=== PATIENT | female | born 1955 | race Asian ===

== ENCOUNTER 2018-02-09 07:22 | Day surgery (SDC) | payer OTHER ==
[~2018-02-09 07:22] MED LIST: LIDOCAINE 2% INJ 100 MG/5 ML SDV (FOR ANES.) As Ordered; PROPOFOL 200 MG/20 ML VIAL As Ordered
[2018-02-09] MEDS: NS 1,000 ML IV (07:30)
[2018-02-09] MEDS ORDERED: PROPOFOL 200 MG/20 ML VIAL As Ordered (08:58)
== END 2018-02-09 09:48 | disposition home or self-care (01) ==
LOC: M OPP 07:22
DX: K64.0 First degree hemorrhoids (principal); K64.4 Residual hemorrhoidal skin tags; D12.5 Benign neoplasm of sigmoid colon; D12.3 Benign neoplasm of transverse colon; K57.30 Diverticulosis of large intestine without perforation or abscess without bleeding; K92.1 Melena; E11.9 Type 2 diabetes mellitus without complications; I10 Essential (primary) hypertension; E78.00 Pure hypercholesterolemia, unspecified; E03.9 Hypothyroidism, unspecified; K21.9 Gastro-esophageal reflux disease without esophagitis; R06.83 Snoring; Z79.4 Long term (current) use of insulin; Z79.899 Other long term (current) drug therapy; Z91.040 Latex allergy status; Z78.0 Asymptomatic menopausal state; Z90.49 Acquired absence of other specified parts of digestive tract
CPT/HCPCS: 45380

== ENCOUNTER 2018-09-06 13:52 | Inpatient (IN) | payer OTHER ==
[2018-09-06] VITALS (19 sets, daily range): BP systolic 72–98; BP diastolic 41–54
[~2018-09-06] VITALS: Ht 152.4 cm; Wt 60.2 kg
[2018-09-06] MEDS: NOREPINEPHRINE BITARTRATE 8 MG in D5W 492 ML IV SCH (00:26)
[~2018-09-06 13:52] MED LIST changes: +ATOR40TA75 PO; +INSULANT SC; +JANU50TA22 PO; +LANTINJ4 SC; -LIDOCAINE 2% INJ 100 MG/5 ML SDV (FOR ANES.) As Ordered; +LOSA100T5 PO; +OMEP20CA3 PO; -PROPOFOL 200 MG/20 ML VIAL As Ordered; +SYNT75TA PO; +[UNRECOGNIZED DRUG - CODE] PO
[2018-09-06] MEDS ORDERED: PROMETHAZINE INJ 25 MG/ML VIAL (J2550) IV ONE (14:00)
[2018-09-06] MEDS ORDERED: NS 1,000 ML IV ONE ×5 (14:00→23:15)
[2018-09-06 15:53] LABS: HEMATOCRIT 45.3 % (36.0-47.0); HEMOGLOBIN 14.4 g/dl (12.0-15.5); MEAN CORPUSCULAR HEMOGLOBIN 30.4 pg (27.0-33.0); MEAN CORPUSCULAR HGB CONC 31.8 g/dl (32.0-36.5); MEAN CORPUSCULAR VOLUME 95.8 fl (80.0-96.0); PLATELET COUNT, AUTOMATED 242 10^3/uL (150-450); RED BLOOD COUNT 4.73 10^6/uL (4.00-5.40); WHITE BLOOD COUNT 4.5 10^3/uL (4.0-10.0)
[2018-09-06] MEDS ORDERED: GABA-1171 PO (16:02)
[2018-09-06] MEDS ORDERED: GLYB3TA PO (16:02)
[2018-09-06] MEDS ORDERED: VITA50005 PO (16:02)
[2018-09-06 16:18] LABS: ALBUMIN 3.7 GM/DL (3.2-5.2); BILIRUBIN,DIRECT 0.2 MG/DL (0.0-0.2); BILIRUBIN,TOTAL 0.5 MG/DL (0.2-1.0); CALCIUM LEVEL 8.4 MG/DL (8.8-10.2); CREATININE FOR GFR 1.17 MG/DL (0.55-1.30); GLOMERULAR FILTRATION RATE 49.9 (>45); MB/CK RELATIVE INDEX 1.15 (< OR =4); TOTAL PROTEIN 7.3 GM/DL (6.4-8.2); TROPONIN I 0.08 NG/ML (< 0.10)
[2018-09-06 16:25] LABS: LYMPHOCYTES 17 % (16-52); METAMYELOCYTES 3 % (0-0); MONOCYTES 6 % (0-8); NEUTROPHILS 64 % (35-75)
[2018-09-06 16:26] LABS: PLATELET ESTIMATE NORMAL (NORMAL)
[2018-09-06] MEDS ORDERED: POTASSIUM CHLORIDE 10% LIQ 20 MEQ/15 ML UDC PO ONE (16:30)
[2018-09-06 17:04] LABS: VENOUS BASE EXCESS -5.1 (-2.0-2.0); VENOUS O2 SATURATION 50.2 % (60.0-80.0); VENOUS PARTIAL PRESSURE CO2 55.6 mmHg (38.0-50.0); VENOUS PARTIAL PRESSURE O2 31.3 mmHg (30.0-50.0); VENOUS PH 7.235 UNITS (7.330-7.430); VENOUS STANDARD HCO3 19.3 MEQ/L; VENOUS TOTAL CO2 24.7 MEQ/L (24.0-28.0)
[2018-09-06] MEDS: NS 1,000 ML IV SCH (17:23)
[2018-09-06] MEDS ORDERED: DEXTROSE 50% 50 ML SYRINGE IV PRN (17:45)
[2018-09-06] MEDS ORDERED: GLUCAGON FOR INJ 1 MG VIAL (J1610) SC PRN (17:45)
[2018-09-06] MEDS ORDERED: GLUCOSE 4 GM CHEW TABLET PO PRN (17:45)
[2018-09-06] MEDS ORDERED: NS 1,000 ML IV STA (17:51)
[2018-09-06] MEDS ORDERED: HumaLOG INSULIN (NovoLOG) PER UNIT SC SCH (21:00)
[2018-09-06] MEDS: CIPROFLOXACIN 400 MG in APPROPRIATE DILUENT 1 EA IV SCH (21:46)
[2018-09-06] MEDS: IBUPROFEN 400 MG TAB PO PRN (21:47)
[2018-09-06] MEDS ORDERED: NOREPINEPHRINE 4 MG/4 ML AMP As Ordered ONE (23:09)
[2018-09-07] VITALS (136 sets, daily range): BP systolic 65–207; BP diastolic 40–98; O2SAT 95–99
[2018-09-07] MEDS ORDERED: SODIUM BICARBONATE 8.4% INJ 50 ML SYRINGE As Ordered ONE ×2 (00:13→00:16)
[2018-09-07] MEDS ORDERED: ETOMIDATE INJ 20MG/10ML VIAL As Ordered ONE (00:13)
[2018-09-07] MEDS ORDERED: SUCCINYLCHOLINE INJ 200 MG/10 ML VIAL (J0330) As Ordered ONE (00:14)
[2018-09-07] MEDS ORDERED: ETOMIDATE INJ 20MG/10ML VIAL IV ONE (00:15)
[2018-09-07] MEDS ORDERED: SUCCINYLCHOLINE INJ 200 MG/10 ML VIAL (J0330) IV ONE (00:15)
[2018-09-07 00:18] LABS: CENTRAL VEN BASE EXCESS -11.1
[2018-09-07 00:27] LABS: INR 1.22; PROTHROMBIN TIME 15.6 SECONDS (12.1-14.4)
[2018-09-07] MEDS ORDERED: fentaNYL 100 MCG/2 ML INJECTION (J3010) IV ONE (00:31)
[2018-09-07] MEDS ORDERED: SODIUM BICARBONATE 8.4% INJ 50 ML SYRINGE IV STA ×2 (00:31→00:33)
[2018-09-07] MEDS: NS 1,000 ML IV SCH ×2 (00:32→05:58)
[2018-09-07 00:36] LABS: HEMATOCRIT 32.7 % (36.0-47.0); MEAN CORPUSCULAR HEMOGLOBIN 30.6 pg (27.0-33.0); MEAN CORPUSCULAR HGB CONC 32.4 g/dl (32.0-36.5); MEAN CORPUSCULAR VOLUME 94.5 fl (80.0-96.0); PLATELET COUNT, AUTOMATED 234 10^3/uL (150-450); RED BLOOD COUNT 3.46 10^6/uL (4.00-5.40)
[2018-09-07] MEDS ORDERED: MIDAZOLAM INJ 2 MG/2 ML VIAL (J2250) IV STA ×2 (00:36→01:16)
[2018-09-07] MEDS ORDERED: LORazepam 2 MG/ML VIAL (J2060) As Ordered ONE (00:37)
[2018-09-07] MEDS ORDERED: MIDAZOLAM INJ 2 MG/2 ML VIAL (J2250) As Ordered ONE (00:38)
[2018-09-07] MEDS ORDERED: PROPOFOL 1,000 MG/100 ML VIAL As Ordered ONE (00:38)
[2018-09-07 00:42] LABS: ALBUMIN 2.2 GM/DL (3.2-5.2); BILIRUBIN,TOTAL 0.4 MG/DL (0.2-1.0); CALCIUM LEVEL 6.4 MG/DL (8.8-10.2); CREATININE FOR GFR 1.18 MG/DL (0.55-1.30); GLOMERULAR FILTRATION RATE 49.4 (>45); HEMOGLOBIN 10.6 g/dl (12.0-15.5); POTASSIUM SERUM 3.1 MEQ/L (3.5-5.1); TOTAL PROTEIN 4.5 GM/DL (6.4-8.2)
[2018-09-07] MEDS ORDERED: fentaNYL 100 MCG/2 ML INJECTION (J3010) As Ordered ONE (00:51)
[2018-09-07 01:11] LABS: LYMPHOCYTES 2 % (16-52); METAMYELOCYTES 8 % (0-0); MONOCYTES 2 % (0-8); NEUTROPHILS 75 % (35-75); PLATELET ESTIMATE NORMAL (NORMAL)
[2018-09-07] MEDS ORDERED: fentaNYL 100 MCG/2 ML INJECTION (J3010) IV PRN (01:15)
[2018-09-07] MEDS ORDERED: ALBUTEROL SULFATE 2.5 MG/0.5 ML INH NEB SOLN NEB PRN (01:15)
[2018-09-07] MEDS ORDERED: REFRIGERATOR IV KEYS XX PRN (01:45)
[2018-09-07 01:53] LABS: ABG HCO3 14.2 MEQ/L (22.0-26.0); ABG O2 SATURATION 97.9 % (95.0-99.0); ABG PARTIAL PRESSURE CO2 29.7 mmHg (35.0-45.0); ABG STANDARD HCO3 15.8 MEQ/L (22.0-26.0); ABG TOTAL CO2 15.1 MEQ/L (23.0-31.0); ABG pH (ARTERIAL) 7.296 UNITS (7.350-7.450)
[2018-09-07] MEDS: cefTRIAXone SOD 1 GM in D5W MINI-BAG PLUS 50 ML IV SCH (02:04)
[2018-09-07] MEDS: VASOPRESSIN INJ 20 UNITS in NS 500 ML IV SCH ×3 (02:23→18:38)
[2018-09-07] MEDS: MIDAZOLAM HCL 100 MG in D5W 80 ML IV SCH (02:25)
[2018-09-07 02:56] LABS: MAGNESIUM LEVEL 0.9 MG/DL (1.8-2.4); PHOSPHORUS LEVEL 2.1 MG/DL (2.5-4.9)
[2018-09-07] MEDS: MAG SULF 1GM/100ML (MAG RUN) 1 GM in APPROPRIATE DILUENT 1 EA IV SCH ×3 (03:00→05:57)
[2018-09-07] MEDS: PROPOFOL 1,000 MG in APPROPRIATE DILUENT 1 EA IV SCH ×5 (04:39→22:20)
[2018-09-07] MEDS: NOREPINEPHRINE BITARTRATE 8 MG in D5W 492 ML IV SCH ×5 (04:57→14:17)
[2018-09-07] MEDS: HEPARIN SOD (PORCINE) 5000 UNITS/ML VIAL SC SCH ×3 (05:57→22:12)
--- NOTE | 2018-09-07 06:55 | REP ---
Nickel: Central line placement. Comparison: None. Findings: Right IJ line with tip in the SVC. Mediastinum and cardiac silhouette are grossly normal for portable technique. Lung francis are relatively clear without focal consolidation, effusion, or pneumothorax. Skeletal structures intact. Impression: Right IJ line with tip in the SVC. Electronically Signed by Jt Wells MD 09/07/2018 06:46 A
[2018-09-07 07:38] LABS: HEMOGLOBIN 11.6 g/dl (12.0-15.5); MEAN CORPUSCULAR HEMOGLOBIN 31.1 pg (27.0-33.0); MEAN CORPUSCULAR HGB CONC 32.2 g/dl (32.0-36.5); MEAN CORPUSCULAR VOLUME 96.5 fl (80.0-96.0); PLATELET COUNT, AUTOMATED 264 10^3/uL (150-450); RED BLOOD COUNT 3.73 10^6/uL (4.00-5.40); WHITE BLOOD COUNT 21.1 10^3/uL (4.0-10.0)
--- NOTE | 2018-09-07 07:41 | REP ---
Status post intubation. Comparison: 09/06/2018. Findings: Endotracheal tube approximately 2.5 cm above the frederick. Nasogastric tube courses below left hemidiaphragm. Right IJ line with tip in the SVC. Mediastinum and cardiac silhouette are stable. Perihilar and bibasilar atelectasis (left greater than right) suggested. No effusion. No pneumothorax. Skeletal structures intact. Impression: Lines and tubes in satisfactory position. Cannot exclude perihilar and left basilar atelectasis Electronically Signed by Jt Wells MD 09/07/2018 07:33 A
[2018-09-07 07:51] LABS: CALCIUM LEVEL 5.8 MG/DL (8.8-10.2); CREATININE FOR GFR 1.08 MG/DL (0.55-1.30); GLOMERULAR FILTRATION RATE 54.7 (>45); POTASSIUM SERUM 3.3 MEQ/L (3.5-5.1)
[2018-09-07] MEDS: KCL 10MEQ/100ML SWI (KRUN) 10 MEQ in APPROPRIATE DILUENT 1 EA IV SCH ×3 (08:24→11:12)
[2018-09-07] MEDS: CHLORHEXIDINE GLUCONATE 0.12 % 15ML UDC (PERIDEX ORAL RINSE) MT SCH ×2 (08:24→20:22)
[2018-09-07 08:34] LABS: LYMPHOCYTES 3 % (16-52); MONOCYTES 5 % (0-8); MYELOCYTES 1 % (0-0); NEUTROPHILS 67 % (35-75)
[2018-09-07] MEDS: CIPROFLOXACIN 400 MG in APPROPRIATE DILUENT 1 EA IV SCH ×2 (08:35→20:21)
[2018-09-07 08:36] LABS: PLATELET ESTIMATE NORMAL (NORMAL)
[2018-09-07 08:38] LABS: ANISOCYTOSIS 1+
[2018-09-07] MEDS: IBUPROFEN 400 MG TAB PO PRN (08:40)
[2018-09-07 09:04] LABS: MAGNESIUM LEVEL 1.7 MG/DL (1.8-2.4)
[2018-09-07] MEDS ORDERED: NOREPINEPHRINE 4 MG/4 ML AMP As Ordered ONE (09:40)
[2018-09-07] MEDS: PANTOPRAZOLE 40MG INJ (PROTONIX) (C9113) IV SCH (10:01)
[2018-09-07] MEDS: LEVOTHYROXINE 100 MCG (0.1MG) VIAL IV SCH (11:12)
[2018-09-07] MEDS ORDERED: CALCIUM GLUCONATE 1,000 MG in D5W MINI-BAG PLUS 100 ML IV ONE (12:00)
[2018-09-07 12:08] LABS: ABG BASE EXCESS -9.7 (-2.0-2.0); ABG HCO3 14.3 MEQ/L (22.0-26.0); ABG PARTIAL PRESSURE CO2 26.2 mmHg (35.0-45.0); ABG PARTIAL PRESSURE O2 112.7 mmHg (75.0-100.0); ABG STANDARD HCO3 16.8 MEQ/L (22.0-26.0); ABG TOTAL CO2 15.1 MEQ/L (23.0-31.0); ABG pH (ARTERIAL) 7.355 UNITS (7.350-7.450)
--- NOTE | 2018-09-07 13:11 | RO ---
DATE OF PROCEDURE: 09/06/2018 INDICATION: Septic shock. PREPROCEDURE DIAGNOSIS: Septic shock. POSTPROCEDURE DIAGNOSIS: Septic shock. ATTENDING PHYSICIAN: Dr. Montoya. Consent was obtained from the patient prior to the procedure. Indication, risk and benefits were explained at length. The central line insertion form was completed by an independent observer. A time out was performed. Full sterile technique was maintained throughout the procedure including surgical cap, mask, and protective eyewear, full gown and sterile gloves. The patient was placed in Trendelenburg position. The right chest and neck region was prepped using Chlorhexidine scrub and draped in a sterile fashion. The right internal jugular vein was identified using ultrasound. Anesthesia was achieved using 1% Lidocaine. Using real-time add plane guidance an introducer needle was inserted into the right IJ under direct ultrasound visualization. Venous blood was withdrawn. The syringe was removed and a guidewire was advanced into the introducer needle. The guidewire was visualized in the right IJ by ultrasound. The introducer needle was then removed from the guidewire. A small incision was made at the skin surface with a scalpel. The dilator was then exchanged over the guidewire. Appropriate dilation was obtained the dilator was removed and exchanged over the wire for a triple lumen central venous catheter. The wire was removed and the catheter was sutured in placed at 18 cm. A sterile dressing was placed over the catheter at the insertion site. The patient tolerated the procedure without any hemodynamic compromise. At time of procedure completion all ports aspirated and flushed properly. Postprocedure chest x-ray showed right IJ in good position with no pneumothorax.
[2018-09-07 13:15] LABS: ALBUMIN 2.2 GM/DL (3.2-5.2); BILIRUBIN,TOTAL 0.6 MG/DL (0.2-1.0); CALCIUM LEVEL 6.8 MG/DL (8.8-10.2); CREATININE FOR GFR 1.06 MG/DL (0.55-1.30); GLOMERULAR FILTRATION RATE 55.9 (>45); POTASSIUM SERUM 3.9 MEQ/L (3.5-5.1); TOTAL PROTEIN 4.4 GM/DL (6.4-8.2)
--- NOTE | 2018-09-07 13:18 | RO ---
DATE OF PROCEDURE: 09/07/2018 INDICATION: Metabolic acidosis. PREPROCEDURE DIAGNOSIS: Septic shock. POSTPROCEDURE DIAGNOSIS: Septic shock. PROCEDURE: Endotracheal intubation. PROCEDURALIST: Aliza Montoya MD CONSENT: The procedure was performed emergently and the permission was implied because of the emergent nature. The patient's was notified that the procedure was going to proceed and he was in agreement. PROCEDURE SUMMARY: A time out was performed. The patient was on a monitoring tech including continuous pulse oximetry. Rapid sequence intubation was conducted. The patient received 20 mg of etomidate for induction and 15 mg of succinylcholine. Cricoid pressure was used. Using a MAC 4 laryngoscope and a size 7.5 endotracheal tube with stylet. The patient was intubated on the first pass attempt. The stylet was removed and the balloon cuff was inflated. Appropriate endotracheal tube position was confirmed by direct visualization of vocal cord passage, fogging of the tube, CO2 colorimetric indicator and symmetric breath sounds. The tube was secured at 22 cm at the lips. Post intubation chest x-ray is pending. [facility]ITALCookie
[2018-09-07] MEDS: NEUTRA-PHOS 1.25 GM PACKET PO SCH ×2 (13:19→20:21)
--- NOTE | 2018-09-07 14:09 | CR ---
DATE OF CONSULTATION: 09/06/2018 HISTORY OF PRESENT ILLNESS: Ms. Emerson is a 63-year-old female with a past medical history of diabetes, hypertension, hypothyroidism, hyperlipidemia, gastroesophageal reflux disease (GERD), who presented with vomiting and diarrhea. The patient had reportedly eaten some raw crab and then afterwards had copious amounts of vomiting, as well as diarrhea. In the emergency department (ED), the patient was hypotensive. She was tachycardic. The patient was given multiple intravenous (IV) fluid boluses and initially had responded to IV fluids. The patient was also started maintenance fluid at 150 mL/h. Overnight, the patient was noted to become hypotensive again. Was given another liter of normal saline bolus with minimal response in blood pressure. She had so far since admission a few hours ago received 6-7 liters normal saline boluses. The patient was given ciprofloxacin for antibiotic. The patient was also noted to be febrile with a temperature of 102. On exam she is awake and alert and responsive but drowsy. She denies any complaints currently. Has no abdominal pain, no further nausea or vomiting. She does continue to have foul smelling diarrhea. Patient was also noted to desaturate when sleeping and lying down and so was started on NC oxygen. She was also becoming more tachypneic but denies any CP or SOB, no cough. PAST MEDICAL HISTORY: As above. PAST SURGICAL HISTORY: A (C) section and tubal ligation. FAMILY HISTORY: Noncontributory. SOCIAL HISTORY: Nonsmoker. No illicit drug use. HOME MEDICATIONS: - atorvastatin - vitamin D - gabapentin - Lantus - Synthroid - omeprazole - losartan - Janumet - glyburide ALLERGIES: To LATEX. PHYSICAL EXAMINATION: Maximum temperature (Tmax) 102, pulse 113, blood pressure systolic was in the 70s, diastolic in the 40s-50s, saturating 95% to 96% on 2 liters nasal cannula, with a respiratory rate of 27. GENERAL: The patient is drowsy but arousable and conversant. HEENT: Normocephalic, atraumatic. Pupils are reactive and equal. Dry mucous membranes noted. Neck is supple. Trachea is midline. CARDIAC: Tachycardic. Regular S1, S2. No murmurs appreciated. LUNGS: Coarse breath sounds bilaterally. No wheezes, rales, or rhonchi. ABDOMEN: Is soft, mildly distended but nontender. Ext: There is no lower extremity edema noted bilaterally. LABORATORIES: WBC 4.5, hemoglobin 14.4, platelets 242. Chemistry: Sodium 144, potassium 3.0, chloride 107, bicarbonate 24, BUN 13, creatinine 1.17, glucose 117, anion gap of 13, lactic acid initially was 7.0 and repeat was 6.7, AST 50, ALT 81, troponin initial were negative, lipase was 173. A VBG had a pH of 7.235, PCO2 55.6. INR was 1.22. MICROBIOLOGY: Gastrointestinal (GI) panel was positive for Vibrio species, not Vibrio cholerae. ASSESSMENT AND PLAN: The patient is a 63-year-old female with a history of hypertension, diabetes, hypothyroidism, hyperlipidemia, who presented with complaints of vomiting and diarrhea after ingesting some raw an uncooked crab. The patient was hypotensive and febrile. Was given IV fluid boluses initially with improvement in her blood pressure and then later became hypotensive, unresponsive to fluids. The patient with septic shock in the setting of Vibrio, possibly Vibrio vulnificus, given her history and the septic shock. The patient was started on Levophed for blood pressure support and had a right internal jugular (IJ) line placed. The patient was requiring increasing dosages of Levophed up to 22 mcg/min. Given her hemodynamic instability and acidosis the decision was made for intubation. Discussed with patient and also her . The patient was intubated with etomidate and succinylcholine as well as receiving amp bicarb prior to intubation. Neurological: Patient is intubated, will continue sedation with propofol drip, as well as with Versed as needed and fentanyl as needed. The patient may require Versed drip for further sedation. Titrate sedation for a goal RASS of - 1 to -2 Cardiovascular: history of hypertension. The patient now in septic shock, likely secondary to Vibrio infection, possibly Vibrio vulnificus septicemia. The patient is on Levophed for blood pressure support. Will titrate to maintain a mean arterial pressure (MAP) above 65. If the patient is continuing to require high doses of Levophed, will start vasopressin for an additional pressor. The patient's lactic acid had trended down. Will repeat lactic acid to continue to trend. Pulmonary. The patient was intubated given her acidosis and septic shock. She is currently on pressure-regulated volume control (PRVC) at 360, 20, 50, and 5. Will continue to wean down FIO2 as tolerated. Will get daily chest x-rays. Will get an arterial blood gas (ABG) now that she has been intubated. Continue head-of-bed elevation and vent bundle care. Infectious disease (ID)/gastrointestinal (GI). The patient with septic shock, likely secondary to Vibrio, possible Vibrio vulnificus, given her presentation and severe sepsis. Will get blood cultures. The patient was given ciprofloxacin. Will add ceftriaxone to the ciprofloxacin. Continue the patient as nothing by mouth for now. Orogastric (OG) tube is placed to low wall intermittent suction. The patient was also given 2 amps of bicarbonate prior to intubation. Follow-up liver function tests. Renal. The patient with acute kidney injury likely in the setting of septic shock. Will continue to monitor renal function and renally dose medications. She was also hypokalemic. Was given potassium repletion. Will followup repeat potassium and a magnesium level and will replete electrolytes as needed. Will place a Murphy for accurate monitoring of intake and output. The patient also with a history of hypothyroidism. Will start IV Synthroid. Deep venous thrombosis (DVT) prophylaxis with heparin. FULL CODE. TOTAL CRITICAL CARE TIME SPENT: Not including any procedures: 1 hour and 50 minutes. MTDD
[2018-09-07] MEDS: HumaLOG INSULIN (NovoLOG) PER UNIT SC SCH ×5 (14:16→22:13)
--- NOTE | 2018-09-07 14:52 | ECGEPIP ---
Stationary ECG Study [facility] - ED Test Date: 2018-09-06 Pat Name: RAHUL MULTANI Department: Room: [place] [address] Gender: F Supervisor [employer]: JONATHAN : 1955 Requested By: VANESSA CARNEY Order Number: [id number] Reading MD: Mile Noguera Measurements Intervals Plaza Rate: 118 P: 48 NC: 170 QRS: 41 QRSD: 94 T: 12 QT: 362 QTc: 508 Interpretive Statements SINUS TACHYCARDIA ABNORMAL RHYTHM ECG NSTTW ABNORMALITY NO PRIOR FOR COMPARISON Electronically Signed On 09-07-2018 14:52:12 EST by Mile Noguera
--- NOTE | 2018-09-07 15:26 | CCN ---
DATE: 09/07/2018 The patient was seen and examined this morning. Patient is intubated and sedated. Is very minimally responsive to any painful stimuli at this time. She is on pressor support with Levophed at 26 mcg per minute as well as vasopressin. Patient continued to be febrile overnight and was started on a cooling blanket and given Ibuprofen for fever. Patient was sedated with propofol after intubation however she continued to be agitated when started on a Versed drip. Patient was given Fentanyl as well however her blood pressures decreased with the Fentanyl. With the Versed and Propofol the patient is sedated and her blood pressure have been maintaining with the vasopressor support. Overnight patient was repleated with magnesium and potassium. PHYSICAL EXAMINATION: Maximum temperature overnight was 100.2, pulse 85, respirations 20, blood pressure 91/58, Oxygen 97% on 40% FiO2. In 2.9 liters out, 1.5 liters net positive 2.8 liters. GENERAL: Patient is intubated and sedated. Very minimally responsive to any painful stimuli. HEENT: Normocephalic atraumatic. Pupils are small but reactive. The trachea is midline. Neck supple. No palpable adenopathy. CARDIOVASCULAR: Regular rate and rhythm. S1 and S2 normal. LUNGS: Course ventilator breath sounds bilaterally but no wheezes, rales, or rhonchi. ABDOMEN: Obese, soft and nontender. No hepatosplenomegaly. EXTREMITIES: There is no lower extremity edema noted bilaterally. LABS: WBC 21.1, hemoglobin 11.5, platelets 264, sodium 144, potassium 3.3, chloride 114, bicarbonate 17, BUN 20, creatinine 1.08, glucose 309, calcium 5.1, phosphorus 2.1 magnesium 0.9, INR 1.22, ABG pH 7.296, PcO2 29.7, Po2 123. Chest x-rays shows EG tube in good position. Right IJ in position. Right IJ with tip in the SUV. OG tube courses below the diaphragm. Low lung volumes, possible bibasilar atelectasis. No pleural effusions. ASSESSMENT AND PLAN: Mrs. Emerson is a 63-year-old female with a past medical history of hypothyroidism, diabetes, hyperlipidemia, hypertension who presented with vomiting an diarrhea after ingesting raw crab. Patient was febrile and initially did not have a leukocytosis but later developed leukocytosis. She was initially hypotensive but responding to fluids and then overnight patient became unresponsive to IV fluid boluses and required vasopressor support. Patient with septic shock likely secondary to Vibrio vulnificus given her GI panel results and her presentation which would be more consistent with septicemia secondary to Vibrio vulnificus. Patient was requiring increasing amounts of vasopressors and was noted to tachypneic in the setting of a metabolic acidosis. She was intubated given her hemodynamic instability overnight. Neurologic: Patient is a currently sedated while intubated. Patient was on Propofol however continued to be agitated requiring a versed drip. Will continue with Propofol and decrease Versed from 2 mg an hour to 1 mg an hour as this morning she is very deeply sedated. Continue with Fentanyl as needed 12.5 mcg as needed for any pain. Will continue to titrate sedation for a RASS of -2 Cardiovascular, history of hypertension. Patient now in septic shock secondary to Vibrio requiring vasopressor support. Patient is requiring high doses of Levophed. Was started on vasopressin drip overnight. This morning her blood pressure have been stable with the two pressors however have been unable to wean down the Levophed yet. Continue to titrate for a map above 65. Lactic acidosis was trending down. Pulmonary, patient was intubated secondary to septic shock with a metabolic acidosis. She is on PRVC currently and has been weaned down to 40% FiO2. Her ABG today continues to show some metabolic acidosis. Will increase her respiratory rate to compensate for the acidosis and followup a repeat ABG in 1 hour. Her settings will be 360/23/40/5. Chest x-ray today shows some bibasilar atelectasis but no pleural effusions or large focal opacities. Will continue daily chest x-rays and ABG's while intubated. GI, patient presented with vomiting and diarrhea. GI panel was positive for Vibrio likely vulnificus secondary to raw crab ingestion. Patient was started on Ciprofloxacin for antibiotics. Ceftriaxone was added overnight to the antibiotic regimen. Patient also has an OG tube placed to low intermittent suction. Will keep her nothing by mouth for now. Continue GI prophylaxis with Protonix. Renal, patient with acute kidney injury in the setting of hypotension and dehydration. Her creatinine is improving today. She is also noted to have significant metabolic derangements likely secondary to her diarrhea and vomiting. She was repleated overnight with magnesium and potassium. We will repleate phosphorus today and calcium and continue to monitor electrolytes and continue to repleate as needed. Patient continue to have a metabolic acidosis. Has an anion gap of 13, however likely component of non-anion gap metabolic acidosis secondary to hyperchloremia given the multiple normal saline boluses and normal saline infusion. Will discontinue her normal saline IV fluid and continue to monitor her fluid status. She is net positive currently. Continue to monitor renal function and renally dose the medications. Deep venous thrombosis prophylaxis with heparin. Patient is a FULL CODE. Total critical care time spent not including any procedures approximately 50 minutes. MTDD
[2018-09-07 15:52] LABS: MAGNESIUM LEVEL 1.7 MG/DL (1.8-2.4)
--- NOTE | 2018-09-07 17:03 | HPE ---
DATE OF ADMISSION: 09/06/2018 63-year-old female with past medical history of diabetes, hypertension, hyperlipidemia, hypothyroidism, presents to the emergency room with multiple massive episodes of projectile vomiting and diarrhea which occurred at approximately 12 o'clock this afternoon. According to her , she had some raw clams around 10 o'clock this morning and nobody else in the family had it. She has been fine before this. She has never had similar episodes and has not been around any sick contacts. In the emergency room (ER), she was given approximately 4 liters, she was hypotensive, as low as systolic 75, and tachycardic, but she has improved after 4 liters of IV fluids, she is now systolic 90s. She is lethargic, but is awake, alert, oriented times three and will be admitted for further management. PAST MEDICAL HISTORY: Hypertension, diabetes, hyperlipidemia, hypothyroidism, gastroesophageal reflux disease (GERD). ALLERGIES: No known drug allergies. FAMILY HISTORY: Noncontributory. SOCIAL HISTORY: Patient denies tobacco, alcohol, or illicit drugs. MEDICATIONS: She takes at home are as follows: - atorvastatin 40 mg by mouth daily - ergocalciferol 50,000 units by mouth weekly - gabapentin 100 mg by mouth twice a day - glyburide 3 mg by mouth twice a day - Lantus unknown dose subcutaneous daily, needs to be reconciled - Synthroid 75 mcg by mouth daily - losartan/hydrochlorothiazide 100/25 one tablet by mouth daily - omeprazole 20 mg daily - sitagliptin/metformin 50/500 mg one tablet by mouth twice a day REVIEW OF SYSTEMS: Negative for all ten major systems except what has been mentioned in the history of present illness (HPI). Vital signs: Blood pressure is 92/56, heart rate is 113 and regular, respiratory rate is 20, temperature is 97.8 rectally, oxygen saturation is 93% on room air. Head is atraumatic, normocephalic. Neck is supple, no jugular venous distention (JVD). Lungs are clear to auscultation. S1, S2 audible, no murmurs appreciated. Abdomen is soft, positive bowel sounds. No pedal edema. Skin intact. Neurologic examination: Patient is lethargic, but awake, alert, oriented times three. LABORATORY DATA: WBC 4.5, hemoglobin 14.4, hematocrit 45.3, platelets 242,000, sodium 144, potassium 2.0, chloride 107, CO2 24, anion gap 13, BUN 13, creatinine 1.17, lactic acid 7, fasting glucose 117, AST 50, ALT 81, total bilirubin 0.5, troponin 0.08, lipase 173. Venous blood gas (VBG): pH was 7.235. IMPRESSION: 1. Acute gastroenteritis. 2. Hypotension. 3. Hypokalemia. PLAN: Patient is being admitted to the intensive care unit (ICU). Will continue IV fluids and normal saline at 125 mL/hour. She is improving. I have put her in the intensive care unit (ICU) just in case the patient does not improve or cannot catch up with her volume loss and may require pressors, but at this point I highly doubt it. I will give her IV ciprofloxacin at 400 every 12 hours. We will get a gastrointestinal (GI) panel once she is able to give us a stool specimen. Though I feel this is likely a viral gastroenteritis, I do not feel that she has suffered from food poisoning because of the short latency between when she inoculated herself and presented with her symptoms. Will put a hold on all of her medications for now and will put her on insulin sliding scale with fingersticks done before food and nightly and continue her care in the intensive care unit (ICU).
[2018-09-07] MEDS ORDERED: MAG SULF 1GM/100ML (MAG RUN) 1 GM in APPROPRIATE DILUENT 1 EA IV ONE (18:00)
[2018-09-07] MEDS: NOREPINEPHRINE BITARTRATE 16 MG in D5W 484 ML IV SCH (19:07)
[2018-09-08] VITALS (118 sets, daily range): BP systolic 94–154; BP diastolic 49–89; O2SAT 97
[2018-09-08] MEDS: cefTRIAXone SOD 1 GM in D5W MINI-BAG PLUS 50 ML IV SCH (00:46)
[2018-09-08] MEDS: HumaLOG INSULIN (NovoLOG) PER UNIT SC SCH ×8 (00:47→20:52)
[2018-09-08] MEDS: MIDAZOLAM HCL 100 MG in D5W 80 ML IV SCH (02:09)
[2018-09-08] MEDS: VASOPRESSIN INJ 20 UNITS in NS 500 ML IV SCH ×3 (02:18→18:23)
[2018-09-08] MEDS: PROPOFOL 1,000 MG in APPROPRIATE DILUENT 1 EA IV SCH ×5 (03:34→22:50)
[2018-09-08] MEDS: NOREPINEPHRINE BITARTRATE 16 MG in D5W 484 ML IV SCH (04:50)
[2018-09-08] MEDS: HEPARIN SOD (PORCINE) 5000 UNITS/ML VIAL SC SCH ×3 (06:04→20:54)
[2018-09-08 06:18] LABS: HEMATOCRIT 32.9 % (36.0-47.0); HEMOGLOBIN 10.9 g/dl (12.0-15.5); MEAN CORPUSCULAR HEMOGLOBIN 30.5 pg (27.0-33.0); MEAN CORPUSCULAR HGB CONC 33.1 g/dl (32.0-36.5); MEAN CORPUSCULAR VOLUME 92.2 fl (80.0-96.0); PLATELET COUNT, AUTOMATED 189 10^3/uL (150-450); RED BLOOD COUNT 3.57 10^6/uL (4.00-5.40); WHITE BLOOD COUNT 15.2 10^3/uL (4.0-10.0)
[2018-09-08 06:45] LABS: BASOPHILS 1 % (0-4); LYMPHOCYTES 6 % (16-52); MONOCYTES 1 % (0-8); NEUTROPHILS 85 % (35-75)
[2018-09-08 06:46] LABS: DOHLE BODIES 1+; PLATELET ESTIMATE NORMAL (NORMAL)
[2018-09-08 06:48] LABS: ALBUMIN 2.2 GM/DL (3.2-5.2); ALT/SGPT 56 U/L (12-78); BILIRUBIN,TOTAL 0.6 MG/DL (0.2-1.0); BLOOD UREA NITROGEN 9 MG/DL (7-18); CALCIUM LEVEL 6.6 MG/DL (8.8-10.2); CARBON DIOXIDE LEVEL 19 MEQ/L (21-32); CHLORIDE LEVEL 103 MEQ/L (98-107); CREATININE FOR GFR 0.77 MG/DL (0.55-1.30); GLOMERULAR FILTRATION RATE > 60.0 (>45); GLUCOSE, FASTING 189 MG/DL (70-100); MAGNESIUM LEVEL 1.8 MG/DL (1.8-2.4); PHOSPHORUS LEVEL 1.3 MG/DL (2.5-4.9); POTASSIUM SERUM 3.1 MEQ/L (3.5-5.1); SODIUM LEVEL 133 MEQ/L (136-145); TOTAL PROTEIN 5.3 GM/DL (6.4-8.2)
--- NOTE | 2018-09-08 08:03 | REP ---
Clinical: Intubation . Comparison: 09/07/2018 . Findings: Endotracheal tube 3 cm above the frederick. Right IJ line with tip in the SVC. Nasogastric tube courses below left hemidiaphragm. The mediastinum and cardiac silhouette are stable and within normal limits for portable technique. The lung francis are stable. No effusion. No pneumothorax. Impression: No acute cardiopulmonary process appreciated. Electronically Signed by Jt Wells MD 09/08/2018 07:54 A
[2018-09-08] MEDS: LEVOTHYROXINE 100 MCG (0.1MG) VIAL IV SCH (08:39)
[2018-09-08] MEDS: NEUTRA-PHOS 1.25 GM PACKET PO SCH ×2 (08:39→20:53)
[2018-09-08] MEDS: PANTOPRAZOLE 40MG INJ (PROTONIX) (C9113) IV SCH (08:39)
[2018-09-08] MEDS: CHLORHEXIDINE GLUCONATE 0.12 % 15ML UDC (PERIDEX ORAL RINSE) MT SCH ×2 (08:40→20:54)
[2018-09-08] MEDS: CIPROFLOXACIN 400 MG in APPROPRIATE DILUENT 1 EA IV SCH (08:41)
[2018-09-08] MEDS: KCL 20MEQ IN 100ML SWI (KRUN) 20 MEQ in APPROPRIATE DILUENT 1 EA IV SCH ×6 (09:55→22:52)
[2018-09-08] MEDS ORDERED: POTASSIUM PHOSPHATE INJ 20 MMOL in D5W 250 ML IV ONE ×2 (10:00→20:00)
[2018-09-08] MEDS: MAG SULF 1GM/100ML (MAG RUN) 1 GM in APPROPRIATE DILUENT 1 EA IV SCH ×2 (11:10→12:42)
[2018-09-08 11:30] LABS: ABG BASE EXCESS -3.4 (-2.0-2.0); ABG HCO3 19.5 MEQ/L (22.0-26.0); ABG PARTIAL PRESSURE CO2 28.2 mmHg (35.0-45.0); ABG PARTIAL PRESSURE O2 105.6 mmHg (75.0-100.0); ABG PATIENT RESP RATE 23 /MIN; ABG STANDARD HCO3 21.7 MEQ/L (22.0-26.0); ABG TOTAL CO2 20.3 MEQ/L (23.0-31.0); ABG pH (ARTERIAL) 7.457 UNITS (7.350-7.450)
[2018-09-08] MEDS: DOXYCYCLINE HYCLATE 100 MG in D5W MINI-BAG PLUS 100 ML IV SCH (11:33)
--- NOTE | 2018-09-08 11:45 | CCN ---
DATE: 09/08/2018 Patient was seen and examined this morning. She remains intubated and sedated. Is responsive to painful stimuli. She has been weaned down on her Levophed to 14 mcg per minute and is continued on vasopressin. Patient continues to have fevers overnight with a T-max of 101.1. The patient was weaned down on her Versed to 1 mg an hour and has been continued on propofol which has also been weaned down. PHYSICAL EXAMINATION: T-max 101.1, pulse 74, respirations 23, blood pressure 126/70, oxygen 98% on 35% FiO2. INTAKE AND OUTPUT: In 6.5 liters, out 2.6 liters, net positive 3.9 liters. GENERAL: Patient is intubated and sedated, is responsive to painful stimuli. HEENT: Normocephalic, atraumatic. Pupils are reactive bilaterally. The trachea is midline. Neck supple. No palpable cervical adenopathy. CARDIOVASCULAR: Regular rate and rhythm. S1 and S2 normal. No murmurs appreciated. LUNGS: Some course ventilator breath sounds bilaterally, but no wheezes, rales, or rhonchi. ABDOMEN: Obese, soft and nontender. No hepatosplenomegaly palpated. EXTREMITIES: There is no lower extremity edema noted bilaterally. LABS: WBC 15.2, hemoglobin 10.9, platelets 189. Sodium 133, potassium 3.1, chloride 103, bicarbonate 19, BUN 9, creatinine 0.77, glucose 189, calcium 6.6, corrected is 8.0, phosphorus is 1.3, magnesium 1.8. ABG is still pending. Chest x-rays shows the ET tube in good position. Right IJ line is in good position. Her OG tube is coursing below the diaphragm. There is no focal opacities or pleural effusions. ASSESSMENT AND PLAN: Mrs. Emerson is a 63-year-old female with a history of hypothyroidism, diabetes, hyperlipidemia, hypertension who presented with vomiting and diarrhea after ingesting raw crab. Patient was febrile with a leukocytosis and later became hypotensive, not responding to fluids. The patient with septic shock likely secondary to Vibrio species, possibly vulnificus given her presentation of severe sepsis with shock requiring vasopressors. The patient was intubated given her hemodynamic instability and acidosis. She was initially on max Levophed and vasopressin, however, overnight have been able to titrate down her Levophed. Neuro. Patient is currently sedated while she is intubated. She is on propofol and a Versed drip which was weaned down to 1 mg/hour. Will discontinue Versed drip and continue with propofol and wean down as tolerated. Continue with fentanyl as needed for pain. Will titrate sedation for a Ghislaine of 2-3. Will add daily sedation vacations. Cardiovascular. History of hypertension. Patient with septic shock secondary to Vibrio requiring vasopressor support. Patient has been weaned down on the Levophed to 14 mcg per minute and is continued on vasopressin. Continue to wean down pressors as tolerated for a goal MAP above 65. Lactic acidosis is trending down. Pulmonary. Patient is intubated secondary to septic shock with a metabolic acidosis. Patient is continued on PRVC, FiO2 has been weaned down to 35%. ABG is still pending for today. Chest x-ray does not show any focal opacities or effusions. Will continue with daily ABG and chest x-rays while intubated. Cont with [facility] care Gastrointestinal (GI). She presented with vomiting and diarrhea after raw crab ingestion. GI panel was positive for Vibrio, not a cholera species, likely vulnificus given her severe sepsis. Patient was initially given ciprofloxacin, ceftriaxone was added. Will discontinue the Cipro and change to doxycycline. Will likely need to continue for a 10 day course of antibiotics. OG tube is in place. Will start tube feeds at a trophic rate. She continues to have occasional episodes of diarrhea, although it has been lessening. Continue GI prophylaxis with Protonix. Renal. Patient with acute kidney injury in the setting of hypotension and dehydration. Her creatinine has improved. She does continue to have electrolytes derangements, and is continuing to be repleted with her electrolytes. Patient was also noted to have elevated fingerstick glucose. She was started on sliding scale coverage with improvement in her fingersticks. Will change from every 2 hours to every 4 hours and continue with sliding scale coverage as needed. The patient's IV fluids were discontinued. Continue to monitor intake and output. Is still net positive currently. Deep venous thrombosis prophylaxis with heparin. Patient is a FULL CODE. Total critical care time spent, not including any procedures, approximately 45 minutes. [facility]
[2018-09-08 17:08] LABS: ALBUMIN 2.2 GM/DL (3.2-5.2); ALT/SGPT 50 U/L (12-78); BILIRUBIN,TOTAL 0.7 MG/DL (0.2-1.0); BLOOD UREA NITROGEN 8 MG/DL (7-18); CALCIUM LEVEL 6.5 MG/DL (8.8-10.2); CARBON DIOXIDE LEVEL 19 MEQ/L (21-32); CHLORIDE LEVEL 98 MEQ/L (98-107); CHOLESTEROL LEVEL 141 MG/DL (< 200); CPK CREATINE PHOSPHOKINASE 292 U/L (26-192); GLOMERULAR FILTRATION RATE > 60.0 (>45); GLUCOSE, FASTING 210 MG/DL (70-100); LDH LACTATE DEHYDROGENASE 302 U/L (84-246); MAGNESIUM LEVEL 1.9 MG/DL (1.8-2.4); PHOSPHORUS LEVEL 1.6 MG/DL (2.5-4.9); POTASSIUM SERUM 3.3 MEQ/L (3.5-5.1); SODIUM LEVEL 129 MEQ/L (136-145); TOTAL PROTEIN 5.2 GM/DL (6.4-8.2); TRIGLYCERIDES LEVEL 745 MG/DL (<150)
[2018-09-08] MEDS: fentaNYL 100 MCG/2 ML INJECTION (J3010) IV PRN (20:30)
[2018-09-08] MEDS ORDERED: MIDAZOLAM INJ 2 MG/2 ML VIAL (J2250) As Ordered ONE (20:37)
[2018-09-08] MEDS ORDERED: MIDAZOLAM INJ 2 MG/2 ML VIAL (J2250) IV PRN (20:45)
[2018-09-08] MEDS: MIDAZOLAM INJ 2 MG/2 ML VIAL (J2250) IV PRN ×2 (20:56→22:49)
[2018-09-09] VITALS (43 sets, daily range): BP systolic 87–167; BP diastolic 51–88; O2SAT 99
[2018-09-09] MEDS: MIDAZOLAM INJ 2 MG/2 ML VIAL (J2250) IV PRN ×8 (00:01→20:11)
[2018-09-09] MEDS: NOREPINEPHRINE BITARTRATE 16 MG in D5W 484 ML IV SCH ×3 (00:31→23:56)
[2018-09-09] MEDS: DOXYCYCLINE HYCLATE 100 MG in D5W MINI-BAG PLUS 100 ML IV SCH ×3 (00:32→23:55)
[2018-09-09] MEDS: HumaLOG INSULIN (NovoLOG) PER UNIT SC SCH ×6 (00:32→23:56)
[2018-09-09] MEDS: cefTRIAXone SOD 1 GM in D5W MINI-BAG PLUS 50 ML IV SCH (00:32)
[2018-09-09] MEDS: KCL 20MEQ IN 100ML SWI (KRUN) 20 MEQ in APPROPRIATE DILUENT 1 EA IV SCH ×10 (00:33→17:21)
[2018-09-09] MEDS: VASOPRESSIN INJ 20 UNITS in NS 500 ML IV SCH ×3 (03:02→17:26)
[2018-09-09] MEDS: PROPOFOL 1,000 MG in APPROPRIATE DILUENT 1 EA IV SCH ×3 (03:46→21:35)
[2018-09-09] MEDS: PROMETHAZINE INJ 25 MG/ML VIAL (J2550) IV SCH (05:29)
[2018-09-09] MEDS: HEPARIN SOD (PORCINE) 5000 UNITS/ML VIAL SC SCH ×3 (05:29→21:35)
[2018-09-09] MEDS: LEVOTHYROXINE 75MCG TABLET (0.075MG) PO SCH (05:29)
[2018-09-09 05:45] LABS: ABG BASE EXCESS -1.2 (-2.0-2.0); ABG HCO3 20.9 MEQ/L (22.0-26.0); ABG O2 SATURATION 98.1 % (95.0-99.0); ABG PARTIAL PRESSURE CO2 26.5 mmHg (35.0-45.0); ABG PARTIAL PRESSURE O2 108.9 mmHg (75.0-100.0); ABG STANDARD HCO3 23.5 MEQ/L (22.0-26.0); ABG TOTAL CO2 21.7 MEQ/L (23.0-31.0); ABG pH (ARTERIAL) 7.515 UNITS (7.350-7.450)
[2018-09-09 05:50] LABS: HEMATOCRIT 27.3 % (36.0-47.0); HEMOGLOBIN 9.4 g/dl (12.0-15.5); MEAN CORPUSCULAR HEMOGLOBIN 30.8 pg (27.0-33.0); MEAN CORPUSCULAR HGB CONC 34.4 g/dl (32.0-36.5); MEAN CORPUSCULAR VOLUME 89.5 fl (80.0-96.0); PLATELET COUNT, AUTOMATED 133 10^3/uL (150-450); RED BLOOD COUNT 3.05 10^6/uL (4.00-5.40); WHITE BLOOD COUNT 8.3 10^3/uL (4.0-10.0)
[2018-09-09 06:20] LABS: ALT/SGPT 46 U/L (12-78); BILIRUBIN,TOTAL 0.6 MG/DL (0.2-1.0); BLOOD UREA NITROGEN 7 MG/DL (7-18); CALCIUM LEVEL 6.5 MG/DL (8.8-10.2); CARBON DIOXIDE LEVEL 20 MEQ/L (21-32); CHLORIDE LEVEL 98 MEQ/L (98-107); CREATININE FOR GFR 0.59 MG/DL (0.55-1.30); GLOMERULAR FILTRATION RATE > 60.0 (>45); GLUCOSE, FASTING 168 MG/DL (70-100); MAGNESIUM LEVEL 1.7 MG/DL (1.8-2.4); PHOSPHORUS LEVEL 1.3 MG/DL (2.5-4.9); POTASSIUM SERUM 3.1 MEQ/L (3.5-5.1); SODIUM LEVEL 129 MEQ/L (136-145); TOTAL PROTEIN 4.9 GM/DL (6.4-8.2)
[2018-09-09 06:40] LABS: LYMPHOCYTES 5 % (16-52); MONOCYTES 2 % (0-8); NEUTROPHILS 91 % (35-75)
[2018-09-09 06:41] LABS: DOHLE BODIES 1+; PLATELET ESTIMATE DECREASED (NORMAL); SMUDGE CELLS 1+
[2018-09-09] MEDS: NEUTRA-PHOS 1.25 GM PACKET PO SCH ×3 (07:51→20:22)
[2018-09-09] MEDS: CHLORHEXIDINE GLUCONATE 0.12 % 15ML UDC (PERIDEX ORAL RINSE) MT SCH ×2 (07:52→20:22)
[2018-09-09] MEDS: PANTOPRAZOLE 40MG INJ (PROTONIX) (C9113) IV SCH (07:52)
--- NOTE | 2018-09-09 08:23 | REP ---
Clinical: Intubation. Comparison: 09/08/2018. Findings: Endotracheal tube 2 cm above the frederick. Nasogastric tube courses below left hemidiaphragm. Right IJ line with tip in the SVC. Cardiac silhouette is within normal limits and stable for portable technique. Perihilar opacities with indistinct pulmonary vasculature and suspected left lower lobe atelectasis. No definite effusion. No pneumothorax. Skeletal structures intact. Impression: 1. Lines and tubes in satisfactory position. 2. Cannot exclude pulmonary vascular congestion along with trace left basilar atelectasis. Electronically Signed by Jt Wells MD 09/09/2018 08:15 A
[2018-09-09 08:54] LABS: ABG BASE EXCESS -3.4 (-2.0-2.0); ABG FIO2 30; ABG HCO3 18.6 MEQ/L (22.0-26.0); ABG MODE OF VENT PRVC; ABG O2 SATURATION 98.5 % (95.0-99.0); ABG PARTIAL PRESSURE CO2 24.5 mmHg (35.0-45.0); ABG PARTIAL PRESSURE O2 135.5 mmHg (75.0-100.0); ABG PEEP 5; ABG STANDARD HCO3 21.6 MEQ/L (22.0-26.0); ABG TIDAL VOLUME 350 cc; ABG TOTAL CO2 19.3 MEQ/L (23.0-31.0); ABG pH (ARTERIAL) 7.498 UNITS (7.350-7.450)
--- NOTE | 2018-09-09 09:55 | CCN ---
DATE: 09/09/2018 START TIME: 829 STOP TIME: 909 I attended Adiel Emreson here in the intensive care unit. She remains intubated, sedated and mechanically ventilated. Over the last hour, we have been able to wean her Levophed. She remains on vasopressin. She still requires very significant levels of sedative with propofol and intermittent Versed. Agitated and does not follow commands when sedation lightened. T-max overnight 99.7. Blood pressure 80s to 140s on the pressors as outlined above. Heart rate generally in the 60s to 80s with a sinus mechanism. Respiratory rate 23. Ins and outs midnight to midnight 4023 mL in with 1870 mL out. Most recent laboratories show a white blood cell count of 8.3, hemoglobin 9.4, platelet count 133,000, 91% segs, 2% bands. Sodium 129, potassium 3.1, chloride 98, CO2 20, BUN 7, creatinine 0.59, glucose 168, calcium 6.5. Phosphorus low at 1.3. Magnesium low mildly at 1.7. Blood gas one on a PRVC rate of 23, tidal volume 360, PEEP 5, FiO2 of 30% has a pH of 7.515, pCO2 6.5 and pO2 of 108.9. On a rate of 15, same tidal volume and PEEP, pH 7.498, pCO2 of 24.5 and po2 of 135.5. She does over breathe on that setting. Chest x-ray shows a suboptimal inspiratory effort with most likely vascular crowding, cannot rule out vascular congestion. On exam, she is ill appearing. Vital signs as outlined above. Lines and tubes are noted. HEENT: Otherwise generally normocephalic. Oral endotracheal and gastric tube in place. Pupils do react, sclerae are clear. No obvious jugular venous distention (JVD). Trachea is in the midline. Chest shows symmetric expansion with scattered rhonchi. No wheezes or rubs are noted. Cardiac exam is distant, but regular. Peripheral pulses palpable. There is diffuse edema noted. Abdomen is minimally distended. There are active bowel sounds, somewhat hyperactive. Appears nontender. No obvious organomegaly or masses. Neurologically, she is sedate, but somewhat agitated when sedation is lightened. Does not follow commands. No other new culture data available. Stool screen positive for Vibrio. Ulcer and deep vein thrombosis (DVT) prophylaxis in place. She remains on Rocephin and doxycycline per Dr. Montoya's discussion with infection diseases. Most pressing problems requiring my presence at the bedside: 1. Respiratory alkalosis. 2. Respiratory failure requiring mechanical ventilatory support. 3. Vibrio sepsis. 4. Hypokalemia. 5. Hyponatremia. At this point, we will continue her electrolyte replacement. She has not been able to tolerate much in the way of tube feeds due to high residuals. I am reluctant to add any motility agents as she already has profound diarrhea and since we need her to clear the Vibrio toxin we cannot really slow her gut motility down. We will add a maintenance IV fluid. We will continue to replete her potassium, phosphorus and magnesium. When we are able to wean all of her vasopressor agents, then my hopes is that we can push towards at least a trial of extubation. Will check her sputum as she has had some intermittent secretions from endotracheal tube somewhat discolored, but she is already on Rocephin and doxycycline. At this point overall she does remain critically ill. It is encouraging that we have been able to wean her Levophed. Will proceed as outlined above. Prognosis remains guarded in view of the degree of diarrhea that she is still having and her persistent electrolyte abnormalities. I left the bedside at 0910 hours. 40 minutes of critical care delivered at the bedside, not including procedures.
[2018-09-09] MEDS: KCL 40MEQ IN D5/0.45NS 1000ML 1,000 ML IV SCH ×3 (10:13→23:56)
[2018-09-09 10:40] LABS: ABG BASE EXCESS -4.1 (-2.0-2.0); ABG O2 SATURATION 98.3 % (95.0-99.0); ABG PARTIAL PRESSURE CO2 24.3 mmHg (35.0-45.0); ABG PARTIAL PRESSURE O2 137.1 mmHg (75.0-100.0); ABG TOTAL CO2 18.8 MEQ/L (23.0-31.0); ABG pH (ARTERIAL) 7.488 UNITS (7.350-7.450)
[2018-09-09 15:52] LABS: BLOOD UREA NITROGEN 6 MG/DL (7-18); CALCIUM LEVEL 6.7 MG/DL (8.8-10.2); CARBON DIOXIDE LEVEL 23 MEQ/L (21-32); CHLORIDE LEVEL 100 MEQ/L (98-107); GLOMERULAR FILTRATION RATE > 60.0 (>45); GLUCOSE, FASTING 217 MG/DL (70-100); POTASSIUM SERUM 3.3 MEQ/L (3.5-5.1); SODIUM LEVEL 130 MEQ/L (136-145)
[2018-09-09 22:36] LABS: ALBUMIN 2.2 GM/DL (3.2-5.2); ALT/SGPT 40 U/L (12-78); BILIRUBIN,TOTAL 0.5 MG/DL (0.2-1.0); BLOOD UREA NITROGEN 5 MG/DL (7-18); CALCIUM LEVEL 7.8 MG/DL (8.8-10.2); CARBON DIOXIDE LEVEL 22 MEQ/L (21-32); CHLORIDE LEVEL 118 MEQ/L (98-107); CREATININE FOR GFR 0.73 MG/DL (0.55-1.30); GLOMERULAR FILTRATION RATE > 60.0 (>45); GLUCOSE, FASTING 252 MG/DL (70-100); POTASSIUM SERUM 4.5 MEQ/L (3.5-5.1); SODIUM LEVEL 147 MEQ/L (136-145); TOTAL PROTEIN 5.3 GM/DL (6.4-8.2)
[2018-09-10] VITALS (44 sets, daily range): BP systolic 83–207; BP diastolic 51–107; O2SAT 98
[2018-09-10] MEDS: cefTRIAXone SOD 1 GM in D5W MINI-BAG PLUS 50 ML IV SCH (01:11)
[2018-09-10] MEDS: PROPOFOL 1,000 MG in APPROPRIATE DILUENT 1 EA IV SCH ×3 (01:11→16:30)
[2018-09-10] MEDS: VASOPRESSIN INJ 20 UNITS in NS 500 ML IV SCH (02:12)
[2018-09-10] MEDS: MIDAZOLAM INJ 2 MG/2 ML VIAL (J2250) IV PRN ×5 (04:21→23:38)
[2018-09-10] MEDS: LEVOTHYROXINE 75MCG TABLET (0.075MG) PO SCH (05:26)
[2018-09-10] MEDS: HEPARIN SOD (PORCINE) 5000 UNITS/ML VIAL SC SCH ×3 (05:26→21:04)
[2018-09-10] MEDS: HumaLOG INSULIN (NovoLOG) PER UNIT SC SCH ×3 (05:39→18:33)
[2018-09-10 05:47] LABS: BASO % 0.3 % (0.0-1.0); EOS # 0.1 10^3/uL (0.0-0.50); EOS % 0.8 % (0.0-3.0); HEMATOCRIT 28.6 % (36.0-47.0); HEMOGLOBIN 9.7 g/dl (12.0-15.5); LYMPH # 0.9 10^3/uL (1.5-4.5); LYMPH % 13.6 % (24.0-44.0); MEAN CORPUSCULAR HEMOGLOBIN 30.6 pg (27.0-33.0); MEAN CORPUSCULAR HGB CONC 33.9 g/dl (32.0-36.5); MEAN CORPUSCULAR VOLUME 90.2 fl (80.0-96.0); MONO # 0.5 10^3/uL (0.0-0.8); MONO % 7.3 % (0.0-5.0); NEUTROPHILS % 77.5 % (36.0-66.0); PLATELET COUNT, AUTOMATED 170 10^3/uL (150-450); RED BLOOD COUNT 3.17 10^6/uL (4.00-5.40); WHITE BLOOD COUNT 6.4 10^3/uL (4.0-10.0)
[2018-09-10 06:25] LABS: ALBUMIN 2.2 GM/DL (3.2-5.2); ALT/SGPT 38 U/L (12-78); BILIRUBIN,TOTAL 0.4 MG/DL (0.2-1.0); BLOOD UREA NITROGEN 3 MG/DL (7-18); CALCIUM LEVEL 7.7 MG/DL (8.8-10.2); CARBON DIOXIDE LEVEL 23 MEQ/L (21-32); CHLORIDE LEVEL 119 MEQ/L (98-107); CREATININE FOR GFR 0.76 MG/DL (0.55-1.30); GLOMERULAR FILTRATION RATE > 60.0 (>45); GLUCOSE, FASTING 258 MG/DL (70-100); MAGNESIUM LEVEL 1.8 MG/DL (1.8-2.4); PHOSPHORUS LEVEL 0.5 MG/DL (2.5-4.9); POTASSIUM SERUM 3.9 MEQ/L (3.5-5.1); SODIUM LEVEL 150 MEQ/L (136-145); TOTAL PROTEIN 5.4 GM/DL (6.4-8.2)
[2018-09-10 06:34] LABS: ABG BASE EXCESS -2.2 (-2.0-2.0); ABG HCO3 20.9 MEQ/L (22.0-26.0); ABG O2 SATURATION 97.4 % (95.0-99.0); ABG PARTIAL PRESSURE CO2 29.6 mmHg (35.0-45.0); ABG PARTIAL PRESSURE O2 99.2 mmHg (75.0-100.0); ABG STANDARD HCO3 22.7 MEQ/L (22.0-26.0); ABG TOTAL CO2 21.8 MEQ/L (23.0-31.0); ABG pH (ARTERIAL) 7.466 UNITS (7.350-7.450)
[2018-09-10] MEDS: KCL 40MEQ IN D5/0.45NS 1000ML 1,000 ML IV SCH ×2 (06:54→08:44)
--- NOTE | 2018-09-10 07:52 | REP ---
Clinical: Intubation. Comparison: 09/09/2018. Findings: Endotracheal tube approximately 3 cm above the frederick. Nasogastric tube courses below left hemidiaphragm. Right IJ line with tip in the SVC. Mediastinum and cardiac silhouette stable. Lung francis demonstrate improved aeration with decreased suspected left lower lobe/retrocardiac opacity. No obvious effusion. No pneumothorax. Skeletal structures stable. Impression: 1. Lines and tubes in satisfactory position. 2. Minimally improved aeration, but continued left lower lobe/retrocardiac opacity suggested. Electronically Signed by Jt Wells MD 09/10/2018 07:44 A
[2018-09-10] MEDS ORDERED: D5W 1,000 ML IV SCH (08:30)
[2018-09-10] MEDS: PANTOPRAZOLE 40MG INJ (PROTONIX) (C9113) IV SCH (08:35)
[2018-09-10] MEDS: CHLORHEXIDINE GLUCONATE 0.12 % 15ML UDC (PERIDEX ORAL RINSE) MT SCH (08:35)
[2018-09-10] MEDS: NEUTRA-PHOS 1.25 GM PACKET PO SCH ×3 (08:35→21:04)
--- NOTE | 2018-09-10 10:41 | CCN ---
CRITICAL CARE NOTE DATE OF VISIT: 09/10/2018 START TIME: 809 STOP TIME: 842 I attended Adiel Emerson here in the intensive care unit. She is sedated, intubated, and mechanically ventilated. She is much less agitated with sedation lightened this morning and we will continue to push that. Maximum temperature (t-max) overnight 100.2, blood pressure 80 to 113 systolic and we have been able to maintain her off of her vasopressors. Heart rate 70 to 90s with a sinus mechanism. Respiratory rate anywhere from 18 to the mid 20s. Intake and output midnight to midnight 5240 mL in with 8620 mL out. Her diarrhea has significantly slowed. Her urine output has significantly increased. Most recent blood gas done in an SIMV of 10, total volume of 360, positive end-expiratory pressure (PEEP) of 12 and FiO2 of 21% shows a pH 7.466, pCO2 24.6, and a pO2 of 99.2. Sodium 150, potassium 3.9, chloride 119, CO2 of 23, BUN 3, creatinine 0.76, glucose 258. Phosphorus 0.5 this morning and is being repleted. White blood cell count is 6.4, hemoglobin 9.7, platelet count 170,000, 77% segmented neutrophils, no bands. Chest x-ray shows better inspiration. No significant changes in her left basilar opacity. She remains on deep venous thrombosis (DVT) prophylaxis as well as doxicycline and Rocephin. Further culture data and her sputum is pending. PHYSICAL EXAMINATION: She is sedate, but arousal. She opens her eyes to voice. Pupils to reactive. Sclera clear. Trachea is in the midline. CHEST: Shows symmetric expansion, only the rarest of rhonchi today, it cleared with suctioning. Maybe some fine dependent basilar crackles, but no other focal adventitious breath sounds are identified. CARDIAC EXAM: Regular with no gallop. Peripheral pulses. Minimal edema. ABDOMEN: Soft with active bowel sounds. No obvious organomegaly or masses. EXTREMITIES: No cyanosis or clubbing. NEUROLOGIC: As outlined above. Most pressing problems requiring my presence at bedside: Respiratory failure, respiratory alkalosis, hypernatremia, vibrio sepsis. At this point we have been able to wean her vasopressors. This morning that coupled with her increased urine output she has an increase her sodium. This will be addressed via change in her IV fluids with repleting of her electrolytes as well as free water down her NG tube. We will replete her phosphorus. We will lighten her sedation and my hopes with the changes as noted above we will be able to proceed with at least a trial of extubation today. We will continue with her antimicrobials for now. I think the improvement in her diarrhea is encouraging. I will proceed as outlined above. Overall she does remain critically ill. I left the bedside at 0843 hours. 33 minutes of critical care time at the bedside not including procedures.
[2018-09-10] MEDS ORDERED: POTASSIUM PHOSPHATE INJ 30 MMOL in D5W 500 ML IV ONE ×2 (11:00→17:00)
[2018-09-10 11:17] LABS: ABG BASE EXCESS -1.1 (-2.0-2.0); ABG HCO3 22.6 MEQ/L (22.0-26.0); ABG O2 SATURATION 97.4 % (95.0-99.0); ABG PARTIAL PRESSURE CO2 34.3 mmHg (35.0-45.0); ABG PARTIAL PRESSURE O2 101.5 mmHg (75.0-100.0); ABG STANDARD HCO3 23.5 MEQ/L (22.0-26.0); ABG TOTAL CO2 23.7 MEQ/L (23.0-31.0); ABG pH (ARTERIAL) 7.437 UNITS (7.350-7.450)
[2018-09-10] MEDS: DOXYCYCLINE HYCLATE 100 MG in D5W MINI-BAG PLUS 100 ML IV SCH (12:11)
[2018-09-10] MEDS: POTASSIUM CHLORIDE INJ 40 MEQ in D5W 1,000 ML IV SCH ×2 (13:00→18:34)
[2018-09-10 15:03] LABS: BLOOD UREA NITROGEN 3 MG/DL (7-18); CALCIUM LEVEL 7.9 MG/DL (8.8-10.2); CARBON DIOXIDE LEVEL 25 MEQ/L (21-32); CHLORIDE LEVEL 122 MEQ/L (98-107); CREATININE FOR GFR 0.67 MG/DL (0.55-1.30); GLOMERULAR FILTRATION RATE > 60.0 (>45); GLUCOSE, FASTING 222 MG/DL (70-100); POTASSIUM SERUM 3.7 MEQ/L (3.5-5.1); SODIUM LEVEL 154 MEQ/L (136-145)
[2018-09-10] MEDS: D5W 1,000 ML IV SCH (15:59)
[2018-09-10] MEDS ORDERED: MIDAZOLAM INJ 2 MG/2 ML VIAL (J2250) As Ordered ONE ×2 (16:11→16:29)
[2018-09-10] MEDS ORDERED: PROPOFOL 1,000 MG/100 ML VIAL As Ordered ONE (16:11)
[2018-09-10] MEDS ORDERED: VECURONIUM BROMIDE 10 MG VIAL As Ordered ONE (16:17)
--- NOTE | 2018-09-10 16:57 | REP ---
Clinical: Intubation. Comparison: 09/10/2018. Findings: Endotracheal tube is at the level of the frederick and warrants reevaluation/repositioning. Nasogastric tube courses below left hemidiaphragm. Right IJ line with tip in the SVC. Bilateral perihilar and bibasilar opacities appear increased from prior examination and compatible with pulmonary edema including areas of atelectasis and suspected layering pleural effusions. Impression: 1. Findings suggest pulmonary edema with bibasilar opacities/atelectasis and possible small layering effusions. Differential diagnosis includes diffuse atelectasis. 2. Endotracheal tube identified at the level of the frederick warrants repositioning. Electronically Signed by Jt Wells MD 09/10/2018 04:49 P
[2018-09-10 17:21] LABS: ABG BASE EXCESS -4.4 (-2.0-2.0); ABG HCO3 22.7 MEQ/L (22.0-26.0); ABG O2 SATURATION 96.3 % (95.0-99.0); ABG STANDARD HCO3 20.8 MEQ/L (22.0-26.0); ABG TOTAL CO2 24.3 MEQ/L (23.0-31.0)
[2018-09-10 17:24] LABS: ABG PARTIAL PRESSURE CO2 50.5 mmHg (35.0-45.0); ABG pH (ARTERIAL) 7.271 UNITS (7.350-7.450)
--- NOTE | 2018-09-10 17:44 | REP ---
Clinical: Altered mental status . Comparison: None . Findings: The ventricles, sulci, and cisterns are normal in position and appearance. Rust-white differentiation is maintained. No acute intracranial hemorrhage, mass/mass effect, pathology or trauma/injury. No evidence for acute infarction. No extra-axial fluid collection. Calvarium is intact. Paranasal sinuses and mastoid air cells are clear. Impression: Normal noncontrast head CT. No evidence for acute intracranial pathology or trauma/injury. Electronically Signed by Jt Wells MD 09/10/2018 05:36 P
[2018-09-10] MEDS ORDERED: VECURONIUM BROMIDE 10 MG VIAL IV STA (18:03)
[2018-09-10] MEDS ORDERED: MIDAZOLAM INJ 2 MG/2 ML VIAL (J2250) IV STA (18:03)
--- NOTE | 2018-09-10 18:23 | CCN ---
DATE: 09/10/2018 START TIME: 1615 hours STOP TIME: 1654 hours I was called urgently to attend Adiel Emerson. Throughout the day, despite having a normal arterial blood gas and reasonable oxygenation, her respirations have been a little more sonorous. An nasogastric tube was attempted to be placed and she had precipitous drop in her oxygen saturation. Max cart was called, but no specific intervention other than increased FiO2 was required. On my arrival, she remained with sonorous respirations and had significant increased work of breathing. Oxygen saturation remained 88% on an aerosol face mask, but given the difficulties with her mental status and her respiratory status as is, it was felt that she was not able to protect her airway and was intubated. There were significant amounts of arachnoid and false vocal cord edema were noted. Assistance with anesthesia and a glide scope was required. A #8.0 ET tube would not pass, though a 7.5 was able to be passed. Did require both Versed and vecuronium. OG tube was placed as well. Chest x-ray done postprocedure showed lines and tubes in good position. ET tube was right at the frederick and was pulled back 2 cm. I had a long discussion at the bedside with her son and updated him. At this point, in view of the above, we will be able to more adequately address her electrolyte abnormalities with use of her GI tract. Repeat laboratories, as well as blood gas, and I will pursue a CT scan of the head to assure no other pathology exists. My suspicion is that her mental status is on the basis of toxic metabolic encephalopathy. We will proceed as outlined above. I left the bedside at 1645 hours. An additional 39 minutes of critical care time was delivered at the bedside, not including procedures. TALISHA
[2018-09-10 20:05] LABS: BLOOD UREA NITROGEN 3 MG/DL (7-18); CALCIUM LEVEL 7.6 MG/DL (8.8-10.2); CARBON DIOXIDE LEVEL 20 MEQ/L (21-32); CHLORIDE LEVEL 114 MEQ/L (98-107); CREATININE FOR GFR 0.72 MG/DL (0.55-1.30); GLOMERULAR FILTRATION RATE > 60.0 (>45); GLUCOSE, FASTING 321 MG/DL (70-100); POTASSIUM SERUM 4.9 MEQ/L (3.5-5.1); SODIUM LEVEL 144 MEQ/L (136-145)
[2018-09-10 20:36] LABS: ABG BASE EXCESS -3.7 (-2.0-2.0); ABG O2 SATURATION 96.4 % (95.0-99.0); ABG PARTIAL PRESSURE CO2 27.1 mmHg (35.0-45.0); ABG PARTIAL PRESSURE O2 82.1 mmHg (75.0-100.0); ABG STANDARD HCO3 21.4 MEQ/L (22.0-26.0); ABG TOTAL CO2 19.8 MEQ/L (23.0-31.0); ABG pH (ARTERIAL) 7.464 UNITS (7.350-7.450)
[2018-09-10] MEDS: ACETAMINOPHEN 325 MG/10.15 ML UDC GT PRN (21:05)
[2018-09-11] VITALS (35 sets, daily range): BP systolic 83–157; BP diastolic 50–87
[2018-09-11] MEDS: DOXYCYCLINE HYCLATE 100 MG in D5W MINI-BAG PLUS 100 ML IV SCH ×3 (00:35→23:53)
[2018-09-11] MEDS: HumaLOG INSULIN (NovoLOG) PER UNIT SC SCH ×5 (00:35→23:53)
[2018-09-11] MEDS: MIDAZOLAM INJ 2 MG/2 ML VIAL (J2250) IV PRN ×15 (01:06→23:53)
[2018-09-11] MEDS: D5W 1,000 ML IV SCH ×3 (02:05→20:36)
[2018-09-11] MEDS: PROPOFOL 1,000 MG in APPROPRIATE DILUENT 1 EA IV SCH ×6 (03:23→23:06)
[2018-09-11] MEDS: cefTRIAXone SOD 1 GM in D5W MINI-BAG PLUS 50 ML IV SCH (03:24)
[2018-09-11] MEDS: POTASSIUM CHLORIDE INJ 40 MEQ in D5W 1,000 ML IV SCH ×2 (03:24→11:58)
[2018-09-11 06:07] LABS: ABG BASE EXCESS -1.4 (-2.0-2.0); ABG HCO3 21.5 MEQ/L (22.0-26.0); ABG O2 SATURATION 97.9 % (95.0-99.0); ABG PARTIAL PRESSURE CO2 30.3 mmHg (35.0-45.0); ABG PARTIAL PRESSURE O2 117.9 mmHg (75.0-100.0); ABG STANDARD HCO3 23.3 MEQ/L (22.0-26.0); ABG TOTAL CO2 22.4 MEQ/L (23.0-31.0); ABG pH (ARTERIAL) 7.469 UNITS (7.350-7.450)
[2018-09-11] MEDS: PROMETHAZINE INJ 25 MG/ML VIAL (J2550) IV SCH (06:42)
[2018-09-11] MEDS: HEPARIN SOD (PORCINE) 5000 UNITS/ML VIAL SC SCH ×3 (06:42→21:15)
[2018-09-11] MEDS: LEVOTHYROXINE 75MCG TABLET (0.075MG) PO SCH (06:43)
[2018-09-11 06:45] LABS: BASO % 0.4 % (0.0-1.0); EOS # 0.1 10^3/uL (0.0-0.50); EOS % 0.8 % (0.0-3.0); HEMATOCRIT 30.4 % (36.0-47.0); HEMOGLOBIN 10.2 g/dl (12.0-15.5); LYMPH # 2.9 10^3/uL (1.5-4.5); LYMPH % 27.6 % (24.0-44.0); MEAN CORPUSCULAR HEMOGLOBIN 30.4 pg (27.0-33.0); MEAN CORPUSCULAR HGB CONC 33.6 g/dl (32.0-36.5); MEAN CORPUSCULAR VOLUME 90.5 fl (80.0-96.0); MONO # 0.9 10^3/uL (0.0-0.8); MONO % 8.2 % (0.0-5.0); NEUTROPHILS # 6.4 10^3/uL (1.8-7.7); NEUTROPHILS % 60.7 % (36.0-66.0); PLATELET COUNT, AUTOMATED 172 10^3/uL (150-450); RED BLOOD COUNT 3.36 10^6/uL (4.00-5.40); WHITE BLOOD COUNT 10.6 10^3/uL (4.0-10.0)
[2018-09-11 07:10] LABS: ALBUMIN 2.4 GM/DL (3.2-5.2); ALT/SGPT 45 U/L (12-78); BILIRUBIN,TOTAL 0.4 MG/DL (0.2-1.0); BLOOD UREA NITROGEN 3 MG/DL (7-18); CALCIUM LEVEL 7.4 MG/DL (8.8-10.2); CARBON DIOXIDE LEVEL 23 MEQ/L (21-32); CHLORIDE LEVEL 112 MEQ/L (98-107); CREATININE FOR GFR 0.62 MG/DL (0.55-1.30); GLOMERULAR FILTRATION RATE > 60.0 (>45); GLUCOSE, FASTING 277 MG/DL (70-100); MAGNESIUM LEVEL 1.4 MG/DL (1.8-2.4); PHOSPHORUS LEVEL 2.9 MG/DL (2.5-4.9); POTASSIUM SERUM 4.2 MEQ/L (3.5-5.1); SODIUM LEVEL 143 MEQ/L (136-145); TOTAL PROTEIN 5.3 GM/DL (6.4-8.2)
[2018-09-11] MEDS: NEUTRA-PHOS 1.25 GM PACKET PO SCH ×3 (08:29→20:35)
[2018-09-11] MEDS: PANTOPRAZOLE 40MG INJ (PROTONIX) (C9113) IV SCH (08:29)
--- NOTE | 2018-09-11 08:56 | REP ---
Clinical: Intubation. Comparison: 09/10/2018. Findings: Endotracheal tube is approximately 1 cm above the frederick. Nasogastric tube courses below left hemidiaphragm. Right IJ line with tip in the SVC. Cardiomegaly is stable. Perihilar and primarily left lower lobe opacities suggest pulmonary vascular congestion without significant change from prior examination when allowing for variance in technique. No pneumothorax. Skeletal structures intact. Impression: Endotracheal tube approximately 1 cm above the frederick. No significant change to the pleuroparenchymal findings. Electronically Signed by Jt Wells MD 09/11/2018 08:47 A
[2018-09-11] MEDS: ALBUTEROL SULFATE 2.5 MG/0.5 ML INH NEB SOLN NEB SCH ×4 (10:50→23:31)
--- NOTE | 2018-09-11 11:16 | CCN ---
DATE: 09/11/2018 START TIME: 0745 hours STOP TIME: 0819 hours I again attended Adiel Emerson here in the intensive care unit. Patient has been examined, chart is reviewed. Maximum temperature (Tmax) overnight 100.8 with blood pressure 86-130s. Heart rate generally 90s to low 100s with a sinus mechanism. Respiratory rate generally in the low 20s except when she is agitated. Intake and output midnight to midnight: 4732 mL in with 5825 mL out. She still requires very significant amounts of sedation. Agitated and actually bites the endotracheal tube when sedation lightened. Most recent laboratories show a white blood cell count of 10.6, hemoglobin 10.2, platelet count of 172,000, 60.7% segmented neutrophils, no bands. Sodium 143, potassium of 4.2, chloride of 112, CO2 23, BUN 3, creatinine 0.62, glucose 277, and she is on sliding scale coverage. Calcium 7.4, phosphorous 2.9, magnesium 1.4. Liver function studies fairly unremarkable except for an AST minimally elevated at 45. Albumin 2.4. Blood gas done on PRV, rate of 16, tidal volume 360, PEEP of 5, FiO2 of 60% has a pH of 7.469, pCO2 of 30.3, pO2 of 117.9. Chest x-ray shows no real change from yesterday. Some bibasilar atelectasis versus vascular crowding. Lines and tubes in good position. No new culture results available other than the sputum from 48 hours ago which grew normal mady. On exam, she is sedate but agitated when sedation lightened. Pupils do react, sclerae clear, trachea is in the midline. Chest shows symmetric expansion with scattered rhonchi. No focal adventitious breath sounds are identified. Cardiac exam distant but regular. Peripheral pulses palpable. Trace edema. Abdomen mildly distended, soft with active bowel sounds. No convincing organomegaly or masses. Extremities show no cyanosis or clubbing. Neurologically as outlined above. Ulcer and deep venous thrombosis (DVT) prophylaxis remain in place. She remains on Rocephin and doxycycline for Vibrio sepsis. CT of the head done last evening is read as fairly unremarkable. Most pressing problems requiring my presence at the bedside: 1, Respiratory failure, mainly hypoxic. 2. Encephalopathy, suspect toxic metabolic. 3. Vibrio sepsis. 4. Hyperglycemia. 5. Electrolyte abnormalities. At this point, we will continue her current level of care. Her airway was significantly edematous and that coupled with her mental status precludes any thought of extubation for likely 48-72 hours. We will continue sedation as needed. I will increase her pain medications. If she does not show significant improvement in her mental status in the next several days we may need to consider tracheostomy and I will be discussing that with the family. I had a long discussion with her son at the bedside last evening. She is tolerating enteral feeds and we will increase those to goal. We will lighten her sedation when it is clinically appropriate. In view of the above however, prognosis remains guarded, statistically speaking the morbidity and mortality with Vibrio sepsis as she presented is quite high. We will proceed as outlined above. I left the bedside at 0819 hours. 34 minutes of critical care time delivered at the bedside not including procedures. CHICHID
[2018-09-11] MEDS: MORPHINE 4 MG/ML 1ML VIAL/SYRINGE (J2270) IV PRN (11:23)
[2018-09-11] MEDS: ACETAMINOPHEN 325 MG/10.15 ML UDC GT PRN ×2 (12:55→18:46)
[2018-09-11] MEDS ORDERED: NS 500 ML IV ONE ×2 (15:15→19:45)
[2018-09-12] VITALS (51 sets, daily range): BP systolic 81–157; BP diastolic 50–82; O2SAT 99–100
[2018-09-12] MEDS: cefTRIAXone SOD 1 GM in D5W MINI-BAG PLUS 50 ML IV SCH (00:59)
[2018-09-12] MEDS: POTASSIUM CHLORIDE INJ 40 MEQ in D5W 1,000 ML IV SCH ×2 (02:09→15:53)
[2018-09-12] MEDS: MIDAZOLAM INJ 2 MG/2 ML VIAL (J2250) IV PRN ×16 (02:09→23:44)
[2018-09-12] MEDS: PROPOFOL 1,000 MG in APPROPRIATE DILUENT 1 EA IV SCH ×6 (03:45→23:21)
[2018-09-12] MEDS: ALBUTEROL SULFATE 2.5 MG/0.5 ML INH NEB SOLN NEB SCH ×6 (04:00→23:58)
[2018-09-12 05:57] LABS: ABG BASE EXCESS 0.6 (-2.0-2.0); ABG HCO3 24.1 MEQ/L (22.0-26.0); ABG O2 SATURATION 98.8 % (95.0-99.0); ABG PARTIAL PRESSURE CO2 34.4 mmHg (35.0-45.0); ABG PARTIAL PRESSURE O2 166.6 mmHg (75.0-100.0); ABG TOTAL CO2 25.1 MEQ/L (23.0-31.0); ABG pH (ARTERIAL) 7.463 UNITS (7.350-7.450)
[2018-09-12 06:14] LABS: HEMATOCRIT 27.8 % (36.0-47.0); HEMOGLOBIN 9.2 g/dl (12.0-15.5); MEAN CORPUSCULAR HEMOGLOBIN 30.8 pg (27.0-33.0); MEAN CORPUSCULAR HGB CONC 33.1 g/dl (32.0-36.5); PLATELET COUNT, AUTOMATED 177 10^3/uL (150-450); RED BLOOD COUNT 2.99 10^6/uL (4.00-5.40); WHITE BLOOD COUNT 9.7 10^3/uL (4.0-10.0)
[2018-09-12] MEDS: HEPARIN SOD (PORCINE) 5000 UNITS/ML VIAL SC SCH ×3 (06:45→21:05)
[2018-09-12] MEDS: HumaLOG INSULIN (NovoLOG) PER UNIT SC SCH ×4 (06:45→23:35)
[2018-09-12] MEDS: LEVOTHYROXINE 75MCG TABLET (0.075MG) PO SCH (06:46)
[2018-09-12 06:48] LABS: ALBUMIN 2.2 GM/DL (3.2-5.2); ALT/SGPT 35 U/L (12-78); BILIRUBIN,TOTAL 0.5 MG/DL (0.2-1.0); BLOOD UREA NITROGEN 4 MG/DL (7-18); CALCIUM LEVEL 7.2 MG/DL (8.8-10.2); CARBON DIOXIDE LEVEL 24 MEQ/L (21-32); CHLORIDE LEVEL 108 MEQ/L (98-107); CREATININE FOR GFR 0.59 MG/DL (0.55-1.30); GLOMERULAR FILTRATION RATE > 60.0 (>45); GLUCOSE, FASTING 265 MG/DL (70-100); MAGNESIUM LEVEL 1.5 MG/DL (1.8-2.4); PHOSPHORUS LEVEL 3.1 MG/DL (2.5-4.9); POTASSIUM SERUM 4.2 MEQ/L (3.5-5.1); SODIUM LEVEL 142 MEQ/L (136-145)
--- NOTE | 2018-09-12 07:06 | REP ---
Clinical: Intubation. Comparison: 09/11/2018. Findings: Endotracheal tube 2.5 cm above the frederick. Nasogastric tube courses below left hemidiaphragm. Right IJ line with tip in the SVC. Perihilar and lower lobe opacities including left lower lobe/retrocardiac consolidation remain essentially unchanged. Small layering effusion cannot be excluded. No pneumothorax. Skeletal structures intact. Impression: 1. Lines and tubes in satisfactory position. 2. Stable bilateral opacities including left lower lobe consolidation and possible small layering effusions. Differential diagnosis includes pulmonary vascular congestion as well as multifocal pneumonia. Electronically Signed by Jt Wells MD 09/12/2018 06:58 A
[2018-09-12 07:11] LABS: ATYPICAL LYMPH 2 % (0-5); EOSINOPHILS 2 % (0-5); LYMPHOCYTES 27 % (16-52); MONOCYTES 8 % (0-8); NEUTROPHILS 61 % (35-75); PLATELET ESTIMATE NORMAL (NORMAL)
[2018-09-12] MEDS: D5W 1,000 ML IV SCH ×2 (07:12→17:38)
[2018-09-12] MEDS: NEUTRA-PHOS 1.25 GM PACKET PO SCH ×3 (08:08→21:05)
[2018-09-12] MEDS: PANTOPRAZOLE 40MG INJ (PROTONIX) (C9113) IV SCH (08:08)
--- NOTE | 2018-09-12 10:06 | CCN ---
DATE: 09/12/2018 CRITICAL CARE NOTE START TIME: 819 STOP TIME: 858 I again attended Adiel Eemrson. She is sedated, intubated, mechanically ventilated. Intermittently pressure has been soft, but responds nicely to intravenous (IV) fluids. She has not required vasopressors. Maximum temperature (T max) overnight 101.5 yesterday at 1800 hours, 100.8 since midnight. Blood pressure 81 to 130 systolic, heart rate generally 70s with a sinus mechanism. She does over breathe the ventilator. Intake and output from midnight to midnight 5809 mL in with 8625 mL out. No new microbiology data available. The most recent laboratories showed a sodium of 142, potassium of 4.2, bicarbonate 108, CO2 24, BUN 4, creatinine 0.59, glucose 265, calcium 7.2, phosphorus 3.1, magnesium 1.5, albumin 2.2, white blood cell count 9.7, hemoglobin 9.2, platelet count 177,000, 61% segmented neutrophils, no bands. Arterial blood gas done this morning on PRVC rate of 16, tidal volume 360, PEEP of 5, FiO2 of 40%, and has a pH of 7.463, pCO2 of 34.4, and a pO2 of 166.6, saturation 98.8%. Chest x-ray I do believe shows increasing left basilar atelectasis versus infiltrate. On exam, she is sedate. Pupils react. Sclerae are clear. Trachea is in the midline. She does have diffuse mild edema. Chest shows some scattered rhonci. Expansion is symmetric. No other focal adventitious breath sounds are identified. Cardiac exam currently regular. Peripheral pulses palpable. Trace mild edema throughout. Abdomen minimally distended but positive bowel sounds are noted. No obvious organomegaly or masses. Extremities show no cyanosis or clubbing. Neurologically she is sedate but agitated when sedation lightened. The most pressing problems requiring my immediate presence at the bedside: Respiratory alkalosis, mild. Respiratory failure requiring mechanical ventilatory support. Vibrio sepsis. Encephalopathy, suspect toxic metabolic. At this point, will continue her current level of supportive care. In view of her airway edema, there is no plan for a trial of extubation for at least several more days until we can re-inspect her airway, and I am more concerned about her mental status. Certainly she may require tracheostomy, and I did speak somewhat with that initially with her son, but will need to discuss that further with the family over the next several days. She had a low grade fever. Her white count is acceptable. She remains on Rocephin and Doxycycline. Fever persists. We may change her lines over or broaden or antimicrobials or both. She remains on ulcer and deep vein thrombosis (DVT) prophylaxis. She is tolerating enteral feeds. At this point, she remains critically ill. I left the bedside at 0859 hours. 39 minutes of critical care time was at bedside, not including procedures. TALISHA
[2018-09-12] MEDS: DOXYCYCLINE HYCLATE 100 MG in D5W MINI-BAG PLUS 100 ML IV SCH ×2 (12:27→23:20)
[2018-09-12] MEDS: MORPHINE 4 MG/ML 1ML VIAL/SYRINGE (J2270) IV PRN ×3 (18:16→23:39)
[2018-09-13] VITALS (42 sets, daily range): BP systolic 75–136; BP diastolic 41–73
[2018-09-13] MEDS: fentaNYL 100 MCG/2 ML INJECTION (J3010) IV PRN (00:08)
[2018-09-13] MEDS: MIDAZOLAM INJ 2 MG/2 ML VIAL (J2250) IV PRN ×9 (00:08→23:52)
[2018-09-13] MEDS: cefTRIAXone SOD 1 GM in D5W MINI-BAG PLUS 50 ML IV SCH (00:32)
[2018-09-13] MEDS: PROPOFOL 1,000 MG in APPROPRIATE DILUENT 1 EA IV SCH ×8 (02:03→23:52)
[2018-09-13] MEDS: MORPHINE 4 MG/ML 1ML VIAL/SYRINGE (J2270) IV PRN ×7 (02:03→23:52)
[2018-09-13] MEDS: ALBUTEROL SULFATE 2.5 MG/0.5 ML INH NEB SOLN NEB SCH ×5 (04:00→21:11)
[2018-09-13] MEDS: D5W 1,000 ML IV SCH (04:17)
[2018-09-13] MEDS: POTASSIUM CHLORIDE INJ 40 MEQ in D5W 1,000 ML IV SCH ×3 (04:17→17:44)
[2018-09-13 05:31] LABS: HEMATOCRIT 26.3 % (36.0-47.0); HEMOGLOBIN 8.5 g/dl (12.0-15.5); MEAN CORPUSCULAR HEMOGLOBIN 30.7 pg (27.0-33.0); MEAN CORPUSCULAR HGB CONC 32.3 g/dl (32.0-36.5); MEAN CORPUSCULAR VOLUME 94.9 fl (80.0-96.0); PLATELET COUNT, AUTOMATED 208 10^3/uL (150-450); RED BLOOD COUNT 2.77 10^6/uL (4.00-5.40); WHITE BLOOD COUNT 9.8 10^3/uL (4.0-10.0)
[2018-09-13] MEDS: HEPARIN SOD (PORCINE) 5000 UNITS/ML VIAL SC SCH ×3 (05:37→21:02)
[2018-09-13] MEDS: HumaLOG INSULIN (NovoLOG) PER UNIT SC SCH ×4 (05:37→23:53)
[2018-09-13] MEDS: LEVOTHYROXINE 75MCG TABLET (0.075MG) PO SCH (05:37)
[2018-09-13 05:41] LABS: ALBUMIN 2.2 GM/DL (3.2-5.2); ALT/SGPT 36 U/L (12-78); BILIRUBIN,TOTAL 0.3 MG/DL (0.2-1.0); BLOOD UREA NITROGEN 5 MG/DL (7-18); CALCIUM LEVEL 7.2 MG/DL (8.8-10.2); CARBON DIOXIDE LEVEL 26 MEQ/L (21-32); CHLORIDE LEVEL 103 MEQ/L (98-107); CHOLESTEROL LEVEL 165 MG/DL (< 200); CPK CREATINE PHOSPHOKINASE 131 U/L (26-192); CREATININE FOR GFR 0.64 MG/DL (0.55-1.30); GLOMERULAR FILTRATION RATE > 60.0 (>45); GLUCOSE, FASTING 290 MG/DL (70-100); LDH LACTATE DEHYDROGENASE 186 U/L (84-246); PHOSPHORUS LEVEL 2.7 MG/DL (2.5-4.9); POTASSIUM SERUM 4.4 MEQ/L (3.5-5.1); SODIUM LEVEL 138 MEQ/L (136-145); TOTAL PROTEIN 5.1 GM/DL (6.4-8.2); TRIGLYCERIDES LEVEL 496 MG/DL (<150)
[2018-09-13 05:50] LABS: ABG BASE EXCESS 1.5 (-2.0-2.0); ABG HCO3 25.1 MEQ/L (22.0-26.0); ABG PARTIAL PRESSURE CO2 35.3 mmHg (35.0-45.0); ABG PARTIAL PRESSURE O2 188.6 mmHg (75.0-100.0); ABG STANDARD HCO3 25.8 MEQ/L (22.0-26.0); ABG TOTAL CO2 26.1 MEQ/L (23.0-31.0); ABG pH (ARTERIAL) 7.469 UNITS (7.350-7.450)
[2018-09-13 05:59] LABS: BASOPHILS 5 % (0-4); LYMPHOCYTES 30 % (16-52); METAMYELOCYTES 4 % (0-0); MONOCYTES 2 % (0-8); NEUTROPHILS 59 % (35-75)
[2018-09-13 06:00] LABS: PLATELET ESTIMATE NORMAL (NORMAL)
--- NOTE | 2018-09-13 07:33 | REP ---
Clinical: Ventilatory assistance. Comparison: 09/12/2018. Findings: Endotracheal tube approximately 2.5 cm above frederick. Nasogastric tube courses below left hemidiaphragm. Right IJ line with tip in the SVC. Evaluation is limited by portable technique, underpenetration and poor inspiratory effort which accentuate the pulmonary vasculature and interstitium. Perihilar and bibasilar opacities (left greater than right) are again noted and consistent with pulmonary vascular congestion including left lower lobe consolidation and suspected small layering effusion. Impression: 1. Lines and tubes in satisfactory position. 2. Perihilar and bibasilar opacities along with increased vascular markings and interstitial markings. Findings likely represent pulmonary vascular congestion similar to prior examination. Electronically Signed by Jt Wells MD 09/13/2018 07:25 A
[2018-09-13] MEDS: PANTOPRAZOLE 40MG INJ (PROTONIX) (C9113) IV SCH (09:43)
[2018-09-13] MEDS: NEUTRA-PHOS 1.25 GM PACKET PO SCH ×3 (09:43→21:02)
[2018-09-13] MEDS: ACETAMINOPHEN 325 MG/10.15 ML UDC GT PRN ×2 (11:12→17:40)
[2018-09-13] MEDS: DOXYCYCLINE HYCLATE 100 MG in D5W MINI-BAG PLUS 100 ML IV SCH ×2 (12:39→23:53)
[2018-09-13] MEDS: METOCLOPRAMIDE INJ 10MG/2ML VIAL (J2765) IV SCH ×3 (12:40→23:53)
--- NOTE | 2018-09-13 13:24 | CCN ---
DATE: 09/13/2018 START TIME: 0720 hours STOP TIME: 0755 hours I again attended Adiel Emerson here in the intensive care unit (ICU). She has required sedation with Versed and morphine and does reasonably well with it. When sedation is lightened, she is clearly agitated and does not follow commands. Maximum temperature (t-max) overnight 100 degrees. Blood pressure 90 to 130s. Heart rate generally in the 80s to the low 100s with a sinus mechanism. Respiratory rate is generally in the 20s. Input and output midnight to midnight: 5652 mL in with 6125 mL out. No other new culture data. Most recent laboratories show white blood cell count 9.8, hemoglobin 8.5, platelets 280,000, 59% segmented neutrophils, no bands. Sodium 148, potassium 4.4, chloride 103, CO2 of 26, BUN 5, creatinine 0.64, glucose 290, albumin 2.2. Arterial blood gas obtained on a PRVC of 16, tidal volume of 360, PEEP of 5, FiO2 of 40% showed a pH of 7.469, PCO2 of 35.3, and PO2 of 188.6. She does over breathe the ventilator. Chest x-ray shows no new findings. PHYSICAL EXAMINATION She is sedate and moves all extremities but does not follow commands. Pupils do react, sclerae clear, lines and tubes are noted. No obvious jugular venous distention (JVD). Chest does show some scattered rhonchi. No convincing focal adventitious breath sounds. There are some faint dependent crackles. Cardiac examination is distant but generally regular with intermittent tachycardia. Peripheral pulses are palpable with no edema. Abdomen is mildly obese. Soft with active bowel sounds. No convincing organomegaly or masses. Extremities are without cyanosis or clubbing. Neurologically, as outlined above. The most pressing problems requiring my presence at the bedside are: 1. Respiratory failure requiring mechanical ventilatory support. 2. Pharyngeal/laryngeal edema. 3. Vibrio sepsis. 4. Anemia, suspect dilutional. 5. Encephalopathy, suspect toxic metabolic. At this point, we can make adjustments in her overall IV fluids, especially diminish the rate significantly. She is intermittently tolerating tube feeds. No further ventilation manipulations are going to be made today in view of the lack of progress with her mental status. We will continue her current antibiotics. She remains on ulcer and deep vein thrombosis (DVT) prophylaxis. At this point, she does remain critically ill. I spoke at length with the yesterday regarding the potential need for tracheostomy should her edema not improve over the next several days. Certainly, the patient's status is hampered by her mental status as well. We will proceed as outlined above. I left the bedside at 0755 hours. 35 minutes of critical care time was delivered at the bedside, not including procedures.
[2018-09-14] VITALS (22 sets, daily range): BP systolic 89–159; BP diastolic 50–79; O2SAT 97–98
[2018-09-14] MEDS ORDERED: UNRESOLVED CLARIFICATION ENTRY XX SCH (00:01)
[2018-09-14] MEDS: ALBUTEROL SULFATE 2.5 MG/0.5 ML INH NEB SOLN NEB SCH ×6 (00:12→19:59)
[2018-09-14] MEDS: cefTRIAXone SOD 1 GM in D5W MINI-BAG PLUS 50 ML IV SCH (01:32)
[2018-09-14] MEDS: PROPOFOL 1,000 MG in APPROPRIATE DILUENT 1 EA IV SCH ×7 (01:32→21:48)
[2018-09-14] MEDS: MORPHINE 4 MG/ML 1ML VIAL/SYRINGE (J2270) IV PRN (04:50)
[2018-09-14] MEDS: MIDAZOLAM INJ 2 MG/2 ML VIAL (J2250) IV PRN ×4 (04:50→16:30)
[2018-09-14] MEDS: HumaLOG INSULIN (NovoLOG) PER UNIT SC SCH ×4 (05:18→23:55)
[2018-09-14] MEDS: POTASSIUM CHLORIDE INJ 40 MEQ in D5W 1,000 ML IV SCH (05:18)
[2018-09-14 05:19] LABS: ABG BASE EXCESS 2.3 (-2.0-2.0); ABG HCO3 26.3 MEQ/L (22.0-26.0); ABG O2 SATURATION 95.8 % (95.0-99.0); ABG PARTIAL PRESSURE CO2 38.5 mmHg (35.0-45.0); ABG PARTIAL PRESSURE O2 84.4 mmHg (75.0-100.0); ABG STANDARD HCO3 26.5 MEQ/L (22.0-26.0); ABG TOTAL CO2 27.5 MEQ/L (23.0-31.0); ABG pH (ARTERIAL) 7.453 UNITS (7.350-7.450)
[2018-09-14] MEDS: LEVOTHYROXINE 75MCG TABLET (0.075MG) PO SCH (05:19)
[2018-09-14] MEDS: METOCLOPRAMIDE INJ 10MG/2ML VIAL (J2765) IV SCH ×4 (05:19→23:55)
[2018-09-14] MEDS: HEPARIN SOD (PORCINE) 5000 UNITS/ML VIAL SC SCH ×3 (05:19→21:44)
[2018-09-14 05:34] LABS: HEMATOCRIT 26.4 % (36.0-47.0); HEMOGLOBIN 8.5 g/dl (12.0-15.5); MEAN CORPUSCULAR HEMOGLOBIN 30.6 pg (27.0-33.0); MEAN CORPUSCULAR HGB CONC 32.2 g/dl (32.0-36.5); PLATELET COUNT, AUTOMATED 259 10^3/uL (150-450); RED BLOOD COUNT 2.78 10^6/uL (4.00-5.40); WHITE BLOOD COUNT 10.7 10^3/uL (4.0-10.0)
[2018-09-14 05:59] LABS: ALBUMIN 2.3 GM/DL (3.2-5.2); ALT/SGPT 50 U/L (12-78); BILIRUBIN,TOTAL 0.5 MG/DL (0.2-1.0); BLOOD UREA NITROGEN 7 MG/DL (7-18); CALCIUM LEVEL 7.4 MG/DL (8.8-10.2); CARBON DIOXIDE LEVEL 27 MEQ/L (21-32); CHLORIDE LEVEL 102 MEQ/L (98-107); CHOLESTEROL LEVEL 173 MG/DL (< 200); CPK CREATINE PHOSPHOKINASE 123 U/L (26-192); CREATININE FOR GFR 0.67 MG/DL (0.55-1.30); GLOMERULAR FILTRATION RATE > 60.0 (>45); GLUCOSE, FASTING 286 MG/DL (70-100); LDH LACTATE DEHYDROGENASE 201 U/L (84-246); PHOSPHORUS LEVEL 3.1 MG/DL (2.5-4.9); POTASSIUM SERUM 4.6 MEQ/L (3.5-5.1); SODIUM LEVEL 137 MEQ/L (136-145); TOTAL PROTEIN 5.6 GM/DL (6.4-8.2); TRIGLYCERIDES LEVEL 516 MG/DL (<150)
[2018-09-14 06:32] LABS: ATYPICAL LYMPH 1 % (0-5); EOSINOPHILS 4 % (0-5); LYMPHOCYTES 19 % (16-52); METAMYELOCYTES 2 % (0-0); MONOCYTES 1 % (0-8); NEUTROPHILS 70 % (35-75); PLATELET ESTIMATE NORMAL (NORMAL); SMUDGE CELLS 1+
--- NOTE | 2018-09-14 08:04 | REP ---
Portable chest x-ray: Single view. History: Intubation. Comparison chest x-ray September 13, 2018. Findings: Endotracheal tube is seen in good position at the level of proximal clavicles. NG tube enters left upper quadrant. There is a right internal jugular central venous line terminating in the expected location of the superior vena cava. EKG electrodes are seen. There is increased density in the left base with air bronchograms in the left lower lobe consistent with atelectasis and/or infiltrate. Pleural effusion is suspected left base as the left hemidiaphragm and descending aorta are obscured. No infiltrate noted on the right. Vascular and interstitial markings remain prominent. Electronically Signed by Willian Acuna MD 09/14/2018 07:55 A
[2018-09-14] MEDS: PANTOPRAZOLE 40MG INJ (PROTONIX) (C9113) IV SCH (08:51)
[2018-09-14] MEDS: NEUTRA-PHOS 1.25 GM PACKET PO SCH ×3 (08:51→21:49)
[2018-09-14] MEDS: VANCOMYCIN HCL 750 MG, VIAL MATE ADAPTER 1 EACH in D5W 250 ML IV SCH ×2 (09:37→21:45)
--- NOTE | 2018-09-14 09:39 | CCN ---
DATE OF VISIT: 09/14/2018 START TIME: 804 STOP TIME: 08 I again attended Adiel Emerson here in the intensive care unit (ICU). Patient was examined. Chart reviewed. T-max overnight 101 degrees. Heart rate generally in the 80s to 90s with a sinus mechanism. Blood pressure 80s to 90s and has not required vasopressors. Input and output midnight to midnight 5577 mL in with 3800 mL out. Most recent laboratories show a sodium of 137, potassium of 4.6, chloride 102, CO2 of 27, BUN 7, creatinine 0.67, glucose 286. Phosphorus acceptable at 3.1. Albumin 2.3. All of these acceptable except an AST which is only minimally elevated at 55. White blood cell count of 10.7, hemoglobin remains stable at 8.5. Platelet count 259,000. 70% segmented neutrophils, 3% bands this morning. She remains on a PRVC mode. Tidal volume 360, PEEP of 5, FiO2 of 35% with pH 7.453, pCO2 of 38.5 and a pO2 of 84. Saturation 95.8%. She does over breathe the ventilator at a set rate of 16. Breathing generally in the mid 20s. Chest x-ray shows lines and tubes in good position. I do believe there is a little bit more prominence of the left lower lobe infiltrate this morning. Repeat sputum was nondiagnostic but repeat will be sent again today. On exam, she is sedated but with vacation sedation. She does not follow commands and is agitated and bites the endotracheal tube. Pupils do react. Sclera clear. Trachea is in the midline. Chest shows symmetric expansion with coarse scattered rhonchi that generally cleared with suctioning. No significant focal adventitious breath sounds are identified. Cardiac exam is regular. Peripheral pulses palpable, no edema. Abdomen soft with active bowel sounds. No hepatosplenomegaly, no masses. Extremities: No cyanosis or clubbing. Neurologically, as outlined above. She does move all extremities. The most pressing problems requiring my presence at the bedside: 1. Respiratory failure requiring mechanical ventilator support. 2. Laryngeal edema. 3. Vibrio sepsis. 4. Toxic metabolic encephalopathy. In view of her elevated white count and fever, we will add vancomycin. We will finish one more day of doxycycline. We cultured her sputum. We will limit her fluid intake at this point. Today is the first day she has actually been net positive. Adjustments were made in her IV fluids and free water. If she does not have significant improvement in her mental status in the next several days, we may require tracheostomy and I have spoken with her regarding this. We will continue her current level of care at this point. We will continue to wean her as able. I await a repeat sputum as outlined above. She remains in ulcer and deep venous thrombosis (DVT) prophylaxis. I left the bedside at 0841 hours. 36 minutes of critical care time delivered at the bedside not including procedures.
--- NOTE | 2018-09-14 09:46 | PHACANCOPD ---
PHARMACY VANCOMYCIN DOSING Pt Demographics Demographics Patient Age:63 , Weight:73.400 , Gender: female Adjusted Body Weight Date: 09/14/18, Adjusted Body Weight: Kg Events Past 24 Hours Events Past 24 Hours: YES: Fever, Elevation in WBC; NO: Dialysis, Diuretic Therapy, Change in CrCl, Pending Diagnostics, Pending Procedures, Other Vancomycin Vancomycin Target Ranges: 10-20 mcg/ml Vancomycin Load Y/N: Yes Load Dose Date Time Vancomycin Load Dose: 1750MG Date: 09/14/17 Time: 1000 Vancomycin Dose Date: 09/14/18. Current Vancomycin Dose: Intermittent Dosing?: No Labs Labs Item Value Date Time White Blood Count 10.7 10^3/uL H 09/14/18 0507 White Blood Count 9.8 10^3/uL 09/13/18 0507 White Blood Count 9.7 10^3/uL 09/12/18 0600 Creatinine 0.67 MG/DL 09/14/18 0507 Creatinine 0.64 MG/DL 09/13/18 0507 Creatinine 0.59 MG/DL 09/12/18 0601 Vital Signs Label Value Date Time Patient Temperature 101.0 degrees F 09/14/18 0401 Micro Microbiology 09/07/18 Blood Culture - Final, Complete NO GROWTH AFTER 5 DAYS 09/06/18 Gastrointestinal Tract Panel (PCR) - Final, Complete VIBRIO SPECIES-not V.cholerae 09/09/18 Gram Stain - Final, Complete 09/09/18 Sputum Culture - Final, Complete Creatinine Clearance Date:09/14/18. Creatinine Clearance: . Assessment and Plan Maintaining Current Dose?: Yes Reason for dose change: No Dose Change Pharmacist Note Pharmacist Note Date: 09/14/18. Pharmacist note: This is pt's day 9 at [facility] on ventilator. Increased WBC today. Vanco has been added for MRSA coverage empirically. I have loaded the patient with Vanco 1750mg x1 today at 1000 followed by 750mg IV Q12H. Dr. Carpio has ordered for 7 days. I have scheduled a trough for tomorrow at 210 0 before the 4th dose. We will continue to monitor and adjust dose as needed. [facility] Sep 14, 2018 09:46
[2018-09-14] MEDS ORDERED: VANCOMYCIN HCL 1,000 MG, VIAL MATE ADAPTER 1 EACH in D5W 250 ML IV ONE (11:00)
[2018-09-14] MEDS: DOXYCYCLINE HYCLATE 100 MG in D5W MINI-BAG PLUS 100 ML IV SCH ×2 (11:44→23:56)
[2018-09-14] MEDS: ACETAMINOPHEN 325 MG/10.15 ML UDC GT PRN ×2 (12:04→21:45)
[2018-09-14 13:19] LABS: FERRITIN 246 NG/ML (8-252); IRON (FE) 40 UG/DL (50-170); PERCENT SATURATION 19.8 % (13.2-45.0); TOTAL IRON BINDING CAPACITY 202 UG/DL (250-450)
[2018-09-14 13:41] LABS: VITAMIN B12 LEVEL 671 PG/ML (247-911)
[2018-09-14 13:42] LABS: FOLATE 7.8 NG/ML (>5.4)
[2018-09-15] VITALS (27 sets, daily range): BP systolic 87–125; BP diastolic 50–81; O2SAT 97
[2018-09-15] MEDS: cefTRIAXone SOD 1 GM in D5W MINI-BAG PLUS 50 ML IV SCH (01:02)
[2018-09-15] MEDS: PROPOFOL 1,000 MG in APPROPRIATE DILUENT 1 EA IV SCH ×8 (01:03→22:54)
[2018-09-15] MEDS: MIDAZOLAM INJ 2 MG/2 ML VIAL (J2250) IV PRN ×7 (02:34→22:06)
[2018-09-15] MEDS: ALBUTEROL SULFATE 2.5 MG/0.5 ML INH NEB SOLN NEB SCH ×7 (02:39→23:21)
[2018-09-15 05:01] LABS: BASO % 0.2 % (0.0-1.0); EOS # 0.3 10^3/uL (0.0-0.50); EOS % 2.3 % (0.0-3.0); HEMATOCRIT 25.9 % (36.0-47.0); HEMOGLOBIN 8.3 g/dl (12.0-15.5); LYMPH # 1.5 10^3/uL (1.5-4.5); LYMPH % 11.8 % (24.0-44.0); MEAN CORPUSCULAR HEMOGLOBIN 30.3 pg (27.0-33.0); MEAN CORPUSCULAR VOLUME 94.5 fl (80.0-96.0); MONO # 0.7 10^3/uL (0.0-0.8); MONO % 5.7 % (0.0-5.0); NEUTROPHILS # 9.3 10^3/uL (1.8-7.7); NEUTROPHILS % 75.3 % (36.0-66.0); PLATELET COUNT, AUTOMATED 231 10^3/uL (150-450); RED BLOOD COUNT 2.74 10^6/uL (4.00-5.40); WHITE BLOOD COUNT 12.4 10^3/uL (4.0-10.0)
[2018-09-15 05:24] LABS: ALBUMIN 2.3 GM/DL (3.2-5.2); ALT/SGPT 40 U/L (12-78); BILIRUBIN,TOTAL 0.4 MG/DL (0.2-1.0); BLOOD UREA NITROGEN 9 MG/DL (7-18); CALCIUM LEVEL 7.6 MG/DL (8.8-10.2); CARBON DIOXIDE LEVEL 28 MEQ/L (21-32); CHLORIDE LEVEL 102 MEQ/L (98-107); CHOLESTEROL LEVEL 205 MG/DL (< 200); CPK CREATINE PHOSPHOKINASE 120 U/L (26-192); CREATININE FOR GFR 0.58 MG/DL (0.55-1.30); GLOMERULAR FILTRATION RATE > 60.0 (>45); GLUCOSE, FASTING 279 MG/DL (70-100); LDH LACTATE DEHYDROGENASE 291 U/L (84-246); PHOSPHORUS LEVEL 3.1 MG/DL (2.5-4.9); POTASSIUM SERUM 4.3 MEQ/L (3.5-5.1); SODIUM LEVEL 138 MEQ/L (136-145); TOTAL PROTEIN 5.6 GM/DL (6.4-8.2); TRIGLYCERIDES LEVEL 563 MG/DL (<150)
[2018-09-15] MEDS: METOCLOPRAMIDE INJ 10MG/2ML VIAL (J2765) IV SCH ×4 (05:33→23:18)
[2018-09-15] MEDS: HEPARIN SOD (PORCINE) 5000 UNITS/ML VIAL SC SCH ×3 (05:34→22:06)
[2018-09-15] MEDS: LEVOTHYROXINE 75MCG TABLET (0.075MG) PO SCH (05:34)
[2018-09-15] MEDS: HumaLOG INSULIN (NovoLOG) PER UNIT SC SCH ×4 (05:35→23:32)
[2018-09-15 05:37] LABS: ABG BASE EXCESS 3.9 (-2.0-2.0); ABG HCO3 27.4 MEQ/L (22.0-26.0); ABG O2 SATURATION 96.1 % (95.0-99.0); ABG PARTIAL PRESSURE CO2 36.9 mmHg (35.0-45.0); ABG PARTIAL PRESSURE O2 87.5 mmHg (75.0-100.0); ABG STANDARD HCO3 27.9 MEQ/L (22.0-26.0); ABG TOTAL CO2 28.6 MEQ/L (23.0-31.0); ABG pH (ARTERIAL) 7.489 UNITS (7.350-7.450)
--- NOTE | 2018-09-15 08:26 | REP ---
Portable chest x-ray: September 15, 2018 06:42 a.m. film. History: Intubated patient. Comparison study September 14, 2018 at 06:40 a.m. Findings: Endotracheal tube remains in good position at the level of proximal clavicles. NG tube enters left upper quadrant of the abdomen. A right internal jugular central venous line terminates in the expected location of the superior vena cava. Cardiomegaly is again observed. The lungs are exposed at a relatively low level of inspiration unchanged. There are air bronchograms and increased density in the left base which obscures the hemidiaphragm consistent with some degree of left pleural effusion and/or atelectasis in the lower lobe. This is unchanged. No new infiltrate is seen. Electronically Signed by Willian Acuna MD 09/15/2018 08:17 A
[2018-09-15] MEDS: NEUTRA-PHOS 1.25 GM PACKET PO SCH ×3 (09:11→20:06)
[2018-09-15] MEDS: CHLORHEXIDINE GLUCONATE 0.12 % 15ML UDC (PERIDEX ORAL RINSE) MT SCH ×2 (09:11→20:05)
[2018-09-15] MEDS: PANTOPRAZOLE 40MG INJ (PROTONIX) (C9113) IV SCH (09:11)
--- NOTE | 2018-09-15 10:31 | CCN ---
DATE: 09/15/2018 START TIME: 858 STOP TIME: 932 I again attended Adiel Emerson here in the intensive care unit. He is intubated, sedated and mechanically ventilated. He is still agitated and does not follow commands when sedation is lightened. T-max overnight 102 at noon yesterday. T-max since then 100.6. Blood pressure 80s to the low 100s and she has not required vasopressors. Heart rate generally 80 to 100 with a sinus mechanism. Respiratory rate upper teens to low 20s without accessory muscle use. Ins and outs midnight to midnight 4213 mL in with 4025 mL out. The most recent laboratories show a sodium of 138, potassium 4.3, chloride 102, CO2 28, BUN 9, creatinine 0.58, glucose 279. LFTs normal today. LDH minimally elevated at 291. Albumin 2.3. White blood cell count 12.4, mildly up from yesterday. 75% segs, 0 bands. Hemoglobin 8.3, which is unchanged. Platelet count 231,000. Blood gas done on a PRVC, rate of 16, tidal volume 360, PEEP 5, FiO2 40% has a pH of 7.489, pCO2 36.9 and pO2 of 87.5 and a saturation of 96%. Chest x-ray shows lines and tubes in good position. I do believe there is a left basilar infiltrate which persists in the retrocardiac area. On exam, she is sedate. Pupils do react. Sclerae are clear. Trachea is in the midline. Chest shows bilateral rhonchi that generally clear with suctioning. No convincing wheeze or rubs. Cardiac exam generally regular with no gallop. Peripheral pulses palpable. Edema is unchanged. Abdomen obese, soft, with active bowel sounds. No convincing organomegaly or masses. Extremities: No cyanosis or clubbing. Neurologically, as outlined above. The most pressing problems requiring my presence at the bedside are: 1. Respiratory failure, hypoxic. 2. Pharyngeal edema. 3. Sepsis. 4. Encephalopathy, suspect toxic metabolic. 5. Low grade fever with mild elevated white count. Due to the above, will change her antibiotics to Zosyn and vancomycin and discontinue the doxycycline and Rocephin. We will continue to try to decrease sedation and supplement her with intermittent Versed. I spoke again at length yesterday with her regarding the potential need for tracheostomy. I am reluctant to add steroids for her pharyngeal edema in view of her other issues. She is tolerating enteral feeds. Renal function is good at this point. She continues to require intermittent insulin coverage for some mild elevated sugars and I wonder if she does not have unrecognized non insulin dependent diabetes mellitus, but certainly that can be addressed as she improves. Overall, however, she remains critically ill. We will continue as outlined above. Her prognosis still remains guarded, especially in view of her degree of critical illness at the time of her presentation. I left the bedside at 0933 hours. 34 minutes of critical care delivered at the bedside, not including procedures.
[2018-09-15] MEDS: VANCOMYCIN HCL 750 MG, VIAL MATE ADAPTER 1 EACH in D5W 250 ML IV SCH (10:52)
[2018-09-15 10:59] LABS: ABG PARTIAL PRESSURE CO2 35.7 mmHg (35.0-45.0); ABG PARTIAL PRESSURE O2 101.1 mmHg (75.0-100.0); ABG pH (ARTERIAL) 7.494 UNITS (7.350-7.450)
[2018-09-15 11:00] LABS: ABG BASE EXCESS 3.5 (-2.0-2.0); ABG HCO3 26.8 MEQ/L (22.0-26.0); ABG O2 SATURATION 97.4 % (95.0-99.0); ABG STANDARD HCO3 27.6 MEQ/L (22.0-26.0); ABG TOTAL CO2 27.9 MEQ/L (23.0-31.0)
[2018-09-15] MEDS: PIPERACILLIN/TAZOBACTAM SOD 3.375 GM in D5W MINI-BAG PLUS 50 ML IV SCH ×2 (11:56→18:35)
[2018-09-15] MEDS: ACETAMINOPHEN 325 MG/10.15 ML UDC GT PRN ×2 (13:22→22:06)
--- NOTE | 2018-09-15 21:58 | PHACANCOPD ---
PHARMACY VANCOMYCIN DOSING Pt Demographics Demographics Patient Age:63 , Weight:74.300 , Gender: female Adjusted Body Weight Date: 09/14/18, Adjusted Body Weight: [57] Kg Events Past 24 Hours Events Past 24 Hours: NO: Dialysis, Diuretic Therapy, Change in CrCl, Fever, Elevation in WBC, Pending Diagnostics, Pending Procedures, Other Vancomycin Vancomycin indication: VIBRIO SEPSIS Vancomycin Target Ranges: 10-20 mcg/ml Vancomycin Load Y/N: Yes Load Dose Date Time Vancomycin Load Dose: 1750MG Date: 09/14/17 Time: 1000 Vancomycin Dose Date: 09/14/18. Current Vancomycin Dose: [1G IV Q8H] Intermittent Dosing?: No Labs Labs Item Value Date Time White Blood Count 10.7 10^3/uL H 09/14/18 0507 White Blood Count 12.4 10^3/uL H 09/15/18 0427 Creatinine 0.64 MG/DL 09/13/18 0507 Creatinine 0.67 MG/DL 09/14/18 0507 Creatinine 0.58 MG/DL 09/15/18 0427 Vital Signs Label Value Date Time Patient Temperature 101.3 degrees F 09/15/18 1800 Temperature Source Urinary Catheter 09/15/18 1800 Patient Temperature 101.2 degrees F 09/15/18 2000 Temperature Source Urinary Catheter 09/15/18 2000 Micro Microbiology 09/07/18 Blood Culture - Final, Complete NO GROWTH AFTER 5 DAYS 09/06/18 Gastrointestinal Tract Panel (PCR) - Final, Complete VIBRIO SPECIES-not V.cholerae 09/15/18 Gram Stain, Received Pending 09/15/18 Sputum Culture, Received Pending 09/09/18 Gram Stain - Final, Complete 09/09/18 Sputum Culture - Final, Complete Creatinine Clearance Date:09/14/18. Creatinine Clearance: [78.6ML/MIN]. Pending Labs VANCOMYCIN TROUGH 09/16/18 @2100 Assessment and Plan Maintaining Current Dose?: No Reason for dose change: Trough too low Pharmacist Note Pharmacist Note Date: 09/15/18. Pharmacist note: PT trough came back this evening @5.8 mcg/ml. The dose will be adjusted to vancomycin 1g IV every 8 hours starting 09/15/18 @22:00. A trough is scheduled for 09/16/18 @21. We will continue to monitor and adjust the dose as needed. Date: 09/14/18. Pharmacist note: This is pt's day 9 at [facility] on ventilator. Increased WBC today. Vanco has been added for MRSA coverage empirically. I have loaded the patient with Vanco 1750mg x1 today at 1000 followed by 750mg IV Q12H. Dr. Carpio has ordered for 7 days. I have scheduled a trough for tomorrow at 2100 before the 4th dose. We will continue to monitor and adjust dose as needed. RYLEY العلي [facility]ARMACY Sep 15, 2018 21:58
--- NOTE | 2018-09-15 22:04 | CR ---
DATE OF CONSULTATION: 09/15/2018 INFECTIOUS DISEASE CONSULTATION Asked to consult by Dr. Montoya regarding Vibrio septicemia with septic shock. HISTORY OF PRESENT ILLNESS: Mrs. Emerson is a 63-year-old female who was admitted on September 07, 2018 with complaints of severe vomiting, diarrhea that occurred raw crabs from [place] [employer] on the day of admission. The patient came to the emergency room, she was in septic shock, hypotensive, tachycardic, she was started on IV fluids, pressors. She had a stool specimen sent, which was positive for Vibrio by PCR testing. The patient was treated with IV Rocephin and doxycycline for 7 days. The patient remained febrile and intubated. There was a question of a left lower lobe infiltrate with increased secretion and FiO2 requirement increased from 35% to 50% and therefore, antibiotics were switched to vancomycin and Zosyn after 7 days. The patient is agitated whenever sedation is on hold, she bites the tube and does not follow commands. She continues to have fevers of 101. She still has diarrhea, she had no abdominal pain on admission. 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 PAST MEDICAL HISTORY: Significant for diabetes, hypertension, hypothyroidism, hyperlipidemia, gastroesophageal reflux disease. PAST SURGICAL HISTORY: section. tubal ligation. SOCIAL HISTORY: She is with 2 kids. She is a nonsmoker. No illicit drug use. 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 Ceftriaxone and doxycycline were discontinued after 7 days; last dose was 09/15/2018. ALLERGIES: LATEX. LABORATORY DATA: White count on admission was 4.5, on the next day it was up to 21,000, today it is 12.4. Hemoglobin 8.3, hematocrit 25.8, platelets 231, 75% neutrophils, 11% lymphocytes, 5% monocytes. Sodium 138, potassium 4.3, chloride 102, bicarbonate 28, BUN 9, creatinine 0.58, glucose 279, calcium 7.6, phosphorus 3.1, bilirubin 0.4, AST 36, ALT 40, alkaline phosphatase 96, LDH 291, CPK 120, total protein 5.6, albumin 2.3, cholesterol 205, triglycerides 563. Urinalysis on admission had 3 white cells and 1 red cell. PT 15.6, PTT 33. Blood cultures: One set on 09/07/2018 was negative. On 09/06/2018, GI panel had Vibrio species. Sputum Gram stain and culture was done on 09/09/2018, had many white cells, few epithelial cells, few gram-positive cocci in chains. IMAGING STUDIES: Chest x-ray On 09/06/2018 shows a right internal jugular (IJ) line with the tip in the superior vena cava . Lung francis were relatively clear. Head CT done on 09/10/2018 shows no evidence of acute intracranial pathology. This was done without contrast. Chest x-ray done on 09/15/2018 shows no new infiltrates seen. There is questionable air bronchograms at the left base, which obscures the diaphragm consistent with a small left pleural effusion. On physical exam, temperature up to 101.3, pulse 94, respirations 26, blood pressure 98/55, oxygen saturation (O2 sat) 96% on FiO2 of 35%. General appearance: Healthy looking female, sedate. When her sedation is lightened, she gets agitated. Heart: Normal S1, S2. No murmurs appreciated, rubs or gallops. Lungs: Diffuse expiratory rhonchi bilaterally. No wheezes or crackles. Abdomen: Soft, nontender. No hepatosplenomegaly. Extremities: No clubbing, cyanosis. +1 pitting edema bilaterally. No rashes. No calf tenderness. No skin lesions. Neurologic Exam: Pupils equal and reactive, measuring about 3 mm, reactive to light. Oropharynx dry limited neurologic exam that she seemed to be moving all extremities. Due to sedation Neck is supple. No jugular venous distention (JVD). No bruits, not stiff. IMPRESSION: This is a 63-year-old female who was admitted after she had eaten raw crabs and developed septic shock from Vibrio infection. The stool has been sent to the [facility] and has been identified as Vibrio parahaemolyticus. Toxigenic PCR is being done as well. No susceptibilities are available but usually Vibrio is susceptible to Rocephin, doxycycline as well as quinolones, which she has received over the past 9 days and in spite of that, the patient has continued to be febrile. The question whether she has developed a left lower lobe pneumonia as she has had some increased secretions, but her sputum culture was negative. I am somewhat concerned that she has remained febrile in spite of appropriate antibiotics and was wondering whether she could have a meningoencephalitis other DDX line infection, Cdiff infection... PLAN: Continue for the time being IV vancomycin and Zosyn. Repeat two sets of blood cultures to rule out line infection. Cdiff f diarrhea persists Schedule MRI of brain with Gadolinium to rule out brain abscess. If negative, schedule lumbar puncture to rule out infectious meningoencephalitis. Case has been discussed with Dr. Esequiel Andrade who agrees with the plan. Thank you for consultation. TALISHA
[2018-09-15] MEDS: VANCOMYCIN HCL 1,000 MG, VIAL MATE ADAPTER 1 EACH in D5W 250 ML IV SCH (22:05)
[2018-09-15] MEDS: SODIUM CHLORIDE 0.9% INJ 10 ML SYR IV SCH (22:05)
[2018-09-16] VITALS (34 sets, daily range): BP systolic 81–117; BP diastolic 49–66; O2SAT 96
[2018-09-16] MEDS: MIDAZOLAM INJ 2 MG/2 ML VIAL (J2250) IV PRN ×9 (01:22→18:51)
[2018-09-16] MEDS: PROPOFOL 1,000 MG in APPROPRIATE DILUENT 1 EA IV SCH ×5 (01:52→22:05)
[2018-09-16] MEDS: PIPERACILLIN/TAZOBACTAM SOD 3.375 GM in D5W MINI-BAG PLUS 50 ML IV SCH ×3 (02:27→18:52)
[2018-09-16] MEDS: METOCLOPRAMIDE INJ 10MG/2ML VIAL (J2765) IV SCH ×3 (03:44→18:00)
[2018-09-16] MEDS: ALBUTEROL SULFATE 2.5 MG/0.5 ML INH NEB SOLN NEB SCH ×6 (03:54→23:59)
[2018-09-16 04:33] LABS: BASO # 0.1 10^3/uL (0.0-0.2); BASO % 0.4 % (0.0-1.0); EOS # 0.3 10^3/uL (0.0-0.50); EOS % 2.1 % (0.0-3.0); HEMATOCRIT 26.6 % (36.0-47.0); HEMOGLOBIN 8.6 g/dl (12.0-15.5); LYMPH # 1.9 10^3/uL (1.5-4.5); LYMPH % 13.6 % (24.0-44.0); MEAN CORPUSCULAR HEMOGLOBIN 30.7 pg (27.0-33.0); MEAN CORPUSCULAR HGB CONC 32.3 g/dl (32.0-36.5); MONO # 0.8 10^3/uL (0.0-0.8); MONO % 5.6 % (0.0-5.0); NEUTROPHILS # 10.4 10^3/uL (1.8-7.7); WHITE BLOOD COUNT 13.6 10^3/uL (4.0-10.0)
[2018-09-16 04:37] LABS: PLATELET COUNT, AUTOMATED 372 10^3/uL (150-450)
[2018-09-16 05:07] LABS: ERYTHROCYTE SEDIMENTATION RATE 108 mm/hr (0-30)
[2018-09-16] MEDS: VANCOMYCIN HCL 1,000 MG, VIAL MATE ADAPTER 1 EACH in D5W 250 ML IV SCH ×3 (05:35→22:04)
[2018-09-16] MEDS: HEPARIN SOD (PORCINE) 5000 UNITS/ML VIAL SC SCH (05:36)
[2018-09-16] MEDS: LEVOTHYROXINE 75MCG TABLET (0.075MG) PO SCH (05:36)
[2018-09-16] MEDS: SODIUM CHLORIDE 0.9% INJ 10 ML SYR IV SCH ×3 (05:36→22:04)
[2018-09-16 05:59] LABS: ABG BASE EXCESS 3.8 (-2.0-2.0); ABG HCO3 27.2 MEQ/L (22.0-26.0); ABG O2 SATURATION 95.4 % (95.0-99.0); ABG PARTIAL PRESSURE CO2 36.1 mmHg (35.0-45.0); ABG PARTIAL PRESSURE O2 78.6 mmHg (75.0-100.0); ABG STANDARD HCO3 27.8 MEQ/L (22.0-26.0); ABG TOTAL CO2 28.3 MEQ/L (23.0-31.0); ABG pH (ARTERIAL) 7.495 UNITS (7.350-7.450)
[2018-09-16 06:19] LABS: CREATININE FOR GFR 6.88 MG/DL (0.55-1.30); GLOMERULAR FILTRATION RATE 6.5 (>45)
[2018-09-16 06:21] LABS: CALCIUM LEVEL 7.9 MG/DL (8.8-10.2); PHOSPHORUS LEVEL 3.2 MG/DL (2.5-4.9); POTASSIUM SERUM 3.6 MEQ/L (3.5-5.1)
[2018-09-16] MEDS: HumaLOG INSULIN (NovoLOG) PER UNIT SC SCH ×3 (06:21→18:52)
[2018-09-16 06:22] LABS: ALBUMIN 2.1 GM/DL (3.2-5.2); BILIRUBIN,TOTAL 0.4 MG/DL (0.2-1.0); TOTAL PROTEIN 6.4 GM/DL (6.4-8.2)
[2018-09-16 06:23] LABS: C REACTIVE PROTEIN QUANTITATIV 6.88 MG/DL (0.00-0.30)
--- NOTE | 2018-09-16 08:10 | REP ---
Portable chest x-ray: Semi-erect AP view. History: Intubated patient. Comparison study: September 15, 2018. Findings: EKG monitoring electrodes overlie the chest. Right internal jugular venous catheter is seen in expected location of the superior vena cava. An NG tube is seen entering the left upper quadrant. Endotracheal tube is seen just above the level of the proximal clavicles. Oxygen delivery tubing is noted. Cardiomegaly is again observed. Increased density is seen in the left lower lobe behind the heart as before, partially obscuring left hemidiaphragm. No new pulmonary parenchymal infiltrate. Electronically Signed by Willian Acuna MD 09/16/2018 08:03 A
[2018-09-16 08:27] LABS: BLOOD UREA NITROGEN 9 MG/DL (7-18); CALCIUM LEVEL 7.7 MG/DL (8.8-10.2); CARBON DIOXIDE LEVEL 27 MEQ/L (21-32); CHLORIDE LEVEL 101 MEQ/L (98-107); CREATININE FOR GFR 0.72 MG/DL (0.55-1.30); GLOMERULAR FILTRATION RATE > 60.0 (>45); GLUCOSE, FASTING 298 MG/DL (70-100); POTASSIUM SERUM 3.6 MEQ/L (3.5-5.1); SODIUM LEVEL 138 MEQ/L (136-145)
[2018-09-16 08:40] LABS: CPK CREATINE PHOSPHOKINASE 97 U/L (26-192)
[2018-09-16] MEDS: CHLORHEXIDINE GLUCONATE 0.12 % 15ML UDC (PERIDEX ORAL RINSE) MT SCH ×2 (08:59→20:35)
[2018-09-16] MEDS: NEUTRA-PHOS 1.25 GM PACKET PO SCH ×3 (08:59→20:35)
[2018-09-16] MEDS: PANTOPRAZOLE 40MG INJ (PROTONIX) (C9113) IV SCH (08:59)
[2018-09-16] MEDS ORDERED: metroNIDAZOLE 500 MG in APPROPRIATE DILUENT 1 EA IV SCH (10:00)
--- NOTE | 2018-09-16 10:44 | CCN ---
DATE: 09/16/2017 SUBJECTIVE: Ms. Emerson is evaluated at bedside this morning. She remains intubated and mechanically ventilated as well as sedated. Sedation is temporarily placed on hold for physical examination. The patient remains unresponsive and does not follow commands. She appears agitated and bites down on the endotracheal tube. OBJECTIVE: Vitals: Temperature via urinary probe is 100.9, blood pressure 112/58, heart rate 92, respiratory rate 28, ventilated on volume control with a respiratory rate of 16, tidal volume 360, PEEP 5, FiO2 35. General: [place] female who appears stated age, currently intubated and mechanically ventilated, currently off sedation for physical examination, anxious and agitated, does not follow commands. HEENT: Atraumatic, normocephalic. Currently off sedation for physical examination. PERRL. EOMI not assessed as patient is unable to follow commands. The patient has a good cough and gag reflex. Trachea appears midline. Intubated. Orogastric tube present. Cardiovascular: Regular rate and rhythm. Tachycardic. Normal S1, S2. No audible murmurs, rubs or clicks. Respiratory: Intubated and mechanically ventilated. Endotracheal tube at 22 cm. Personal review of chest x-ray reveals possible cardiomegaly with pulmonary congestion and left sided costophrenic blunting. Diaphragms are visualized bilaterally. Trachea is midline. Pulmonary examination reveals clear lung sounds bilaterally without audible crackles, wheezes or rhonchi. Abdomen: OG tube in place. Soft. Nondistended. Isolated petechiae from heparin and insulin injections noted on the mid abdomen. No visible surgical incisions noted. Bowel sounds appear somewhat hyperactive in right quadrants. Bowel sounds are normal in the left quadrants. Extremities: No clubbing. No cyanosis. No appreciable myoclonus. +2 pitting edema on the bilateral lower extremities. No lesions or rashes are appreciated. Peripheral pulses are appreciated in upper and lower extremities bilaterally. Neurological: Good cough and gag reflex, however, does not respond to verbal responses. PERRL. No myoclonus in the bilateral lower extremities. No appreciable Babinski sign. LABORATORY DATA: WBC 13.6, hemoglobin 8.6, hematocrit 26.6, platelets 372, ESR 108. Sodium 138, potassium 3.6, chloride 101, bicarbonate 27, BUN 9, creatinine 0.72, glucose 298, calcium 7.7, phosphorus 3.2, total bilirubin 0.4, AST 24, ALT 33, LDH 359, creatinine kinase 97, CRP 6.88, vitamin B12 671, folate 7.8. ABG: pH 7.50, pCO2 36, pO2 79, bicarbonate 23. Microbiology: Sputum gram stain and culture are pending. Blood cultures are pending. Pathology: Peripheral smear obtained on 09/14/2018 revealed normochromic, normocytic anemia to be correlated with serum iron studies to rule out anemia of chronic disease. Leukocytosis with shift to left and presence of immature myeloid cells suggestive of inflammatory/infectious or reactive process. IMAGING: Portable chest x-ray obtained on 09/16/2018 personally reviewed by myself and attending shows possible cardiomegaly with some blunting of the left costophrenic angle and pulmonary congestion noted in bilateral lung lobes. Trachea is midline. Bilateral diaphragms are visualized. Right internal jugular venous catheter is in the expected location in the superior vena cava. OG tube is in the left upper quadrant. Endotracheal tube is above the level of the proximal clavicles. 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 1. Metabolic/toxic encephalopathy. 2. Leukocytosis. 3. Diarrhea. Cardiology: Stable from a cardiac standpoint. The patient is not on pressors. Heart rate and blood pressure are appropriate. Nephrology: The patient has appropriate urinary output with a positive fluid balance overnight of 1225 mL. Murphy catheter remains in place. Respiratory: The patient is currently intubated and mechanically ventilated. Her ventilator has been adjusted to volume control and currently set with a respiratory rate of 16, tidal volume 360, PEEP 5, FiO2 35. The patient is saturating appropriately. Continue with DuoNeb and chlorhexidine. The patient has been intubated since the time of admission with brief extubation over the weekend on 09/10/2018. The patient was reintubated and has currently been intubated for 10 days. Would consider a tracheostomy next week. Attending to discuss with family. Neurological: The patient continues to remain nonresponsive even on sedation vacation. She does not follow commands. Infectious disease has recommended a brain MRI to rule out a brain abscess. If this imaging is negative to proceed with a lumbar puncture. Continue with propofol and Versed. Gastrointestinal: The patient is currently receiving tube feeds at 60 mL/hr with minimal residuals. Will continue with Protonix and Reglan. Will discontinue the Phenergan. The patient continues to have loose bowel movements. Will obtain Clostridium difficile PCR. The patient has been on extensive antibiotics for Vibrio parahaemolyticus and remains on antibiotics for infectious etiology. Have thus started patient on Flagyl. Endocrine: The patient is on levothyroxine for hypothyroidism. She is receiving tube feeds. She has a history of diabetes. Have thus added Levemir 10 units at bedtime. Continue with bolus insulin and finger sticks every 6 hours. Hematologic: In anticipation of possible lumbar puncture today have discontinued heparin. Will start deep vein thrombosis (DVT) prophylaxis with Lovenox in the morning on 09/17/2018. The patient has remained chronically anemic with a hemoglobin of 8.6. Iron studies have been obtained as well as folate and B12 levels. Folate and B12 are normal. Iron is somewhat low at 40 with a TIBC of 202 and a ferritin of 246. Will continue to monitor for the time being. No active signs of bleeding. Infectious Disease: The patient continues to have intermittent fevers and remains unresponsive on sedation vacation. She has completed her course of Rocephin and doxycycline for Vibrio parahaemolyticus. The patient continues with vancomycin and Zosyn and we have added Flagyl for possible gastrointestinal infectious source. Her white count is 13.6 with an ESR of 108 and a CRP of 6.88. Will obtain a blood culture of the central line. Repeat blood cultures and sputum cultures are pending. Critical care time on this patient is 1 hour, excluding all procedures. My faculty preceptor for this patient encounter was physically present during the encounter and was fully available. All aspects of the patient interview, examination, medical decision making process, and medical care plan development were reviewed and approved by the faculty preceptor. The faculty preceptor is aware and concurs with the plan as stated in the body of this note and will attest to such by his/her co-signature. I, Esequiel Andrade, agree with the above documentation after I conducted an independent exam. TALISHA
[2018-09-16] MEDS ORDERED: MIDAZOLAM INJ 2 MG/2 ML VIAL (J2250) As Ordered ONE (11:40)
[2018-09-16] MEDS ORDERED: PROHANCE 279.3MG/ML 15ML VIAL (A9576) As Ordered ONE (12:06)
[2018-09-16] MEDS ORDERED: ENOXAPARIN 40 MG/0.4 ML SYRINGE (J1650) SC SCH (14:00)
--- NOTE | 2018-09-16 14:01 | REP ---
MR BRAIN WITHOUT AND WITH CONTRAST: HISTORY: Altered mental status. CONTRAST: ProHance 14 mL. COMPARISON: CT 09/10/2018 A small focus of increased signal intensity on T2 weighted images is present in the head of the right caudate nucleus. This is isointense in signal intensity on ADC images and is consistent with a subacute infarction. Several areas of increased signal intensity on T2 weighted images are present in the periventricular white matter. This represents small vessel ischemic disease. There is no intraparenchymal hemorrhage, acute infarct mass or midline shift. The sella turcica is partially empty. There is no abnormal enhancement. The ventricular system is normal in appearance. There is no extracerebral collection. The sinuses are clear. IMPRESSION:1. Small acute right caudate nucleus infarction. 2. Small vessel ischemic disease. Electronically Signed by Tony Cruz MD 09/16/2018 02:03 P
--- NOTE | 2018-09-16 14:11 | IPN ---
DATE: 09/16/2018 Mrs. Emerson continues to be agitated when weaned off sedation. She has some frothy increased secretion in the endotracheal (ET) tube. She has low grade temperature 100.3, pulse 91, respirations 24, blood pressure 100/57, O2 sat 97% on FiO2 of 35%. Heart: Normal S1, S2. No murmurs. Lungs: Intubated with a few rhonchorous sounds. No crackles or wheezes. Abdomen is soft, nontender. No hepatosplenomegaly. There are petechiae from heparin injections. Extremities: +2 pitting edema bilaterally. No clubbing, cyanosis. Skin: She has a faint rash on the back. Neurologic examination: She gets agitated. Pupils equal and reactive currently sedated. LABS: White count of 13.6, hemoglobin 8.6, hematocrit 26.6 platelet 372, 76% neutrophils, 13% lymphocytes, 5% monocytes. ESR 108. Sodium 138, potassium 3.6, chloride 101, bicarb 27, BUN 9, creatinine 0.72, glucose 298, calcium 7.7, total CPK 97, blood cultures: Three sets have been ordered are pending. Stool for C diff is negative. Brain MRI has been done, results are still pending. Chest x-ray shows slight an increase in left lower lobe infiltrate obscuring left hemidiaphragm. Sputum gram stain had few white cells, few epithelial cells and no organisms seen. IMPRESSION: Vibrio parahaemolyticus septic shock: The patient has received 7 days of Rocephin and doxycycline with persistent fever and persistent diarrhea. The patient's antibiotics have been changed to include vancomycin and Zosyn to cover for possible hospital-acquired infection. 2. Encephalopathy: MRI of brain was done today and if no evidence of brain abscess, stroke, will pursue with a lumbar puncture. 3. Persistent fever: Stool for C diff was sent and was negative IV Flagyl could be discontinued. Sputum culture, blood cultures are pending. PLAN: Lumbar puncture later today. Continue vancomycin, Zosyn the time being until results of sputum and blood cultures available.
[2018-09-16 16:00] LABS: APPEARANCE, CSF CLEAR (CLEAR); COLOR, CSF COLORLESS (COLORLESS); CSF TUBE# CELL CNT TUBE 1
[2018-09-16 16:01] LABS: APPEARANCE, CSF CLEAR (CLEAR); COLOR, CSF COLORLESS (COLORLESS); CSF TUBE# CELL CNT TUBE 4
[2018-09-16 16:18] LABS: CSF TUBE# GLU TUBE 2; CSF TUBE# TP TUBE 2; GLUCOSE CSF 140 MG/DL (40-75); TOTAL PROTEIN,CSF 40 MG/DL (15-45)
--- NOTE | 2018-09-16 19:36 | RO ---
DATE OF PROCEDURE: 09/16/2018 PREPROCEDURE DIAGNOSIS: Encephalopathy. POSTPROCEDURE DIAGNOSIS: Encephalopathy. PROCEDURE PERFORMED: Diagnostic lumbar puncture. PHYSICIAN PERFORMING PROCEDURE: Sarahi Michelle MD SHUFFLE BOARD OPERATOR: Desire Hameed MD SEDATION: Propofol drip and 5 mg of versed given patient is fighting the ventilator. VENTILATION: AC 2400, PEEP of 5 to maintain saturation above 90. ESTIMATED BLOOD LOSS: Minimal. DESCRIPTION OF PROCEDURE: Consent was obtained from patient's . Risks and benefits has been explained. Patient was placed on right lateral decubitus position. Powell was palpated. Site was cleaned with Betadine three times and space between patient's L4-L5 was located and subcutaneous lidocaine 1% was first injected subcutaneously then deep. LP needle was inserted checking for fluid return every time the needle was advanced. Eventually clear fluid was obtained. Opening pressure was measured at 38. A total of 11 mL of clear fluid was obtained. Closing pressure of 27. Needle was removed. Dressing was placed. Patient tolerated the procedure with no complications.
[2018-09-16] MEDS ORDERED: LEVEMIR (INSULIN DETEMIR) 1 UNITS/0.01ML SC SCH (21:00)
[2018-09-17] VITALS (27 sets, daily range): BP systolic 83–119; BP diastolic 48–67; O2SAT 92–97
[2018-09-17] MEDS: MIDAZOLAM INJ 2 MG/2 ML VIAL (J2250) IV PRN ×6 (00:28→16:15)
[2018-09-17] MEDS: HumaLOG INSULIN (NovoLOG) PER UNIT SC SCH ×4 (00:29→18:10)
[2018-09-17] MEDS: PROPOFOL 1,000 MG in APPROPRIATE DILUENT 1 EA IV SCH ×8 (01:11→21:24)
[2018-09-17] MEDS: PIPERACILLIN/TAZOBACTAM SOD 3.375 GM in D5W MINI-BAG PLUS 50 ML IV SCH ×3 (02:21→18:11)
[2018-09-17] MEDS: ALBUTEROL SULFATE 2.5 MG/0.5 ML INH NEB SOLN NEB SCH ×6 (03:27→23:34)
[2018-09-17 05:49] LABS: ABG BASE EXCESS 2.8 (-2.0-2.0); ABG HCO3 25.6 MEQ/L (22.0-26.0); ABG O2 SATURATION 94.3 % (95.0-99.0); ABG PARTIAL PRESSURE CO2 32.5 mmHg (35.0-45.0); ABG PARTIAL PRESSURE O2 70.6 mmHg (75.0-100.0); ABG STANDARD HCO3 26.9 MEQ/L (22.0-26.0); ABG TOTAL CO2 26.6 MEQ/L (23.0-31.0); ABG pH (ARTERIAL) 7.515 UNITS (7.350-7.450)
[2018-09-17] MEDS: METOCLOPRAMIDE INJ 10MG/2ML VIAL (J2765) IV SCH ×4 (06:00→18:00)
[2018-09-17] MEDS: VANCOMYCIN HCL 1,000 MG, VIAL MATE ADAPTER 1 EACH in D5W 250 ML IV SCH ×3 (06:09→21:27)
[2018-09-17] MEDS: SODIUM CHLORIDE 0.9% INJ 10 ML SYR IV SCH ×3 (06:09→21:24)
[2018-09-17] MEDS: LEVOTHYROXINE 75MCG TABLET (0.075MG) PO SCH (06:09)
[2018-09-17 06:31] LABS: BASO % 0.3 % (0.0-1.0); EOS # 0.4 10^3/uL (0.0-0.50); EOS % 3.4 % (0.0-3.0); HEMATOCRIT 25.3 % (36.0-47.0); HEMOGLOBIN 8.3 g/dl (12.0-15.5); LYMPH % 18.5 % (24.0-44.0); MEAN CORPUSCULAR HEMOGLOBIN 31.8 pg (27.0-33.0); MEAN CORPUSCULAR HGB CONC 32.8 g/dl (32.0-36.5); MEAN CORPUSCULAR VOLUME 96.9 fl (80.0-96.0); MONO # 0.8 10^3/uL (0.0-0.8); NEUTROPHILS # 7.6 10^3/uL (1.8-7.7); NEUTROPHILS % 68.9 % (36.0-66.0); PLATELET COUNT, AUTOMATED 417 10^3/uL (150-450); RED BLOOD COUNT 2.61 10^6/uL (4.00-5.40); WHITE BLOOD COUNT 11.1 10^3/uL (4.0-10.0)
[2018-09-17 07:10] LABS: ALBUMIN 2.2 GM/DL (3.2-5.2); ALT/SGPT 33 U/L (12-78); BILIRUBIN,TOTAL 0.4 MG/DL (0.2-1.0); BLOOD UREA NITROGEN 11 MG/DL (7-18); CALCIUM LEVEL 7.7 MG/DL (8.8-10.2); CARBON DIOXIDE LEVEL 28 MEQ/L (21-32); CHLORIDE LEVEL 104 MEQ/L (98-107); CHOLESTEROL LEVEL 213 MG/DL (< 200); CPK CREATINE PHOSPHOKINASE 130 U/L (26-192); CREATININE FOR GFR 0.68 MG/DL (0.55-1.30); GLOMERULAR FILTRATION RATE > 60.0 (>45); GLUCOSE, FASTING 250 MG/DL (70-100); LDH LACTATE DEHYDROGENASE 204 U/L (84-246); POTASSIUM SERUM 3.6 MEQ/L (3.5-5.1); SODIUM LEVEL 139 MEQ/L (136-145); TOTAL PROTEIN 6.3 GM/DL (6.4-8.2); TRIGLYCERIDES LEVEL 851 MG/DL (<150)
--- NOTE | 2018-09-17 08:26 | REP ---
CHEST, ONE VIEW: HISTORY: Intubation. COMPARISON: 09/16/2018 Patchy density is present in the left lower lobe consistent with atelectasis or infiltrate. The right lung is clear. The cardiac silhouette is enlarged. The pulmonary vasculature is normal in appearance. An ET tube, NG tube, and central line are present. IMPRESSION: 1. Left lower lobe atelectasis or infiltrate, unchanged compared to the previous study. 2. Cardiomegaly. Electronically Signed by Tony Cruz MD 09/17/2018 08:30 A
[2018-09-17] MEDS: PANTOPRAZOLE 40MG INJ (PROTONIX) (C9113) IV SCH (09:16)
[2018-09-17] MEDS: ASPIRIN 81 MG CHEW TABLET NG SCH (09:16)
[2018-09-17] MEDS: ENOXAPARIN 40 MG/0.4 ML SYRINGE (J1650) SC SCH (09:17)
[2018-09-17] MEDS: CHLORHEXIDINE GLUCONATE 0.12 % 15ML UDC (PERIDEX ORAL RINSE) MT SCH ×2 (09:17→20:03)
[2018-09-17] MEDS ORDERED: PILL CRUSHER/CUTTER 1 EACH XX PRN (09:30)
--- NOTE | 2018-09-17 09:44 | CCN ---
DATE: 09/17/2018 Critical care time was 1 hour and 2 minutes. This excludes all procedures. Young is a 63-year-old female who remains with significant encephalopathy requiring mechanical ventilation and respiratory failure from encephalopathy. Extensive workup has been performed due to persistent leukocytosis, fever, although both are trending down today on vancomycin and Zosyn. CSF showed no organisms. PCR was negative. Clostridium difficile (C diff) PCR was negative. Sputum culture from 09/15/2018 was negative. Chest x-ray continues to show questionable amount of blunting of the left costophrenic angle. However, the patient does have rotation and cardiomegaly making this difficult. MRI yesterday showed a small right subacute caudate nucleus infarction, but no evidence of infection, ventricles were of normal size. The patient remains on mechanical ventilation, on sedation vacation; the patient is severely agitated, unable to follow instructions. Previous attempts at extubation were unsuccessful and was actually a difficult reintubation. If the patient continues to have encephalopathy, we will consult Ear, Nose and Throat (ENT) on Wednesday for tracheostomy. I will order coagulation studies (coags) with tomorrows labs. The patient's was updated at bedside yesterday. He is not at the bedside this morning. PHYSICAL EXAMINATION: Temperature is 99.6, pulse is 101, respiratory rate is 23, blood pressure is 115/59 with a mean arterial pressure of 77, oxygen saturation is 98% on 0.35 FiO2. The last fever documented was yesterday morning at 100.3. No fevers within the past 24 hours. Intake and output: Net in 3672, net out 1790. General: The patient is sedated, on mechanical ventilation, does arouse but is nonpurposeful with sedation vacation. She is quite agitated with sedation vacation, does not make appropriate eye contact, does not follow commands. HEENT: Right sclera is clear. Left eye has a subconjunctival hemorrhage towards the lateral aspect. The pupils are equal and reactive to light. Mucous membranes are more moist. Tongue is midline. Neck is supple. No tracheal deviation or mass. Lymphs: No cervical, supraclavicular, or axillary adenopathy. Cardiac: Distant S1, S2, tachycardiac in nature without audible murmur, rub or gallop. Point of maximum impulse (PMI) is displaced laterally. Minimal doughy edema of the lower extremities and sacrum. Pulmonary: Decreased breath sounds bilaterally without rales, rhonchi or wheezes. No accessory muscle use. The patient is very tachypneic with lightening of the sedation, which is reflected in her arterial blood gas this morning. However, she is much less tachypneic now that she is sedated. Abdomen is soft, nontender, slightly potty. There is no evidence of hepatosplenomegaly. No significant distension. No mass or hernia. Extremities: No cyanosis or clubbing, edema as mentioned above. Skin is pale without rashes, jaundice or bruising. She has a minimal macular rash over her lumbar and abdomen area. It is blanching. There is no evidence of cellulitis or increased warmth. Musculoskeletal: No evidence of fracture. No joint effusion. There appears to be the start of some foot drop. The patient has not had MPO boots during her hospital stay. Laboratory evaluation shows a white blood cell count of 11.1, hemoglobin 8.3, platelet count of 417. ESR is elevated at 108. Sodium is 139, potassium is 3.6, chloride is 104, bicarbonate of 28, BUN of 11 with a creatinine of 0.68, with a glucose of 250, calcium is 7.7, albumin is 2.2. CSF, C diff, sputum culture as mentioned in history of the present illness. Chest x-ray as mentioned in history of the present illness. MRI as mentioned in history of the present illness. All reviewed. Echocardiogram is still pending. IMPRESSION: 1. Respiratory failure secondary to significant encephalopathy previously due to severe illness from Vibrio infection. Will continue mechanical ventilation. Will likely need tracheostomy to facilitate weaning given the severity of her encephalopathy and the difficulty of her airway. 2. History of infection with Vibrio, now with ongoing leukocytosis and intermittent fever. At this point in time, extensive workup has been performed without any new findings of infection. Will continue vancomycin and Zosyn for possible underlying pneumonia. Awaiting echocardiogram, although blood cultures have not been positive suggesting endocarditis. 3. Hyperglycemia. Levemir was added yesterday. The patient continues to have blood sugars over 200. Will increase Levemir today. Remains on sliding scale insulin and tube feeds. 4. Anemia. No indication for transfusion at this point in time. Hemoglobin has been unchanged for the past few days. 5. Encephalopathy, likely toxic metabolic. The patient did have significant sodium shifts in her initial stay. No evidence of central pontine myelinolysis or cerebral edema on MRI. Will likely take some time to resolve. 6. Stroke. I have added aspirin to her regimen. There does not appear to be any evidence of hemiparesis. 7. Neurologic prophylaxis. Will add MPO boots to prevent foot drop. 8. Gastrointestinal (GI) prophylaxis. The patient is on Protonix. 9. Deep vein thrombosis (DVT) prophylaxis. The patient is on Lovenox. The patient remains critically ill due to the severity of her encephalopathy and respiratory failure, requires critical care management.
[2018-09-17] MEDS: LEVEMIR (INSULIN DETEMIR) 1 UNITS/0.01ML SC SCH (20:03)
[2018-09-18] VITALS (26 sets, daily range): BP systolic 87–126; BP diastolic 50–63; O2SAT 97
[2018-09-18] MEDS: HumaLOG INSULIN (NovoLOG) PER UNIT SC SCH ×4 (00:02→18:26)
[2018-09-18] MEDS: PROPOFOL 1,000 MG in APPROPRIATE DILUENT 1 EA IV SCH ×8 (00:20→23:00)
[2018-09-18] MEDS: PIPERACILLIN/TAZOBACTAM SOD 3.375 GM in D5W MINI-BAG PLUS 50 ML IV SCH ×3 (03:15→20:00)
[2018-09-18] MEDS: ALBUTEROL SULFATE 2.5 MG/0.5 ML INH NEB SOLN NEB SCH ×6 (04:24→23:34)
[2018-09-18 05:45] LABS: ABG BASE EXCESS 3.3 (-2.0-2.0); ABG HCO3 26.3 MEQ/L (22.0-26.0); ABG O2 SATURATION 96.3 % (95.0-99.0); ABG PARTIAL PRESSURE CO2 33.4 mmHg (35.0-45.0); ABG PARTIAL PRESSURE O2 86.7 mmHg (75.0-100.0); ABG STANDARD HCO3 27.4 MEQ/L (22.0-26.0); ABG TOTAL CO2 27.3 MEQ/L (23.0-31.0); ABG pH (ARTERIAL) 7.514 UNITS (7.350-7.450)
[2018-09-18] MEDS: LEVOTHYROXINE 75MCG TABLET (0.075MG) PO SCH (05:49)
[2018-09-18] MEDS: METOCLOPRAMIDE INJ 10MG/2ML VIAL (J2765) IV SCH ×4 (05:49→17:46)
[2018-09-18] MEDS: SODIUM CHLORIDE 0.9% INJ 10 ML SYR IV SCH ×3 (05:50→21:04)
[2018-09-18] MEDS: VANCOMYCIN HCL 1,000 MG, VIAL MATE ADAPTER 1 EACH in D5W 250 ML IV SCH ×3 (05:50→17:47)
[2018-09-18 06:26] LABS: BASO % 0.4 % (0.0-1.0); EOS # 0.5 10^3/uL (0.0-0.50); HEMATOCRIT 26.1 % (36.0-47.0); HEMOGLOBIN 8.1 g/dl (12.0-15.5); LYMPH % 21.1 % (24.0-44.0); MEAN CORPUSCULAR HEMOGLOBIN 30.3 pg (27.0-33.0); MEAN CORPUSCULAR VOLUME 97.8 fl (80.0-96.0); MONO # 0.7 10^3/uL (0.0-0.8); NEUTROPHILS # 6.1 10^3/uL (1.8-7.7); NEUTROPHILS % 64.4 % (36.0-66.0); PLATELET COUNT, AUTOMATED 444 10^3/uL (150-450); RED BLOOD COUNT 2.67 10^6/uL (4.00-5.40); WHITE BLOOD COUNT 9.5 10^3/uL (4.0-10.0)
[2018-09-18 06:50] LABS: ALBUMIN 2.3 GM/DL (3.2-5.2); ALT/SGPT 40 U/L (12-78); BILIRUBIN,TOTAL 0.4 MG/DL (0.2-1.0); BLOOD UREA NITROGEN 9 MG/DL (7-18); CALCIUM LEVEL 7.8 MG/DL (8.8-10.2); CARBON DIOXIDE LEVEL 27 MEQ/L (21-32); CHLORIDE LEVEL 104 MEQ/L (98-107); CHOLESTEROL LEVEL 225 MG/DL (< 200); CPK CREATINE PHOSPHOKINASE 92 U/L (26-192); CREATININE FOR GFR 0.63 MG/DL (0.55-1.30); GLOMERULAR FILTRATION RATE > 60.0 (>45); GLUCOSE, FASTING 231 MG/DL (70-100); LDH LACTATE DEHYDROGENASE 218 U/L (84-246); PHOSPHORUS LEVEL 2.9 MG/DL (2.5-4.9); POTASSIUM SERUM 3.3 MEQ/L (3.5-5.1); SODIUM LEVEL 140 MEQ/L (136-145); TOTAL PROTEIN 6.5 GM/DL (6.4-8.2); TRIGLYCERIDES LEVEL 641 MG/DL (<150)
--- NOTE | 2018-09-18 06:51 | ECHO ---
DATE OF SERVICE: 09/16/2018 REFERRING PROVIDER: Dr. Mesha Yanes PATIENT LOCATION: Room 3206 REASON FOR ECHOCARDIOGRAM: Fever. 2D MEASUREMENTS: IVS: 1.1 cm LV: 4.1 cm LVPW: 1.1 cm LA: 2.7 cm Aorta: 2.8 cm IVC: 2.2 cm DOPPLER MEASUREMENTS: Peak velocity across the aortic valve: 1.5 m/s Mitral E: 0.92 Mitral A: 0.69 with a ratio of 1.3 Maximum tricuspid valve velocity: Less than 2.0 m/s 2D COMMENTS: 1. Technically limited study due to poor acoustic window. 2. Normal left ventricular size and wall thickness, with a normal global left ventricular systolic function. The estimated left ventricular systolic ejection fraction is 60%. 3. Normal left atrium. Normal right atrium and right ventricle noted in limited views. 4. The atrial septum appeared to be normal without evidence of defect or shunt. 5. Normal aortic root. 6. Small pericardial effusion noted. No evidence of cardiac tamponade. 7. The aortic valve, mitral valve and tricuspid valve appear to be normal. The pulmonic valve and proximal pulmonary artery branches also appeared to be normal. 8. The inferior vena cava was dilated, central venous pressure mildly elevated. DOPPLER: No significant valvular abnormalities detected, but trace tricuspid regurgitation. The calculated pulmonary artery systolic pressure was normal, less than 30 mmHg. Assessment of the left ventricular diastolic function appeared to be normal. IMPRESSION: 1. Normal global left ventricular systolic and diastolic function. 2. Trace tricuspid regurgitation with a normal calculated pulmonary artery systolic pressure. 3. A small pericardial effusion was noted. No evidence of cardiac tamponade. 4. There were features that may be related to elevated central venous pressure, the inferior vena cava/IVC was mildly enlarged. MTDD
[2018-09-18 07:35] LABS: INR 0.94; PROTHROMBIN TIME 12.7 SECONDS (12.1-14.4)
[2018-09-18 07:36] LABS: PARTIAL THROMBOPLASTIN TIME 28.2 SECONDS (25.4-37.6)
--- NOTE | 2018-09-18 08:22 | REP ---
Chest one-view HISTORY: Intubation Comparison: 09/17/2018 Patchy density is present in the left lower lobe consistent with atelectasis or infiltrate unchanged compared to the previous study. The right lung is clear. The cardiac silhouette is enlarged. The pulmonary vasculature is normal in appearance. An ET tube, NG tube and central line are present. Impression: 1. Left lower lobe atelectasis or infiltrate unchanged compared to the previous study. 2. Cardiomegaly. Electronically Signed by Tony Cruz MD 09/18/2018 08:13 A
[2018-09-18] MEDS: PANTOPRAZOLE 40MG INJ (PROTONIX) (C9113) IV SCH (08:43)
[2018-09-18] MEDS: ENOXAPARIN 40 MG/0.4 ML SYRINGE (J1650) SC SCH (08:43)
[2018-09-18] MEDS: ASPIRIN 81 MG CHEW TABLET NG SCH (08:43)
[2018-09-18] MEDS: CHLORHEXIDINE GLUCONATE 0.12 % 15ML UDC (PERIDEX ORAL RINSE) MT SCH ×2 (08:44→20:00)
--- NOTE | 2018-09-18 11:18 | CCN ---
DATE OF SERVICE: 09/18/2018 Critical care time was 1 hour, this excludes all procedures. At bedside rounds this morning I turned off the patient's propofol as she was opening her eyes and appeared calm. She was not able to follow any commands. She got severely agitated biting the tube. When she was less agitated, was placed on pressure support and did fairly well until she was biting the tube. She could not follow commands. She could not understand the current clinical situation. When not biting the tube, an air leak was checked and there was no significant air leak around the tube. The patient was a difficult intubation with reportedly significant amounts of airway swelling. Currently the patient has had no significant purposeful movements. No evidence of seizure activity. She does open her eyes but does not track. She has had no cardiac arrhythmias overnight. No fevers overnight. is at bedside was updated on her clinical status. PHYSICAL EXAMINATION: Temperature is 99.7, pulse is 93, respiratory rate is 23, blood pressure is 96/52 with a mean arterial pressure 67 with an oxygen saturation 96% on 0.35. Intake and output 4000 in and 2000 out. GENERAL: As mentioned above. The patient is agitated when off sedation, is unable to follow commands, agitated to the point where she causes her self harm with biting on the tube precipitating oxygen desaturation diaphoresis. She is unable to follow commands. Has no purposeful movements. She does have a good cough reflex. HEENT: Sclerae clear and anicteric. Pupils are equal and reactive to light. She has a small conjunctival hemorrhage on the left lateral eye. Nasal mucosa pink and moist. No evidence of recent trauma. Mucous membranes are moist. Teeth in good repair. Endotracheal tube is present with OG tube. NECK: Supple. No tracheal deviation or mass. LYMPH: No supraclavicular, cervical, or axillary adenopathy. CARDIAC: Regular S1-S2 without audible murmur, rub or gallop. No elevated JVP. PULMONARY: Clear to auscultation without rales, rhonchi or wheezes. No dullness to percussion. No accessory muscle use. ABDOMEN: Soft, nontender, nondistended. No hepatosplenomegaly. There are normoactive to hyperactive bowel sounds. The patient is having diarrhea and has DIGNICARE in place. C. difficile has been negative as outlined below. EXTREMITIES: No cyanosis, clubbing or edema. SKIN: No rash, jaundice or bruising. MUSCULOSKELETAL: Some muscle weakness but does move all extremities, legs more than arms. MPO boots are in place. NEUROLOGIC: No evidence of unilateral weakness, is moving legs more frequently than arms, has not had purposeful movements such as lifting her arm to remove the endotracheal tube. Cranial nerves are intact. She is opening her eyes spontaneously. Unable to follow commands. There is no evidence of seizure activity. There is no tremor. There is no myoclonus. DTRs are hyporeflexic bilaterally at brachial radialis and patellar reflexes. Laboratory evaluation shows a white blood cell count of 9.5, hemoglobin 8.1, platelet count of 444. ESR is 108, sodium is 140, potassium 3.3, chloride is 104, bicarb 27, BUN of 9, creatinine 0.63, INR of 0.94, albumin of 2.3. Chest x-ray shows cardiomegaly without any significant infiltrate, although this is a portable film, difficult to assess heart size. According to her transthoracic echocardiogram there is a normal systolic ejection fraction, normal PA pressures, no evidence of embolic or thrombotic disease. No valvular disease. IMPRESSION: 63-year-old female with encephalopathy presenting with acute respiratory failure from severe infection. 1. Respiratory failure continues due to severity of encephalopathy. There is no air leak. Therefore I suspect airway edema given her prior history of extubation and difficulty with reintubation. I believe the best course of action at this point in time, after today's assessment is to refer for tracheostomy to facilitate weaning off mechanical ventilation. I have initiated Solu-Medrol for the possibility of laryngeal edema. 2. Diarrhea. Improving although still quite significant. 3. Hypokalemia, mild in nature. Will replace per tube. 4. Anemia. No indication for blood transfusion at this point in time. No evidence of acute hemorrhage. 5. Recent leukocytosis and fever. Unclear etiology, possible pneumonia, on vancomycin and Zosyn. Will continue for a 5-7 day course. 6. Small subacute stroke. Will continue aspirin. 7. Metabolic encephalopathy. Will likely require tracheostomy due to duration of mechanical ventilation. The patient did have rapid fluctuations in sodium in the initial part of her hospitalization; however, on MRI no evidence of central pontine myelinolysis or cerebral edema. 8. History of hypothyroidism on her usual dose of Synthroid. 9. Gastrointestinal (GI) prophylaxis, on Protonix. 10. Nutrition. On tube feeds with albumin, increase to 2.3 today. The patient remains critically ill, requires continued critical care, especially due to the tenuous status of her airway. Plan for consultation tomorrow with the ear, nose and throat for consideration of tracheostomy to facilitate weaning off mechanical ventilation due to the her neurologic status.
[2018-09-18] MEDS: methylPREDNISolone INJ 125 MG/2 ML VIAL (J2930) IV SCH ×2 (12:34→18:26)
[2018-09-18] MEDS: LEVEMIR (INSULIN DETEMIR) 1 UNITS/0.01ML SC SCH (20:01)
[2018-09-18] MEDS: fentaNYL 100 MCG/2 ML INJECTION (J3010) IV PRN (21:05)
[2018-09-19] VITALS (19 sets, daily range): BP systolic 91–133; BP diastolic 52–65
[2018-09-19] MEDS: VANCOMYCIN HCL 1,000 MG, VIAL MATE ADAPTER 1 EACH in D5W 250 ML IV SCH (00:40)
[2018-09-19] MEDS: HumaLOG INSULIN (NovoLOG) PER UNIT SC SCH ×4 (00:41→17:57)
[2018-09-19] MEDS: MIDAZOLAM INJ 2 MG/2 ML VIAL (J2250) IV PRN ×9 (00:45→23:51)
[2018-09-19] MEDS: PROPOFOL 1,000 MG in APPROPRIATE DILUENT 1 EA IV SCH ×8 (01:45→21:13)
[2018-09-19] MEDS: PIPERACILLIN/TAZOBACTAM SOD 3.375 GM in D5W MINI-BAG PLUS 50 ML IV SCH ×3 (02:05→18:01)
[2018-09-19] MEDS: methylPREDNISolone INJ 125 MG/2 ML VIAL (J2930) IV SCH ×3 (02:05→18:01)
[2018-09-19] MEDS: fentaNYL 100 MCG/2 ML INJECTION (J3010) IV PRN ×2 (02:14→05:48)
[2018-09-19] MEDS: ALBUTEROL SULFATE 2.5 MG/0.5 ML INH NEB SOLN NEB SCH ×5 (04:15→19:50)
[2018-09-19 05:41] LABS: ABG BASE EXCESS 1.1 (-2.0-2.0); ABG O2 SATURATION 96.2 % (95.0-99.0); ABG PARTIAL PRESSURE CO2 31.5 mmHg (35.0-45.0); ABG PARTIAL PRESSURE O2 83.2 mmHg (75.0-100.0); ABG STANDARD HCO3 25.5 MEQ/L (22.0-26.0)
[2018-09-19] MEDS: LEVOTHYROXINE 75MCG TABLET (0.075MG) PO SCH (05:48)
[2018-09-19] MEDS: SODIUM CHLORIDE 0.9% INJ 10 ML SYR IV SCH ×3 (05:49→20:40)
[2018-09-19] MEDS: METOCLOPRAMIDE INJ 10MG/2ML VIAL (J2765) IV SCH ×5 (05:49→23:50)
[2018-09-19 07:56] LABS: BASO % 0.3 % (0.0-1.0); HEMATOCRIT 25.4 % (36.0-47.0); LYMPH # 1.1 10^3/uL (1.5-4.5); MEAN CORPUSCULAR HEMOGLOBIN 30.8 pg (27.0-33.0); MEAN CORPUSCULAR HGB CONC 31.5 g/dl (32.0-36.5); MEAN CORPUSCULAR VOLUME 97.7 fl (80.0-96.0); MONO # 0.3 10^3/uL (0.0-0.8); NEUTROPHILS # 8.8 10^3/uL (1.8-7.7); NEUTROPHILS % 84.2 % (36.0-66.0); PLATELET COUNT, AUTOMATED 554 10^3/uL (150-450); WHITE BLOOD COUNT 10.5 10^3/uL (4.0-10.0)
[2018-09-19] MEDS ORDERED: VANCOMYCIN HCL 1,000 MG, VIAL MATE ADAPTER 1 EACH in D5W 250 ML IV SCH (09:00)
[2018-09-19 09:11] LABS: ALBUMIN 2.4 GM/DL (3.2-5.2); ALT/SGPT 46 U/L (12-78); BILIRUBIN,TOTAL 0.5 MG/DL (0.2-1.0); BLOOD UREA NITROGEN 15 MG/DL (7-18); CALCIUM LEVEL 7.9 MG/DL (8.8-10.2); CARBON DIOXIDE LEVEL 25 MEQ/L (21-32); CHLORIDE LEVEL 106 MEQ/L (98-107); CHOLESTEROL LEVEL 277 MG/DL (< 200); CPK CREATINE PHOSPHOKINASE 125 U/L (26-192); CREATININE FOR GFR 0.64 MG/DL (0.55-1.30); GLOMERULAR FILTRATION RATE > 60.0 (>45); GLUCOSE, FASTING 283 MG/DL (70-100); LDH LACTATE DEHYDROGENASE 412 U/L (84-246); PHOSPHORUS LEVEL 2.6 MG/DL (2.5-4.9); POTASSIUM SERUM 4.1 MEQ/L (3.5-5.1); SODIUM LEVEL 140 MEQ/L (136-145); TOTAL PROTEIN 6.5 GM/DL (6.4-8.2); TRIGLYCERIDES LEVEL 598 MG/DL (<150)
[2018-09-19] MEDS: ASPIRIN 81 MG CHEW TABLET NG SCH (09:35)
[2018-09-19] MEDS: CHLORHEXIDINE GLUCONATE 0.12 % 15ML UDC (PERIDEX ORAL RINSE) MT SCH ×2 (09:35→20:39)
[2018-09-19] MEDS: PANTOPRAZOLE 40MG INJ (PROTONIX) (C9113) IV SCH (09:36)
--- NOTE | 2018-09-19 09:45 | REP ---
PORTABLE CHEST X-RAY: Single view. HISTORY: Intubated patient. COMPARISON STUDY: September 18, 2018. FINDINGS: EKG monitoring electrodes overlie the chest. Endotracheal tube is in good position at the level of proximal clavicles. NG tube enters left upper quadrant. A right internal jugular central venous line terminates in the expected location of the superior vena cava. Hazy opacity persists at the left base consistent with some degree of left pleural fluid and/or left lower lobe atelectasis. No new infiltrate. Electronically Signed by Willian Acuna MD 09/19/2018 10:58 A
--- NOTE | 2018-09-19 10:02 | CCN ---
PULMONARY CRITICAL CARE NOTE DATE OF SERVICE: 09/19/2018 Ms. Emerson is seen in the intensive care unit (ICU). She is nonresponsive. Nursing reports that she was somewhat agitated during the night. Currently, she is resting comfortably. Nursing reports no cardiac events, and the patient is currently afebrile. PHYSICAL EXAMINATION: VITAL SIGNS: Temperature is 99.0, pulse 79, respiratory rate 20, blood pressure is 119/65, pulse oximetry is 96%. The patient is on the ventilator, volume controlled, with tidal volume of 360, a rate of 16, a positive end-expiratory pressure (PEEP) of 5, an FIO2 of 35. GENERAL: The patient is very minimally responsive in that she opened her eyes to voice but otherwise cannot follow any commands. She has no purposeful movements. HEENT: Head is normocephalic, atraumatic. Pupils are equal and reactive to light. She does have a small conjunctival hemorrhage on the left lateral eye. Moist oral mucosa. Endotracheal tube is present. NECK: Supple. No jugular venous distention (JVD). No tracheal deviation. No cervical adenopathy. PULMONARY: Clear to auscultation without rales, rhonchi or wheezes. No accessory muscle use. HEART: Regular rate and rhythm, S1, S2. ABDOMEN: Positive bowel sounds. Soft, nontender, nondistended. No obvious hepatosplenomegaly. EXTREMITIES: No cyanosis, clubbing, or edema. SKIN: Is warm and dry. NEUROLOGIC: The patient opens her eyes to voice but unable to follow commands. LABORATORIES: WBC 10.5, hemoglobin 8.0, hematocrit 25.4, platelets 554. Sodium 140, potassium 4.1, chloride 106, carbon dioxide 25, BUN 15, creatinine 0.64, glucose 283, calcium 7.9, phosphorus 2.6, total bilirubin 0.5, AST 57, ALT 46, alkaline phosphatase 75, LD 412, CK 125, total protein 6.5, albumin 2.4, triglycerides 598, cholesterol 277. ASSESSMENT AND PLAN: 1. Respiratory failure, which is secondary to encephalopathy due to a Vibrio infection. The patient is suspected to have airway edema given her history of extubation and difficulty with reintubation. The plan is for ears, nose, and throat (ENT) consultation for a tracheostomy for prolonged intubation and difficult airway. I spoke to Dr. Rosales, who will see the patient. She is currently on Solu-Medrol for the possibility of laryngeal edema. 2. Diarrhea. Clostridium (C) difficile has been negative. Continue to monitor. 3. Hypokalemia. The patient has received potassium replacement, and current potassium is improved at 4.1. Continue to monitor. 4. Anemia. Hemoglobin and hematocrit have remained stable. No indication for blood transfusion at this point in time. 5. Leukocytosis and fever. Unclear etiology. The patient is currently on vancomycin and Zosyn. The plan is to continue for a 5-7-day course. 6. Small subacute stroke. The patient is on aspirin. 7. Metabolic encephalopathy. As noted above, have discussed a tracheostomy with ENT surgeon, Dr. Rosales, as the patient would likely require tracheostomy due to the duration of mechanical ventilation. 8. Hypothyroidism. The patient remains on Synthroid. 9. Gastrointestinal (GI) prophylaxis. The patient is on Protonix. 10. Deep venous thrombosis (DVT) prophylaxis. The patient is on Lovenox. Dr. Rosales is requesting to change the patient for better perisurgical control of anticoagulation. [facility]
[2018-09-19] MEDS ORDERED: HEPARIN SOD (PORCINE) 5000 UNITS/ML VIAL SQ ONE (11:00)
--- NOTE | 2018-09-19 13:11 | CR ---
DATE OF CONSULTATION: 09/19/2018 REASON FOR CONSULTATION: For evaluation for tracheotomy placement in a patient with probable metabolic encephalopathy. REQUESTING PHYSICIAN: Dr. Esequiel Andrade HISTORY OF PRESENT ILLNESS: This unfortunate 63-year-old [place] woman who had apparently had a past medical history of diabetes, hypertension, hypothyroidism, hyperlipidemia, and gastroesophageal reflux disease who presented to [facility] emergency room on September 06, 2018 with vomiting and diarrhea. The patient had apparently eaten some raw crab and then afterwards had copious amounts of vomiting as well as diarrhea. She came to the emergency room at [facility]. She was hypotensive and tachycardiac. She was given many liters of normal saline boluses. Eventually, the patient on the required intubation and since September 07, 2018 has remained intubated. She was found later to have Vibrio infection via PCR testing. She has had infectious disease consultation by Dr. Lyons. The patient had been on vancomycin and Zosyn. She also apparently had a pulmonary infiltrate. She did have a CT scan of the head on September 10, 2018 that showed no evidence of acute intracranial pathology, trauma or injury. Dr. Andrade, retail merchandising coordinator, has been trying to wean the patient off of sedation, but is unable and at this point has requested evaluation for possible tracheotomy. All information has either been obtained from the chart, the , or the nurses as the patient is intubated and sedated. PAST MEDICAL HISTORY: As above. PAST SURGICAL HISTORY: and tubal ligation. FAMILY HISTORY: Unobtainable and currently noncontributory. SOCIAL HISTORY: Nonsmoker and no illicit drug use. CURRENT MEDICATIONS: She was on Lovenox which is being held and has been switched over to heparin. She is on vancomycin 1 gram IV every 8 hours, midazolam 4 mg every 2 hours as needed agitation. She was previously on Lovenox, but did not receive it today. She is on 162 mg of aspirin. She is also on Zosyn 3.375 grams IV every 8, Reglan 10 mg IV every 6, insulin sliding scale, propofol drip, levothyroxine 75 mcg daily per orogastric tube, Protonix 40 mg, fentanyl as needed. REVIEW OF SYSTEMS: Unobtainable. PHYSICAL EXAMINATION: The patient is in ICU 6, nonresponsive to verbal commands. There is no otoscope available to take a look at her ears, therefore, the external canals and tympanic membranes (TMs) could not be examined. The patient has no NG tube present. She has an OG tube taped to the oral tube. Difficult to fully examine the oral cavity with both tubes present, but no discrete lesions are noted. Neck was palpated. It is moderately short, moderately obese. There does appear to be a palpable thickened thyroid isthmus present, but the trachea appears to be midline. CURRENT LABS: Show on 09/19/2018, the white count is 10.5, hemoglobin 2.6, hematocrit is 25.4, and platelet count is 554,000. On 09/18/2018, her PT was 12.7. INR was 0.94 and APTT was 28.2. The chest x-ray for 09/19/2018 shows EKG electrodes overlying the chest. Endotracheal tube is in good position. NG tube enters left upper quadrant. A right internal jugular central vein catheter terminates in the superior vena cava. Hazy opacity persists in the base with some degree of left pleural fluid. Left lower lobe atelectasis. IMPRESSIONS: 1. Respiratory failure secondary to encephalopathy due to Vibrio infection. There was some question of report of edema of the airway. At this point they would like to have a tracheotomy performed which will be scheduled for tomorrow. The patient was given some Solu-Medrol. 2. Diarrhea likely from the Vibrio infection. 3. Hypokalemia. Currently has improved to 4.1. 4. Anemia. Currently stable. No transfusion scheduled at this time. 5. Leukocytosis and fever. Currently the patient is responding to vancomycin and Zosyn. 6. She was diagnosed with a small subarcuate stroke. The patient is on aspirin. 7. The patient has what is felt to be metabolic encephalopathy. 8. In addition, the patient has hypothyroidism and remains on Synthroid. PLAN: At this point is to have the patient scheduled for tracheotomy on 09/20/2018. I have discussed the risk with the . We talked about the risk of , pneumothorax, bleeding, possible need for blood transfusion if she has significant bleeding or oozing, rare instances of pneumothorax and airway fires. At this point, he wishes to proceed. Will also take out the OG tube and if available will try to place an NG tube. I did talk with Dr. Andrade. Her hope is that the patient may be able to improve with a tracheotomy from her metabolic encephalopathy and hopefully it is not anoxic encephalopathy, but at this point we are concerned about inability to be able to extubate the patient and would prefer the tracheotomy at this point. We have talked with the with regards to this. We did explain to him that depending upon her mental status it will depend upon how long the tracheotomy tube is required or if there is other swelling that may be found later on that does not resolve and that there are some instances that tracheotomy tubes may end up being permanent, but more likely needed depending upon her metabolic encephalopathy versus inability to recover from her weakness from her severe sepsis. At this point, will have the patient hold tube feedings after midnight, have her stop the Lovenox from today and will consider heparin and stop the heparin at midnight. She does have latex allergies. I have informed the operating room of this and at this point will take precautions for latex allergies. Will have her scheduled for tracheotomy tomorrow in the early afternoon. Thank you again for involving me in the care of this patient. TALISHA
[2018-09-19] MEDS: SODIUM CHLORIDE 0.9% INJ 10 ML SYR IV PRN ×2 (20:39→23:51)
[2018-09-19] MEDS: LEVEMIR (INSULIN DETEMIR) 1 UNITS/0.01ML SC SCH (20:39)
[2018-09-19] MEDS ORDERED: HEPARIN SOD (PORCINE) 5000 UNITS/ML VIAL SQ SCH (22:00)
[2018-09-20] VITALS (29 sets, daily range): BP systolic 98–134; BP diastolic 55–70
[2018-09-20] MEDS: HumaLOG INSULIN (NovoLOG) PER UNIT SC SCH ×4 (00:15→18:46)
[2018-09-20] MEDS: PROPOFOL 1,000 MG in APPROPRIATE DILUENT 1 EA IV SCH ×8 (00:43→22:30)
[2018-09-20] MEDS: MIDAZOLAM INJ 2 MG/2 ML VIAL (J2250) IV PRN ×4 (02:21→21:07)
[2018-09-20] MEDS: PIPERACILLIN/TAZOBACTAM SOD 3.375 GM in D5W MINI-BAG PLUS 50 ML IV SCH ×2 (02:21→10:03)
[2018-09-20] MEDS: methylPREDNISolone INJ 125 MG/2 ML VIAL (J2930) IV SCH ×3 (02:21→18:47)
[2018-09-20] MEDS: ALBUTEROL SULFATE 2.5 MG/0.5 ML INH NEB SOLN NEB SCH ×6 (02:59→20:21)
[2018-09-20 05:18] LABS: BASO % 0.4 % (0.0-1.0); EOS % 0.1 % (0.0-3.0); HEMATOCRIT 25.8 % (36.0-47.0); HEMOGLOBIN 8.2 g/dl (12.0-15.5); LYMPH # 1.4 10^3/uL (1.5-4.5); LYMPH % 14.1 % (24.0-44.0); MEAN CORPUSCULAR HEMOGLOBIN 30.9 pg (27.0-33.0); MEAN CORPUSCULAR HGB CONC 31.8 g/dl (32.0-36.5); MEAN CORPUSCULAR VOLUME 97.4 fl (80.0-96.0); MONO # 0.5 10^3/uL (0.0-0.8); MONO % 5.1 % (0.0-5.0); NEUTROPHILS # 7.8 10^3/uL (1.8-7.7); NEUTROPHILS % 78.1 % (36.0-66.0); PLATELET COUNT, AUTOMATED 627 10^3/uL (150-450); RED BLOOD COUNT 2.65 10^6/uL (4.00-5.40)
[2018-09-20 05:30] LABS: ALBUMIN 2.6 GM/DL (3.2-5.2); ALT/SGPT 49 U/L (12-78); BILIRUBIN,TOTAL 0.4 MG/DL (0.2-1.0); BLOOD UREA NITROGEN 19 MG/DL (7-18); CALCIUM LEVEL 7.8 MG/DL (8.8-10.2); CARBON DIOXIDE LEVEL 26 MEQ/L (21-32); CHLORIDE LEVEL 105 MEQ/L (98-107); CHOLESTEROL LEVEL 324 MG/DL (< 200); CPK CREATINE PHOSPHOKINASE 60 U/L (26-192); CREATININE FOR GFR 0.63 MG/DL (0.55-1.30); GLOMERULAR FILTRATION RATE > 60.0 (>45); GLUCOSE, FASTING 208 MG/DL (70-100); LDH LACTATE DEHYDROGENASE 198 U/L (84-246); PHOSPHORUS LEVEL 2.1 MG/DL (2.5-4.9); POTASSIUM SERUM 3.6 MEQ/L (3.5-5.1); SODIUM LEVEL 139 MEQ/L (136-145); TOTAL PROTEIN 6.5 GM/DL (6.4-8.2); TRIGLYCERIDES LEVEL 731 MG/DL (<150)
[2018-09-20] MEDS: METOCLOPRAMIDE INJ 10MG/2ML VIAL (J2765) IV SCH ×3 (05:49→18:46)
[2018-09-20] MEDS: SODIUM CHLORIDE 0.9% INJ 10 ML SYR IV SCH ×3 (05:50→21:08)
[2018-09-20] MEDS: LEVOTHYROXINE 75MCG TABLET (0.075MG) PO SCH (05:50)
[2018-09-20 06:15] LABS: ABG BASE EXCESS 2.6 (-2.0-2.0); ABG HCO3 26.5 MEQ/L (22.0-26.0); ABG O2 SATURATION 98.2 % (95.0-99.0); ABG PARTIAL PRESSURE O2 114.3 mmHg (75.0-100.0); ABG STANDARD HCO3 26.8 MEQ/L (22.0-26.0); ABG TOTAL CO2 27.6 MEQ/L (23.0-31.0); ABG pH (ARTERIAL) 7.461 UNITS (7.350-7.450)
--- NOTE | 2018-09-20 06:39 | IPN ---
DATE: 09/19/2017 Mrs. Emerson continues to be intubated. She has been seen in consultation by Dr. Rosales who has scheduled her for a tracheostomy tube tomorrow as she is still agitated and cannot be extubated. The patient has not been febrile. She continues to have diarrhea and therefore a rectal tube was placed. Oxygenation is doing well. Her FIO2 requirement is only 35%. Her last temperature was on September 18 and was 100.3. Today, she has been afebrile. Heart: Normal S1 and S2 with no murmurs. Lungs are clear. No wheezes, rales or rhonchi. Abdomen is soft, nontender. Extremities: Trace edema bilaterally. Rectal tube in place with a large amount of watery stools. LABORATORY DATA: White count is 10.5, hemoglobin 8, hematocrit 25.4, platelets 554, 84% neutrophils, 10% lymphocytes, 3% monocytes. Sodium 140, potassium 4.1, chloride 106, bicarb 25, BUN 15, creatinine 0.64, glucose 283, calcium 7.9, phosphorus 2.6, AST 57, ALT 46, alkaline phosphatase 75, LDH 412, total protein 6.5, albumin 2.4. Blood cultures from 09/15/2018 and 09/16/2018, total of three sets were negative. Cerebrospinal fluid (CSF) culture is negative. Stool for Clostridium difficile is negative. CSF fluid had 1-9 white cells with a glucose of 140 and a total protein of 40. CSF PCR is negative. IMAGING STUDIES: Brain MRI done on 09/16/2018 had a small acute right caudate nucleus infarction. 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 Cultures have not shown any evidence of any superinfection. Sputum culture and blood cultures are all negative. I do not see a need for IV vancomycin. 2. Left base opacity with some degree of pleural fluid. There was some concern of pneumonia there, but her FIO2 requirement is down to 35%. Zosyn and vancomycin were started because of that opacity. Vancomycin will be discontinued as her sputum culture is negative for methicillin-resistant Staphylococcus aureus (MRSA). Will continue Zosyn for a total of 7 days, currently day #5 out of 7. 3. Persistent diarrhea. C. diff is negative. May consider using Imodium. PLAN: Tracheostomy tomorrow.
[2018-09-20] MEDS: ASPIRIN 81 MG CHEW TABLET NG SCH (08:30)
[2018-09-20] MEDS ORDERED: MIDAZOLAM INJ 5 MG/ML VIAL (J2250) As Ordered ONE (09:04)
[2018-09-20] MEDS ORDERED: fentaNYL 250 MCG/5 ML INJECTION (J3010) As Ordered ONE (09:04)
[2018-09-20] MEDS ORDERED: ROCURONIUM BROMIDE 50 MG/5 ML VIAL As Ordered ONE (09:04)
--- NOTE | 2018-09-20 09:14 | REP ---
Portable chest x-ray: Single view. History: Intubated patient. Comparison study: September 19, 2018. Findings: Endotracheal tube remains in good position at the level of the transverse aorta and proximal clavicles. NG tube enters left upper quadrant. A right internal jugular central venous line terminates in the expected location of the superior vena cava. EKG monitoring electrodes are seen. Hazy opacity persists in the left base obscuring left hemidiaphragm consistent with atelectasis and/or infiltrate in the left lower lobe. There are air bronchograms. Small left pleural effusion cannot be excluded. These findings are unchanged. No new infiltrate. Electronically Signed by Willian Acuna MD 09/20/2018 09:06 A
[2018-09-20] MEDS: CHLORHEXIDINE GLUCONATE 0.12 % 15ML UDC (PERIDEX ORAL RINSE) MT SCH ×2 (09:26→21:07)
[2018-09-20] MEDS: PANTOPRAZOLE 40MG INJ (PROTONIX) (C9113) IV SCH (09:26)
[2018-09-20] MEDS ORDERED: PROPOFOL 200 MG/20 ML VIAL As Ordered ONE (10:21)
[2018-09-20] MEDS ORDERED: METHYLENE BLUE 0.5% (5MG/ML) 10 ML AMP (PROVAYBLUE)(Q9968 PER 1MG) As Ordered ONE (11:38)
[2018-09-20] MEDS ORDERED: LIDOCAINE W/EPINEPHRINE 1% 20ML VIAL As Ordered ONE (11:38)
[2018-09-20] MEDS ORDERED: PHENYLEPHRINE 0.5% NASAL SPRAY 15 ML As Ordered ONE (11:38)
--- NOTE | 2018-09-20 11:48 | CCN ---
DATE OF SERVICE: 09/20/2018 Ms. Adiel Emerson is seen at bedside in the intensive care unit. She is responsive to verbal stimuli and will open eyes but does not follow meaningful or purposeful commands to verbal requests. She does have a history of becoming agitated during the night with any sort of movement by nursing staff such as bathing, this did occur again overnight. Currently, at bedside, she is resting comfortably. Does not seem to be in any acute distress. There were no cardiac events overnight. The patient currently is afebrile. PHYSICAL EXAMINATION: VITAL SIGNS: Respiratory rate of 18. She is on a ventilator with an oxygen saturation 97% with an FiO2 of 35%. Blood pressure is 119/56, heart rate is 75, with the last documented temperature of 97.9. As stated above, the patient is on a ventilator. She is currently volume controlled with a tidal volume of 360, respiratory rate of 16 with a PEEP of 5 and an FiO2 of 35 saturating at 97%, she is currently breathing over the ventilator with a respiratory rate of 18. GENERAL: The patient continues to be minimally responsive which does not seem to be a change from 1-day prior, she will open her eyes to voice commands but otherwise does not make any meaningful movements per verbal request. However she does not seem to be in any acute distress. HEENT: Pupils are equal. They are reactive to light but they are sluggish bilaterally + 2 mm. She does have a healing conjunctival hemorrhage in the left lateral eye. Oral mucosa does seem moist, nares are patent. Endotracheal (ET) is present and in place. She is normocephalic. She is atraumatic. NECK: I did not appreciated any jugular venous distention (JVD). Her neck is supple. There is no tracheal deviation or cervical adenopathy palpated. PULMONARY: She does have coarse ventilatory breath sounds throughout, otherwise, without rales, rhonchi or wheezing. She has no accessory muscle use either on physical exam. HEART: Normal S1 and S2, regular rate and rhythm, cannot appreciate any murmurs, rubs or gallops. ABDOMEN: She does have positive but somewhat hypoactive bowel sounds throughout all quadrants, soft, nontender, nondistended, no obvious hepatosplenomegaly on physical palpation, no distention, no rebound or guarding. EXTREMITIES: Without cyanosis, clubbing or edema present. SKIN: Warm and dry and intact. NEUROLOGIC: As stated above, patient will open her eyes to voice but does not follow any commands. LABS: WBC 10, hemoglobin and hematocrit 8.2 and 25.8 respectively. Platelets were 627. Calcium was noted to be 7.8 with a phosphorus of 2.1 and albumin of 2.6. Carbon dioxide was noted to be 26 with a BUN and creatinine of 19 and 0.63 respectively, glucose was noted on this morning labs to be 208, AST and ALT were noted to be 36 and 49 respectively with an alkaline phosphatase of 69 and triglycerides of 731 with a cholesterol of 324 ASSESSMENT/PLAN: 1. Respiratory failure secondary to metabolic encephalopathy secondary to vibrio infection. Patient is currently intubated, she is scheduled for trach placement with ENT this afternoon. FiO2 of 35%, she is saturating well. She is currently breathing over the ventilator with a respiratory rate of 18, VTI 316, VTE 387. She is volume controlled, tidal volume is set at 360 with a respiratory rate of 16 and PEEP of 5. She continues on Solu-Medrol 80 mg every 8 hours for suspected airway edema, this was started 2 days ago on 09/18/2018. ENT had recommended placement of a weighted orogastric (OG) tube before surgery today, she is status post nasogastric (NG). Patient will benefit from pain control and sedation for 24 hours post-trach to allow for healing of insertion surgical area. Continue with Albuterol every 4 hours. Imaging from today was appreciated. pH 7.46 with a pCO2 of 38, pO2 114.3, with a bicarbonate of 26. There is no change for vent settings at this time. Patient will be trached today. Chest x-ray from this morning was also appreciated shows good placement of ET tube between 3-4 cm superior to the frederick. There is a right IJ catheter terminating in the expected position at the superior vena cava (SVC) and continuation but not progression of left pleural opacity effusion. Blunting of the diaphragmatic edges on the left side, patient status post NG. We will discontinue Fentanyl today. Her last dose was yesterday, continue with propofol sedation for now at 75 mcg. 2. Continued diarrhea: Nursing staff reported continued loose stool via rectal tube, which was also present on physical exam today. We will begin Imodium, of note, patient is not on any bowel regimen medications. Her C diff was negative. Documented by nursing staff of 100 mL stool output in the past 24 hours. 3. Electrolyte derangement/hypokalemia. Patient is status post supplementation, today is sufficient at 3.6. Continue to monitor, patient is on telemetry. 4. Anemia: Likely of chronic disease. Her hemoglobin and hematocrit is stable today at 8.2/25.8, no need for transfusion at this time. Her peripheral smear did demonstrate normocytic anemia probably of chronic disease and leukocytosis most likely secondary to an inflammatory acute process. Patient is status post Lovenox, she was placed on heparin for which the last dose was given 1 day ago in anticipation of her trach placement today. She continues on aspirin therapy for subacute infarct noted on MRI. Continue to monitor hemoglobin and hematocrit. 5. Leukocytosis with fever. Resolved. Patient is not febrile on today's exam, WBC 10. Cerebrospinal fluid (CSF) Gram stain and PCR are negative for meningitis from bacterial or viral etiology respectively and the Gram stain was negative for cryptosporidium, CSF was noted to be colorless with high glucose count, normal protein level and WBC/RBC. We will order a pro count today. Patient status post 7 days Rocephin and doxycycline antibiotic therapy, vancomycin was stopped yesterday per infectious disease (ID) recommendation. Her Staphylococcus aureus (MRSA) screen was negative. She did get this for 6 days, however, continue with Zosyn therapy today, day #6/7 days. 6. Subacute stroke: MRI from September 16, 2018 demonstrated a cute right caudate nucleus infarct. Patient to continue on aspirin therapy. 7. Hypothyroidism: Patient continues on Synthroid. 8. Diabetes mellitus 2: Patient is receiving 20 units of long-acting insulin nightly, <<10:59>> has been into the mid 300s. This morning her laboratory blood sugar was noted to be 208, no adjustments for now. Patient is nothing by mouth. She was receiving tube feeds, which she apparently tolerated well, per nursing staff, these, however have been placed on hold last night for anticipation trach procedure today. 9. Gastrointestinal (GI) and deep venous thrombosis (DVT): Patient continues on Protonix, she is status post Lovenox, last dose heparin last night in anticipation of surgical procedure today, as noted above. My faculty preceptor for this patient encounter was physically present during the encounter and was fully available. All aspects of the patient interview, examination, medical decision making process, and medical care plan development were reviewed and approved by the faculty preceptor. The faculty preceptor is aware and concurs with the plan as stated in the body of this note and will attest to such by his/her co-signature. ADDENDUM: I, Esequiel Andrade, agree with the history and physical as dictated by my resident, Dr. Ca Davis dated 09/20/2018, . I, Esequiel Andrade, conducted independent bedside rounding and physical exam, discussed the case at length with my resident. The details of her history and physical are listed above. I agree with what is reported. CHICHID
[2018-09-20] MEDS ORDERED: SUGAMMADEX SODIUM 500 MG/5 ML VIAL (BRIDION) As Ordered ONE (12:19)
[2018-09-20] MEDS ORDERED: LIDOCAINE 2% INJ 100 MG/5 ML SDV (FOR ANES.) As Ordered ONE (12:30)
[2018-09-20] MEDS ORDERED: dexameTHASONE 4 MG/ML 1ML VIAL (J1100) As Ordered ONE ×2 (13:09→13:12)
--- NOTE | 2018-09-20 13:34 | REP ---
Abdomen: Two views. History: Verify NG tube placement. Findings: Two portably obtained supine views of the chest and abdomen demonstrate a tracheostomy tube in good position. Nasogastric tube enters left upper quadrant of the abdomen in the region of the body of the stomach. Bowel gas pattern is unremarkable. The lungs are not well inflated on either side. Cardiomegaly is observed. Electronically Signed by Willian Acuna MD 09/20/2018 01:25 P
--- NOTE | 2018-09-20 14:59 | RO ---
DATE OF PROCEDURE: 09/20/2018 PREOPERATIVE DIAGNOSIS: Metabolic encephalopathy with difficulty with weaning and extubation, pulmonary service requested tracheotomy. POSTOPERATIVE DIAGNOSIS: Metabolic encephalopathy with difficulty with weaning and extubation, pulmonary service requested tracheotomy. OPERATION PERFORMED: 1. Tracheotomy with #6 Shiley fenestrated tracheotomy tube. 2. Removal of OG tube. 3. Placement of nasogastric tube in the right nares. SURGEON: Yared Rosales Jr., MD ASSISTANT LABORATORY DIRECTOR: Calista Salazar II, PA-C ANESTHESIA: General via endotracheal tubes. INDICATIONS FOR PROCEDURE: Inability to wean and extubate the patient as per pulmonary service. PROCEDURE IN DETAIL: With the patient in supine position, initially the patient was elevated 30 degrees, shifted some of the weight off the neck, then a shoulder roll was placed and the neck was extended. A doughnut was placed under the head for support. After this was done, landmarks were identified. The sternohyoid notch was identified as well as the cricoid region as well as the laryngeal frameworks. Next, the proposed incision site was marked and then injected with 3 mL of 1% lidocaine with 1:100,000 epinephrine. Once this was done, the patient was prepped and draped in usual fashion with Betadine and because of the patient having latex allergies, all latex materials were ensured to be not around, available or in the room. The patient had a 15 blade that was used to make a small incision over the proposed tracheotomy site. Subcutaneous fat was removed and with Allis clamp and the Bovie set at 30. This was taken down to the superficial investing fascia. The strap muscles were identified utilizing the mosquito as well as the Bovie cautery, the midline raphe was incised. Veins were appropriately lateralized with the [employer]'s. Pretracheal fat was dissected. Thyroid nicki vein was isolated and was able to be lateralized without cutting it or cauterizing it. Inferior aspect of the thyroid isthmus was elevated out of the way. The pretracheal fat was cleaned out of the way and excellent exposure of the trachea was then obtained. Prior to incision, the patient was preoxygenated with 100% oxygen and then the cuff was released. Injection of another 1 mL of 1% lidocaine and 1:100,000 epinephrine was injected into the trachea as well as into the second and third tracheal rings. The cuff was reinflated. The patient was reoxygenated to 100% FiO2 and then an 11 blade was used to make an incision and then upside-down new incision was created in the trachea. #3-0 chromic was used to suture the superior aspect of the tip of the tracheal flap to the inferior aspect of the skin incision and then the balloon was placed back up and then suctioning over the trache and then elevating the endotracheal tube with the cuff up, any blood that was present was suctioned out. The balloon was then released and then the endotracheal tube was brought superiorly just above the tracheotomy incision site and a #6 Shiley fenestrated tracheotomy tube with the cuff was insinuated with the obturator without any issues, it went in very easily, atraumatically. The inner obturator was removed and inner cannula was placed, and then hooked up to the ventilator. The cuff was placed. There was excellent CO2 return and good ventilation. There was no problems. No complications. At this point #2-0 silk sutures were used to suture to the skin to keep the tracheotomy in proper position. Once this was done, a Rehan soft collar was placed around the neck and Surgicel and Gelfoam was placed underneath the tracheal cuff. There were no problems. No complications. After this was done, the endotracheal and the OG tube were removed and then NG tube was initially passed on the left side but did not go down easily, therefore, it was done on the right side which was very easy, passed down to 35 cm from the nares and chest x-ray was done showing that it appeared to be in the fundus as well as the tracheotomy tube in the trachea did not appear to have any evidence of any pneumothorax or any other problems, and the trachea was in good position. There were no problems. No complications at this point. Estimated blood loss was 2 mL. The patient was transferred back to the ICU in stable condition. There were no problems. No complications. OPERATION PERFORMED: Tracheotomy. Removal of the OG tube and placement of NG tube. TALISHA
[2018-09-20] MEDS ORDERED: LOPERAMIDE ORAL SOLN 1MG/5ML UD GT PRN (16:00)
[2018-09-20] MEDS: fentaNYL 100 MCG/2 ML INJECTION (J3010) IV PRN ×2 (16:37→21:08)
[2018-09-20] MEDS: LEVEMIR (INSULIN DETEMIR) 1 UNITS/0.01ML SC SCH (21:07)
[2018-09-21] VITALS (20 sets, daily range): BP systolic 105–180; BP diastolic 55–99; O2SAT 96–100
[2018-09-21] MEDS: MIDAZOLAM INJ 2 MG/2 ML VIAL (J2250) IV PRN ×3 (00:19→06:45)
[2018-09-21] MEDS: METOCLOPRAMIDE INJ 10MG/2ML VIAL (J2765) IV SCH ×4 (00:19→18:46)
[2018-09-21] MEDS: fentaNYL 100 MCG/2 ML INJECTION (J3010) IV PRN ×2 (00:19→03:45)
[2018-09-21] MEDS: SODIUM CHLORIDE 0.9% INJ 10 ML SYR IV PRN ×2 (00:20→03:46)
[2018-09-21] MEDS: HumaLOG INSULIN (NovoLOG) PER UNIT SC SCH ×4 (00:20→18:46)
[2018-09-21] MEDS: ALBUTEROL SULFATE 2.5 MG/0.5 ML INH NEB SOLN NEB SCH ×7 (01:00→23:25)
[2018-09-21] MEDS: methylPREDNISolone INJ 125 MG/2 ML VIAL (J2930) IV SCH ×3 (03:44→18:46)
[2018-09-21] MEDS: PROPOFOL 1,000 MG in APPROPRIATE DILUENT 1 EA IV SCH ×3 (04:42→10:28)
[2018-09-21 04:55] LABS: BASO % 0.2 % (0.0-1.0); HEMATOCRIT 25.2 % (36.0-47.0); HEMOGLOBIN 7.9 g/dl (12.0-15.5); LYMPH % 19.6 % (24.0-44.0); MEAN CORPUSCULAR HEMOGLOBIN 31.1 pg (27.0-33.0); MEAN CORPUSCULAR HGB CONC 31.3 g/dl (32.0-36.5); MEAN CORPUSCULAR VOLUME 99.2 fl (80.0-96.0); MONO # 0.8 10^3/uL (0.0-0.8); MONO % 8.2 % (0.0-5.0); NEUTROPHILS # 7.2 10^3/uL (1.8-7.7); PLATELET COUNT, AUTOMATED 646 10^3/uL (150-450); RED BLOOD COUNT 2.54 10^6/uL (4.00-5.40); WHITE BLOOD COUNT 10.3 10^3/uL (4.0-10.0)
[2018-09-21 05:19] LABS: ALBUMIN 2.5 GM/DL (3.2-5.2); ALT/SGPT 55 U/L (12-78); BILIRUBIN,TOTAL 0.4 MG/DL (0.2-1.0); BLOOD UREA NITROGEN 23 MG/DL (7-18); CALCIUM LEVEL 7.6 MG/DL (8.8-10.2); CARBON DIOXIDE LEVEL 27 MEQ/L (21-32); CHLORIDE LEVEL 105 MEQ/L (98-107); CHOLESTEROL LEVEL 361 MG/DL (< 200); CPK CREATINE PHOSPHOKINASE 46 U/L (26-192); CREATININE FOR GFR 0.69 MG/DL (0.55-1.30); GLOMERULAR FILTRATION RATE > 60.0 (>45); GLUCOSE, FASTING 225 MG/DL (70-100); LDH LACTATE DEHYDROGENASE 185 U/L (84-246); POTASSIUM SERUM 3.3 MEQ/L (3.5-5.1); SODIUM LEVEL 140 MEQ/L (136-145); TOTAL PROTEIN 6.1 GM/DL (6.4-8.2); TRIGLYCERIDES LEVEL 713 MG/DL (<150)
[2018-09-21] MEDS: LEVOTHYROXINE 75MCG TABLET (0.075MG) PO SCH (06:17)
[2018-09-21] MEDS: SODIUM CHLORIDE 0.9% INJ 10 ML SYR IV SCH ×3 (06:17→21:06)
--- NOTE | 2018-09-21 07:43 | REP ---
Clinical: Status post intubation. Comparison: 09/20/2018. Findings: Tracheostomy overlies the airway. A nasogastric tube is identified extending to the region of the distal esophagus and should be advanced. Right IJ line with tip in the SVC. Perihilar and bibasilar opacities (left greater than right) are similar to prior examination. Small layering left effusion cannot be excluded. No pneumothorax. Mediastinum and cardiac silhouette stable. Impression: 1. Tracheostomy overlies the airway. 2. Nasogastric tube extends to the distal esophagus and should be advanced. 3. Continued perihilar and bibasilar opacities similar to prior examination. Electronically Signed by Jt Wells MD 09/21/2018 07:36 A
[2018-09-21 07:48] LABS: ABG BASE EXCESS 2.1 (-2.0-2.0); ABG HCO3 25.7 MEQ/L (22.0-26.0); ABG O2 SATURATION 95.1 % (95.0-99.0); ABG PARTIAL PRESSURE CO2 35.9 mmHg (35.0-45.0); ABG PARTIAL PRESSURE O2 78.1 mmHg (75.0-100.0); ABG STANDARD HCO3 26.4 MEQ/L (22.0-26.0); ABG TOTAL CO2 26.8 MEQ/L (23.0-31.0); ABG pH (ARTERIAL) 7.473 UNITS (7.350-7.450)
--- NOTE | 2018-09-21 08:02 | IPNPDOC ---
Subjective Date Seen The patient was seen on 09/20/18. Subjective Chief Complaint/HPI . General: Reports: ROS Unobtainable (patient is sedated and ventilated ) Objective Physical Examination General Exam: Positive: Alert (patient will arouse to verbal stimuli but not follow verbal commands), No Acute Distress; Negative: Cooperative Eye Exam: Positive: Conjunctiva & lids normal, Other Eye Symptoms (+2 mm b/l sluggish); Negative: EOMI, Sclera icteric, Ptosis ENT Exam: Positive: Atraumatic, Mucous membr. moist/pink, Nares Patent, Other ENT (ET tube in place) Neck Exam: Positive: Supple Chest Exam: Positive: Other (coarse ventilator breath sounds); Negative: Rales, Rhonchi, Wheezing Heart Exam: Positive: Rate Normal, Normal S1, Normal S2; Negative: Gallops, Murmurs, Rubs Abdomen Exam: Positive: Normal bowel sounds, Soft; Negative: Tenderness, Hepatospenomegaly Extremity Exam: Negative: Clubbing, Cyanosis, Edema, Tenderness, Swelling Skin Exam: Negative: Rash, Breakdown Neuro Exam: Positive: Other (pt. is ventialted and sedated, responds to verbal stimuli but not following verbal commands) Assessment /Plan Assessment 1. Respiratory failure secondary to metabolic encephalopathy due to vibrio infection -patient is currently intubated, scheduled for trach. placement today with ENT this afternoon -Fi02 is 35%, VC, TV is set at 360, with RR of 16 and PEEP of 5, she is currently breathing over ventilator at RR of 18, VTi of 360 and VTe of 387 -continues on Solu-Medrol 80 mg q8h for suspected airway edema, this was started two days ago 09.18.18 -ENT had recommended placement of weighted OG tube, s/p NG -patient will benefit from pain control and sedation for 24 hours post-trach to allow for healing of insertion/surgical area -c/w albuterol rq4h -ABG from today appreciated, pH was 7.46, pCO2 38, p02 114.3 w/ bicarb of 26-no change to vent settings, pt receiving trach today -CXR from this AM appreciated, shows good placement of ET tube b/t 3-4 cm above frederick, right IJ cath terminating at SVC and continuation but not progression of left pleural opacity/effusion, pt is s/p NG - we will d/c fentanyl today, c/w propofol sedation for now at 75 mcg 2. Continued diarrhea -nursing staff reported continued loose stool via RT -Will begin Imodium, of note pt is not on bowel regimen medications and C. diff was negative for patient -documented by nursing staff 100 mL stool output in in past 24 h 3. Electrolyte derangements/hypokalemia -s/p supplementation, today is sufficient at 3.6 -continue to monitor -pt is monitored on telemetry 4. Anemia, likely of chronic disease -h/h stable today at 8.2/25.8, no need for transfusion, perphrial smear did demonstrate normocytic anemia probably of chronic disease and leukocytosis most likely secondary to inflammation acute process -pt is s/p lovenox, and placed on heparin which last dose was one day ago in anticipation of trach placement today -continues on aspirin therapy for subacute infarct -continue to monitor h/h 5. Leukocytosis and fever -resolved, WBC 10 and afebrile, 100 F documented this AM by nursing staff -CSF gram stain and PCR negative for meningitis from bacterial or viral etiology respectively, Nay ink stain neg for crypto., CSF noted to be colorless with high glucose count, normal protein level and WBC/RBC -procal pending -pt. is s/p 7 days Rocephin and Doxy., Vanco stopped yesterday MRSA sputum negative s/p 6 days, c/w Zosyn therapy day #6/7 days 6. Subacute stroke -MRI from 09.16.18 demonstrated acute r. caudate nuclears infarction -pt continues on aspirin therapy 7. Hypothyroidism -pt continues on synthroid 8. DM2 -pt is receiving 20 units long acting insulin nightly, POC BS have been into the mid 300's, this AM lab BS was 208, no adjustments for now as pt is NPO - receiving tube feeds which she tolerates well, placed on hold last night for trach procedure today 9. GI and DVT px -pt continues on protonix, and s/p lovenox, last dose heparin last night in anticipation of trach today VS, I&O, 24H, Fishbone Vital Signs/I&O Vital Signs Date Time Temp Pulse Resp B/P (MAP) Pulse Ox O2 Delivery O2 Flow Rate FiO2 09/20/18 09:37 81 17 104/57 97 Ventilator 35 09/20/18 04:00 97.9 I&O- Last 24 Hours up to 6 AM 09/20/18 06:00 Intake Total 2869 ml Output Total 1695 ml Balance 1174 ml Laboratory Data 24H LABS Laboratory Tests 2 09/19/18 11:27: Bedside Glucose (Misc Panel) 308H 09/19/18 17:40: Bedside Glucose (Misc Panel) 323H 09/19/18 20:32: Bedside Glucose (Misc Panel) 329H 09/19/18 23:57: Bedside Glucose (Misc Panel) 351H 09/20/18 04:48: Immature Granulocyte % (Auto) 2.2, White Blood Count 10.0, Red Blood Count 2.65L, Hemoglobin 8.2L, Hematocrit 25.8L, Mean Corpuscular Volume 97.4H, Mean Corpuscular Hemoglobin 30.9, Mean Corpuscular Hemoglobin Concent 31.8L, Red Cell Distribution Width 15.2H, Platelet Count 627H, Neutrophils (%) (Auto) 78.1H, Lymphocytes (%) (Auto) 14.1L, Monocytes (%) (Auto) 5.1H, Eosinophils (%) (Auto) 0.1, Basophils (%) (Auto) 0.4, Neutrophils # (Auto) 7.8H, Lymphocytes # (Auto) 1.4L, Monocytes # (Auto) 0.5, Eosinophils # (Auto) 0.0, Basophils # (Auto) 0.0, Nucleated Red Blood Cells % (auto) 0.4H, Anion Gap 8, Glomerular Filtration Rate > 60.0, Blood Urea Nitrogen 19H, Creatinine 0.63, Sodium Level 139, Potassium Level 3.6, Chloride Level 105, Carbon Dioxide Level 26, Calcium Level 7.8L, Phosphorus Level 2.1L, Aspartate Amino Transf (AST/SGOT) 36, Alanine Aminotransferase (ALT/SGPT) 49, Lactate Dehydrogenase 198, Total Creatine Kinase 60, Alkaline Phosphatase 69, Total Bilirubin 0.4, Triglycerides Level 731H, Cholesterol Level 324H, Total Protein 6.5, Albumin 2.6L, Albumin/Globulin Ratio 0.67L 09/20/18 06:00: Blood Gas Bicarbonate Standard 26.8H, Arterial Blood pH 7.461H, Arterial Blood Partial Pressure CO2 38.0, Arterial Blood Partial Pressure O2 114.3H, Arterial Blood Total CO2 27.6, Arterial Blood HCO3 26.5H, Arterial Blood Base Excess 2.6H, Arterial Blood Oxygen Saturation 98.2 CBC/BMP Laboratory Tests 09/20/18 04:48 Red Blood Count 2.65 L, Mean Corpuscular Volume 97.4 H, Mean Corpuscular Hemoglobin 30.9, Mean Corpuscular Hemoglobin Concent 31.8 L, Red Cell Distribution Width 15.2 H, Neutrophils (%) (Auto) 78.1 H, Lymphocytes (%) (Auto) 14.1 L, Monocytes (%) (Auto) 5.1 H, Eosinophils (%) (Auto) 0.1, Basophils (%) (Auto) 0.4, Neutrophils # (Auto) 7.8 H, Lymphocytes # (Auto) 1.4 L, Monocytes # (Auto) 0.5, Eosinophils # (Auto) 0.0, Basophils # (Auto) 0.0, Calcium Level 7.8 L, Phosphorus Level 2.1 L, Aspartate Amino Transf (AST/SGOT) 36, Alanine Aminotransferase (ALT/SGPT) 49, Lactate Dehydrogenase 198, Total Creatine Kinase 60, Alkaline Phosphatase 69, Total Bilirubin 0.4, Triglycerides Level 731 H, Cholesterol Level 324 H, Total Protein 6.5, Albumin 2.6 L Microbiology Microbiology 09/16/18 Blood Culture - Preliminary, Resulted No Growth after 72 hours. All specime... 09/16/18 Blood Culture - Preliminary, Resulted No Growth after 72 hours. All specime... 09/15/18 Blood Culture - Preliminary, Resulted No Growth after 72 hours. All specime... 09/16/18 Gram Stain - Final, Complete 09/16/18 CSF Culture - Final, Complete 09/16/18 - Final, Complete 09/16/18 Clostridium difficile (PCR) - Final, Complete 09/15/18 Gram Stain - Final, Complete 09/15/18 Sputum Culture - Final, Complete GME ATTESTATION GME ATTESTATION My faculty preceptor for this patient encounter was physically present during the encounter and was fully available. All aspects of the patient interview, examination, medical decision making process, and medical care plan development were reviewed and approved by the faculty preceptor. The faculty preceptor is aware and concurs with the plan as stated in the body of this note and will attest to such by his/her cosignature. AUDI TOTH DO Sep 20, 2018 10:29
[2018-09-21] MEDS: CHLORHEXIDINE GLUCONATE 0.12 % 15ML UDC (PERIDEX ORAL RINSE) MT SCH ×2 (09:02→21:05)
[2018-09-21] MEDS: ASPIRIN 81 MG CHEW TABLET NG SCH (09:03)
[2018-09-21] MEDS: PANTOPRAZOLE 40MG INJ (PROTONIX) (C9113) IV SCH (09:03)
--- NOTE | 2018-09-21 11:15 | CCN ---
DATE: 09/21/2018 ADDENDUM TO THE NOTE DICTATED BY MY RESIDENT, DR. AUDI TOTH The patient is now status post tracheostomy that occurred yesterday. She has been doing well. Will try a trach collar today. She is not yet 100% following commands; however, she did move her feet when requested. Will attempt to remove her central line and place peripheral lines in order to prevent infection. Versed has been discontinued. Propofol will be held during trach mask trials. I agree with a history and physical as outlined by the resident on this date. I personally performed bedside rounds and examined the patient myself. TALISHA
[2018-09-21] MEDS ORDERED: POTASSIUM CHLORIDE 10 MEQ SR TABLET PO ONE (12:00)
[2018-09-21] MEDS: ENOXAPARIN 40 MG/0.4 ML SYRINGE (J1650) SC SCH (12:02)
[2018-09-21] MEDS: KCL 20MEQ IN 100ML SWI (KRUN) 20 MEQ in APPROPRIATE DILUENT 1 EA IV SCH ×4 (12:16→14:03)
--- NOTE | 2018-09-21 12:55 | CCN ---
DATE OF SERVICE: 09/21/2018 Ms. Adiel Emerson is again seen at bedside today in the intensive care unit. She is responsive to verbal stimuli and will open both her eyes. She is starting to follow some meaningful and purposeful commands to verbal requests, such as moving her legs bilaterally slightly. Currently, at bedside, she is resting comfortably. She is not in any acute distress. The patient currently is afebrile. There were no cardiac events reported overnight. PHYSICAL EXAMINATION: VITAL SIGNS: Respiratory rate of 19. She is currently on a ventilator with oxygen saturation 96% on 35% FIO2. Her setting are, she is volume controlled with a tidal volume of 360, respiratory rate of 16, PEEP of 5, FIO2 of 35% as stated above on volume control. Her temperature is 100.0. Her pulse is 76. Respiratory rate of 19. Blood pressure of 107/80. She is currently breathing over the ventilator with a respiratory rate of 24. VTI of 370 and VTE of 380. GENERAL: The patient is more responsive today. Her eyes are open bilaterally on physical examination. She will make purposeful movements to verbal requests, such as minimally moving her bilateral lower extremities when asked. She does not appear to be in any acute distress. She is status post tracheostomy yesterday. HEENT: Pupils are equal bilateral and reactive to light bilaterally +3 and then today. She does continue to have a healing conjunctival hemorrhage in the left lateral eye. Oral mucosa is moist, and her nares are patent. Her trache tube is present and in place. She is normocephalic and atraumatic. NECK: I did not appreciated any jugular venous distention. Her neck feels supple. She does not have any tracheal deviation or cervical adenopathy palpated. PULMONARY: Breath sounds are clear to auscultation bilaterally. I could not appreciate any rales, rhonchi, or wheezing. She does not have any accessory muscle use on physical examination. HEART: Normal S1 and S2. She had a regular rate and rhythm. I could appreciate any murmurs, rubs, or gallops. ABDOMEN: She does have positive bowel sounds throughout all four quadrants. Soft, nontender to palpation, nondistended. No obvious hepatosplenomegaly on physical palpation. There is no distention, rebound, or guarding. EXTREMITIES: Without cyanosis, clubbing, or edema present. SKIN: Warm, dry, and intact. NEUROLOGIC: As stated above, the patient has her eyes open on examination and will follow minimal requests to move her lower extremities. LABORATORIES: White blood cell count is 10.3 with a hemoglobin and hematocrit of 7.9 and 25.2, respectively with a platelet count of 646. Her calcium was noted to be 7.6, phosphorus of 2.0 with an albumin of 2.5. AST and ALT were noted to be 34 and 55, respectively, with an alkaline phosphatase of 65. Triglyceride level of 713, cholesterol level of 361. She does have a procalcitonin that is pending. ASSESSMENT AND PLAN: 1. Respiratory failure secondary to metabolic encephalopathy secondary to Vibrio infection. The patient did receive a tracheostomy yesterday with ears, nose, and throat (ENT), and she tolerated this procedure well. She is currently saturating at 94% on 35% FIO2. As stated above, she is breathing over the ventilator with a respiratory rate of 24, VTI 370, VTE 380. She continues to be volume controlled with a tidal volume of 360, respiratory rate of 16, PEEP of 5, and FIO2 of 35%, as stated above. Today would be day 6 of her Solu-Medrol 80 mg every 8 hours, which we will discontinue today for suspected airway edema. We will perform a trial for a trache collar today. We have discontinued her Versed and will discontinue propofol prior to her trache trials. May continue with albuterol every 4 hours. Imaging from today was appreciated. Chest x-ray did show the tracheostomy overlying the airway. It did show a nasogastric tube extending to the distal esophagus, which can be advanced, and a perihilar and bibasilar opacity, which is largely unchanged from prior chest x-rays. ABG performed today did show a pH of 7.473 with a PCO2 of 35.9, pO2 of 78.1. Bicarbonate as noted 27. from this morning was also appreciated shows good placement of ET tube between 3-4 cm superior to the frederick. There is a right IJ catheter terminating in the expected position at the superior vena cava (SVC) and continuation but not progression of left pleural opacity effusion. Blunting of the diaphragmatic edges on the left side, patient status post NG. We will discontinue Fentanyl today. Her last dose was yesterday, continue with propofol sedation for now at 75 mcg. 2. Continued diarrhea. The patient does continue to have loose stools via her rectal tube. This was also present on physical examination today. She does have Imodium scheduled. She is not on any bowel regimen medications. Her Clostridium (C) difficile was negative. Continue to monitor. 3. Electrolyte derangement and hypokalemia. The patient has received supplementation in hospital stay. Potassium was a bit low today at 3.3. Will give 40 mEq times one today and recheck. Continue to monitor. The patient is on telemetry. 4. Anemia. Likely of chronic disease. Her hemoglobin and hematocrit are stable today, albeit it did decrease minimally since yesterday to 7.9 and 25.2, likely secondary to her surgical procedure that took place yesterday. There is no need for transfusion at this time. The patient should be transfused if her hemoglobin falls below 7, as she is not a cardiac patient. Her peripheral smear did demonstrate normocytic anemia, probably of chronic disease and leukocytosis, most likely secondary to an inflammatory acute process. The patient is status post Lovenox and heparin, which was held prior to her procedure. We will begin Lovenox 40 mg subcutaneous daily today. She continues on aspirin therapy for subacute infarct noted on MRI this admission. Continue to monitor hemoglobin and hematocrit. 5. Leukocytosis with fever. Resolved. The patient is not febrile on today's examination. Her white blood cell count is 10.3. Cerebrospinal fluid (CSF) gram stain and stool polymerase chain reaction (PCR) are negative for meningitis from bacterial or viral etiology, respectively. Gram stain was negative for cryptosporidium. CSF was noted to be colorless with high glucose count, normal protein level and WBC/RBC. Procalcitonin is pending. The patient is status post 7 days of Rocephin and doxycycline antibiotic therapy. Vancomycin was stopped per infectious disease recommendation. Her methicillin-resistant Staphylococcus aureus (MRSA) screen was negative. She received vancomycin for 6 days. Zosyn therapy was discontinued yesterday, as well. She received a total of 6 days of that antibiotic. If nursing staff is able to give peripheral access, we will also remove her central line. We will continue with her Murphy catheter, as she is still having very loose bowel movements and some skin breakdown in the area. 6. Subacute stroke. MRI from 09/16/2018 demonstrated an acute right caudate nucleus infarct. The patient is continued on aspirin therapy. 7. Hypothyroidism. The patient will continue on Synthroid. 8. Diabetes mellitus 2. The patient was receiving 20 units of long-acting insulin nightly. Her blood sugar this morning on laboratory examination was 225. We will increase Levemir to 25 units daily. The patient continues to be nothing by mouth, but her tube feeds have been restarted. She is apparently tolerating this well. However, due to the weighted orogastric (OG), nursing staff is unable to measure residuals. Continue to monitor blood sugars. 9. Gastrointestinal (GI) and deep venous thrombosis (DVT) prophylaxis. The patient continues on Protonix. She is status post Lovenox and heparin. We will continue heparin today daily. My faculty preceptor for this patient encounter was physically present during the encounter and was fully available. All aspects of the patient interview, examination, medical decision-making process, and medical care plan development were reviewed and approved by the faculty preceptor. The faculty preceptor is aware and concurs with the plan as stated in the body of this note and will attest to such by her cosignature. I, Esequiel Andrade, agree with the above after conducting an independent history and physical exam. TALISHA
--- NOTE | 2018-09-21 13:34 | IPN ---
DATE: 09/21/2018 SUBJECTIVE: The patient is still somewhat sedated with open eyes. Subjectively the nurse states she seems to be doing a little bit better, but no subjective information can come from the patient at the time of visit. The nurse reports no problems with her overnight except that she was concerned about her coming off of sedation. OBJECTIVE: The patient is resting comfortably in intensive care unit (ICU) bed 6. Tracheotomy tube is secure and stable with no bleeding. No signs of cellulitis or infection. The patient is slightly flexed with the inferior portion of the tracheal flange slightly impinging in the soft tissues. This was explained to the nurse to have the patient slightly extended to prevent that from happening and more midline and keep the of the bed about 30 degrees. Otherwise, the tracheotomy site looks good and stable with #2-0 silk sutures keeping the tracheotomy tube in place or patent and stable Chest x-ray report shows the tracheostomy overlies the airway. Nasogastric tube extends to the distal esophagus. It should be advanced. Continued perihilar and bibasilar opacities similar to prior examination. IMPRESSION: Currently stable trache. From an ENT point of view she seems to be stabilizing. Will continue the current care for the tracheotomy. At this point it appears to be stable. Will sign off unless there is further issues. Will consider removing the trache stitches 7 days after tracheotomy unless there is a chance that the patient may be extubated sooner.
[2018-09-21] MEDS: LEVEMIR (INSULIN DETEMIR) 1 UNITS/0.01ML SC SCH (21:05)
[2018-09-22] VITALS (8 sets, daily range): BP systolic 128–158; BP diastolic 67–74; O2SAT 98–100
[2018-09-22] MEDS: METOCLOPRAMIDE INJ 10MG/2ML VIAL (J2765) IV SCH ×4 (00:26→19:00)
[2018-09-22] MEDS: HumaLOG INSULIN (NovoLOG) PER UNIT SC SCH ×4 (00:26→19:00)
[2018-09-22] MEDS: ALBUTEROL SULFATE 2.5 MG/0.5 ML INH NEB SOLN NEB SCH ×5 (03:11→21:08)
[2018-09-22 05:18] LABS: BASO % 0.2 % (0.0-1.0); HEMATOCRIT 28.2 % (36.0-47.0); HEMOGLOBIN 8.7 g/dl (12.0-15.5); LYMPH # 2.5 10^3/uL (1.5-4.5); MEAN CORPUSCULAR HEMOGLOBIN 30.3 pg (27.0-33.0); MEAN CORPUSCULAR HGB CONC 30.9 g/dl (32.0-36.5); MEAN CORPUSCULAR VOLUME 98.3 fl (80.0-96.0); MONO # 1.3 10^3/uL (0.0-0.8); MONO % 9.2 % (0.0-5.0); NEUTROPHILS # 9.7 10^3/uL (1.8-7.7); PLATELET COUNT, AUTOMATED 702 10^3/uL (150-450); RED BLOOD COUNT 2.87 10^6/uL (4.00-5.40); WHITE BLOOD COUNT 13.7 10^3/uL (4.0-10.0)
[2018-09-22 05:42] LABS: ALBUMIN 2.7 GM/DL (3.2-5.2); ALT/SGPT 70 U/L (12-78); BILIRUBIN,TOTAL 0.5 MG/DL (0.2-1.0); BLOOD UREA NITROGEN 24 MG/DL (7-18); CALCIUM LEVEL 8.1 MG/DL (8.8-10.2); CARBON DIOXIDE LEVEL 25 MEQ/L (21-32); CHLORIDE LEVEL 112 MEQ/L (98-107); CHOLESTEROL LEVEL 365 MG/DL (< 200); CPK CREATINE PHOSPHOKINASE 309 U/L (26-192); CREATININE FOR GFR 0.55 MG/DL (0.55-1.30); GLOMERULAR FILTRATION RATE > 60.0 (>45); GLUCOSE, FASTING 192 MG/DL (70-100); LDH LACTATE DEHYDROGENASE 312 U/L (84-246); PHOSPHORUS LEVEL 2.4 MG/DL (2.5-4.9); POTASSIUM SERUM 3.5 MEQ/L (3.5-5.1); SODIUM LEVEL 144 MEQ/L (136-145); TOTAL PROTEIN 6.4 GM/DL (6.4-8.2); TRIGLYCERIDES LEVEL 490 MG/DL (<150)
[2018-09-22] MEDS: LEVOTHYROXINE 75MCG TABLET (0.075MG) PO SCH (06:02)
[2018-09-22] MEDS: SODIUM CHLORIDE 0.9% INJ 10 ML SYR IV SCH ×3 (06:03→22:08)
[2018-09-22] MEDS: ASPIRIN 81 MG CHEW TABLET NG SCH (09:16)
[2018-09-22] MEDS: PANTOPRAZOLE 40MG INJ (PROTONIX) (C9113) IV SCH (09:16)
[2018-09-22] MEDS: CHLORHEXIDINE GLUCONATE 0.12 % 15ML UDC (PERIDEX ORAL RINSE) MT SCH ×2 (09:17→20:30)
[2018-09-22] MEDS: ENOXAPARIN 40 MG/0.4 ML SYRINGE (J1650) SC SCH (09:17)
--- NOTE | 2018-09-22 11:55 | IPN ---
DATE: 09/22/2018 SUBJECTIVE: Patient according to the nurse as well as the patient, the nurse reports that she seems to be doing well responding to commands. Patient is not able to talk to me because of the tracheotomy tube that is in place but currently no significant concerns. Vital signs objectively, her temperature is 98.8, blood pressure 138/67. She is currently on a trache collar 35% FiO2 and no evidence of any desaturations with 96% saturations. Tracheotomy site is clean. No evidence of pressure erosion. Trache sutures are still in place. Trache collar is secure. No edema or erythema of any significance present. IMPRESSION: From ENT point of view, status post trache postop day #2 doing well. The patient's mental status seems to be significantly improved as the sedation has been decreased. PLAN: At this point, will be to as per respiratory therapy improve her pulmonary status and determine how long the patient will require tracheotomy tube as she seems to be improving and they are decreasing the Decadron. The patient will likely be able to potentially have tracheotomy tube removed if she tolerates a plugging trial next week.
--- NOTE | 2018-09-22 12:00 | CCN ---
DATE: 09/22/2018 Ms. Adiel Emerson was seen at bedside in the intensive care unit this morning. She is noted to be more alert. She has been off of sedation for almost 24 hours, she is doing well. Her eyes are spontaneously open and looking around the room, she is able to follow most of my verbal requests. Currently, at bedside, she is resting comfortably, she is not in any acute distress. No cardiac events were reported overnight. Currently, she is afebrile. PHYSICAL EXAMINATION: VITAL SIGNS: Temperature 98.8, pulse 90 and regular, respiratory rate 21, blood pressure 138/67, she has been on a trach collar for almost 24 hours, pulse ox is 96% with an FiO2 of 35%. GENERAL: The patient is much more alert and responsive today, upon entering the room, she has spontaneous eye opening bilaterally looking around the room, she is following verbal commands to move extremities. She is not in any acute distress. HEENT: Pupils are +2-3 bilaterally, equal and symmetric and reactive. Oral mucosa is moist, nares are patent. Endotracheal tube is present and in position appropriately. She is normocephalic atraumatic. NECK: There is no jugular venous distention appreciated. There is no tracheal deviation or cervical adenopathy palpated. Her neck is supple. PULMONARY: She has clear breath sounds bilaterally without any wheezing, rhonchi or rales. She is not using any accessory muscles of inspiration on physical exam. HEART: Normal S1, S2, regular rate and rhythm, cannot appreciate any murmurs, rubs or gallops. ABDOMEN: She has positive bowel sounds through all four quadrants, soft, nontender to palpation, nondistended, there is no obvious hepatosplenomegaly on physical palpation. There is no distention, rebound or guarding. EXTREMITIES: Without cyanosis, clubbing, or edema present. SKIN: Warm, dry and intact. NEUROLOGIC: As stated above, patient is quite alert this morning. She has been off of sedation almost 24 hours. She is following commands to verbal requests. LABS: WBC 13.7 with hemoglobin and hematocrit of 8.7 and 28.2 respectively. Platelet count of 702. Sodium 144, potassium 3.5, chloride 112, and a BUN and creatinine of 24 and 0.55 respectively. Fasting glucose this morning was noted to be 192. Calium 8.1, phosphorus 2.4. AST and ALT were noted to be 47 and 70 respectively. Alkaline phosphatase 71, triglycerides 490 with cholesterol of 365 and an LDH of 312 and a total bilirubin of 0.5. 1. Trach status: There is no obvious hypoxia. She was changed to 28% FiO2 and is saturating well. 2. Status post febrile sepsis -Leukocytosis is likely Solu-Medrol induced, however, we will continue to monitor for signs and symptoms of infection as her calcitonin is not low at 0.28. The patient was not febrile on today's exam but her cerebrospinal fluid (CSF), Gram stain and PCR were negative for meningitis and bacterial viral etiology respectively and Gram stain was negative for cryptosporidium, CSF had been noted this admission to be colorless with high glucose count, normal protein level and WBC/RBC. She is status post 7 days of Rocephin and doxycycline antibiotic therapy, vancomycin had been discontinued. Her Staphylococcus aureus (MRSA) screen was negative but she did receive this for 6 days, she also received 6 days of Zosyn therapy, which has been stopped by infectious disease (ID). 3. Diarrhea, unexplained: The patient does have continued loose stools via the rectal tube. She does have Imodium scheduled. She is not on any bowel regimen medications. Her C difficile was negative. 4. Electrolyte derangement/hypokalemia: Potassium today was 3.5. She is status post supplementation, continue to monitor. 5. Anemia: Likely of chronic disease. Hemoglobin and hematocrit is stable today at 8.7 and 28.2. There is no need for transfusion at this time. Her threshold for transfusion would be below 7 as she is not a cardiac patient. Her peripheral smear had, in the past on this admission, demonstrated normocytic anemia, probably of chronic disease and leukocytosis most likely secondary to an inflammatory acute process. She was restarted on her Lovenox 40 mg subcutaneous daily. Continues on aspirin therapy for subacute infarct noted on MRI this admission. Continue to monitor hemoglobin and hematocrit. 6. Subacute stroke: MRI from September 16, 2018 did demonstrate a right caudate nucleus infarct that looked to be acute. Patient is continued on aspirin therapy. 7. Hypothyroidism: Patient continues on Synthroid. 8. Diabetes mellitus type 2: Patient's Levemir was increased to 25 units nightly for better control of her hyperglycemia. This was done yesterday, her blood sugar this morning was noted to be better at 192. She is receiving tube feeds and tolerating them well. 9. Gastrointestinal (GI) and deep venous thrombosis (DVT) prophylaxis: Patient continues on Protonix and Lovenox. My faculty preceptor for this patient encounter was physically present during the encounter and was fully available. All aspects of the patient interview, examination, medical decision making process, and medical care plan development were reviewed and approved by the faculty preceptor. The faculty preceptor is aware and concurs with the plan as stated in the body of this note and will attest to such by his/her co-signature. I,Esequiel Andrade, agree with the assessment and plan as outlined above for this patient with metabolic encephalopathy and airway compromise requiring trach likely from prolonged intubation. I conducted an independent history and physical discussed recommendations for treatment with the resident and staff. TALISHA
[2018-09-22] MEDS: LEVEMIR (INSULIN DETEMIR) 1 UNITS/0.01ML SC SCH (20:31)
[2018-09-23] VITALS (9 sets, daily range): BP systolic 132–157; BP diastolic 63–75; O2SAT 97–98
[2018-09-23] MEDS: METOCLOPRAMIDE INJ 10MG/2ML VIAL (J2765) IV SCH ×5 (00:15→23:41)
[2018-09-23] MEDS: HumaLOG INSULIN (NovoLOG) PER UNIT SC SCH ×5 (00:15→23:41)
[2018-09-23] MEDS: ALBUTEROL SULFATE 2.5 MG/0.5 ML INH NEB SOLN NEB SCH ×7 (00:39→23:55)
[2018-09-23 05:11] LABS: BASO % 0.3 % (0.0-1.0); EOS % 0.1 % (0.0-3.0); HEMATOCRIT 30.6 % (36.0-47.0); HEMOGLOBIN 9.3 g/dl (12.0-15.5); LYMPH # 1.5 10^3/uL (1.5-4.5); LYMPH % 13.9 % (24.0-44.0); MEAN CORPUSCULAR HEMOGLOBIN 30.5 pg (27.0-33.0); MEAN CORPUSCULAR HGB CONC 30.4 g/dl (32.0-36.5); MEAN CORPUSCULAR VOLUME 100.3 fl (80.0-96.0); MONO # 0.9 10^3/uL (0.0-0.8); MONO % 8.4 % (0.0-5.0); NEUTROPHILS # 8.2 10^3/uL (1.8-7.7); PLATELET COUNT, AUTOMATED 652 10^3/uL (150-450); RED BLOOD COUNT 3.05 10^6/uL (4.00-5.40); WHITE BLOOD COUNT 10.8 10^3/uL (4.0-10.0)
[2018-09-23] MEDS: LEVOTHYROXINE 75MCG TABLET (0.075MG) PO SCH (05:19)
[2018-09-23 05:34] LABS: ALBUMIN 2.7 GM/DL (3.2-5.2); ALT/SGPT 73 U/L (12-78); BILIRUBIN,TOTAL 0.6 MG/DL (0.2-1.0); BLOOD UREA NITROGEN 18 MG/DL (7-18); CALCIUM LEVEL 7.8 MG/DL (8.8-10.2); CARBON DIOXIDE LEVEL 25 MEQ/L (21-32); CHLORIDE LEVEL 114 MEQ/L (98-107); CHOLESTEROL LEVEL 345 MG/DL (< 200); CPK CREATINE PHOSPHOKINASE 152 U/L (26-192); CREATININE FOR GFR 0.39 MG/DL (0.55-1.30); GLOMERULAR FILTRATION RATE > 60.0 (>45); GLUCOSE, FASTING 105 MG/DL (70-100); LDH LACTATE DEHYDROGENASE 246 U/L (84-246); PHOSPHORUS LEVEL 3.1 MG/DL (2.5-4.9); POTASSIUM SERUM 3.4 MEQ/L (3.5-5.1); SODIUM LEVEL 146 MEQ/L (136-145); TOTAL PROTEIN 6.5 GM/DL (6.4-8.2); TRIGLYCERIDES LEVEL 329 MG/DL (<150)
[2018-09-23] MEDS: SODIUM CHLORIDE 0.9% INJ 10 ML SYR IV SCH ×3 (05:57→22:05)
[2018-09-23] MEDS: CHLORHEXIDINE GLUCONATE 0.12 % 15ML UDC (PERIDEX ORAL RINSE) MT SCH ×2 (08:42→22:04)
[2018-09-23] MEDS: ASPIRIN 81 MG CHEW TABLET NG SCH (08:42)
[2018-09-23] MEDS ORDERED: KCL 20MEQ IN 100ML SWI (KRUN) 20 MEQ in APPROPRIATE DILUENT 1 EA IV SCH ×2 (09:00)
[2018-09-23] MEDS: KCL 10MEQ/100ML SWI (KRUN) 10 MEQ in APPROPRIATE DILUENT 1 EA IV SCH ×4 (09:28→13:01)
[2018-09-23] MEDS: ENOXAPARIN 40 MG/0.4 ML SYRINGE (J1650) SC SCH (09:28)
[2018-09-23] MEDS: PANTOPRAZOLE 40MG INJ (PROTONIX) (C9113) IV SCH (09:28)
--- NOTE | 2018-09-23 11:29 | CCN ---
DATE OF SERVICE: 09/23/2018 Adiel Emerson was seen at bedside in the intensive care unit this morning. She is again noted to be alert, she has spontaneous eye opening, and is actively looking around the room upon examination. She has been off sedation for almost two days, she is doing well. She is able to follow most verbal requests and commands and move extremities. Currently at bedside, she is resting comfortably, her breathing rate is a bit increase. Other than this, she is not in any acute distress. There were no cardiac events reported overnight and currently she is afebrile. PHYSICAL EXAMINATION: VITAL SIGNS: Temperature 98.6, pulse 88 and regular, respiratory rate 18, blood pressure 143/67, pulse oximetry is 97%. She is on a trach collar with an FiO2 of 28%. GENERAL: As stated above, the patient is alert and responsive today. She has spontaneous eye opening and is looking around the room, she is able to follow most verbal commands and requests to move her extremities. She does seem to be breathing a little bit faster on physical examination today, but I do not appreciate accessory muscle use, other than this, no acute distress. HEENT: Pupils are noted to be +2-3 mm bilaterally, equal, symmetric and reactive. Continued healing left conjunctival hemorrhage is noted again. Oral mucosa is moist, and nares are patent. The patient did apparently pull out her NG tube overnight. We will attempt to place this again today. It is not currently in place on physical exam this morning. Trach is present and in position appropriately. She is normocephalic and atraumatic. NECK: There is no jugular venous distention appreciated. There is no tracheal deviation or cervical adenopathy palpated. Neck is supple. PULMONARY: Could not appreciate any rales, wheezing or rhonchi on physical examination. Does not appear to be using accessory muscles of inspiration physical exam, it does appear that she does have some secretions, however that should be cleared with suction. HEART: Normal S1 and S2, regular rate and rhythm, cannot appreciate any murmurs or gallops. ABDOMEN: Positive bowel sounds throughout all four quadrants, soft, nontender to palpation, nondistended, there is no obvious hepatosplenomegaly on physical palpation. There is no distention, rebound or guarding. EXTREMITIES: Without cyanosis, clubbing, or edema present. SKIN: Warm, dry and intact. NEUROLOGIC: The patient is alert this morning. She has been off of sedation almost 48 hours. She is following commands to verbal requests. LABS: White blood cell count 10.8 with hemoglobin and hematocrit of 9.3 and 30.6 respectively with a platelet count of 62. Sodium 146, potassium 3.4, chloride 114, bicarb 25, BUN and creatinine of 18 and 0.3 respectively. Fasting glucose this morning was 105 on lab, calium 7.8, albumin 2.7, triglycerides 329, cholesterol 345, AST and ALT are 37 and 73 respectively, with an alkaline phosphatase of 73, and total creatinine kinase of 152. ASSESSMENT/PLAN: 1. Trach status: Patient continues to not have any obvious hypoxia, she has been tolerating her trach collar well on 28% FiO2 and is saturating well. We will attempt to cap her trach collar today and see how she does with this in regards to her oxygenation and hemodynamic status. Would also recommend patient to have a swallow study in the future, possibly this coming Wednesday if tolerating capping of tracheostomy. She did sound like she had some secretions on physical exam today, which we have asked nursing staff to suction, this should help with some of her tachypnea as well. 2. Status post febrile sepsis and leukocytosis: Leukocytosis is most likely Solu-Medrol induced, this has been stopped. She was on high dose steroids for suspected airway edema. Continue to monitor for signs and symptoms of recurrent infection, calcitonin noted to be 0.28. The patient was not febrile again on today's exam, her CSF, Gram stain and PCR were negative for meningitis and bacterial, and viral etiology respectively, Gram stain negative for cryptosporidium, CSF had been noted this admission to be colorless with high glucose count, normal protein level and WBC/RBC. Infectious disease has been consulted on the case. She is status post seven days of Rocephin and doxycycline antibiotic therapy, vancomycin had been discontinued, but she did receive six days of this. Her Methicillin-resistant Staphylococcus aureus (MRSA) screen was negative. She also received six days of Zosyn therapy. 3. Diarrhea, unexplained: The patient does continue to have loose stools via her rectal tube. She does have Imodium scheduled, will speak to nursing staff about making sure that she gets this. She is not on any bowel regimen medications. Her C. difficile was negative. We will continue to monitor for right now. 4. Electrolyte derangement/hypokalemia: Potassium was a little bit low today at 3.3, have supplemented. Continue to monitor. 5. Anemia: Likely of chronic disease. Hemoglobin and hematocrit was stable today at 8.8 and 31. There is no transfusion indication at this time. Her threshold for transfusion would be below 7. The patient is not a cardiac patient. Her peripheral smear has in the past on this admission, demonstrated normocytic anemia, probably of chronic disease and leukocytosis most likely secondary to an inflammatory acute process. She was continues on her Lovenox 40 mg subcutaneously daily. She continues on aspirin therapy for subacute infarct noted on MRI this admission. Continue to monitor hemoglobin and hematocrit. 6. Subacute stroke: As stated above, the patient continues on aspirin. MRI from September 16, 2018 did demonstrate a right caudate nucleus infarct that looked to be acute. Continue to monitor. 7. Hypothyroidism: Patient continues on Synthroid. 8. Diabetes mellitus type 2: Patient's Levemir was continues at 25 units nightly, she is receiving tube feeds and tolerating them well. Her glucose today was noted to be 105. 9. Gastrointestinal (GI) and deep venous thrombosis (DVT) prophylaxis: Patient continues on Protonix and Lovenox. My faculty preceptor for this patient encounter was physically present during the encounter and was fully available. All aspects of the patient interview, examination, medical decision making process, and medical care plan development were reviewed and approved by the faculty preceptor. The faculty preceptor is aware and concurs with the plan as stated in the body of this note and will attest to such by his/her co-signature. I, Aliza Montoya, have independently seen and examined the patient and agree with the above plan detailed above and as discussed during rounds. TALISHA
--- NOTE | 2018-09-23 13:05 | IPNPDOC ---
Date Seen The patient was seen on 09/23/18. Progress Note Adiel Emerson was seen at bedside in the intensive care unit this morning. She is again noted to be alert, she has spontaneous eye opening, and is actively looking around the room upon examination. She has been off sedation for almost two days, she is doing well. She is able to follow most verbal requests and commands and move extremities. Currently at bedside, she is resting comfortably, her breathing rate is a bit increase. Other than this, she is not in any acute distress. There were no cardiac events reported overnight and currently she is afebrile. PHYSICAL EXAMINATION: VITAL SIGNS: pls see below GENERAL: As stated above, the patient is alert and responsive today. She has spontaneous eye opening and is looking around the room, she is able to follow most verbal commands and requests to move her extremities. She does seem to be breathing a little bit faster on physical examination today, but I do not appreciate accessory muscle use, other than this, no acute distress. HEENT: Pupils are noted to be +2-3 mm bilaterally, equal, symmetric and reactive. Continued healing left conjunctival hemorrhage is noted again. Oral mucosa is moist, and nares are patent. The patient did apparently pull out her NG tube overnight. We will attempt to place this again today. It is not currently in place on physical exam this morning. Trach is present and in position appropriately. She is normocephalic and atraumatic. NECK: There is no jugular venous distention appreciated. There is no tracheal deviation or cervical adenopathy palpated. Neck is supple. PULMONARY: Could not appreciate any rales, wheezing or rhonchi on physical examination. Does not appear to be using accessory muscles of inspiration physical exam, it does appear that she does have some secretions, however that should be cleared with suction. HEART: Normal S1 and S2, regular rate and rhythm, cannot appreciate any murmurs or gallops. ABDOMEN: Positive bowel sounds throughout all four quadrants, soft, nontender to palpation, nondistended, there is no obvious hepatosplenomegaly on physical palpation. There is no distention, rebound or guarding. EXTREMITIES: Without cyanosis, clubbing, or edema present. SKIN: Warm, dry and intact. NEUROLOGIC: The patient is alert this morning. She has been off of sedation almost 48 hours. She is following commands to verbal requests. LABS, IMAGING STUDIES, MICROBIOLOGY: reviewed, pls see below ASSESSMENT/PLAN: 63-year-old female with past medical history of diabetes, hypertension, hyperlipidemia, hypothyroidism, presents to the emergency room with multiple massive episodes of projectile vomiting and diarrhea which occurred at approximately 12 o'clock this afternoon. According to her , she had some raw clams around 10 o'clock this morning and nobody else in the family had it. She has been fine before this. She has never had similar episodes and has not been around any sick contacts. In the emergency room (ER), she was given approximately 4 liters, she was hypotensive, as low as systolic 75, and tachycardic, but she has improved after 4 liters of IV fluids, she is now systolic 90s. She is lethargic, but is awake, alert, oriented times three and will be admitted for further management. 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 Acute hypoxic respiratory failure initially thought to be due to pneumonia s/p 7days iv zosyn, vanco discontinued due to negative MRSA on sputum cx. s/p trach 09/20/18 swallow eval to rule out aspiration. pt pulled ng tube 09/22/18 Acute CVA MRI brain September 16, 2018: right caudate nucleus infarct on ASA aspiration precautions Acute encephalopathy due to CVA and hypoxia CSF, Gram stain and PCR were negative for meningitis and bacterial, and viral etiology respectively, Gram stain negative for cryptosporidium, CSF was colorless with high glucose count, normal protein level and WBC/RBC. status post seven days of Rocephin and doxycycline s/p vancomycin x 6days Her Methicillin-resistant Staphylococcus aureus (MRSA) screen was negative. s/p six days of Zosyn therapy. Left base opacity initially thought to be pneumonia s/p Zosyn and vancomycin sputum culture negative for methicillin-resistant Staphylococcus aureus Persistent diarrhea with rectal tube may be antibiotic-induced C. diff is negative. on Imodium. Tracheostomy 09/20/18 on 28% FiO2 and is saturating well. trial of capping her trach collar PRN suctioning, but per RN patient is able to clear her own secretions. speech and swallow evaluation. Lwnf-Cactyg-vehwxkj leukocytosis s/p high dose steroids for suspected airway edema. she remains afebrile hypokalemia 3.3, have supplemented. no issues on telemetry chronic normocytic anemia no acute indication for rbc transfusion Hypothyroidism: Patient continues on Synthroid. Diabetes mellitus type 2 awaiting swallow eval hypoglycemic protocol may need to place ng tube if aspiration risk and to continue tube feeding. Diet: pulled out her ng tube 09/22/18. awaiting swallow eval . may need to place ng tube if aspiration risk and to continue tube feeding. deep venous thrombosis (DVT) prophylaxis: Lovenox. VS, I&O, 24H, Fishbone Vital Signs/I&O Vital Signs Date Time Temp Pulse Resp B/P (MAP) Pulse Ox O2 Delivery O2 Flow Rate FiO2 09/23/18 07:10 97 Trach Collar 28 09/23/18 07:10 104 09/23/18 04:43 98.6 18 143/67 (92) 09/20/18 21:15 40.0 I&O- Last 24 Hours up to 6 AM 09/23/18 06:00 Intake Total 960 ml Output Total 1975 ml Balance -1015 ml Laboratory Data 24H LABS Laboratory Tests 2 09/22/18 12:49: Bedside Glucose (Misc Panel) 220H 09/22/18 18:56: Bedside Glucose (Misc Panel) 244H 09/23/18 00:07: Bedside Glucose (Misc Panel) 206H 09/23/18 04:56: Immature Granulocyte % (Auto) 1.3, White Blood Count 10.8H, Red Blood Count 3.05L, Hemoglobin 9.3L, Hematocrit 30.6L, Mean Corpuscular Volume 100.3H, Mean Corpuscular Hemoglobin 30.5, Mean Corpuscular Hemoglobin Concent 30.4L, Red Cell Distribution Width 16.5H, Platelet Count 652H, Neutrophils (%) (Auto) 76.0H, Lymphocytes (%) (Auto) 13.9L, Monocytes (%) (Auto) 8.4H, Eosinophils (%) (Auto) 0.1, Basophils (%) (Auto) 0.3, Neutrophils # (Auto) 8.2H, Lymphocytes # (Auto) 1.5, Monocytes # (Auto) 0.9H, Eosinophils # (Auto) 0.0, Basophils # (Auto) 0.0, Nucleated Red Blood Cells % (auto) 0.3H, Anion Gap 7L, Glomerular Filtration Rate > 60.0, Blood Urea Nitrogen 18, Creatinine 0.39L, Sodium Level 146H, Potassium Level 3.4L, Chloride Level 114H, Carbon Dioxide Level 25, Calcium Level 7.8L, Phosphorus Level 3.1#, Aspartate Amino Transf (AST/SGOT) 37, Alanine Aminotransferase (ALT/SGPT) 73, Lactate Dehydrogenase 246, Total Creatine Kinase 152, Alkaline Phosphatase 73, Total Bilirubin 0.6, Triglycerides Level 329H, Cholesterol Level 345H, Total Protein 6.5, Albumin 2.7L, Albumin/Globulin Ratio 0.71L CBC/BMP Laboratory Tests 09/23/18 04:56 Red Blood Count 3.05 L, Mean Corpuscular Volume 100.3 H, Mean Corpuscular Hemoglobin 30.5, Mean Corpuscular Hemoglobin Concent 30.4 L, Red Cell Distribution Width 16.5 H, Neutrophils (%) (Auto) 76.0 H, Lymphocytes (%) (Auto) 13.9 L, Monocytes (%) (Auto) 8.4 H, Eosinophils (%) (Auto) 0.1, Basophils (%) (Auto) 0.3, Neutrophils # (Auto) 8.2 H, Lymphocytes # (Auto) 1.5, Monocytes # (Auto) 0.9 H, Eosinophils # (Auto) 0.0, Basophils # (Auto) 0.0, Calcium Level 7.8 L, Phosphorus Level 3.1 #, Aspartate Amino Transf (AST/SGOT) 37, Alanine Aminotransferase (ALT/SGPT) 73, Lactate Dehydrogenase 246, Total Creatine Kinase 152, Alkaline Phosphatase 73, Total Bilirubin 0.6, Triglycerides Level 329 H, Cholesterol Level 345 H, Total Protein 6.5, Albumin 2.7 L Microbiology Microbiology 09/16/18 Blood Culture - Final, Complete NO GROWTH AFTER 5 DAYS 09/16/18 Blood Culture - Final, Complete NO GROWTH AFTER 5 DAYS 09/15/18 Blood Culture - Final, Complete NO GROWTH AFTER 5 DAYS 09/16/18 Gram Stain - Final, Complete 09/16/18 CSF Culture - Final, Complete 09/16/18 - Final, Complete 09/16/18 Clostridium difficile (PCR) - Final, Complete 09/15/18 Gram Stain - Final, Complete 09/15/18 Sputum Culture - Final, Complete LEXA PANIAGUA MD Sep 23, 2018 12:14
--- NOTE | 2018-09-23 14:00 | REP ---
Portable chest x-ray: Single AP view. History: Intubation. Check placement weighted feeding tube. Comparison study September 21, 2018. Findings: Tracheostomy tube remains in good position. EKG electrodes are seen. An NG tube enters the left upper quadrant of the abdomen and extends off the imaging field of view at the level of the mid stomach. Mildly enlarged heart persists. Vascular markings remain somewhat congested. No new infiltrate. Electronically Signed by Willian Acuna MD 09/23/2018 01:51 P
[2018-09-23] MEDS: LEVEMIR (INSULIN DETEMIR) 1 UNITS/0.01ML SC SCH (22:04)
[2018-09-24] VITALS (8 sets, daily range): BP systolic 130–158; BP diastolic 65–74
[2018-09-24] MEDS: ALBUTEROL SULFATE 2.5 MG/0.5 ML INH NEB SOLN NEB SCH ×5 (03:36→20:29)
[2018-09-24 04:41] LABS: HEMATOCRIT 32.4 % (36.0-47.0); HEMOGLOBIN 10.1 g/dl (12.0-15.5); MEAN CORPUSCULAR HEMOGLOBIN 30.5 pg (27.0-33.0); MEAN CORPUSCULAR HGB CONC 31.2 g/dl (32.0-36.5); MEAN CORPUSCULAR VOLUME 97.9 fl (80.0-96.0); PLATELET COUNT, AUTOMATED 688 10^3/uL (150-450); RED BLOOD COUNT 3.31 10^6/uL (4.00-5.40); WHITE BLOOD COUNT 11.1 10^3/uL (4.0-10.0)
[2018-09-24] MEDS: HumaLOG INSULIN (NovoLOG) PER UNIT SC SCH ×4 (05:33→23:48)
[2018-09-24] MEDS: METOCLOPRAMIDE INJ 10MG/2ML VIAL (J2765) IV SCH ×4 (05:51→23:48)
[2018-09-24] MEDS: SODIUM CHLORIDE 0.9% INJ 10 ML SYR IV SCH ×3 (05:51→20:42)
[2018-09-24] MEDS: LEVOTHYROXINE 75MCG TABLET (0.075MG) PO SCH (05:51)
[2018-09-24 06:33] LABS: BLOOD UREA NITROGEN 17 MG/DL (7-18); CALCIUM LEVEL 8.1 MG/DL (8.8-10.2); CARBON DIOXIDE LEVEL 25 MEQ/L (21-32); CHLORIDE LEVEL 109 MEQ/L (98-107); CREATININE FOR GFR 0.44 MG/DL (0.55-1.30); GLOMERULAR FILTRATION RATE > 60.0 (>45); GLUCOSE, FASTING 196 MG/DL (70-100); SODIUM LEVEL 145 MEQ/L (136-145)
[2018-09-24] MEDS ORDERED: KCL 10MEQ IN D5/0.45NS 1000ML 1,000 ML IV SCH (07:00)
--- NOTE | 2018-09-24 07:38 | IPNPDOC ---
Date Seen The patient was seen on 09/24/18. Progress Note SUBJECTIVE: Pt is nonverbal but responds to yes or no questions by nodding her head. NG tube feeding restarted and pt had to be restrained as she pulled out her NG tube 09/22/18 with plans for swallow evaluation on Wednesday. No other issues per RN. still with loose bm through the rectal tube. no fever or chills. PHYSICAL EXAMINATION: VITAL SIGNS: pls see below GENERAL: awakens prompty, cooperative but nonverbal, has mitts on both hands HEENT: Trach She is normocephalic and atraumatic. NECK: no jugular venous distention no tracheal deviation or cervical adenopathy palpated. Neck is supple. LUNGS: HEART: Normal S1 and S2, regular rate and rhythm ABDOMEN: Positive bowel sounds soft, nontender nondistended rectal tube EXTREMITIES: Without cyanosis, clubbing, or edema present. SKIN: Warm, dry and intact. NEUROLOGIC: The patient is alert this morning. cooperative but nonverbal follows commands. nods yes or no to questions appropriately LABS, IMAGING STUDIES, MICROBIOLOGY: reviewed, pls see below ASSESSMENT/PLAN: 63-year-old female with past medical history of diabetes, hypertension, hyperlipidemia, hypothyroidism, presents to the emergency room with multiple massive episodes of projectile vomiting and diarrhea which occurred at approximately 12 o'clock this afternoon. According to her , she had some raw clams around 10 o'clock this morning and nobody else in the family had it. She has been fine before this. She has never had similar episodes and has not been around any sick contacts. In the emergency room (ER), she was given approximately 4 liters, she was hypotensive, as low as systolic 75, and tachycardic, but she has improved after 4 liters of IV fluids, she is now systolic 90s. She is lethargic, but is awake, alert, oriented times three and will be admitted for further management. 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 Acute hypoxic respiratory failure initially thought to be due to pneumonia s/p 7days iv zosyn, vanco discontinued due to negative MRSA on sputum cx. s/p trach 09/20/18 swallow eval to rule out aspiration. pt pulled ng tube 09/22/18, restarted 09/23/18 on tube feedings and q6hrs fingersticks with coverage Acute CVA MRI brain September 16, 2018: right caudate nucleus infarct on ASA aspiration precautions Acute encephalopathy due to CVA and hypoxia CSF, Gram stain and PCR were negative for meningitis and bacterial, and viral etiology respectively, Gram stain negative for cryptosporidium, CSF was colorless with high glucose count, normal protein level and WBC/RBC. status post seven days of Rocephin and doxycycline s/p vancomycin x 6days Her Methicillin-resistant Staphylococcus aureus (MRSA) screen was negative. s/p six days of Zosyn therapy. Left base opacity initially thought to be pneumonia s/p Zosyn and vancomycin sputum culture negative for methicillin-resistant Staphylococcus aureus Persistent diarrhea with rectal tube C. diff is negative. on Imodium. Tracheostomy 09/20/18 on 28% FiO2 and is saturating well. trial of capping her trach collar PRN suctioning, but per RN patient is able to clear her own secretions. speech and swallow evaluation. Jqhk-Zxhoun-khcgcir leukocytosis s/p high dose steroids for suspected airway edema. she remains afebrile hypokalemia 3.3, have supplemented. no issues on telemetry chronic normocytic anemia no acute indication for rbc transfusion Hypothyroidism: Patient continues on Synthroid. Diabetes mellitus type 2 awaiting swallow eval on wednesday hypoglycemic protocol restarted 09/23/18 on tube feedings and q6hrs fingersticks with coverage fingersticks with coverage q6hrs and levemir with holding parameters Diet: pulled out her ng tube 09/22/18. awaiting swallow eval on Wednesday. restarted 09/23/18 on tube feedings and q6hrs fingersticks with coverage requires hand mitts due to interference with medical treatment. deep venous thrombosis (DVT) prophylaxis: Lovenox. disposition: medically stable for pcu transfer. VS, I&O, 24H, Fishbone Vital Signs/I&O Vital Signs Date Time Temp Pulse Resp B/P (MAP) Pulse Ox O2 Delivery O2 Flow Rate FiO2 09/24/18 06:00 91 18 138/65 (89) 96 Trach Collar 28 09/24/18 04:00 98.3 09/20/18 21:15 40.0 I&O- Last 24 Hours up to 6 AM 09/24/18 05:59 Intake Total 1540 ml Output Total 1345 ml Balance 195 ml Laboratory Data 24H LABS Laboratory Tests 2 09/23/18 13:03: Bedside Glucose (Misc Panel) 159H 09/23/18 18:12: Bedside Glucose (Misc Panel) 206H 09/23/18 23:32: Bedside Glucose (Misc Panel) 189H 09/24/18 04:17: Nucleated Red Blood Cells % (auto) 0.2H, Anion Gap 11, Glomerular Filtration Rate > 60.0, Blood Urea Nitrogen 17, Creatinine 0.44L, Sodium Level 145, Potassium Level 4.0, Chloride Level 109H, Carbon Dioxide Level 25, Calcium Level 8.1L CBC/BMP Laboratory Tests 09/24/18 04:17 Red Blood Count 3.31 L, Mean Corpuscular Volume 97.9 H, Mean Corpuscular Hemoglobin 30.5, Mean Corpuscular Hemoglobin Concent 31.2 L, Red Cell Distribution Width 16.3 H, Calcium Level 8.1 L Microbiology Microbiology 09/16/18 Blood Culture - Final, Complete NO GROWTH AFTER 5 DAYS 09/16/18 Blood Culture - Final, Complete NO GROWTH AFTER 5 DAYS 09/15/18 Blood Culture - Final, Complete NO GROWTH AFTER 5 DAYS 09/16/18 Gram Stain - Final, Complete 09/16/18 CSF Culture - Final, Complete 09/16/18 - Final, Complete 09/16/18 Clostridium difficile (PCR) - Final, Complete 09/15/18 Gram Stain - Final, Complete 09/15/18 Sputum Culture - Final, Complete LEXA PANIAGUA MD Sep 24, 2018 07:38
[2018-09-24] MEDS: PANTOPRAZOLE 40MG INJ (PROTONIX) (C9113) IV SCH (10:04)
[2018-09-24] MEDS: ASPIRIN 81 MG CHEW TABLET NG SCH (10:04)
[2018-09-24] MEDS: ENOXAPARIN 40 MG/0.4 ML SYRINGE (J1650) SC SCH (10:04)
[2018-09-24] MEDS: CHLORHEXIDINE GLUCONATE 0.12 % 15ML UDC (PERIDEX ORAL RINSE) MT SCH ×2 (10:05→20:41)
[2018-09-24] MEDS: LEVEMIR (INSULIN DETEMIR) 1 UNITS/0.01ML SC SCH (20:15)
[2018-09-25] VITALS (7 sets, daily range): BP systolic 113–161; BP diastolic 58–94
[2018-09-25] MEDS: ALBUTEROL SULFATE 2.5 MG/0.5 ML INH NEB SOLN NEB SCH ×6 (00:31→21:46)
[2018-09-25 05:20] LABS: HEMATOCRIT 33.7 % (36.0-47.0); HEMOGLOBIN 10.2 g/dl (12.0-15.5); MEAN CORPUSCULAR HEMOGLOBIN 30.1 pg (27.0-33.0); MEAN CORPUSCULAR HGB CONC 30.3 g/dl (32.0-36.5); MEAN CORPUSCULAR VOLUME 99.4 fl (80.0-96.0); PLATELET COUNT, AUTOMATED 678 10^3/uL (150-450); RED BLOOD COUNT 3.39 10^6/uL (4.00-5.40)
[2018-09-25 05:44] LABS: BLOOD UREA NITROGEN 18 MG/DL (7-18); CALCIUM LEVEL 8.6 MG/DL (8.8-10.2); CARBON DIOXIDE LEVEL 25 MEQ/L (21-32); CHLORIDE LEVEL 106 MEQ/L (98-107); CREATININE FOR GFR 0.54 MG/DL (0.55-1.30); GLOMERULAR FILTRATION RATE > 60.0 (>45); GLUCOSE, FASTING 253 MG/DL (70-100); POTASSIUM SERUM 3.6 MEQ/L (3.5-5.1); SODIUM LEVEL 141 MEQ/L (136-145)
[2018-09-25] MEDS: METOCLOPRAMIDE INJ 10MG/2ML VIAL (J2765) IV SCH ×3 (05:57→18:17)
[2018-09-25] MEDS: LEVOTHYROXINE 75MCG TABLET (0.075MG) PO SCH (05:57)
[2018-09-25] MEDS: HumaLOG INSULIN (NovoLOG) PER UNIT SC SCH ×3 (05:58→18:00)
[2018-09-25] MEDS: SODIUM CHLORIDE 0.9% INJ 10 ML SYR IV SCH ×3 (05:58→22:00)
[2018-09-25] MEDS: BUDESONIDE 0.5 MG/2 ML INHALATION SUSPENSION INH SCH ×2 (11:03→21:46)
--- NOTE | 2018-09-25 11:30 | REP ---
Portable chest: Single view. AP sitting. History: NG tube insertion. Comparison study: September 23, 2018. Findings: Tracheostomy tube is seen in good position. A nasogastric tube enters the left upper quadrant. EKG electrodes are seen. There is linear opacity in the right mid lung zone which may be minor fissure fluid versus discoid atelectasis. There is blunting of the left lateral pleural angle suggesting a small quantity of left pleural fluid. Mild cardiomegaly is again observed. No acute infiltrate. Electronically Signed by Willian Acuna MD 09/25/2018 12:44 P
[2018-09-25] MEDS: ENOXAPARIN 40 MG/0.4 ML SYRINGE (J1650) SC SCH (11:46)
[2018-09-25] MEDS: ASPIRIN 81 MG CHEW TABLET NG SCH (11:46)
[2018-09-25] MEDS: CHLORHEXIDINE GLUCONATE 0.12 % 15ML UDC (PERIDEX ORAL RINSE) MT SCH ×2 (11:46→22:01)
[2018-09-25] MEDS: ALPRAZolam 0.25 MG TAB NG PRN (11:46)
[2018-09-25] MEDS: PANTOPRAZOLE 40MG INJ (PROTONIX) (C9113) IV SCH (14:36)
[2018-09-25] MEDS: ACETAMINOPHEN 325 MG/10.15 ML UDC GT PRN (14:37)
--- NOTE | 2018-09-25 16:42 | IPNPDOC ---
Date Seen The patient was seen on 09/25/18. Progress Note SUBJECTIVE: Pt is nonverbal but responds to yes or no questions by nodding her head. She pulled out her NG tube 09/22/18 , and again 09/25/18 with plans for swallow evaluation on Wednesday. Despite head elevation, pt has been scooting down and was found on the edge of the bed. Sitter placed. Pt is confused and interferes with medical treatment. PHYSICAL EXAMINATION: VITAL SIGNS: pls see below GENERAL: nonverbal, has mitts on both hands HEENT: Trach She is normocephalic and atraumatic. NECK: no jugular venous distention no tracheal deviation or cervical adenopathy palpated. Neck is supple. LUNGS: HEART: Normal S1 and S2, regular rate and rhythm ABDOMEN: Positive bowel sounds soft, nontender nondistended rectal tube EXTREMITIES: Without cyanosis, clubbing, or edema present. SKIN: Warm, dry and intact. NEUROLOGIC: The patient is alert this morning. nonverbal follows commands. nods yes or no to questions appropriately LABS, IMAGING STUDIES, MICROBIOLOGY: reviewed, pls see below ASSESSMENT/PLAN: 63-year-old female with past medical history of diabetes, hypertension, hyperlipidemia, hypothyroidism, presents to the emergency room with multiple massive episodes of projectile vomiting and diarrhea which occurred at approximately 12 o'clock this afternoon. According to her , she had some raw clams around 10 o'clock this morning and nobody else in the family had it. She has been fine before this. She has never had similar episodes and has not been around any sick contacts. In the emergency room (ER), she was given approximately 4 liters, she was hypotensive, as low as systolic 75, and tachycardic, but she has improved after 4 liters of IV fluids, she is now systolic 90s. She is lethargic, but is awake, alert, oriented times three and will be admitted for further management. 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 Acute hypoxic respiratory failure initially thought to be due to pneumonia s/p 7days iv zosyn, vanco discontinued due to negative MRSA on sputum cx. s/p trach 09/20/18 swallow eval to rule out aspiration. pt pulled ng tube 09/22/18, and again 09/25/18. sitter ordered 09/25/18. restarted 09/23/18 on tube feedings and q6hrs fingersticks with coverage Acute CVA MRI brain September 16, 2018: right caudate nucleus infarct on ASA aspiration precautions Acute encephalopathy due to CVA and hypoxia CSF, Gram stain and PCR were negative for meningitis and bacterial, and viral etiology respectively, Gram stain negative for cryptosporidium, CSF was colorless with high glucose count, normal protein level and WBC/RBC. status post seven days of Rocephin and doxycycline s/p vancomycin x 6days Her Methicillin-resistant Staphylococcus aureus (MRSA) screen was negative. s/p six days of Zosyn therapy. Left base opacity initially thought to be pneumonia s/p Zosyn and vancomycin sputum culture negative for methicillin-resistant Staphylococcus aureus Persistent diarrhea with rectal tube C. diff is negative. on Imodium. Tracheostomy 09/20/18 on 28% FiO2 and is saturating well. trial of capping her trach collar PRN suctioning, but per RN patient is able to clear her own secretions. speech and swallow evaluation. Jbrs-Dfoayy-qqxgkch leukocytosis s/p high dose steroids for suspected airway edema. she remains afebrile hypokalemia 3.3, have supplemented. no issues on telemetry chronic normocytic anemia no acute indication for rbc transfusion Hypothyroidism: Patient continues on Synthroid. Diabetes mellitus type 2 awaiting swallow eval on wednesday hypoglycemic protocol restarted 09/23/18 on tube feedings and q6hrs fingersticks with coverage fingersticks with coverage q6hrs and levemir with holding parameters Diet: pulled out her ng tube 09/22/18. awaiting swallow eval on Wednesday. restarted 09/23/18 on tube feedings and q6hrs fingersticks with coverage requires hand mitts due to interference with medical treatment. deep venous thrombosis (DVT) prophylaxis: Lovenox. disposition: medically stable for pcu. VS, I&O, 24H, Fishbone Vital Signs/I&O Vital Signs Date Time Temp Pulse Resp B/P (MAP) Pulse Ox O2 Delivery O2 Flow Rate FiO2 09/25/18 12:00 99.1 82 18 142/66 (91) 96 Trach Collar 8.0 28 I&O- Last 24 Hours up to 6 AM 09/25/18 06:00 Intake Total 2040 ml Output Total 1825 ml Balance 215 ml Laboratory Data 24H LABS Laboratory Tests 2 09/24/18 18:14: Bedside Glucose (Misc Panel) 211H 09/24/18 23:38: Bedside Glucose (Misc Panel) 248H 09/25/18 04:49: Nucleated Red Blood Cells % (auto) 0.0, Anion Gap 10, Glomerular Filtration Rate > 60.0, Blood Urea Nitrogen 18, Creatinine 0.54L, Sodium Level 141, Potassium Level 3.6, Chloride Level 106, Carbon Dioxide Level 25, Calcium Level 8.6L 09/25/18 05:49: Bedside Glucose (Misc Panel) 269H 09/25/18 11:49: Bedside Glucose (Misc Panel) 190H CBC/BMP Laboratory Tests 09/25/18 04:49 Red Blood Count 3.39 L, Mean Corpuscular Volume 99.4 H, Mean Corpuscular Hemoglobin 30.1, Mean Corpuscular Hemoglobin Concent 30.3 L, Red Cell Distribution Width 16.3 H, Calcium Level 8.6 L Microbiology Microbiology 09/16/18 Blood Culture - Final, Complete NO GROWTH AFTER 5 DAYS 09/16/18 Blood Culture - Final, Complete NO GROWTH AFTER 5 DAYS 09/15/18 Blood Culture - Final, Complete NO GROWTH AFTER 5 DAYS 09/16/18 Gram Stain - Final, Complete 09/16/18 CSF Culture - Final, Complete 09/16/18 - Final, Complete 09/16/18 Clostridium difficile (PCR) - Final, Complete 09/15/18 Gram Stain - Final, Complete 09/15/18 Sputum Culture - Final, Complete LEXA PANIAGUA MD Sep 25, 2018 16:39
[2018-09-25] MEDS: LEVEMIR (INSULIN DETEMIR) 1 UNITS/0.01ML SC SCH (21:00)
[2018-09-26] MEDS: ALBUTEROL SULFATE 2.5 MG/0.5 ML INH NEB SOLN NEB SCH ×7 (00:45→23:51)
[2018-09-26] MEDS: METOCLOPRAMIDE INJ 10MG/2ML VIAL (J2765) IV SCH ×5 (01:08→23:19)
[2018-09-26] MEDS: HumaLOG INSULIN (NovoLOG) PER UNIT SC SCH ×4 (01:08→17:47)
[2018-09-26 04:00] VITALS: BP 157/77
[2018-09-26 05:41] LABS: BLOOD UREA NITROGEN 17 MG/DL (7-18); CALCIUM LEVEL 8.8 MG/DL (8.8-10.2); CARBON DIOXIDE LEVEL 27 MEQ/L (21-32); CHLORIDE LEVEL 107 MEQ/L (98-107); CREATININE FOR GFR 0.52 MG/DL (0.55-1.30); GLOMERULAR FILTRATION RATE > 60.0 (>45); GLUCOSE, FASTING 181 MG/DL (70-100); POTASSIUM SERUM 3.6 MEQ/L (3.5-5.1); SODIUM LEVEL 143 MEQ/L (136-145)
[2018-09-26] MEDS: LEVOTHYROXINE 75MCG TABLET (0.075MG) PO SCH (06:02)
[2018-09-26] MEDS: SODIUM CHLORIDE 0.9% INJ 10 ML SYR IV SCH ×3 (06:03→22:00)
[2018-09-26] MEDS: BUDESONIDE 0.5 MG/2 ML INHALATION SUSPENSION INH SCH ×2 (07:18→20:54)
[2018-09-26 07:41] VITALS: BP 146/70
--- NOTE | 2018-09-26 08:16 | IPNPDOC ---
Date Seen The patient was seen on 09/26/18. Progress Note SUBJECTIVE: Pt remains afebrile with no change in white count. Tele: sinus tachycardia Pt is nonverbal but responds to yes or no questions by nodding her head. She pulled out her NG tube 09/22/18 , and again 09/25/18 with plans for swallow evaluation today. Despite head elevation, pt has been scooting down and was found on the edge of the bed. Sitter placed. Pt is confused and interferes with medical treatment. PHYSICAL EXAMINATION: VITAL SIGNS: pls see below GENERAL: nonverbal, has mitts on both hands HEENT: Trach She is normocephalic and atraumatic. NECK: no jugular venous distention no tracheal deviation or cervical adenopathy palpated. Neck is supple. LUNGS: HEART: Normal S1 and S2, regular rate and rhythm ABDOMEN: Positive bowel sounds soft, nontender nondistended rectal tube EXTREMITIES: Without cyanosis, clubbing, or edema present. SKIN: Warm, dry and intact. NEUROLOGIC: The patient is alert this morning. nonverbal follows commands. nods yes or no to questions appropriately LABS, IMAGING STUDIES, MICROBIOLOGY: reviewed, pls see below ASSESSMENT/PLAN: 63-year-old female with past medical history of diabetes, hypertension, hyperlipidemia, hypothyroidism, presents to the emergency room with multiple massive episodes of projectile vomiting and diarrhea which occurred at approximately 12 o'clock this afternoon. According to her , she had some raw clams around 10 o'clock this morning and nobody else in the family had it. She has been fine before this. She has never had similar episodes and has not been around any sick contacts. In the emergency room (ER), she was given approximately 4 liters, she was hypotensive, as low as systolic 75, and tachycardic, but she has improved after 4 liters of IV fluids, she is now systolic 90s. She is lethargic, but is awake, alert, oriented times three and will be admitted for further management. 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 afebrile white count is unchanged. Acute hypoxic respiratory failure initially thought to be due to pneumonia s/p 7days iv zosyn, vanco discontinued due to negative MRSA on sputum cx. s/p trach 09/20/18 swallow eval to rule out aspiration. pt pulled ng tube 09/22/18, and again 09/25/18. sitter ordered 09/25/18. restarted 09/23/18 on tube feedings and q6hrs fingersticks with coverage Acute CVA MRI brain September 16, 2018: right caudate nucleus infarct on ASA aspiration precautions Acute encephalopathy due to CVA and hypoxia CSF, Gram stain and PCR were negative for meningitis and bacterial, and viral etiology respectively, Gram stain negative for cryptosporidium, CSF was colorless with high glucose count, normal protein level and WBC/RBC. status post seven days of Rocephin and doxycycline s/p vancomycin x 6days Her Methicillin-resistant Staphylococcus aureus (MRSA) screen was negative. s/p six days of Zosyn therapy. Left base opacity initially thought to be pneumonia s/p Zosyn and vancomycin sputum culture negative for methicillin-resistant Staphylococcus aureus Persistent diarrhea with rectal tube C. diff is negative. on Imodium. Tracheostomy 09/20/18 on 28% FiO2 and is saturating well. trial of capping her trach collar PRN suctioning, but per RN patient is able to clear her own secretions. speech and swallow evaluation. Fbfh-Wnvlai-ozjbvpy leukocytosis s/p high dose steroids for suspected airway edema. she remains afebrile hypokalemia 3.3, have supplemented. no issues on telemetry chronic normocytic anemia no acute indication for rbc transfusion Hypothyroidism: Patient continues on Synthroid. Diabetes mellitus type 2 awaiting swallow eval on wednesday hypoglycemic protocol restarted 09/23/18 on tube feedings and q6hrs fingersticks with coverage fingersticks with coverage q6hrs and levemir with holding parameters Diet: pulled out her ng tube 09/22/18. awaiting swallow eval today. restarted 09/23/18 on tube feedings and q6hrs fingersticks with coverage requires hand mitts due to interference with medical treatment. deep venous thrombosis (DVT) prophylaxis: Lovenox. disposition:will need trach training, PT clearance. VS, I&O, 24H, Fishbone Vital Signs/I&O Vital Signs Date Time Temp Pulse Resp B/P (MAP) Pulse Ox O2 Delivery O2 Flow Rate FiO2 09/26/18 07:49 8.0 35 09/26/18 07:41 98.0 86 18 146/70 (95) 98 Trach Collar I&O- Last 24 Hours up to 6 AM 09/26/18 06:00 Intake Total 1800 ml Output Total 1350 ml Balance 450 ml Laboratory Data 24H LABS Laboratory Tests 2 09/25/18 11:49: Bedside Glucose (Misc Panel) 190H 09/25/18 18:10: Bedside Glucose (Misc Panel) 254H 09/25/18 21:09: Bedside Glucose (Misc Panel) 165H 09/26/18 01:01: Bedside Glucose (Misc Panel) 262H 09/26/18 04:47: Anion Gap 9, Glomerular Filtration Rate > 60.0, Blood Urea Nitrogen 17, Creatinine 0.52L, Sodium Level 143, Potassium Level 3.6, Chloride Level 107, Carbon Dioxide Level 27, Calcium Level 8.8 09/26/18 05:52: Bedside Glucose (Misc Panel) 200H CBC/BMP Laboratory Tests 09/26/18 04:47 Calcium Level 8.8 Microbiology Microbiology 09/16/18 Blood Culture - Final, Complete NO GROWTH AFTER 5 DAYS 09/16/18 Blood Culture - Final, Complete NO GROWTH AFTER 5 DAYS 09/16/18 Gram Stain - Final, Complete 09/16/18 CSF Culture - Final, Complete 09/16/18 - Final, Complete 09/16/18 Clostridium difficile (PCR) - Final, Complete LEXA PANIAGUA MD Sep 26, 2018 08:08
[2018-09-26] MEDS: CHLORHEXIDINE GLUCONATE 0.12 % 15ML UDC (PERIDEX ORAL RINSE) MT SCH ×2 (10:27→23:17)
[2018-09-26] MEDS: PANTOPRAZOLE 40MG INJ (PROTONIX) (C9113) IV SCH (10:27)
[2018-09-26] MEDS: ASPIRIN 81 MG CHEW TABLET NG SCH (10:27)
[2018-09-26] MEDS: ENOXAPARIN 40 MG/0.4 ML SYRINGE (J1650) SC SCH (10:27)
[2018-09-26 11:46] VITALS: BP 126/76
[2018-09-26 15:34] VITALS: BP 157/80
[2018-09-26] MEDS: ALPRAZolam 0.25 MG TAB NG PRN (18:36)
[2018-09-26] MEDS: ACETAMINOPHEN 325 MG/10.15 ML UDC GT PRN (18:36)
--- NOTE | 2018-09-26 19:01 | NUR ---
Pt seen this date for swallow evaluation. Poor ability to follow directions limiting outcomes. Moderate oropharyngeal phase dysphagia. Provide thin liquids via spoon only. Provide thorough oral care. Blue dye used during exam without presentation of residue through trach. If blue tinted sputum is noted, resume NPO. Addendum: 09/26/18 at 1903 by LASHANDA DONALDSON [facility] SP Amended: Links added.
[2018-09-26 20:00] VITALS: BP 120/58
[2018-09-26] MEDS: LEVEMIR (INSULIN DETEMIR) 1 UNITS/0.01ML SC SCH (21:00)
[2018-09-27] VITALS: BP 155/89
[2018-09-27] MEDS: ALPRAZolam 0.25 MG TAB NG PRN (00:12)
[2018-09-27] MEDS: ACETAMINOPHEN 325 MG/10.15 ML UDC GT PRN ×2 (00:13→08:30)
[2018-09-27] MEDS: HumaLOG INSULIN (NovoLOG) PER UNIT SC SCH ×5 (00:23→23:08)
--- NOTE | 2018-09-27 02:20 | REP ---
Clinical: Nasogastric tube placement. Technique: Portable AP semiupright view of the chest. Comparison: 09/25/2018. Findings: Lung apices are excluded from the examination. The cardiac silhouette is within normal limits for portable technique. Subtle bilateral diffuse air space disease is suggested along with possible left lower lobe atelectasis/consolidation. A nasogastric tube extends below left hemidiaphragm. Visualized skeletal structures appear intact. Impression: 1. Nasogastric tube appears to be in satisfactory position. 2. Subtle diffuse air space disease and possible left lower lobe atelectasis/consolidation which may be slightly improved when compared to 09/25/2018. Electronically Signed by Jt Wells MD 09/27/2018 02:12 A
[2018-09-27] MEDS: ALBUTEROL SULFATE 2.5 MG/0.5 ML INH NEB SOLN NEB SCH ×6 (02:50→23:17)
[2018-09-27] MEDS ORDERED: SIMETHICONE 40MG/0.6ML DROPS 30ML PO PRN (03:15)
[2018-09-27 04:00] VITALS: BP 151/78
[2018-09-27 04:59] LABS: HEMATOCRIT 33.1 % (36.0-47.0); HEMOGLOBIN 10.3 g/dl (12.0-15.5); MEAN CORPUSCULAR HEMOGLOBIN 30.2 pg (27.0-33.0); MEAN CORPUSCULAR HGB CONC 31.1 g/dl (32.0-36.5); MEAN CORPUSCULAR VOLUME 97.1 fl (80.0-96.0); PLATELET COUNT, AUTOMATED 560 10^3/uL (150-450); RED BLOOD COUNT 3.41 10^6/uL (4.00-5.40); WHITE BLOOD COUNT 11.3 10^3/uL (4.0-10.0)
[2018-09-27 05:24] LABS: BLOOD UREA NITROGEN 16 MG/DL (7-18); CALCIUM LEVEL 8.4 MG/DL (8.8-10.2); CARBON DIOXIDE LEVEL 27 MEQ/L (21-32); CHLORIDE LEVEL 106 MEQ/L (98-107); CREATININE FOR GFR 0.52 MG/DL (0.55-1.30); GLOMERULAR FILTRATION RATE > 60.0 (>45); GLUCOSE, FASTING 236 MG/DL (70-100); POTASSIUM SERUM 3.5 MEQ/L (3.5-5.1); SODIUM LEVEL 143 MEQ/L (136-145)
[2018-09-27] MEDS: LEVOTHYROXINE 75MCG TABLET (0.075MG) PO SCH (05:38)
[2018-09-27] MEDS: SODIUM CHLORIDE 0.9% INJ 10 ML SYR IV SCH ×3 (05:39→20:56)
[2018-09-27] MEDS: METOCLOPRAMIDE INJ 10MG/2ML VIAL (J2765) IV SCH ×4 (05:39→23:06)
[2018-09-27] MEDS: BUDESONIDE 0.5 MG/2 ML INHALATION SUSPENSION INH SCH ×2 (07:44→21:04)
[2018-09-27 08:00] VITALS: BP 162/84
[2018-09-27] MEDS: PANTOPRAZOLE 40MG INJ (PROTONIX) (C9113) IV SCH (08:30)
[2018-09-27] MEDS: ENOXAPARIN 40 MG/0.4 ML SYRINGE (J1650) SC SCH (08:30)
[2018-09-27] MEDS: ASPIRIN 81 MG CHEW TABLET NG SCH (08:30)
[2018-09-27] MEDS: CHLORHEXIDINE GLUCONATE 0.12 % 15ML UDC (PERIDEX ORAL RINSE) MT SCH ×2 (08:30→20:55)
[2018-09-27] MEDS ORDERED: E-Z-PAQUE 96% w/w SUSP 176GM BTL As Ordered ONE (11:14)
[2018-09-27] MEDS ORDERED: VARIBAR NECTAR 40% w/v 240ML SUSP BTL As Ordered ONE (11:14)
[2018-09-27] MEDS ORDERED: VARIBAR PUDDING 40% w/v 230ML TUBE As Ordered ONE (11:14)
--- NOTE | 2018-09-27 11:45 | IPNPDOC ---
Text Note Date of Service The patient was seen on 09/27/18. NOTE SUBJECTIVE: Patient awake and alert this morning appropriately following comm ands. As per sitter had a restless night, tossing and turning trying to bite the mittens but was giving appropriate gestures to the sitter and following commands. Planned fro swallow evaluation today. Has been allowed liquids. Did not tolerate Tracheostomy capping yesterday. PHYSICAL EXAMINATION: VITAL SIGNS: pls see below GENERAL: nonverbal with trach , but can comprehend and follow commands. has mitts on both hands HEENT: Trach She is normocephalic and atraumatic. NECK: no jugular venous distention no tracheal deviation or cervical adenopathy palpated. Neck is supple. LUNGS: clear to Auscultation. HEART: Normal S1 and S2, regular rate and rhythm ABDOMEN: Positive bowel sounds soft, nontender nondistended rectal tube EXTREMITIES: Without cyanosis, clubbing, or edema present. SKIN: Warm, dry and intact. NEUROLOGIC: The patient is alert this morning. nonverbal follows commands. nods yes or no to questions appropriately LABS, IMAGING STUDIES, MICROBIOLOGY: reviewed, pls see below ASSESSMENT/PLAN: 63-year-old female with past medical history of diabetes, hypertension, hyperlipidemia, hypothyroidism, presents to the emergency room with multiple massive episodes of projectile vomiting and diarrhea after eating raw clam in the morning. In the emergency room (ER), she was given approximately 4 liters, she was hypotensive, as low as systolic 75, and tachycardic, but she has improved after 4 liters of IV fluids however again dropped requiring pressors later. She was somnolent but oriented times three. She was admitted for septic shock. 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 Acute respiratory failure Due to metabolic acidosis from septic shock s/p trach 09/20/18 swallow eval to rule out aspiration. on NG tube feedings and q6hrs fingersticks with coverage Acute kidney injury in setting of septic shock resolved. Left base opacity with associated fluid treated with zosyn. finished course. Acute CVA MRI brain September 16, 2018: right caudate nucleus infarct on ASA aspiration precautions Acute encephalopathy due to CVA, septic shock CSF, Gram stain and PCR were negative for meningitis and bacterial, and viral etiology respectively, Gram stain negative for cryptosporidium. CSF culture negative. now resolving. Chronic normocytic anemia no acute indication for rbc transfusion Hypothyroidism: Patient continues on Synthroid. Diabetes mellitus type 2 hypoglycemic protocol restarted 09/23/18 on tube feedings and q6hrs fingersticks with coverage fingersticks with coverage q6hrs and levemir with holding parameters Hypertension was in septic shock on admission . Now bp agin rising will slowly restart home meds. Diet: NPO. On NG tube feeding. deep venous thrombosis (DVT) prophylaxis: Lovenox. disposition:will need trach training, PT clearance. VS,Fishbone, I+O VS, Fishbone, I+O Laboratory Tests 09/27/18 04:32 Red Blood Count 3.41 L, Mean Corpuscular Volume 97.1 H, Mean Corpuscular Hemoglobin 30.2, Mean Corpuscular Hemoglobin Concent 31.1 L, Red Cell Distribution Width 15.8 H, Calcium Level 8.4 L Vital Signs Date Time Temp Pulse Resp B/P (MAP) Pulse Ox O2 Delivery O2 Flow Rate FiO2 09/27/18 08:00 8.0 35 09/27/18 08:00 96.9 88 19 162/84 (110) 93 Trach Collar I&O- Last 24 Hours up to 6 AM 09/27/18 06:00 Intake Total 920 ml Output Total 1425 ml Balance -505 ml CRISTO MACKEY MD Sep 27, 2018 11:45
[2018-09-27 11:48] VITALS: BP 167/81
--- NOTE | 2018-09-27 14:28 | NUR ---
Pt seen for modified barium swallow study. Study inconclusive as Pt refused all but one swallow of thin liquid. Recommend: small cup side sips of thin liquid. consider removing ng tube so that Pt feels that she is hungry for beside PO trials tomorrow. Addendum: 09/27/18 at 1430 by LASHANDA NOE SP Amended: Links added.
[2018-09-27 16:00] VITALS: BP 144/81
--- NOTE | 2018-09-27 18:06 | REP ---
SASKIAIE SWALLOW The procedure was performed under the direct supervision of Dr. Acuna. The procedure was performed with Danni Hodgson from speech pathology present. 5 ml aliquots of thin and pudding consistency barium was administered. With thin consistency barium there is no evidence of penetration or aspiration. The patient would not swallow the pudding consistency. The detailed report of this examination will be provided by speech pathology. 0.9 minutes of fluoroscopy time was utilized for this procedure. Reviewed by ORION Sánchez 09/27/2018 05:13 P Electronically Signed by Willian Acuna MD 09/27/2018 05:57 P
[2018-09-27 20:45] VITALS: BP 138/75
[2018-09-27] MEDS: LOSARTAN 25 MG TAB PO SCH (20:56)
[2018-09-27] MEDS: LEVEMIR (INSULIN DETEMIR) 1 UNITS/0.01ML SC SCH (23:07)
[2018-09-28] MEDS: ACETAMINOPHEN 325 MG/10.15 ML UDC GT PRN ×2 (03:14→10:31)
[2018-09-28] MEDS: ALPRAZolam 0.25 MG TAB NG PRN ×2 (03:14→22:46)
[2018-09-28 03:45] VITALS: BP 152/84
[2018-09-28] MEDS: ALBUTEROL SULFATE 2.5 MG/0.5 ML INH NEB SOLN NEB SCH ×6 (04:49→23:39)
[2018-09-28 05:34] LABS: HEMATOCRIT 32.7 % (36.0-47.0); HEMOGLOBIN 10.1 g/dl (12.0-15.5); MEAN CORPUSCULAR HEMOGLOBIN 30.1 pg (27.0-33.0); MEAN CORPUSCULAR HGB CONC 30.9 g/dl (32.0-36.5); MEAN CORPUSCULAR VOLUME 97.3 fl (80.0-96.0); PLATELET COUNT, AUTOMATED 474 10^3/uL (150-450); RED BLOOD COUNT 3.36 10^6/uL (4.00-5.40); WHITE BLOOD COUNT 9.4 10^3/uL (4.0-10.0)
[2018-09-28 05:59] LABS: BLOOD UREA NITROGEN 17 MG/DL (7-18); CALCIUM LEVEL 8.7 MG/DL (8.8-10.2); CARBON DIOXIDE LEVEL 28 MEQ/L (21-32); CHLORIDE LEVEL 105 MEQ/L (98-107); CREATININE FOR GFR 0.48 MG/DL (0.55-1.30); GLOMERULAR FILTRATION RATE > 60.0 (>45); GLUCOSE, FASTING 233 MG/DL (70-100); POTASSIUM SERUM 3.7 MEQ/L (3.5-5.1); SODIUM LEVEL 142 MEQ/L (136-145)
[2018-09-28] MEDS: SODIUM CHLORIDE 0.9% INJ 10 ML SYR IV SCH ×3 (06:00→21:35)
[2018-09-28] MEDS: METOCLOPRAMIDE INJ 10MG/2ML VIAL (J2765) IV SCH ×4 (06:27→23:19)
[2018-09-28] MEDS: HumaLOG INSULIN (NovoLOG) PER UNIT SC SCH ×4 (06:28→23:27)
[2018-09-28] MEDS: LEVOTHYROXINE 75MCG TABLET (0.075MG) PO SCH (06:28)
[2018-09-28 07:43] VITALS: BP 107/53
[2018-09-28] MEDS: BUDESONIDE 0.5 MG/2 ML INHALATION SUSPENSION INH SCH ×2 (08:28→21:48)
[2018-09-28] MEDS: ASPIRIN 81 MG CHEW TABLET NG SCH (10:28)
[2018-09-28] MEDS: PANTOPRAZOLE 40MG INJ (PROTONIX) (C9113) IV SCH (10:29)
[2018-09-28] MEDS: ENOXAPARIN 40 MG/0.4 ML SYRINGE (J1650) SC SCH (10:29)
[2018-09-28] MEDS: CHLORHEXIDINE GLUCONATE 0.12 % 15ML UDC (PERIDEX ORAL RINSE) MT SCH ×2 (10:29→21:33)
[2018-09-28 14:00] VITALS: BP 125/67
--- NOTE | 2018-09-28 16:46 | IPNPDOC ---
Text Note Date of Service The patient was seen on 09/28/18. NOTE SUBJECTIVE: Pateint sleeping this morning. As pe sitter pateint was awake all night and just fell asleep. opening eyes when spoken toon following some commands then again fell asleep. Spoke with Dr Luna from ENT. He does not think pateint will need to go home with tracheostomy. He wanted to chek a CT neck for any residual laryngeal edema. After reviewing the CT he may be taking the tracheostomy out . Pateint has been cleared for purred diet and thin liquids. will stop NG tube feeding. PHYSICAL EXAMINATION: VITAL SIGNS: pls see below GENERAL: nonverbal with trach , but can comprehend and follow commands. has mitts on both hands HEENT: Trach She is normocephalic and atraumatic. NECK: no jugular venous distention no tracheal deviation or cervical adenopathy palpated. Neck is supple. LUNGS: clear to Auscultation. HEART: Normal S1 and S2, regular rate and rhythm ABDOMEN: Positive bowel sounds soft, nontender nondistended rectal tube EXTREMITIES: Without cyanosis, clubbing, or edema present. SKIN: Warm, dry and intact. NEUROLOGIC: The patient is alert this morning. nonverbal follows commands. nods yes or no to questions appropriately LABS, IMAGING STUDIES, MICROBIOLOGY: reviewed, pls see below ASSESSMENT/PLAN: 63-year-old female with past medical history of diabetes, hypertension, hyperlipidemia, hypothyroidism, presents to the emergency room with multiple massive episodes of projectile vomiting and diarrhea after eating raw clam in the morning. In the emergency room (ER), she was given approximately 4 liters, she was hypotensive, as low as systolic 75, and tachycardic, but she has improved after 4 liters of IV fluids however again dropped requiring pressors later. She was somnolent but oriented times three. She was admitted for septic shock. 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 Acute respiratory failure Due to metabolic acidosis from septic shock s/p trach 09/20/18 swallow eval to rule out aspiration. on NG tube feedings and q6hrs fingersticks with coverage Acute kidney injury in setting of septic shock resolved. Left base opacity with associated fluid treated with zosyn. finished course. Acute CVA MRI brain September 16, 2018: right caudate nucleus infarct on ASA aspiration precautions Acute encephalopathy due to CVA, septic shock CSF, Gram stain and PCR were negative for meningitis and bacterial, and viral etiology respectively, Gram stain negative for cryptosporidium. CSF culture negative. now resolving. Chronic normocytic anemia no acute indication for rbc transfusion Hypothyroidism: Patient continues on Synthroid. Diabetes mellitus type 2 hypoglycemic protocol restarted 09/23/18 on tube feedings and q6hrs fingersticks with coverage fingersticks with coverage q6hrs and levemir with holding parameters Hypertension was in septic shock on admission . Now bp agin rising will slowly restart home meds. Diet: NPO. On NG tube feeding. deep venous thrombosis (DVT) prophylaxis: Lovenox. disposition:will need trach training, PT clearance. VS,Fishbone, I+O VS, Fishbone, I+O Laboratory Tests 09/28/18 05:22 Red Blood Count 3.36 L, Mean Corpuscular Volume 97.3 H, Mean Corpuscular Hemoglobin 30.1, Mean Corpuscular Hemoglobin Concent 30.9 L, Red Cell Distribution Width 15.8 H, Calcium Level 8.7 L Vital Signs Date Time Temp Pulse Resp B/P (MAP) Pulse Ox O2 Delivery O2 Flow Rate FiO2 09/28/18 14:35 8.0 35 09/28/18 14:00 97.1 70 15 125/67 (86) 96 Trach Collar I&O- Last 24 Hours up to 6 AM 09/28/18 06:00 Intake Total 1570 ml Output Total 2125 ml Balance -555 ml CRISTO MACKEY MD Sep 28, 2018 16:46
[2018-09-28] MEDS ORDERED: ISOVUE-370 76% 100ML VIAL (Q9967) As Ordered ONE (17:03)
[2018-09-28] MEDS: LEVEMIR (INSULIN DETEMIR) 1 UNITS/0.01ML SC SCH (21:33)
[2018-09-28] MEDS: LOSARTAN 25 MG TAB PO SCH (21:34)
[2018-09-28 22:00] VITALS: BP 117/55
[2018-09-29] MEDS: ALBUTEROL SULFATE 2.5 MG/0.5 ML INH NEB SOLN NEB SCH ×5 (03:46→20:05)
[2018-09-29 06:00] VITALS: BP 151/76
[2018-09-29] MEDS: SODIUM CHLORIDE 0.9% INJ 10 ML SYR IV SCH (06:00)
[2018-09-29] MEDS: LEVOTHYROXINE 75MCG TABLET (0.075MG) PO SCH (06:29)
[2018-09-29] MEDS: METOCLOPRAMIDE INJ 10MG/2ML VIAL (J2765) IV SCH (06:29)
[2018-09-29] MEDS: HumaLOG INSULIN (NovoLOG) PER UNIT SC SCH ×3 (06:30→18:35)
[2018-09-29 07:01] LABS: BLOOD UREA NITROGEN 12 MG/DL (7-18); CALCIUM LEVEL 8.8 MG/DL (8.8-10.2); CARBON DIOXIDE LEVEL 24 MEQ/L (21-32); CHLORIDE LEVEL 105 MEQ/L (98-107); CREATININE FOR GFR 0.52 MG/DL (0.55-1.30); GLOMERULAR FILTRATION RATE > 60.0 (>45); GLUCOSE, FASTING 121 MG/DL (70-100); POTASSIUM SERUM 4.2 MEQ/L (3.5-5.1); SODIUM LEVEL 141 MEQ/L (136-145)
[2018-09-29] MEDS: BUDESONIDE 0.5 MG/2 ML INHALATION SUSPENSION INH SCH ×2 (07:52→20:05)
--- NOTE | 2018-09-29 08:43 | REP ---
CT NECK WITH CONTRAST: HISTORY: Laryngeal edema. CONTRAST: Isovue 370, 75 mL. An NG tube and tracheostomy tube are present. The naso-, tacos-, and hypopharynx, are normal in appearance. There is thickening of the vocal cords. Increased soft tissue density is present in the proximal subglottic trachea. There is mild to moderate mass effect. There is fatty replacement of the parotid glands. The parotid glands are normal in size. The submandibular and thyroid glands are normal in size and density. Small lymph nodes less than 1 cm in size are present in the internal jugular chains, posterior triangles, submandibular and submental areas. Minimal degenerative change is present in the cervical spine. A 1.9 cm irregular soft tissue density is present in the left lung apex. The visualized sinuses are clear. IMPRESSION: 1. The patient is status post tracheostomy. 2. There is increased soft tissue density in the vocal cords and proximal subglottic trachea consistent with edema or inflammation. There is mild to moderate mass effect. 3. There is a 1.9 cm left apical lung mass. CT of the chest may be helpful for further evaluation. Electronically Signed by Tony Cruz MD 09/29/2018 08:51 A
[2018-09-29] MEDS: CHLORHEXIDINE GLUCONATE 0.12 % 15ML UDC (PERIDEX ORAL RINSE) MT SCH ×2 (09:00→21:55)
[2018-09-29] MEDS: PANTOPRAZOLE 40MG INJ (PROTONIX) (C9113) IV SCH (09:59)
[2018-09-29] MEDS: ENOXAPARIN 40 MG/0.4 ML SYRINGE (J1650) SC SCH (09:59)
[2018-09-29] MEDS: ASPIRIN 81 MG CHEW TABLET NG SCH (10:00)
[2018-09-29 14:00] VITALS: BP 132/94
--- NOTE | 2018-09-29 15:42 | REP ---
CT study of the chest without contrast: History: Irregular nodule left upper lobe. Comparison is made with soft tissue neck CT images from the previous day. CT findings: Preliminary digital extract mixer radiograph demonstrates tracheostomy tube and a nasogastric feeding tube in good position. CT images demonstrate small bilateral pleural effusions. There is a moderate-sized pericardial effusion. There are scattered ground-glass opacities consistent with mild alveolar pulmonary edema in the upper and lower lobes bilaterally. No lung mass lesion is seen. No significant nodule is appreciated. No hilar or mediastinal adenopathy is seen. No adrenal lesion is observed. Impression: Tracheostomy and nasogastric tubes in place. Ground-glass opacity pattern scattered in the lung francis consistent with mild alveolar edema. Poor level of inspiration. Small bilateral pleural effusions. Moderate pericardial effusion seen. Electronically Signed by Willian Acuna MD 09/29/2018 06:15 P
[2018-09-29] MEDS: ACETAMINOPHEN 325 MG/10.15 ML UDC GT PRN (18:35)
[2018-09-29] MEDS: LEVEMIR (INSULIN DETEMIR) 1 UNITS/0.01ML SC SCH (21:00)
[2018-09-29] MEDS: LOSARTAN 25 MG TAB PO SCH (21:54)
[2018-09-29] MEDS: ALPRAZolam 0.25 MG TAB NG PRN (21:54)
[2018-09-29 22:00] VITALS: BP 128/70
--- NOTE | 2018-09-29 23:20 | IPNPDOC ---
Text Note Date of Service The patient was seen on 09/29/18. NOTE SUBJECTIVE: Patient awake , alert and cooperative today, and son at [place] patient interacting with them. As been having good oral intake, will dc NG tube and will dc hendrikcs. CT neck done this shows still persistent vocal cord and subglottic edema . will discuss with ENT. Patient sat up by the side of the bed with minimal Support. will continue PT. PHYSICAL EXAMINATION: VITAL SIGNS: pls see below GENERAL: nonverbal with trach , but can comprehend and follow commands. HEENT: Trach She is normocephalic and atraumatic. NECK: no jugular venous distention no tracheal deviation or cervical adenopathy palpated. Neck is supple. LUNGS: clear to Auscultation. HEART: Normal S1 and S2, regular rate and rhythm ABDOMEN: Positive bowel sounds soft, nontender nondistended rectal tube EXTREMITIES: Without cyanosis, clubbing, or edema present. SKIN: Warm, dry and intact. NEUROLOGIC: The patient is alert this morning. nonverbal follows commands. nods yes or no to questions appropriately LABS, IMAGING STUDIES, MICROBIOLOGY: reviewed, pls see below ASSESSMENT/PLAN: 63-year-old female with past medical history of diabetes, hypertension, hyperlipidemia, hypothyroidism, presents to the emergency room with multiple massive episodes of projectile vomiting and diarrhea after eating raw clam in the morning. In the emergency room (ER), she was given approximately 4 liters, she was hypotensive, as low as systolic 75, and tachycardic, but she has improved after 4 liters of IV fluids however again dropped requiring pressors later. She was somnolent but oriented times three. She was admitted for septic shock. 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 Acute respiratory failure Due to metabolic acidosis from septic shock s/p trach 09/20/18 CT neck shows persistent vocal cord and sub glottic edema. So probably will have to keep in the trach for now will discuss with ENT. Incidental left upper lobe lung nodule read in CT neck CT chest done to evaluate this was negative for any nodule or mass or lymphadenopathy Left base opacity with associated fluid treated with zosyn. finished course. Acute CVA MRI brain September 16, 2018: right caudate nucleus infarct on ASA aspiration precautions Acute encephalopathy due to CVA, septic shock CSF, Gram stain and PCR were negative for meningitis and bacterial, and viral etiology respectively, Gram stain negative for cryptosporidium. CSF culture negative. now resolving. Chronic normocytic anemia no acute indication for rbc transfusion Hypothyroidism: Patient continues on Synthroid. Diabetes mellitus type 2 on levemir and lispro Hypertension was in septic shock on admission . Now bp again rising will slowly restart home meds. restarted low dose losartan Diet: pureed deep venous thrombosis (DVT) prophylaxis: Lovenox. disposition: will need trach training, PT clearance. VS,Fishbone, I+O VS, Fishbone, I+O Laboratory Tests 09/29/18 06:00 Calcium Level 8.8 Vital Signs Date Time Temp Pulse Resp B/P (MAP) Pulse Ox O2 Delivery O2 Flow Rate FiO2 09/29/18 22:00 98.2 83 20 128/70 (89) 97 Trach Collar 8.0 09/29/18 20:00 35 I&O- Last 24 Hours up to 6 AM 09/29/18 06:00 Intake Total 2885 ml Output Total 1000 ml Balance 1885 ml CRISTO MACKEY MD Sep 29, 2018 23:20
[2018-09-30] MEDS: ALBUTEROL SULFATE 2.5 MG/0.5 ML INH NEB SOLN NEB SCH ×6 (00:15→20:07)
[2018-09-30 02:20] VITALS: BP 136/60
[2018-09-30 06:00] VITALS: BP 119/56
[2018-09-30] MEDS ORDERED: FUROSEMIDE 40 MG/4 ML VIAL (J1940) IV ONE (06:00)
[2018-09-30 06:11] LABS: HEMATOCRIT 32.2 % (36.0-47.0); HEMOGLOBIN 9.8 g/dl (12.0-15.5); MEAN CORPUSCULAR HEMOGLOBIN 30.2 pg (27.0-33.0); MEAN CORPUSCULAR HGB CONC 30.4 g/dl (32.0-36.5); MEAN CORPUSCULAR VOLUME 99.1 fl (80.0-96.0); PLATELET COUNT, AUTOMATED 440 10^3/uL (150-450); RED BLOOD COUNT 3.25 10^6/uL (4.00-5.40); WHITE BLOOD COUNT 8.3 10^3/uL (4.0-10.0)
[2018-09-30 06:33] LABS: BLOOD UREA NITROGEN 12 MG/DL (7-18); CALCIUM LEVEL 8.5 MG/DL (8.8-10.2); CARBON DIOXIDE LEVEL 24 MEQ/L (21-32); CHLORIDE LEVEL 105 MEQ/L (98-107); CREATININE FOR GFR 0.56 MG/DL (0.55-1.30); GLOMERULAR FILTRATION RATE > 60.0 (>45); GLUCOSE, FASTING 182 MG/DL (70-100); POTASSIUM SERUM 3.4 MEQ/L (3.5-5.1); SODIUM LEVEL 140 MEQ/L (136-145)
[2018-09-30] MEDS: LEVOTHYROXINE 75MCG TABLET (0.075MG) PO SCH (07:01)
[2018-09-30] MEDS: BUDESONIDE 0.5 MG/2 ML INHALATION SUSPENSION INH SCH ×2 (07:43→20:07)
[2018-09-30] MEDS ORDERED: PANTOPRAZOLE 40MG TAB (PROTONIX) PO SCH (09:00)
[2018-09-30] MEDS: HumaLOG INSULIN (NovoLOG) PER UNIT SC SCH ×5 (09:26→20:40)
[2018-09-30] MEDS: ASPIRIN 81 MG CHEW TABLET NG SCH (09:58)
[2018-09-30] MEDS: ENOXAPARIN 40 MG/0.4 ML SYRINGE (J1650) SC SCH (09:59)
[2018-09-30] MEDS ORDERED: POTASSIUM CHLORIDE 10% LIQ 20 MEQ/15 ML UDC PO ONE (10:00)
[2018-09-30] MEDS: CHLORHEXIDINE GLUCONATE 0.12 % 15ML UDC (PERIDEX ORAL RINSE) MT SCH ×2 (10:11→20:41)
--- NOTE | 2018-09-30 11:50 | IPNPDOC ---
Text Note Date of Service The patient was seen on 09/30/18. NOTE SUBJECTIVE: Sleeping this morning. As per staff did not sleep at night. Had a fall last night but no injuries sustained. Did not want any breakfast this morning. No fever or chills. No chest pain or sob , no abdominal pain , nausea or vomiting or diarrhea. PHYSICAL EXAMINATION: VITAL SIGNS: pls see below GENERAL: nonverbal with trach , but can comprehend and follow commands. HEENT: Trach She is normocephalic and atraumatic. NECK: no jugular venous distention no tracheal deviation or cervical adenopathy palpated. Neck is supple. LUNGS: clear to Auscultation. HEART: Normal S1 and S2, regular rate and rhythm ABDOMEN: Positive bowel sounds soft, nontender nondistended rectal tube EXTREMITIES: Without cyanosis, clubbing, or edema present. SKIN: Warm, dry and intact. NEUROLOGIC: The patient is alert this morning. nonverbal follows commands. nods yes or no to questions appropriately LABS, IMAGING STUDIES, MICROBIOLOGY: reviewed, pls see below ASSESSMENT/PLAN: 63-year-old female with past medical history of diabetes, hypertension, hyperlipidemia, hypothyroidism, presents to the emergency room with multiple massive episodes of projectile vomiting and diarrhea after eating raw clam in the morning. In the emergency room (ER), she was given approximately 4 liters, she was hypotensive, as low as systolic 75, and tachycardic, but she has improved after 4 liters of IV fluids however again dropped requiring pressors later. She was somnolent but oriented times three. She was admitted for septic shock. 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 Acute respiratory failure Due to metabolic acidosis from septic shock s/p trach 09/20/18 CT neck shows persistent vocal cord and sub glottic edema. So probably will have to keep in the trach for now will discuss with ENT. Incidental left upper lobe lung nodule read in CT neck CT chest done to evaluate this was negative for any nodule or mass or lymphadenopathy Left base opacity with associated fluid treated with zosyn. finished course. Acute CVA MRI brain September 16, 2018: right caudate nucleus infarct on ASA aspiration precautions Acute encephalopathy due to CVA, septic shock CSF, Gram stain and PCR were negative for meningitis and bacterial, and viral etiology respectively, Gram stain negative for cryptosporidium. CSF culture negative. now resolved Chronic normocytic anemia no acute indication for rbc transfusion Hypothyroidism: Patient continues on Synthroid. Diabetes mellitus type 2 on levemir and lispro Hypertension was in septic shock on admission . Now bp again rising will slowly restart home meds. restarted low dose losartan Diet: pureed deep venous thrombosis (DVT) prophylaxis: Lovenox. disposition: will need trach training, PT clearance. ARU screen VS,Fishbone, I+O VS, Fishbone, I+O Laboratory Tests 09/30/18 05:56 Red Blood Count 3.25 L, Mean Corpuscular Volume 99.1 H, Mean Corpuscular Hemoglobin 30.2, Mean Corpuscular Hemoglobin Concent 30.4 L, Red Cell Distribution Width 15.5 H, Calcium Level 8.5 L Vital Signs Date Time Temp Pulse Resp B/P (MAP) Pulse Ox O2 Delivery O2 Flow Rate FiO2 09/30/18 06:00 98.2 68 19 119/56 (77) 97 Trach Collar 8.0 09/29/18 20:00 35 I&O- Last 24 Hours up to 6 AM 09/30/18 06:00 Intake Total 410 ml Output Total 750 ml Balance -340 ml CRISTO MACKEY MD Sep 30, 2018 11:50
[2018-09-30] MEDS ORDERED: methylPREDNISolone INJ 40 MG/1 ML VIAL (J2920) IV ONE (13:00)
[2018-09-30] MEDS: PANTOPRAZOLE 40MG INJ (PROTONIX) (C9113) IV SCH (13:11)
[2018-09-30 14:00] VITALS: BP 99/54
[2018-09-30] MEDS: TRIAMCINOLONE ACET 0.1% OINTMENT 15 GM TOP SCH ×2 (14:16→20:40)
--- NOTE | 2018-09-30 17:58 | IPN ---
DATE: 09/30/2018 SUBJECTIVE: Information obtained from the nurse. The patient was transferred to another floor and is now located in [facility]. No events overnight. The patient has tracheotomy tube and seems to be working satisfactorily, according to the nurse. No other significant issues. OBJECTIVE: Vital signs: Temperature 98.2, blood pressure 119/56. The patient is on trach collar, oxygen flow 8 liters. Neck shows trachea is stable and secure. Current white count is 8.3, hemoglobin 9.8, hematocrit 32.2, platelets 440. CT scan of the neck performed on 09/28/2018 revealed patient is status post tracheotomy. There is increased soft tissue density in the vocal cords and proximal subglottic trachea, consistent with edema inflammation. There is mild to moderate mass effect. There is no edema below the tracheotomy site. IMPRESSION: Patient with subglottic diffuse narrowing of the trachea above the tracheotomy site, which may be secondary to her chronic initial component of projectile vomiting, possible aspiration with edema still present. PLAN: At this point would be not to decannulate the patient, as she may have prolonged diffuse edema. Would wait to see if there is any decrease in the inflammation prior to decannulation. Would recommend that prior to decannulation the patient have a repeat CT scan, but it is very likely the patient will need to learn how to take care of the trach prior to her discharge, if she is able to be discharged. Please reconsult the ears, nose, and throat (ENT) service if there are any other issues.
[2018-09-30] MEDS: LEVEMIR (INSULIN DETEMIR) 1 UNITS/0.01ML SC SCH (20:40)
[2018-09-30] MEDS: LOSARTAN 25 MG TAB PO SCH (20:41)
[2018-09-30 22:00] VITALS: BP 115/62
[2018-09-30] MEDS: ALPRAZolam 0.25 MG TAB NG PRN (23:22)
[2018-10-01] MEDS: ALBUTEROL SULFATE 2.5 MG/0.5 ML INH NEB SOLN NEB SCH ×6 (00:16→20:49)
[2018-10-01] MEDS: LEVOTHYROXINE 75MCG TABLET (0.075MG) PO SCH (05:56)
[2018-10-01 06:00] VITALS: BP 121/64
[2018-10-01 06:34] LABS: HEMATOCRIT 31.6 % (36.0-47.0); HEMOGLOBIN 9.9 g/dl (12.0-15.5); MEAN CORPUSCULAR HEMOGLOBIN 30.2 pg (27.0-33.0); MEAN CORPUSCULAR HGB CONC 31.3 g/dl (32.0-36.5); MEAN CORPUSCULAR VOLUME 96.3 fl (80.0-96.0); PLATELET COUNT, AUTOMATED 390 10^3/uL (150-450); RED BLOOD COUNT 3.28 10^6/uL (4.00-5.40); WHITE BLOOD COUNT 10.2 10^3/uL (4.0-10.0)
[2018-10-01] MEDS: BUDESONIDE 0.5 MG/2 ML INHALATION SUSPENSION INH SCH ×2 (07:59→20:49)
[2018-10-01] MEDS: ASPIRIN 81 MG CHEW TABLET NG SCH (08:56)
[2018-10-01] MEDS: TRIAMCINOLONE ACET 0.1% OINTMENT 15 GM TOP SCH ×2 (08:56→20:45)
[2018-10-01] MEDS: HumaLOG INSULIN (NovoLOG) PER UNIT SC SCH ×5 (08:56→20:45)
[2018-10-01] MEDS: CHLORHEXIDINE GLUCONATE 0.12 % 15ML UDC (PERIDEX ORAL RINSE) MT SCH ×2 (08:56→20:44)
[2018-10-01] MEDS: PANTOPRAZOLE 40MG INJ (PROTONIX) (C9113) IV SCH (08:56)
[2018-10-01] MEDS: ENOXAPARIN 40 MG/0.4 ML SYRINGE (J1650) SC SCH (08:56)
[2018-10-01 14:00] VITALS: BP 123/62
--- NOTE | 2018-10-01 17:14 | IPNPDOC ---
Text Note Date of Service The patient was seen on 10/01/18. NOTE SUBJECTIVE: As per staff did not sleep at night. Awake sitting up by the side of the bed. Complains of pain in the buttocks so difficult to sit up straight. Noted to have a itchy erythematous maculopapular rash over the abdomen, upper arms and thighs. PHYSICAL EXAMINATION: VITAL SIGNS: pls see below GENERAL: nonverbal with trach , but can comprehend and follow commands. HEENT: Trach She is normocephalic and atraumatic. NECK: no jugular venous distention no tracheal deviation or cervical adenopathy palpated. Neck is supple. LUNGS: clear to Auscultation. HEART: Normal S1 and S2, regular rate and rhythm ABDOMEN: Positive bowel sounds soft, nontender nondistended rectal tube EXTREMITIES: Without cyanosis, clubbing, or edema present. SKIN: itchy dry maculopapular Rash present on the abdomen, upper arm and thighs Back: buttocks raw and excoriated after her severeal days of profuse diarrhea and rectal tube while intubated. NEUROLOGIC: The patient is alert this morning. Nonverbal due to the trach. follows commands and comprehends everything nods yes or no to questions appropriately LABS, IMAGING STUDIES, MICROBIOLOGY: reviewed, pls see below ASSESSMENT/PLAN: 63-year-old female with past medical history of diabetes, hypertension, hyperlipidemia, hypothyroidism, presents to the emergency room with multiple massive episodes of projectile vomiting and diarrhea after eating raw spoiled clam in the morning. In the emergency room (ER), she was given approximately 4 liters, she was hypotensive, as low as systolic 75, and tachycardic, but she has improved after 4 liters of IV fluids however again dropped requiring pressors later. She was somnolent but oriented times three initially then became confused. She was admitted for septic shock. Rash ? drug rash will give triamcinolone ointment. 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 Acute respiratory failure Due to metabolic acidosis from septic shock, toxic metabolic encephalopathy s/p trach 09/20/18 CT neck shows persistent vocal cord and sub glottic edema. So probably will have to keep in the trach for now will discuss with ENT. Laryngeal edema possibly due to the initial projectile vomiting and aspiration causing diffuse edema Had trial of extubation on 09/10/18 followed by reintubation the same evening. It was a difficult reintubation and revealed false vocal cord and aretenoid edema subsequently had tracheostomy on 09/20/18 CT neck on 09/29/18 revealed persistence of subglottic edema with narrowing just above the tracheostomy Decannulation of the tracheostomy cannot be done till edema has subsided which may take several weeks. will need repeat CT neck prior to attempted decannulation. Would repeat in 2 weeks. Patient will need to be taught tracheostomy care. Incidental left upper lobe lung nodule read in CT neck CT chest done to evaluate this was negative for any nodule or mass or lymphadenopathy Left base opacity with associated fluid treated with zosyn. finished course. Acute CVA MRI brain September 16, 2018: right caudate nucleus infarct on ASA aspiration precautions Acute encephalopathy due to CVA, septic shock CSF, Gram stain and PCR were negative for meningitis and bacterial, and viral etiology respectively, Gram stain negative for cryptosporidium. CSF culture negative. now resolved Chronic normocytic anemia no acute indication for rbc transfusion Hypothyroidism: Patient continues on Synthroid. Diabetes mellitus type 2 on levemir and lispro Hypertension was in septic shock on admission . Now bp again rising will slowly restart home meds. restarted low dose losartan Diet: pureed deep venous thrombosis (DVT) prophylaxis: Lovenox. disposition: will need trach training, PT clearance. ARU screen VS,Fishbone, I+O VS, Fishbone, I+O Laboratory Tests 10/01/18 06:00 Red Blood Count 3.28 L, Mean Corpuscular Volume 96.3 H, Mean Corpuscular Hemoglobin 30.2, Mean Corpuscular Hemoglobin Concent 31.3 L, Red Cell Distribution Width 15.2 H Vital Signs Date Time Temp Pulse Resp B/P (MAP) Pulse Ox O2 Delivery O2 Flow Rate FiO2 10/01/18 14:00 97.8 78 18 123/62 (82) 96 Trach Collar 8.0 10/01/18 09:00 28 I&O- Last 24 Hours up to 6 AM 10/01/18 06:00 Intake Total 1618 ml Output Total 3100 ml Balance -1482 ml CRISTO MACKEY MD Oct 01, 2018 17:14
[2018-10-01] MEDS: ALPRAZolam 0.25 MG TAB NG PRN (20:43)
[2018-10-01] MEDS: LOSARTAN 25 MG TAB PO SCH (20:44)
[2018-10-01] MEDS: LEVEMIR (INSULIN DETEMIR) 1 UNITS/0.01ML SC SCH (20:44)
[2018-10-01 22:00] VITALS: BP 116/56
[2018-10-02] MEDS ORDERED: diphenhydrAMINE 25 MG CAP PO ONE (02:45)
[2018-10-02] MEDS: ALBUTEROL SULFATE 2.5 MG/0.5 ML INH NEB SOLN NEB SCH ×7 (04:00→22:58)
[2018-10-02] MEDS: LEVOTHYROXINE 75MCG TABLET (0.075MG) PO SCH (05:29)
[2018-10-02 06:00] VITALS: BP 133/66
[2018-10-02] MEDS: HumaLOG INSULIN (NovoLOG) PER UNIT SC SCH ×4 (07:29→20:38)
[2018-10-02] MEDS: BUDESONIDE 0.5 MG/2 ML INHALATION SUSPENSION INH SCH ×2 (08:00→21:33)
[2018-10-02] MEDS: CHLORHEXIDINE GLUCONATE 0.12 % 15ML UDC (PERIDEX ORAL RINSE) MT SCH (09:09)
[2018-10-02] MEDS: PANTOPRAZOLE 40MG INJ (PROTONIX) (C9113) IV SCH (09:10)
[2018-10-02] MEDS: ASPIRIN 81 MG CHEW TABLET NG SCH (09:10)
[2018-10-02] MEDS: ENOXAPARIN 40 MG/0.4 ML SYRINGE (J1650) SC SCH (09:10)
[2018-10-02] MEDS: TRIAMCINOLONE ACET 0.1% OINTMENT 15 GM TOP SCH ×2 (09:11→20:40)
[2018-10-02] MEDS ORDERED: predniSONE 20 MG TAB PO ONE (12:00)
[2018-10-02] MEDS: diphenhydrAMINE 25 MG CAP PO PRN ×2 (12:14→18:39)
[2018-10-02 14:00] VITALS: BP 128/61
--- NOTE | 2018-10-02 14:08 | IPNPDOC ---
Text Note Date of Service The patient was seen on 10/02/18. NOTE Subjective: Patient's states her rash has not changed. She has a rash on her extensor surface of her elbows, on her inner thighs, as well as on her trunk. She notes that it started 3 days ago. Patient denies any other complaints. No focal deficits. No chest pain or shortness of breath. Objective: Vitals: (see below) General: No acute distress, laying comfortably in bed. HEENT: Moist mucous membranes. Neck: No JVD or lymphadenopathy Cardiac: RRR, No murmurs Pulm: Clear to auscultation b/l. No wheezing, rhonchi Abd: NT/ND + BS Ext: No edema or cyanosis Skin: Maculopapular rash on the trunk/abdomen and extensor surfaces proximal to the elbows, and at the inner thighs. Neuro: Strength 5/5 BUE and BLE. CN 2-12 intact. F to N intact Labs (see below) Assessment/Plan 1. Macular papular rash- likely drug rash. I have discontinued the patient's Xanax, chlorhexidine wash. ? Related to prior dosages of antibiotics, however patient has completed her course. Prednisone started. Benadryl as needed. If no improvement, will consult dermatology. 2. Status post septic shock secondary to vibrio. Completed course of antibiotics. 4. Status post acute respiratory failure secondary to septic shock and toxic metabolic encephalopathy. Status post trach on 09/20/18. Patient to have a CT of the neck which noted significant edema, for which the patient is unable to get anti-cannulated. She will need a repeat CT scan in 2 weeks, and outpatient ENT follow-up. 5. Acute CVA. Improved. Patient is currently on aspirin. Patient with no focal deficits. 6. Chronic anemia- stable. No need for transfusion at this time. Will need close outpatient follow-up with PCP. 7. Hypothyroidism on Synthroid 8. Diabetes mellitus on Levemir and lispro 9. Hypertension controlled continue losartan DVT prophy: On Lovenox Pending PT clearance, trach teaching, ARU screen. VS,Fishbone, I+O VS, Fishbone, I+O Vital Signs Date Time Temp Pulse Resp B/P (MAP) Pulse Ox O2 Delivery O2 Flow Rate FiO2 10/02/18 09:00 5.0 28 10/02/18 06:00 96.7 70 18 133/66 (88) 97 Room Air I&O- Last 24 Hours up to 6 AM 10/02/18 05:59 Intake Total 1220 ml Output Total 700 ml Balance 520 ml EMILY OTTO MD Oct 02, 2018 14:08
[2018-10-02] MEDS: LEVEMIR (INSULIN DETEMIR) 1 UNITS/0.01ML SC SCH (20:39)
[2018-10-02] MEDS: LOSARTAN 25 MG TAB PO SCH (20:40)
[2018-10-02 22:00] VITALS: BP 116/61
[2018-10-03] MEDS: diphenhydrAMINE 25 MG CAP PO PRN ×3 (00:42→21:52)
[2018-10-03] MEDS: ALBUTEROL SULFATE 2.5 MG/0.5 ML INH NEB SOLN NEB SCH ×5 (04:00→20:26)
[2018-10-03] MEDS: LEVOTHYROXINE 75MCG TABLET (0.075MG) PO SCH (05:34)
[2018-10-03 06:00] VITALS: BP 119/58
[2018-10-03 06:14] LABS: HEMATOCRIT 30.2 % (36.0-47.0); HEMOGLOBIN 9.4 g/dl (12.0-15.5); MEAN CORPUSCULAR HEMOGLOBIN 29.9 pg (27.0-33.0); MEAN CORPUSCULAR HGB CONC 31.1 g/dl (32.0-36.5); MEAN CORPUSCULAR VOLUME 96.2 fl (80.0-96.0); PLATELET COUNT, AUTOMATED 384 10^3/uL (150-450); RED BLOOD COUNT 3.14 10^6/uL (4.00-5.40); WHITE BLOOD COUNT 9.3 10^3/uL (4.0-10.0)
[2018-10-03] MEDS: HumaLOG INSULIN (NovoLOG) PER UNIT SC SCH ×4 (08:16→21:32)
[2018-10-03] MEDS: BUDESONIDE 0.5 MG/2 ML INHALATION SUSPENSION INH SCH ×2 (08:46→20:26)
[2018-10-03] MEDS ORDERED: predniSONE 20 MG TAB PO SCH (09:00)
[2018-10-03 09:03] LABS: BLOOD UREA NITROGEN 10 MG/DL (7-18); CREATININE FOR GFR 0.45 MG/DL (0.55-1.30); GLUCOSE, FASTING 95 MG/DL (70-100)
[2018-10-03 09:04] LABS: ALBUMIN 3.4 GM/DL (3.2-5.2); ALT/SGPT 53 U/L (12-78); BILIRUBIN,TOTAL 0.4 MG/DL (0.2-1.0); C REACTIVE PROTEIN QUANTITATIV 0.62 MG/DL (0.00-0.30); CALCIUM LEVEL 8.8 MG/DL (8.8-10.2); CARBON DIOXIDE LEVEL 27 MEQ/L (21-32); CHLORIDE LEVEL 107 MEQ/L (98-107); GLOMERULAR FILTRATION RATE > 60.0 (>45); POTASSIUM SERUM 3.4 MEQ/L (3.5-5.1); SODIUM LEVEL 140 MEQ/L (136-145); TOTAL PROTEIN 6.3 GM/DL (6.4-8.2)
[2018-10-03 09:18] LABS: ERYTHROCYTE SEDIMENTATION RATE 52 mm/hr (0-30)
[2018-10-03] MEDS: ASPIRIN 81 MG CHEW TABLET NG SCH (09:19)
[2018-10-03] MEDS: ENOXAPARIN 40 MG/0.4 ML SYRINGE (J1650) SC SCH (09:19)
[2018-10-03] MEDS: PANTOPRAZOLE 40MG INJ (PROTONIX) (C9113) IV SCH (09:19)
[2018-10-03] MEDS: TRIAMCINOLONE ACET 0.1% OINTMENT 15 GM TOP SCH (09:20)
[2018-10-03] MEDS ORDERED: POTASSIUM CHLORIDE 10 MEQ SR TABLET PO ONE (11:00)
[2018-10-03 14:00] VITALS: BP 144/69
[2018-10-03 14:07] LABS: BLOOD UREA NITROGEN 13 MG/DL (7-18); CARBON DIOXIDE LEVEL 26 MEQ/L (21-32); CHLORIDE LEVEL 105 MEQ/L (98-107); CREATININE FOR GFR 0.63 MG/DL (0.55-1.30); GLOMERULAR FILTRATION RATE > 60.0 (>45); GLUCOSE, FASTING 266 MG/DL (70-100); POTASSIUM SERUM 3.9 MEQ/L (3.5-5.1); SODIUM LEVEL 140 MEQ/L (136-145)
[2018-10-03 14:08] LABS: ALBUMIN 3.5 GM/DL (3.2-5.2); ALT/SGPT 62 U/L (12-78); BILIRUBIN,TOTAL 0.5 MG/DL (0.2-1.0); CALCIUM LEVEL 8.6 MG/DL (8.8-10.2); TOTAL PROTEIN 7.2 GM/DL (6.4-8.2)
--- NOTE | 2018-10-03 15:43 | IPNPDOC ---
Text Note Date of Service The patient was seen on 10/03/18. NOTE Subjective: Patient's states her rash has not improved. Denies any other com plaints. Fells well. No CP/SOB/palpitations. Objective: Vitals: (see below) General: No acute distress, laying comfortably in bed. HEENT: Moist mucous membranes. Neck: No JVD or lymphadenopathy Cardiac: RRR, No murmurs Pulm: Clear to auscultation b/l. No wheezing, rhonchi Abd: NT/ND + BS Ext: No edema or cyanosis Skin: Maculopapular rash on the trunk/abdomen and extensor surfaces proximal to the elbows, and at the inner thighs/ shoulder. Neuro: Strength 5/5 BUE and BLE. CN 2-12 intact. Labs (see below) Assessment/Plan 1. Macular papular rash- likely drug rash. I have discontinued the patient's Xanax, chlorhexidine wash. Losartan d/c. ? Related to prior dosages of antibiotics, however patient has completed her course. Prednisone started. Benadryl as needed. Dermatology consulted. ID consulted. 2. Status post septic shock secondary to vibrio. Completed course of antibiotics. 4. Status post acute respiratory failure secondary to septic shock and toxic metabolic encephalopathy. Status post trach on 09/20/18. Patient to have a CT of the neck which noted significant edema, for which the patient is unable to get anti-cannulated. She will need a repeat CT scan in 2 weeks, and outpatient ENT follow-up. 5. Acute CVA. Improved. Patient is currently on aspirin. Patient with no focal deficits. 6. Chronic anemia- stable. No need for transfusion at this time. Will need close outpatient follow-up with PCP. 7. Hypothyroidism on Synthroid 8. Diabetes mellitus on Levemir and lispro 9. Hypertension controlled continue losartan DVT prophy: On Lovenox Pending PT clearance, trach teaching, ARU screen. VS,Fishbone, I+O VS, Fishbone, I+O Laboratory Tests 10/03/18 05:31 Red Blood Count 3.14 L, Mean Corpuscular Volume 96.2 H, Mean Corpuscular Hemoglobin 29.9, Mean Corpuscular Hemoglobin Concent 31.1 L, Red Cell Distribution Width 14.7 H, Calcium Level 8.8, Aspartate Amino Transf (AST/SGOT) 24, Alanine Aminotransferase (ALT/SGPT) 53, Alkaline Phosphatase 65, Total Bilirubin 0.4, Total Protein 6.3 L, Albumin 3.4 10/03/18 13:21 Calcium Level 8.6 L, Aspartate Amino Transf (AST/SGOT) 36, Alanine Aminotransferase (ALT/SGPT) 62, Alkaline Phosphatase 71, Total Bilirubin 0.5, Total Protein 7.2, Albumin 3.5 Vital Signs Date Time Temp Pulse Resp B/P (MAP) Pulse Ox O2 Delivery O2 Flow Rate FiO2 10/03/18 14:00 97.0 72 18 144/69 (94) 98 Room Air 10/03/18 09:00 5.0 28 I&O- Last 24 Hours up to 6 AM 10/03/18 06:00 Intake Total 2020 ml Output Total 1950 ml Balance 70 ml EMILY OTTO MD Oct 03, 2018 15:43
[2018-10-03 16:03] LABS: BASO % 0.2 % (0.0-1.0); EOS % 0.1 % (0.0-3.0); HEMATOCRIT 33.2 % (36.0-47.0); HEMOGLOBIN 10.4 g/dl (12.0-15.5); LYMPH # 1.4 10^3/uL (1.5-4.5); LYMPH % 14.5 % (24.0-44.0); MEAN CORPUSCULAR HEMOGLOBIN 30.3 pg (27.0-33.0); MEAN CORPUSCULAR HGB CONC 31.3 g/dl (32.0-36.5); MEAN CORPUSCULAR VOLUME 96.8 fl (80.0-96.0); MONO # 0.2 10^3/uL (0.0-0.8); MONO % 1.5 % (0.0-5.0); NEUTROPHILS # 8.3 10^3/uL (1.8-7.7); NEUTROPHILS % 83.1 % (36.0-66.0); PLATELET COUNT, AUTOMATED 397 10^3/uL (150-450); RED BLOOD COUNT 3.43 10^6/uL (4.00-5.40)
--- NOTE | 2018-10-03 16:46 | CR.PDOC ---
General Date of Consultation: Oct 03, 2018 Referring Provider: EMILY OTTO MD Attending Physician: RACHEL SHERWOOD MD Consultation DERMATOLOGY CONSULT REASON FOR CONSULTATION/CHIEF COMPLAINT: maculopapular rash HISTORY OF PRESENT ILLNESS: 63 yo F with PMH diabetes, hypertension, hypothyroidism, hyperlipidemia, GERD currently in the general medical floor was admitted and found to be in septic shock and respiratory failure 2/2 Vibrio after eating raw crabs. She has thus far received antibiotics, been intubated and now has a trach. She was noted to have a new-onset of rash that started this past Wednesday. Was initially on b/l elbows, and has been gradually spreading up her arms, to the chest, down to the abdomen and now groin region. She indicates that the rash is itchy, and shakes her head no when asked if she has ever had such a rash before, or any recent travel, sick contacts, or med changes prior to admission. Of note, she has been hospitalized for almost a month due to the severity of her illness, including a new CVA 09/16/18. Her rash has failed to improve on steroids and Benadryl, and thus Dermatology was consulted to assist with her skin management. Pt is examined with her sitter and sister in the room. They express that the rash has been worsening since its onset, despite medication changes. Drug exposures of relevance: Vanc through Sep 19 time period Zosyn through Sep 19 time period PPI started Sep 30 Several contract exposures including Sep 27 time period Was placed on TMC 0.1 oint for three days Sep 30- along with Benadryl, has received IV steroids as well ALLERGIES: Please see below. HOME MEDICATIONS: Please see below. PAST MEDICAL HISTORY: As above. PAST SURGICAL HISTORY: section tubal ligation FAMILY HISTORY: Denies any family skin conditions or skin cancers. SOCIAL HISTORY: Denies alcohol, tobacco, and IV drugs. Works as a dias. REVIEW OF SYSTEMS: Denies fever, chills, n/v, abd pain, [place] Admits to skin rash associated with itchiness PHYSICAL EXAMINATION: VITAL SIGNS: Please see below. SKIN: Sukhjinder III, interactive, A&O patient sitting comfortably in bed in NAD. A full skin exam was conducted today. An examination of the skin on the back, neck, buttocks, scalp, face, eyelids, chest, abdomen, left and right arms and hands, left and right legs and feet, fingernails, and toenails was found to be normal except for the following findings: Diffuse rash consisting of erythematous plaques with small pustules extending from b/l elbows to the neck and down the chest to b/l groin and upper thighs. No visible crusting or ulceration. No oozing fluids. Normal skin temp. Negative Nikolsky sign. LABORATORY DATA: Please see below. ASSESSMENT/PLAN: 1. AGEP -Acute generalized exanthematous pustulosis, may be 2/2 recent use of contrast media vs. vanc or pip/tazo >> PPI (given time course of rash and exposure to PPI felt this is less likely * Not an acutely life-threatening emergency. Supportive care is appropriate, I discussed the most likely diagnosis with the family and patient * AGEP usually develops 3-5 days after exposure to inciting agent and resolves over the course of 2-3 weeks as exposure is removed * Recommend: Restart Triamcinolone 0.1% ointment bid to affected areas. Could get worse before improves. * Differential includes: pustular psoriasis, bacterial folliculitis, localized p ustular contact dermatitis, pyoderma vegetans * Concern for Vibrio infection of skin is not present given appearance of rash and pt state of health with no fevers or decompensated clinical status. Less concern for DRESS syndrome given her normal eosinophils and stable LFTs (mild elevation 2/2 possible shock/ICU liver and recovery). Less likely vanc hypersensitivity rash or SJS/TEN given clinical scenario, no mouth sores, no genital sores, no dry eyes, no trouble with defecation or pain with defecation * Will continue to follow and reassess later this week I spent 45 minutes at the patient's bedside or on the floor involved in direct patient care and teaching. Thank you for this interesting consult. I attest to the resident's history and physical with plan and made adjustments as necessary. Vital Signs/I&O Vital Signs Date Time Temp Pulse Resp B/P (MAP) Pulse Ox O2 Delivery O2 Flow Rate FiO2 10/03/18 09:00 5.0 28 10/03/18 06:00 97.7 69 18 119/58 (78) 98 Room Air I&O- Last 24 Hours up to 6 AM 10/03/18 06:00 Intake Total 2020 ml Output Total 1950 ml Balance 70 ml Laboratory Data Labs 24H Laboratory Tests 2 10/02/18 16:27: Bedside Glucose (Misc Panel) 205H 10/02/18 20:34: Bedside Glucose (Misc Panel) 249H 10/03/18 05:31: Nucleated Red Blood Cells % (auto) 0.0, Erythrocyte Sedimentation Rate 52H, Anion Gap 6L, Glomerular Filtration Rate > 60.0, Blood Urea Nitrogen 10, Creatinine 0.45L, Sodium Level 140, Potassium Level 3.4L, Chloride Level 107, Carbon Dioxide Level 27, Calcium Level 8.8, Aspartate Amino Transf (AST/SGOT) 24, Alanine Aminotransferase (ALT/SGPT) 53, Alkaline Phosphatase 65, Total Bilirubin 0.4, Total Protein 6.3L, Albumin 3.4, Magnesium Level 2.0, C-Reactive Protein, Quantitative 0.62H, Albumin/Globulin Ratio 1.17 10/03/18 06:57: Bedside Glucose (Misc Panel) 108 10/03/18 07:48: Bedside Glucose (Misc Panel) 103 10/03/18 11:46: Bedside Glucose (Misc Panel) 196H CBC/BMP Laboratory Tests 10/03/18 05:31 Red Blood Count 3.14 L, Mean Corpuscular Volume 96.2 H, Mean Corpuscular Hemoglo bin 29.9, Mean Corpuscular Hemoglobin Concent 31.1 L, Red Cell Distribution Width 14.7 H, Calcium Level 8.8, Aspartate Amino Transf (AST/SGOT) 24, Alanine Aminotransferase (ALT/SGPT) 53, Alkaline Phosphatase 65, Total Bilirubin 0.4, Total Protein 6.3 L, Albumin 3.4 Microbiology Microbiology 09/23/18 Special Micro Test, Received Pending Allergies Coded Allergies: Latex (Verified Allergy, Unknown, rash powdered gloves, 02/01/18) Home Medications Scheduled (Losartan Potassium/Hydroc 100-25 mg) 1 Tab Tab, 1 TAB PO DAILY, (Reported) Atorvastatin Calcium (Atorvastatin Calcium) 40 Mg Tab, 40 MG PO DAILY, (Reported) Ergocalciferol (Vitamin D) 50,000 Unit Cap, 50,000 UNIT PO QWEEK, (Reported) Gabapentin (Gabapentin) 100 Mg Cap, 100 MG PO BID, (Reported) Glyburide (Glyburide Micronized) 3 Mg Tab, 3 MG PO BID, (Reported) Insulin Glargine (Lantus Solostar) 100 Unit/Ml Inj, UNITS SC DAILY, (Reported) Levothyroxine Sodium (Synthroid) 75 Mcg Tab, 75 MCG PO DAILY, (Reported) Sitagliptin/Metformin (Janumet Xr 50-500 mg) 1 Tab Tab, 1 TAB PO BID, (Reported) Scheduled PRN Omeprazole (Omeprazole) 20 Mg Cap, 20 MG PO DAILY PRN for HEARTBURN, (Reported) GME ATTESTATION GME ATTESTATION My faculty preceptor for this patient encounter was physically present during the encounter and was fully available. All aspects of the patient interview, examination, medical decision making process, and medical care plan development were reviewed and approved by the faculty preceptor. The faculty preceptor is aware and concurs with the plan as stated in the body of this note and will attest to such by his/her cosignature. DEX BARNEY DO Oct 03, 2018 13:26 RACHEL SHERWOOD MD Oct 03, 2018 20:46
[2018-10-03] MEDS: LEVEMIR (INSULIN DETEMIR) 1 UNITS/0.01ML SC SCH (21:52)
[2018-10-03 22:00] VITALS: BP 123/63
[2018-10-04] MEDS: ALBUTEROL SULFATE 2.5 MG/0.5 ML INH NEB SOLN NEB SCH ×7 (05:47→23:24)
[2018-10-04] MEDS: diphenhydrAMINE 25 MG CAP PO PRN ×2 (05:49→18:33)
[2018-10-04] MEDS: LEVOTHYROXINE 75MCG TABLET (0.075MG) PO SCH (05:49)
[2018-10-04 06:00] VITALS: BP 115/59
[2018-10-04 06:25] LABS: BASO # 0.1 10^3/uL (0.0-0.2); BASO % 0.5 % (0.0-1.0); EOS # 0.3 10^3/uL (0.0-0.50); EOS % 2.8 % (0.0-3.0); HEMATOCRIT 31.7 % (36.0-47.0); HEMOGLOBIN 9.8 g/dl (12.0-15.5); LYMPH # 2.9 10^3/uL (1.5-4.5); LYMPH % 28.9 % (24.0-44.0); MEAN CORPUSCULAR HEMOGLOBIN 30.2 pg (27.0-33.0); MEAN CORPUSCULAR HGB CONC 30.9 g/dl (32.0-36.5); MEAN CORPUSCULAR VOLUME 97.5 fl (80.0-96.0); MONO # 0.7 10^3/uL (0.0-0.8); MONO % 6.7 % (0.0-5.0); NEUTROPHILS % 60.6 % (36.0-66.0); PLATELET COUNT, AUTOMATED 380 10^3/uL (150-450); RED BLOOD COUNT 3.25 10^6/uL (4.00-5.40); WHITE BLOOD COUNT 9.9 10^3/uL (4.0-10.0)
[2018-10-04 06:51] LABS: ALBUMIN 3.2 GM/DL (3.2-5.2); ALT/SGPT 57 U/L (12-78); BILIRUBIN,TOTAL 0.4 MG/DL (0.2-1.0); BLOOD UREA NITROGEN 12 MG/DL (7-18); CALCIUM LEVEL 8.7 MG/DL (8.8-10.2); CARBON DIOXIDE LEVEL 26 MEQ/L (21-32); CHLORIDE LEVEL 107 MEQ/L (98-107); CREATININE FOR GFR 0.56 MG/DL (0.55-1.30); GLOMERULAR FILTRATION RATE > 60.0 (>45); GLUCOSE, FASTING 123 MG/DL (70-100); MAGNESIUM LEVEL 1.8 MG/DL (1.8-2.4); POTASSIUM SERUM 3.2 MEQ/L (3.5-5.1); SODIUM LEVEL 142 MEQ/L (136-145); TOTAL PROTEIN 6.7 GM/DL (6.4-8.2)
[2018-10-04] MEDS: BUDESONIDE 0.5 MG/2 ML INHALATION SUSPENSION INH SCH ×2 (07:11→19:29)
[2018-10-04] MEDS ORDERED: POTASSIUM CHLORIDE 10 MEQ SR TABLET PO ONE (08:00)
--- NOTE | 2018-10-04 08:13 | IPNPDOC ---
Date Seen The patient was seen on 10/04/18. Progress Note Subjective: Patient's states her rash has not improved continues to have itching which gets relief with benadryl. She has no complaints at this time. She still is mouthing her words for she is still learning how to use her trach. Dermtology seen the patient yesterday and recommendations were given. No CP/SOB/palpitations. Objective: Vitals: (see below) General: No acute distress, laying comfortably in bed. HEENT: Moist mucous membranes. trach in place. site appear clear with no increased skin breakdown. Neck: No JVD or lymphadenopathy Cardiac: RRR, No murmurs Pulm: Clear to auscultation b/l. No wheezing, rhonchi Abd: NT/ND + BS Ext: No edema or cyanosis Skin: Maculopapular rash on the trunk/abdomen and extensor surfaces proximal to the elbows, and at the inner thighs/ shoulder. appear dry in appearance with no weeping noted. Neuro: no focal deficit. Labs (see below) Assessment/Plan 1. Macular papular rash -likely drug rash. -Dermatology consulted - Acute generalized exanthematous pustulosis likely cause 2/2 recent use of contrast media vs. vanc or pip/tazo recommend Triamcinolone 0.1% ointment bid to affected areas. -will start Prednisone oral taper and c/w Benadryl as needed. -ID consulted. 2. Status post septic shock secondary to vibrio. -Completed course of antibiotics. 3. Status post acute respiratory failure secondary to septic shock and toxic metabolic encephalopathy. -Status post trach on 09/20/18. -CT of the neck 09/28/18 noted significant edema, for which the patient is unable to get anti-cannulated. -repeat CT scan in 2 weeks (10/12/18) and outpatient ENT follow-up. 4. Acute CVA. -Improved - no focal deficits. -c/w aspirin. 5 Chronic anemia -stable. -No need for transfusion at this time. -Will need close outpatient follow-up with PCP. 6. Hypothyroidism -c/w Synthroid 7. Diabetes mellitus -c/w Levemir and lispro 8. Hypertension -controlled -c/w losartan 9.DVT prophy: - Lovenox 10.PT -pending clearance 11. ARU screen. Disposition: Improvement of rash, trach teaching, PT clearance and ARU screen VS, I&O, 24H, Fishbone Vital Signs/I&O Vital Signs Date Time Temp Pulse Resp B/P (MAP) Pulse Ox O2 Delivery O2 Flow Rate FiO2 10/04/18 06:00 97.9 68 17 115/59 (77) 99 Room Air 10/03/18 22:00 5.0 28 I&O- Last 24 Hours up to 6 AM 10/04/18 06:00 Intake Total 1260 ml Output Total 1000 ml Balance 260 ml Laboratory Data 24H LABS Laboratory Tests 2 10/03/18 11:46: Bedside Glucose (Misc Panel) 196H 10/03/18 13:21: Anion Gap 9, Glomerular Filtration Rate > 60.0, Blood Urea Nitrogen 13, Creatinine 0.63, Sodium Level 140, Potassium Level 3.9, Chloride Level 105, Carbon Dioxide Level 26, Calcium Level 8.6L, Aspartate Amino Transf (AST/SGOT) 3 6, Alanine Aminotransferase (ALT/SGPT) 62, Alkaline Phosphatase 71, Total Bilirubin 0.5, Total Protein 7.2, Albumin 3.5, Albumin/Globulin Ratio 0.95L 10/03/18 15:54: Immature Granulocyte % (Auto) 0.6, White Blood Count 10.0, Red Blood Count 3.43L, Hemoglobin 10.4L, Hematocrit 33.2L, Mean Corpuscular Volume 96.8H, Mean Corpuscular Hemoglobin 30.3, Mean Corpuscular Hemoglobin Concent 31.3L, Red Cell Distribution Width 14.8H, Platelet Count 397, Neutrophils (%) (Auto) 83.1H, Ly mphocytes (%) (Auto) 14.5L, Monocytes (%) (Auto) 1.5, Eosinophils (%) (Auto) 0.1, Basophils (%) (Auto) 0.2, Neutrophils # (Auto) 8.3H, Lymphocytes # (Auto) 1.4L, Monocytes # (Auto) 0.2, Eosinophils # (Auto) 0.0, Basophils # (Auto) 0.0, Nucleated Red Blood Cells % (auto) 0.0 10/03/18 16:28: Bedside Glucose (Misc Panel) 223H 10/04/18 05:45: Immature Granulocyte % (Auto) 0.5, White Blood Count 9.9, Red Blood Count 3.25L, Hemoglobin 9.8L, Hematocrit 31.7L, Mean Corpuscular Volume 97.5H, Mean Corpuscular Hemoglobin 30.2, Mean Corpuscular Hemoglobin Concent 30.9L, Red Cell Distribution Width 14.8H, Platelet Count 380, Neutrophils (%) (Auto) 60.6, Lymphocytes (%) (Auto) 28.9, Monocytes (%) (Auto) 6.7H, Eosinophils (%) (Auto) 2.8, Basophils (%) (Auto) 0.5, Neutrophils # (Auto) 6.0, Lymphocytes # (Auto) 2.9, Monocytes # (Auto) 0.7, Eosinophils # (Auto) 0.3, Basophils # (Auto) 0.1, Nucleated Red Blood Cells % (auto) 0.0, Anion Gap 9, Glomerular Filtration Rate > 60.0, Blood Urea Nitrogen 12, Creatinine 0.56, Sodium Level 142, Potassium Level 3.2L, Chloride Level 107, Carbon Dioxide Level 26, Calcium Level 8.7L, Aspartate Amino Transf (AST/SGOT) 29, Alanine Aminotransferase (ALT/SGPT) 57, Alkaline Phosphatase 64, Total Bilirubin 0.4, Total Protein 6.7, Albumin 3.2, Magnesium Level 1.8, Albumin/Globulin Ratio 0.91L CBC/BMP Laboratory Tests 10/03/18 13:21 Calcium Level 8.6 L, Aspartate Amino Transf (AST/SGOT) 36, Alanine Amino transferase (ALT/SGPT) 62, Alkaline Phosphatase 71, Total Bilirubin 0.5, Total Protein 7.2, Albumin 3.5 10/03/18 15:54 Red Blood Count 3.43 L, Mean Corpuscular Volume 96.8 H, Mean Corpuscular Hemoglobin 30.3, Mean Corpuscular Hemoglobin Concent 31.3 L, Red Cell Distribution Width 14.8 H, Neutrophils (%) (Auto) 83.1 H, Lymphocytes (%) (Auto) 14.5 L, Monocytes (%) (Auto) 1.5, Eosinophils (%) (Auto) 0.1, Basophils (%) (Auto) 0.2, Neutrophils # (Auto) 8.3 H, Lymphocytes # (Auto) 1.4 L, Monocytes # (Auto) 0.2, Eosinophils # (Auto) 0.0, Basophils # (Auto) 0.0 10/04/18 05:45 Calcium Level 8.7 L, Aspartate Amino Transf (AST/SGOT) 29, Alanine Aminotransfe rase (ALT/SGPT) 57, Alkaline Phosphatase 64, Total Bilirubin 0.4, Total Protein 6.7, Albumin 3.2, Red Blood Count 3.25 L, Mean Corpuscular Volume 97.5 H, Mean Corpuscular Hemoglobin 30.2, Mean Corpuscular Hemoglobin Concent 30.9 L, Red Cell Distribution Width 14.8 H, Neutrophils (%) (Auto) 60.6, Lymphocytes (%) (Auto) 28.9, Monocytes (%) (Auto) 6.7 H, Eosinophils (%) (Auto) 2.8, Basophils (%) (Auto) 0.5, Neutrophils # (Auto) 6.0, Lymphocytes # (Auto) 2.9, Monocytes # (Auto) 0.7, Eosinophils # (Auto) 0.3, Basophils # (Auto) 0.1 GME ATTESTATION GME ATTESTATION My faculty preceptor for this patient encounter was physically present during the encounter and was fully available. All aspects of the patient interview, examination, medical decision making process, and medical care plan development were reviewed and approved by the faculty preceptor. The faculty preceptor is aware and concurs with the plan as stated in the body of this note and will attest to such by his/her cosignature. SUSIE CORBIN DO Oct 04, 2018 08:13
[2018-10-04] MEDS: TRIAMCINOLONE ACET 0.1% OINTMENT 15 GM TOP SCH ×2 (09:00→21:26)
[2018-10-04] MEDS ORDERED: predniSONE 10 MG TAB PO SCH (09:00)
[2018-10-04] MEDS: PANTOPRAZOLE 40MG INJ (PROTONIX) (C9113) IV SCH (09:41)
[2018-10-04] MEDS: HumaLOG INSULIN (NovoLOG) PER UNIT SC SCH ×4 (09:41→21:20)
[2018-10-04] MEDS: ENOXAPARIN 40 MG/0.4 ML SYRINGE (J1650) SC SCH (09:41)
[2018-10-04] MEDS: ASPIRIN 81 MG CHEW TABLET NG SCH (09:42)
[2018-10-04] MEDS: amLODIPine 5 MG TAB PO SCH (09:47)
--- NOTE | 2018-10-04 09:58 | IPN ---
DATE: 10/03/2018 I was asked to reconsult on the patient for a new onset rash that started on Wednesday. The patient has been seen during this hospitalization for a Vibrio parahaemolyticus diarrhea with septic shock. The patient also was treated for a possible healthcare associated pneumonia with vancomycin and Zosyn, both of which were discontinued on September 20. The patient has been off antibiotics for the past 12 days. She had developed this rash, mostly on the shoulder, abdomen and upper body anteriorly 3 days ago. The rash is very pruritic. It has failed to improve with topical steroids and Benadryl. She has no fever or chills. No night sweats. She feels well. She has a trache because of prolonged intubation. On physical exam, vital signs are stable. She is afebrile. Skin has a diffuse maculopapular rash involving mostly shoulders, abdomen and medial thighs. The rash is erythematous with some pustules. No visible crusting or ulcerations. IMPRESSION: Acute hypersensitivity reaction, although no recent antibiotics have been used in over 12 days. I am not sure if it is related to antibiotics or some other medications that she has received during this hospitalization. She has been seen in consultation with dermatology. Will recommend a triamcinolone ointment and Benadryl as needed. 2. Vibrio parahaemolyticus septic shock has resolved. 3. Diarrhea has resolved. LABORATORIES: White count 10, hemoglobin 10.4, hematocrit 33.2, platelets 397, 83% neutrophils, 14% lymphocytes. Sodium 148, potassium 3.9, chloride 105, bicarb 26, BUN 13, creatinine 0.63, glucose 266, calcium 8.6.
[2018-10-04 14:00] VITALS: BP 100/55
[2018-10-04] MEDS: LEVEMIR (INSULIN DETEMIR) 1 UNITS/0.01ML SC SCH (21:26)
[2018-10-04 22:00] VITALS: BP 124/60
[2018-10-05] MEDS: diphenhydrAMINE 25 MG CAP PO PRN ×5 (03:35→23:44)
[2018-10-05] MEDS: ALBUTEROL SULFATE 2.5 MG/0.5 ML INH NEB SOLN NEB SCH ×5 (04:37→22:03)
[2018-10-05 06:00] VITALS: BP 126/66
[2018-10-05] MEDS: LEVOTHYROXINE 75MCG TABLET (0.075MG) PO SCH (06:06)
[2018-10-05 06:16] LABS: BASO # 0.1 10^3/uL (0.0-0.2); BASO % 0.6 % (0.0-1.0); EOS # 0.3 10^3/uL (0.0-0.50); EOS % 3.1 % (0.0-3.0); HEMATOCRIT 32.7 % (36.0-47.0); LYMPH # 2.2 10^3/uL (1.5-4.5); LYMPH % 22.3 % (24.0-44.0); MEAN CORPUSCULAR HEMOGLOBIN 30.2 pg (27.0-33.0); MEAN CORPUSCULAR HGB CONC 30.6 g/dl (32.0-36.5); MEAN CORPUSCULAR VOLUME 98.8 fl (80.0-96.0); MONO # 0.6 10^3/uL (0.0-0.8); MONO % 6.4 % (0.0-5.0); NEUTROPHILS # 6.6 10^3/uL (1.8-7.7); PLATELET COUNT, AUTOMATED 350 10^3/uL (150-450); RED BLOOD COUNT 3.31 10^6/uL (4.00-5.40); WHITE BLOOD COUNT 9.9 10^3/uL (4.0-10.0)
[2018-10-05 06:58] LABS: ALBUMIN 3.2 GM/DL (3.2-5.2); ALT/SGPT 54 U/L (12-78); BILIRUBIN,TOTAL 0.5 MG/DL (0.2-1.0); BLOOD UREA NITROGEN 11 MG/DL (7-18); CALCIUM LEVEL 8.7 MG/DL (8.8-10.2); CARBON DIOXIDE LEVEL 26 MEQ/L (21-32); CHLORIDE LEVEL 107 MEQ/L (98-107); CREATININE FOR GFR 0.53 MG/DL (0.55-1.30); GLOMERULAR FILTRATION RATE > 60.0 (>45); GLUCOSE, FASTING 100 MG/DL (70-100); MAGNESIUM LEVEL 1.9 MG/DL (1.8-2.4); POTASSIUM SERUM 3.4 MEQ/L (3.5-5.1); SODIUM LEVEL 141 MEQ/L (136-145); TOTAL PROTEIN 6.5 GM/DL (6.4-8.2)
[2018-10-05] MEDS: HumaLOG INSULIN (NovoLOG) PER UNIT SC SCH ×4 (07:20→21:00)
[2018-10-05] MEDS: BUDESONIDE 0.5 MG/2 ML INHALATION SUSPENSION INH SCH ×2 (07:44→22:03)
[2018-10-05] MEDS ORDERED: POTASSIUM CHLORIDE 10 MEQ SR TABLET PO ONE (07:45)
[2018-10-05] MEDS: ENOXAPARIN 40 MG/0.4 ML SYRINGE (J1650) SC SCH (08:24)
[2018-10-05] MEDS: TRIAMCINOLONE ACET 0.1% OINTMENT 15 GM TOP SCH ×2 (08:24→21:57)
[2018-10-05] MEDS: PANTOPRAZOLE 40MG INJ (PROTONIX) (C9113) IV SCH (08:24)
[2018-10-05] MEDS: amLODIPine 5 MG TAB PO SCH (08:26)
[2018-10-05] MEDS: ASPIRIN 81 MG CHEW TABLET NG SCH (08:27)
--- NOTE | 2018-10-05 11:56 | IPNPDOC ---
Date Seen The patient was seen on 10/05/18. Progress Note Subjective:. She has no complaints at this time expect her rash is getting worse and more itchy Got her first dose of the steroid ointment but hasnt noticed any difference. She is tolerating all her medication and she has still not worked with PT because of fatigue and she wants to be left alone. There was no OTHER overnight events reported. Objective: Vitals: (see below) General: No acute distress, laying comfortably in bed. HEENT: Moist mucous membranes. trach in place. site appear clear with no increased skin breakdown. Neck: No JVD or lymphadenopathy Cardiac: RRR, No murmurs Pulm: Clear to auscultation b/l. No wheezing, rhonchi Abd: NT/ND + BS Ext: No edema or cyanosis Skin: Maculopapular rash on the trunk/abdomen and extensor surfaces proximal to the elbows, and at the inner thighs/ shoulder. appear dry in appearance with no weeping noted. more pronounced since the day before. Neuro: no focal deficit. Labs (see below) Assessment/Plan 1. Macular papular rash -likely drug rash. -Dermatology consulted - Acute generalized exanthematous pustulosis likely cause 2/2 recent use of contrast media vs. vanc or pip/tazo recommend Triamcinolone 0.1% ointment bid to affected areas. - will reach out to derm to see if there any more recommendation -will start Prednisone oral taper and c/w Benadryl as needed. 2. Status post septic shock secondary to vibrio. -Completed course of antibiotics. 3. Status post acute respiratory failure secondary to septic shock and toxic m etabolic encephalopathy. -Status post trach on 09/20/18. -CT of the neck 09/28/18 noted significant edema, for which the patient is unable to get anti-cannulated. -repeat CT scan in 2 weeks (10/12/18) and outpatient ENT follow-up. 4. Acute CVA. -Improved - no focal deficits. -c/w aspirin. 5 Chronic anemia -stable. -No need for transfusion at this time. -Will need close outpatient follow-up with PCP. 6. Hypothyroidism -c/w Synthroid 7. Diabetes mellitus -c/w Levemir and lispro 8. Hypertension -controlled -c/w losartan 9.DVT prophy: - Lovenox 10.PT -pending clearance 11. ARU screen. Disposition: Improvement of rash, trach teaching, PT clearance and ARU screen VS, I&O, 24H, Fishbone Vital Signs/I&O Vital Signs Date Time Temp Pulse Resp B/P (MAP) Pulse Ox O2 Delivery O2 Flow Rate FiO2 10/05/18 06:00 97.9 69 19 126/66 (86) 96 Room Air 10/04/18 21:26 5.0 28 I&O- Last 24 Hours up to 6 AM 10/05/18 05:59 Intake Total 984 ml Output Total 440 ml Balance 544 ml Laboratory Data 24H LABS Laboratory Tests 2 10/04/18 21:19: Bedside Glucose (Misc Panel) 167H 10/05/18 05:52: Immature Granulocyte % (Auto) 0.6, White Blood Count 9.9, Red Blood Count 3.31L, Hemoglobin 10.0L, Hematocrit 32.7L, Mean Corpuscular Volume 98.8H, Mean Corpuscular Hemoglobin 30.2, Mean Corpuscular Hemoglobin Concent 30.6L, Red Cell Distribution Width 14.6H, Platelet Count 350, Neutrophils (%) (Auto) 67.0H, Lymphocytes (%) (Auto) 22.3L, Monocytes (%) (Auto) 6.4H, Eosinophils (%) (Auto) 3.1H, Basophils (%) (Auto) 0.6, Neutrophils # (Auto) 6.6, Lymphocytes # (Auto) 2.2, Monocytes # (Auto) 0.6, Eosinophils # (Auto) 0.3, Basophils # (Auto) 0.1, Nucleated Red Blood Cells % (auto) 0.0, Anion Gap 8, Glomerular Filtration Rate > 60.0, Blood Urea Nitrogen 11, Creatinine 0.53L, Sodium Level 141, Potassium Level 3.4L, Chloride Level 107, Carbon Dioxide Level 26, Calcium Level 8.7L, Aspartate Amino Transf (AST/SGOT) 33, Alanine Aminotransferase (ALT/SGPT) 54, Alkaline Phosphatase 63, Total Bilirubin 0.5, Total Protein 6.5, Albumin 3.2, Magnesium Level 1.9, Albumin/Globulin Ratio 0.97L CBC/BMP Laboratory Tests 10/05/18 05:52 Red Blood Count 3.31 L, Mean Corpuscular Volume 98.8 H, Mean Corpuscular Hemoglobin 30.2, Mean Corpuscular Hemoglobin Concent 30.6 L, Red Cell Distribution Width 14.6 H, Neutrophils (%) (Auto) 67.0 H, Lymphocytes (%) (Auto) 22.3 L, Monocytes (%) (Auto) 6.4 H, Eosinophils (%) (Auto) 3.1 H, Basophils (%) (Auto) 0.6, Neutrophils # (Auto) 6.6, Lymphocytes # (Auto) 2.2, Monocytes # (Auto) 0.6, Eosinophils # (Auto) 0.3, Basophils # (Auto) 0.1, Calcium Level 8.7 L, Aspartate Amino Transf (AST/SGOT) 33, Alanine Aminotransferase (ALT/SGPT) 54, Alkaline Phosphatase 63, Total Bilirubin 0.5, Total Protein 6.5, Albumin 3.2 GME ATTESTATION GME ATTESTATION My faculty preceptor for this patient encounter was physically present during the encounter and was fully available. All aspects of the patient interview, examination, medical decision making process, and medical care plan development were reviewed and approved by the faculty preceptor. The faculty preceptor is aware and concurs with the plan as stated in the body of this note and will attest to such by his/her cosignature. SUSIE CORBIN DO Oct 05, 2018 08:30
[2018-10-05 14:00] VITALS: BP 141/67
--- NOTE | 2018-10-05 18:58 | IPNPDOC ---
Date Seen The patient was seen on 10/05/18. Progress Note DERMATOLOGY PROGRESS NOTE Subjective: Patient examined at bedside with sister and sitter in room. They state her rash is about the same and overall remains itchy. Is complying with topical steroid to affected areas. Rash appears to have spread slightly down the arms and legs since last seen. Dried over in couple areas. No other new complaints. Objective: PHYSICAL EXAMINATION: VITAL SIGNS: Please see below. SKIN: Sukhjinder III, interactive, A&O patient sitting comfortably in bed in NAD. A full skin exam was conducted today. An examination of the skin on the back, neck, buttocks, scalp, face, eyelids, chest, abdomen, left and right arms and hands, left and right legs and feet, fingernails, and toenails was found to be normal except for the following findings: Diffuse rash consisting of erythematous plaques with small pustules extending from b/l forearms to the neck and down the chest to b/l groin and legs. No visible crusting or ulceration. No oozing fluids. Normal skin temp. Negative Nikolsky sign. Appears sawdust drier compared to when last assessed. LABORATORY DATA: Please see below. ASSESSMENT/PLAN: 1. AGEP -Acute generalized exanthematous pustulosis, may be 2/2 recent use of contrast media vs. PPI >> vanc or pip/tazo. Do not favor pustular psoriasis 2/2 CCB amlodipine given rash developed several days prior to first administration of CCB. RECOMMEND: * Continue supportive care. Agree with Benadryl q4h prn. * Continue Triamcinolone 0.1% ointment bid to affected areas. Could get worse before improves. Avoid hospital Remedy-brand lotion, and supplement with Eucerin moisturizer for dry skin instead. Avoid other irritants. Minimal gentle soap to groin, buttocks, armpits for washing - not for rest of body. Wash hair couple times a week, use only minimal shampoo. * Rash may be 2/2 recent start of IV PPI, as rash and drug both started on Wednesday09/30/18. Recommend stopping PPI, and if needed, may substitute with H2- antagonist or TUMS for GERD. Pt agreeable to this plan. * Avoid acetaminophen * Pt may also benefit from infectious workup including: viral (EBV, Enterovirus, Adenovirus, CMV, Hep B), as these are also possible triggers for AGEP. Also recommend HSV & VZV lab testing, and IgM antibody for all infections in order to check for acute state. * Spider bites are also culprits of AGEP, although this is much less likely, giv en her prolonged hospitalization and onset of rash. * Recent research suggests AGEP is associated with IL36RN gene mutations. These genetic abnormalities make a pt more susceptible to pustulosis when prescribed certain meds or when exposed to infection. Similar mutations are also found in ppl with other pustular disorders, such as pustular psoriasis, palmoplantar pustulosis, and acrodermatitis continua of [place]. Recommend pt have outpatient allergy testing to find possible triggers. Pt agreeable to plan. * Differential includes: pustular psoriasis, bacterial folliculitis, localized pustular contact dermatitis, pyoderma vegetans * Will continue to follow and reassess later this week I spent 20 minutes at the patient's bedside involved in direct patient care and teaching. VS, I&O, [facility]O Vital Signs Date Time Temp Pulse Resp B/P (MAP) Pulse Ox O2 Delivery O2 Flow Rate FiO2 10/05/18 14:00 97.6 74 18 141/67 (91) 100 Room Air 10/05/18 09:00 5.0 28 I&O- Last 24 Hours up to 6 AM 10/05/18 06:00 Intake Total 984 ml Output Total 440 ml Balance 544 ml Laboratory Data 24H LABS Laboratory Tests 2 10/04/18 21:19: Bedside Glucose (Misc Panel) 167H 10/05/18 05:52: Immature Granulocyte % (Auto) 0.6, White Blood Count 9.9, Red Blood Count 3.31L, Hemoglobin 10.0L, Hematocrit 32.7L, Mean Corpuscular Volume 98.8H, Mean Corpuscular Hemoglobin 30.2, Mean Corpuscular Hemoglobin Concent 30.6L, Red Cell Distribution Width 14.6H, Platelet Count 350, Neutrophils (%) (Auto) 67.0H, Lymphocytes (%) (Auto) 22.3L, Monocytes (%) (Auto) 6.4H, Eosinophils (%) (Auto) 3.1H, Basophils (%) (Auto) 0.6, Neutrophils # (Auto) 6.6, Lymphocytes # (Auto) 2.2, Monocytes # (Auto) 0.6, Eosinophils # (Auto) 0.3, Basophils # (Auto) 0.1, Nucleated Red Blood Cells % (auto) 0.0, Anion Gap 8, Glomerular Filtration Rate > 60.0, Blood Urea Nitrogen 11, Creatinine 0.53L, Sodium Level 141, Potassium Level 3.4L, Chloride Level 107, Carbon Dioxide Level 26, Calcium Level 8.7L, Aspartate Amino Transf (AST/SGOT) 33, Alanine Aminotransferase (ALT/SGPT) 54, Alkaline Phosphatase 63, Total Bilirubin 0.5, Total Protein 6.5, Albumin 3.2, Magnesium Level 1.9, Albumin/Globulin Ratio 0.97L 10/05/18 11:33: Bedside Glucose (Misc Panel) 237H 10/05/18 16:57: Bedside Glucose (Misc Panel) 78L CBC/BMP Laboratory Tests 10/05/18 05:52 Red Blood Count 3.31 L, Mean Corpuscular Volume 98.8 H, Mean Corpuscular Hemoglobin 30.2, Mean Corpuscular Hemoglobin Concent 30.6 L, Red Cell Distribution Width 14.6 H, Neutrophils (%) (Auto) 67.0 H, Lymphocytes (%) (Auto) 22.3 L, Monocytes (%) (Auto) 6.4 H, Eosinophils (%) (Auto) 3.1 H, Basophils (%) (Auto) 0.6, Neutrophils # (Auto) 6.6, Lymphocytes # (Auto) 2.2, Monocytes # (Auto) 0.6, Eosinophils # (Auto) 0.3, Basophils # (Auto) 0.1, Calcium Level 8.7 L, Aspartate Amino Transf (AST/SGOT) 33, Alanine Aminotransferase (ALT/SGPT) 54, Alkaline Phosphatase 63, Total Bilirubin 0.5, Total Protein 6.5, Albumin 3.2 GME ATTESTATION GME ATTESTATION My faculty preceptor for this patient encounter was physically present during the encounter and was fully available. All aspects of the patient interview, examination, medical decision making process, and medical care plan development were reviewed and approved by the faculty preceptor. The faculty preceptor is aware and concurs with the plan as stated in the body of this note and will attest to such by his/her cosignature. ATTENDING NOTE I agree with the resident's progress note and made edits where appropriate. DEX BARNEY DO Oct 05, 2018 17:10 RACHEL SHERWOOD MD Oct 05, 2018 20:49
[2018-10-05] MEDS: LEVEMIR (INSULIN DETEMIR) 1 UNITS/0.01ML SC SCH (21:54)
[2018-10-05 22:00] VITALS: BP 117/60
[2018-10-06] MEDS: ALBUTEROL SULFATE 2.5 MG/0.5 ML INH NEB SOLN NEB SCH ×7 (04:00→23:49)
[2018-10-06 06:00] VITALS: BP 124/58
[2018-10-06] MEDS: LEVOTHYROXINE 75MCG TABLET (0.075MG) PO SCH (06:08)
[2018-10-06 06:42] LABS: BASO % 0.4 % (0.0-1.0); EOS # 0.5 10^3/uL (0.0-0.50); EOS % 4.4 % (0.0-3.0); HEMATOCRIT 33.4 % (36.0-47.0); HEMOGLOBIN 10.3 g/dl (12.0-15.5); LYMPH % 17.9 % (24.0-44.0); MEAN CORPUSCULAR HEMOGLOBIN 29.9 pg (27.0-33.0); MEAN CORPUSCULAR HGB CONC 30.8 g/dl (32.0-36.5); MEAN CORPUSCULAR VOLUME 97.1 fl (80.0-96.0); MONO # 0.4 10^3/uL (0.0-0.8); MONO % 3.5 % (0.0-5.0); NEUTROPHILS # 8.4 10^3/uL (1.8-7.7); NEUTROPHILS % 73.4 % (36.0-66.0); PLATELET COUNT, AUTOMATED 328 10^3/uL (150-450); RED BLOOD COUNT 3.44 10^6/uL (4.00-5.40); WHITE BLOOD COUNT 11.4 10^3/uL (4.0-10.0)
[2018-10-06 07:03] LABS: ALBUMIN 3.3 GM/DL (3.2-5.2); ALT/SGPT 47 U/L (12-78); BILIRUBIN,TOTAL 0.4 MG/DL (0.2-1.0); BLOOD UREA NITROGEN 14 MG/DL (7-18); CALCIUM LEVEL 8.6 MG/DL (8.8-10.2); CARBON DIOXIDE LEVEL 26 MEQ/L (21-32); CHLORIDE LEVEL 106 MEQ/L (98-107); CREATININE FOR GFR 0.63 MG/DL (0.55-1.30); GLOMERULAR FILTRATION RATE > 60.0 (>45); GLUCOSE, FASTING 161 MG/DL (70-100); MAGNESIUM LEVEL 1.7 MG/DL (1.8-2.4); POTASSIUM SERUM 3.8 MEQ/L (3.5-5.1); SODIUM LEVEL 141 MEQ/L (136-145); TOTAL PROTEIN 6.6 GM/DL (6.4-8.2)
[2018-10-06] MEDS: BUDESONIDE 0.5 MG/2 ML INHALATION SUSPENSION INH SCH ×2 (07:44→20:33)
--- NOTE | 2018-10-06 07:46 | IPNPDOC ---
Date Seen The patient was seen on 10/06/18. Progress Note Subjective:. She has no complaints at this time . Derm saw her the night prior. Recommend stopping PPI, and doing infections work up. Continues to have pruritus which the Benadryl does provide relief. Her rash is very erythematous. She is working with PT and lateral that she is a little bit more encouraged to work with them. She has no complaints today. Objective: Vitals: (see below) General: No acute distress, laying comfortably in bed. HEENT: Moist mucous membranes. trach in place. site appear clear with no increased skin breakdown. Neck: No JVD or lymphadenopathy Cardiac: RRR, No murmurs Pulm: Clear to auscultation b/l. No wheezing, rhonchi Abd: NT/ND + BS Ext: No edema or cyanosis Skin: Maculopapular rash on the trunk/abdomen and extensor surfaces proximal to the elbows, and at the inner thighs/ shoulder. appear dry in appearance with no weeping noted. Rash is consistent to the day before Neuro: no focal deficit. Labs (see below) Assessment/Plan 1. Macular papular rash -likely drug rash. -Dermatology consulted - Acute generalized exanthematous pustulosis likely cause 2/2 recent use of contrast media vs. vanc or pip/tazo recommend Triamcinolone 0.1% ointment bid to affected areas. -will reach out to derm to see if there any more recommendation -c/w Benadryl as needed -ordered per derm recommendation: viral (EBV, Enterovirus, Adenovirus, CMV, Hep B), as these are also possible triggers for AGEP. Also recommend HSV & VZV lab testing, and IgM antibody for all infections in order to check for acute state -added Eucerin cream to be applied to dry areas -follow up outpatient for allergy testing 2. Status post septic shock secondary to vibrio. -Completed course of antibiotics. 3. Status post acute respiratory failure secondary to septic shock and toxic me tabolic encephalopathy. -Status post trach on 09/20/18. -CT of the neck 09/28/18 noted significant edema, for which the patient is unable to get anti-cannulated. -repeat CT scan in 2 weeks (10/12/18) and outpatient ENT follow-up. 4. Acute CVA. -Improved - no focal deficits. -c/w aspirin. 5 Chronic anemia -stable. -No need for transfusion at this time. -Will need close outpatient follow-up with PCP. 6. Hypothyroidism -c/w Synthroid 7. Diabetes mellitus -c/w Levemir and lispro 8. Hypertension -controlled -c/w losartan 9.DVT prophy: - Lovenox 10.PT -pending clearance 11. ARU screen. 12.GERD -stopped PPI (recommendation from DERM as possible trigger for the rash) -started ranitidine Disposition: Improvement of rash, trach teaching, PT clearance and ARU screen VS, I&O, 24H, Fishbone Vital Signs/I&O Vital Signs Date Time Temp Pulse Resp B/P (MAP) Pulse Ox O2 Delivery O2 Flow Rate FiO2 10/06/18 06:00 98.7 88 18 124/58 (80) 99 Room Air 10/05/18 22:03 5.0 28 I&O- Last 24 Hours up to 6 AM 10/06/18 06:00 Intake Total 1300 ml Output Total 1200 ml Balance 100 ml Laboratory Data 24H LABS Laboratory Tests 2 10/05/18 11:33: Bedside Glucose (Misc Panel) 237H 10/05/18 16:57: Bedside Glucose (Misc Panel) 78L 10/05/18 19:53: Bedside Glucose (Misc Panel) 112 10/06/18 05:50: Immature Granulocyte % (Auto) 0.4, White Blood Count 11.4H, Red Blood Count 3. 44L, Hemoglobin 10.3L, Hematocrit 33.4L, Mean Corpuscular Volume 97.1H, Mean Corpuscular Hemoglobin 29.9, Mean Corpuscular Hemoglobin Concent 30.8L, Red Cell Distribution Width 14.7H, Platelet Count 328, Neutrophils (%) (Auto) 73.4H, Lymphocytes (%) (Auto) 17.9L, Monocytes (%) (Auto) 3.5, Eosinophils (%) (Auto) 4.4H, Basophils (%) (Auto) 0.4, Neutrophils # (Auto) 8.4H, Lymphocytes # (Auto) 2.0, Monocytes # (Auto) 0.4, Eosinophils # (Auto) 0.5, Basophils # (Auto) 0.0, Nucleated Red Blood Cells % (auto) 0.0, Anion Gap 9, Glomerular Filtration Rate > 60.0, Blood Urea Nitrogen 14, Creatinine 0.63, Sodium Level 141, Potassium Level 3.8, Chloride Level 106, Carbon Dioxide Level 26, Calcium Level 8.6L, Aspartate Amino Transf (AST/SGOT) 20, Alanine Aminotransferase (ALT/SGPT) 47, Alkaline Phosphatase 66, Total Bilirubin 0.4, Total Protein 6.6, Albumin 3.3, Magnesium Level 1.7L, Albumin/Globulin Ratio 1.00 CBC/BMP Laboratory Tests 10/06/18 05:50 Red Blood Count 3.44 L, Mean Corpuscular Volume 97.1 H, Mean Corpuscular Hemoglobin 29.9, Mean Corpuscular Hemoglobin Concent 30.8 L, Red Cell Distribution Width 14.7 H, Neutrophils (%) (Auto) 73.4 H, Lymphocytes (%) (Auto) 17.9 L, Monocytes (%) (Auto) 3.5, Eosinophils (%) (Auto) 4.4 H, Basophils (%) (Auto) 0.4, Neutrophils # (Auto) 8.4 H, Lymphocytes # (Auto) 2.0, Monocytes # (Auto) 0.4, Eosinophils # (Auto) 0.5, Basophils # (Auto) 0.0, Calcium Level 8.6 L, Aspartate Amino Transf (AST/SGOT) 20, Alanine Aminotransferase (ALT/SGPT) 47, Alkaline Phosphatase 66, Total Bilirubin 0.4, Total Protein 6.6, Albumin 3.3 GME ATTESTATION GME ATTESTATION My faculty preceptor for this patient encounter was physically present during the encounter and was fully available. All aspects of the patient interview, examination, medical decision making process, and medical care plan development were reviewed and approved by the faculty preceptor. The faculty preceptor is aware and concurs with the plan as stated in the body of this note and will attest to such by his/her cosignature. SUSIE CORBIN DO Oct 06, 2018 07:46
[2018-10-06] MEDS: raNITIdine SYRUP 150 MG/10 ML UDC PO SCH ×2 (09:05→21:00)
[2018-10-06] MEDS: ASPIRIN 81 MG CHEW TABLET NG SCH (09:05)
[2018-10-06] MEDS: ENOXAPARIN 40 MG/0.4 ML SYRINGE (J1650) SC SCH (09:05)
[2018-10-06] MEDS: TRIAMCINOLONE ACET 0.1% OINTMENT 15 GM TOP SCH ×2 (09:06→21:00)
[2018-10-06] MEDS: HumaLOG INSULIN (NovoLOG) PER UNIT SC SCH ×4 (09:06→21:00)
[2018-10-06] MEDS: amLODIPine 5 MG TAB PO SCH (09:13)
[2018-10-06] MEDS ORDERED: EUCERIN 120GM CREAM TOP PRN (13:00)
[2018-10-06 14:00] VITALS: BP 113/61
[2018-10-06] MEDS: LEVEMIR (INSULIN DETEMIR) 1 UNITS/0.01ML SC SCH (21:00)
[2018-10-06 22:00] VITALS: BP 119/58
[2018-10-06] MEDS: diphenhydrAMINE 25 MG CAP PO PRN (23:47)
[2018-10-07] MEDS: ALBUTEROL SULFATE 2.5 MG/0.5 ML INH NEB SOLN NEB SCH ×3 (03:06→11:11)
[2018-10-07] MEDS: LEVOTHYROXINE 75MCG TABLET (0.075MG) PO SCH (05:47)
[2018-10-07 05:50] LABS: BASO % 0.3 % (0.0-1.0); EOS # 0.5 10^3/uL (0.0-0.50); EOS % 4.5 % (0.0-3.0); HEMATOCRIT 31.8 % (36.0-47.0); HEMOGLOBIN 9.9 g/dl (12.0-15.5); LYMPH # 2.2 10^3/uL (1.5-4.5); LYMPH % 19.7 % (24.0-44.0); MEAN CORPUSCULAR HGB CONC 31.1 g/dl (32.0-36.5); MEAN CORPUSCULAR VOLUME 96.4 fl (80.0-96.0); MONO # 0.4 10^3/uL (0.0-0.8); MONO % 3.9 % (0.0-5.0); NEUTROPHILS % 71.2 % (36.0-66.0); PLATELET COUNT, AUTOMATED 318 10^3/uL (150-450); WHITE BLOOD COUNT 11.2 10^3/uL (4.0-10.0)
[2018-10-07 06:00] VITALS: BP 107/54
[2018-10-07 06:08] LABS: ALBUMIN 3.3 GM/DL (3.2-5.2); ALT/SGPT 40 U/L (12-78); BILIRUBIN,TOTAL 0.4 MG/DL (0.2-1.0); BLOOD UREA NITROGEN 11 MG/DL (7-18); CALCIUM LEVEL 8.4 MG/DL (8.8-10.2); CARBON DIOXIDE LEVEL 25 MEQ/L (21-32); CHLORIDE LEVEL 107 MEQ/L (98-107); CREATININE FOR GFR 0.54 MG/DL (0.55-1.30); GLOMERULAR FILTRATION RATE > 60.0 (>45); GLUCOSE, FASTING 160 MG/DL (70-100); MAGNESIUM LEVEL 1.7 MG/DL (1.8-2.4); POTASSIUM SERUM 3.6 MEQ/L (3.5-5.1); SODIUM LEVEL 141 MEQ/L (136-145); TOTAL PROTEIN 6.4 GM/DL (6.4-8.2)
[2018-10-07] MEDS: BUDESONIDE 0.5 MG/2 ML INHALATION SUSPENSION INH SCH (07:34)
[2018-10-07] MEDS ORDERED: MAG SULF 1GM/100ML (MAG RUN) 1 GM in APPROPRIATE DILUENT 1 EA IV ONE (08:00)
[2018-10-07] MEDS: raNITIdine SYRUP 150 MG/10 ML UDC PO SCH (08:59)
[2018-10-07 09:00] VITALS: BP 110/54
[2018-10-07] MEDS: ASPIRIN 81 MG CHEW TABLET NG SCH (09:00)
[2018-10-07] MEDS: ENOXAPARIN 40 MG/0.4 ML SYRINGE (J1650) SC SCH (09:00)
[2018-10-07] MEDS: amLODIPine 5 MG TAB PO SCH (09:00)
[2018-10-07] MEDS ORDERED: TRIAMCINOLONE ACET 0.1% OINTMENT 80 GM TOP SCH (09:00)
[2018-10-07] MEDS: HumaLOG INSULIN (NovoLOG) PER UNIT SC SCH ×2 (09:01→12:16)
[2018-10-07] MEDS ORDERED: DIPH25CA PO (10:44)
[2018-10-07] MEDS ORDERED: EUCE12CR TOP (10:44)
[2018-10-07] MEDS ORDERED: TRIA1OI80 TOP (10:44)
[2018-10-07] MEDS ORDERED: RANI1SYP PO (10:44)
[2018-10-07] MEDS ORDERED: AMLO5TAB6 PO (10:44)
--- NOTE | 2018-10-07 10:47 | IPNPDOC ---
Date Seen The patient was seen on 10/07/18. Progress Note Subjective:She has no complaints at this time Continues to have pruritus but she has significant amount of release when Eucerin cream is applied to her rash. The rash does not appear as red and her vesicles have improved. Her insurance is approved for her to go to a ARU today for rehabilitation. They will continue with trach teaching over there as well. The patient is agreeable to this plan a nd has no complaints this morning. Objective: Vitals: (see below) General: No acute distress, laying comfortably in bed. HEENT: Moist mucous membranes. trach in place. site appear clear with no inc reased skin breakdown. Neck: No JVD or lymphadenopathy. Trach collar. No bleeding noted. . Cardiac: RRR, No murmurs Pulm: Clear to auscultation b/l. No wheezing, rhonchi Abd: NT/ND + BS Ext: No edema or cyanosis Skin: Maculopapular rash on the trunk/abdomen and extensor surfaces proximal to the elbows, and at the inner thighs/ shoulder. appear dry in appearance with no weeping noted. Rash is consistent to the day before Neuro: no focal deficit. Labs (see below) Assessment/Plan 1. Macular papular rash -likely drug rash. -Dermatology consulted - Acute generalized exanthematous pustulosis likely cause 2/2 recent use of contrast media vs. vanc or pip/tazo recommend Triamcinolone 0.1% ointment bid to affected areas. -will reach out to derm to see if there any more recommendation -c/w Benadryl as needed -ordered per derm recommendation: viral (EBV, Enterovirus, Adenovirus, CMV, Hep B), as these are also possible triggers for AGEP. Also recommend HSV & VZV lab testing, and IgM antibody for all infections in order to check for acute state -Continue to apply Eucerin cream to dry areas -follow up outpatient for allergy testing 2. Status post septic shock secondary to vibrio. -Completed course of antibiotics. 3. Status post acute respiratory failure secondary to septic shock and toxic metabolic encephalopathy. -Status post trach on 09/20/18. -CT of the neck 09/28/18 noted significant edema, for which the patient is unable to get anti-cannulated. -repeat CT scan in 2 weeks (10/12/18) and outpatient ENT follow-up. 4. Acute CVA. -Improved - no focal deficits. -c/w aspirin. 5 Chronic anemia -stable. -No need for transfusion at this time. -Will need close outpatient follow-up with PCP. 6. Hypothyroidism -c/w Synthroid 7. Diabetes mellitus -c/w Levemir and lispro 8. Hypertension -controlled -c/w losartan 9.DVT prophy: - Lovenox 10.PT -pending clearance 11. ARU screen. 12.GERD -stopped PPI (recommendation from DERM as possible trigger for the rash) -started ranitidine Disposition: Discharged to ARU for rehabilitation and trach teaching, continue with steroid ointment and Eucerin cream to apply to dry areas. VS, I&O, 24H, Fishbone Vital Signs/I&O Vital Signs Date Time Temp Pulse Resp B/P (MAP) Pulse Ox O2 Delivery O2 Flow Rate FiO2 10/07/18 06:00 97.7 75 18 107/54 (71) 99 Trach Collar 10/06/18 22:00 5.0 28 I&O- Last 24 Hours up to 6 AM 10/07/18 06:00 Intake Total 1290 ml Output Total 1020 ml Balance 270 ml Laboratory Data 24H LABS Laboratory Tests 2 10/06/18 08:36: 10/06/18 11:56: Bedside Glucose (Misc Panel) 250H 10/06/18 16:28: Bedside Glucose (Misc Panel) 170H 10/06/18 20:19: Bedside Glucose (Misc Panel) 233H 10/07/18 05:27: Immature Granulocyte % (Auto) 0.4, White Blood Count 11.2H, Red Blood Count 3.30L, Hemoglobin 9.9L, Hematocrit 31.8L, Mean Corpuscular Volume 96.4H, Mean Corpuscular Hemoglobin 30.0, Mean Corpuscular Hemoglobin Concent 31.1L, Red Cell Distribution Width 14.8H, Platelet Count 318, Neutrophils (%) (Auto) 71.2H, Lymphocytes (%) (Auto) 19.7L, Monocytes (%) (Auto) 3.9, Eosinophils (%) (Auto) 4.5H, Basophils (%) (Auto) 0.3, Neutrophils # (Auto) 8.0H, Lymphocytes # (Auto) 2.2, Monocytes # (Auto) 0.4, Eosinophils # (Auto) 0.5, Basophils # (Auto) 0.0, Nucleated Red Blood Cells % (auto) 0.0, Anion Gap 9, Glomerular Filtration Rate > 60.0, Blood Urea Nitrogen 11, Creatinine 0.54L, Sodium Level 141, Potassium Level 3.6, Chloride Level 107, Carbon Dioxide Level 25, Calcium Level 8.4L, Aspartate Amino Transf (AST/SGOT) 17, Alanine Aminotransferase (ALT/SGPT) 40, Alkaline Phosphatase 60, Total Bilirubin 0.4, Total Protein 6.4, Albumin 3.3, Magnesium Level 1.7L, Albumin/Globulin Ratio 1.06 CBC/BMP Laboratory Tests 10/07/18 05:27 Red Blood Count 3.30 L, Mean Corpuscular Volume 96.4 H, Mean Corpuscular Hemoglobin 30.0, Mean Corpuscular Hemoglobin Concent 31.1 L, Red Cell Distribution Width 14.8 H, Neutrophils (%) (Auto) 71.2 H, Lymphocytes (%) (Auto) 19.7 L, Monocytes (%) (Auto) 3.9, Eosinophils (%) (Auto) 4.5 H, Basophils (%) (Auto) 0.3, Neutrophils # (Auto) 8.0 H, Lymphocytes # (Auto) 2.2, Monocytes # (Auto) 0.4, Eosinophils # (Auto) 0.5, Basophils # (Auto) 0.0, Calcium Level 8.4 L, Aspartate Amino Transf (AST/SGOT) 17, Alanine Aminotransferase (ALT/SGPT) 40, Alkaline Phosphatase 60, Total Bilirubin 0.4, Total Protein 6.4, Albumin 3.3 GME ATTESTATION GME ATTESTATION My faculty preceptor for this patient encounter was physically present during the encounter and was fully available. All aspects of the patient interview, examination, medical decision making process, and medical care plan development were reviewed and approved by the faculty preceptor. The faculty preceptor is aware and concurs with the plan as stated in the body of this note and will attest to such by his/her cosignature. SUSIE CORBIN DO Oct 07, 2018 07:51 EMILY OTTO MD Oct 23, 2018 14:04
--- NOTE | 2018-10-08 17:51 | DS.PDOC ---
Discharge Summary General Date of Admission Sep 07, 2018 at 15:21 Date of Discharge 10/07/2018 Discharge Summary Primary care provider: Laureen Baker ENT: Dr. Yared Rosales Pulmonology: Dr. Aliza Montoya Infectious disease: Dr. Fely Lyons Dermatology: Dr. Migule Quintanilla PROCEDURES PERFORMED DURING STAY: Diagnostic lumbar puncture -Dr. Michelle 09/16/2018 Tracheotomy - Dr. Anderson 09/20/2018 ADMITTING DIAGNOSES: 1. Acute gastroenteritis. 2. Hypotension. 3. Hypokalemia. DISCHARGE DIAGNOSES: 1. Macular papular rash - Acute generalized exanthematous pustulosis 2. Status post septic shock secondary to vibrio. 3. Status post acute respiratory failure secondary to septic shock and toxic metabolic encephalopathy. 4. Small acute right caudate nucleus infarction. 5 Chronic anemia 6. Hypothyroidism 7. Diabetes mellitus 8. Hypertension COMPLICATIONS/CHIEF COMPLAINT: Acute Gastroenteritis Hypotension. HISTORY OF PRESENT ILLNESS: 63-year-old female with past medical history of diabetes, hypertension, hyperlipidemia, hypothyroidism, presents to the emergency room with multiple massive episodes of projectile vomiting and diarrhea which occurred at approximately 12 o'clock this afternoon. According to her , she had some raw clams around 10 o'clock this morning and nobody else in the family had it. She has been fine before this. She has never had similar episodes and has not been around any sick contacts. In the emergency room (ER), she was given approximately 4 liters, she was hypotensive, as low as systolic 75, and tachycardic, but she has improved after 4 liters of IV fluids, she is now systolic 90s. She is lethargic, but is awake, alert, oriented times three and will be admitted for further management. HOSPITAL COURSE: When the patient was admitted she was intubated on 09/07/2018. 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 Infectious disease, Dr. Lyons was consulted for antimicrobial management for the patient. On September 16 because the patient had some altered AVIONICS TECHNICIAN a imaging was ordered and the brain MRI showed a small acute right caudate nucleus infarct. While the patient was intubated Dr. Andrade, the manager radiation was trying to wean the patient off sedation but was unable to. Therefore, on 09/19/2018 Dr. Rosales, ENT was consulted for tracheotomy placement. The trach was placed on 09/20/2017 with no complications. Then on September 30 the patient developed a maculopapular rash on her upper lower extremities that worsened to her chest and abdomen. As the rash did not improve with steroids and Benadryl dermatology was called for recommendations. They believe Acute generalized exanthematous pustulosis which is secondary to contrast media, recent antibiotic use and possibly PPI. Dermatology recommended steroid ointment supplemented with Eucerin cream. And discontinuation of all the offending agents. They also did recommend outpatient allergy testing once the patient is discharged as well. On 10/07/2018 the patient was discharged to ARU for rehabilitation. While the patient was on MedSurg, she had refused to work with PT many times because of the pruritus from her rash. She had significant physical deconditioning and need to have rehabilitation prior to returning home. DISCHARGE MEDICATIONS: Please see below. ALLERGIES: Please see below. PHYSICAL EXAMINATION ON DISCHARGE: VITAL SIGNS: Please see below. GENERAL: No acute distress, laying comfortably in bed. HEENT: Moist mucous membranes. trach in place. site appear clear with no increased skin breakdown. Neck: No JVD or lymphadenopathy Cardiac: RRR, No murmurs Pulm: Clear to auscultation b/l. No wheezing, rhonchi Abd: NT/ND + BS Ext: No edema or cyanosis Skin: Maculopapular rash on the trunk/abdomen and extensor surfaces proximal to the elbows, and at the inner thighs/ shoulder. appear dry in appearance with no weeping noted. Rash is consistent to the day before Neuro: no focal deficit. LABORATORY DATA: Please see below. IMAGING: Chest x-rays 09/06/2018 to 09/21/2018 Impression: 1. Lines and tubes in satisfactory position. 2. Cannot exclude pulmonary vascular congestion along with trace left basilar atelectasis. 09/10/[address] Impression: Normal noncontrast head CT. No evidence for acute intracranial pathology or trauma/injury. 09/16/2018 Brain MR IMPRESSION:1. Small acute right caudate nucleus infarction. 2. Small vessel ischemic disease. 09/20/2018 Abdominal x-ray Two portably obtained supine views of the chest and abdomen demonstrate a tracheostomy tube in good position. Nasogastric tube enters left upper quadrant of the abdomen in the region of the body of the stomach. Bowel gas pattern is unremarkable. The lungs are not well inflated on either side. Cardiomegaly is observed. 09/28/[address] IMPRESSION: 1. The patient is status post tracheostomy. 2. There is increased soft tissue density in the vocal cords and proximal subglottic trachea consistent with edema or inflammation. There is mild to moderate mass effect. 3. There is a 1.9 cm left apical lung mass. CT of the chest may be helpful for further evaluation. 09/29/2018 CT chest Impression: Tracheostomy and nasogastric tubes in place. Ground-glass opacity pattern scattered in the lung francis consistent with mild alveolar edema. Poor level of inspiration. Small bilateral pleural effusions. Moderate pericardial effusion seen. PROGNOSIS: Fair ACTIVITY: As tolerated DIET: Pureed Diet DISPOSITION: 70 Xfer Other, ARU ITEMS TO FOLLOWUP ON OUTPATIENT: 1. Follow-up with PCP in 7-10 days 2.Follow-up with dermatology in 10-14 days 3. Follow-up for possible allergy testing 4. Follow-up with pulmonology in 10-14 days 5. Follow-up with ENT in 10-14 days DISCHARGE CONDITION: Stable. TIME SPENT ON DISCHARGE: Greater than 35 minutes. Vital Signs/I&Os Vital Signs Date Time Temp Pulse Resp B/P (MAP) Pulse Ox O2 Delivery O2 Flow Rate FiO2 10/07/18 09:00 5.0 28 10/07/18 09:00 75 110/54 10/07/18 06:00 97.7 18 99 Trach Collar I&O- Last 24 Hours up to 6 AM 10/08/18 06:00 Intake Total 0 ml Output Total 400 ml Balance -400 ml Discharge Medications Scheduled Amlodipine Besylate (Amlodipine Besylate) 5 Mg Tab, 5 MG PO DAILY Atorvastatin Calcium (Atorvastatin Calcium) 40 Mg Tab, 40 MG PO DAILY, (Reported) Ergocalciferol (Vitamin D) 50,000 Unit Cap, 50,000 UNIT PO QWEEK, (Reported) Gabapentin (Gabapentin) 100 Mg Cap, 100 MG PO BID, (Reported) Glyburide (Glyburide Micronized) 3 Mg Tab, 3 MG PO BID, (Reported) Insulin Glargine (Lantus Solostar) 100 Unit/Ml Inj, UNITS SC DAILY, (Reported) Levothyroxine Sodium (Synthroid) 75 Mcg Tab, 75 MCG PO DAILY, (Reported) Ranitidine Hcl (Ranitidine HCl) 15 Mg/Ml Syrp, 150 MG PO BID Sitagliptin/Metformin (Janumet Xr 50-500 mg) 1 Tab Tab, 1 TAB PO BID, (Reported) Triamcinolone Acet (Triamcinolone Acetonide 0.1% Oint) 1 Dose/80 Gm Oint, 0 DOSE TOP BID Scheduled PRN (Hydrocerin) 1 Cre Cre, 0 DOSE TOP ASDIRECTED PRN for DRY SKIN Diphenhydramine HCl (Diphenhydramine HCl) 25 Mg Cap, 25 MG PO Q4HP PRN for ITCHING Allergies Coded Allergies: Latex (Verified Allergy, Unknown, rash powdered gloves, 02/01/18) GME ATTESTATION GME ATTESTATION My faculty preceptor for this patient encounter was physically present during the encounter and was fully available. All aspects of the patient interview, examination, medical decision making process, and medical care plan development were reviewed and approved by the faculty preceptor. The faculty preceptor is aware and concurs with the plan as stated in the body of this note and will attest to such by his/her cosignature. SUSIE CORBIN DO Oct 08, 2018 17:51
[2018-10-10 08:20] LABS: ENTEROVIRUS RNA QUAL BY PCR Negative (Negative)
[2018-10-11 14:55] LABS: CYTOMEGALOVIRUS IgM ANTIBODY <30.0 AU/mL (0.0-29.9); EBV VIRAL CAPSID AG IgM <36.0 U/mL (0.0-35.9); HSV TYPE I IgM AB <1:10 titer (<1:10); HSV TYPE II IgM ABY <1:10 titer (<1:10); VARICELLA ZOSTER VIRUS PCR Negative (Negative)
== END 2018-10-07 13:30 | DRG 4 ==
LOC: EDBD 13:52 → M ED 13:52 → M ED INP 17:09 → M ICU 18:54 → OBSVTOIN 09-07 15:21 → M PCU 09-24 15:10 → M MSPAV 09-28 14:22
PROVIDERS: ADMIT Internal Medicine; ATTEND Internal Medicine
PROC: 5A1955Z Respiratory Ventilation, Greater than 96 Consecutive Hours (ICD-10-PCS; 2018-09-07)
PROC: 009U3ZX Drainage of Spinal Canal, Percutaneous Approach, Diagnostic (ICD-10-PCS; 2018-09-16)
PROC: 0B110F4 Bypass Trachea to Cutaneous with Tracheostomy Device, Open Approach (ICD-10-PCS; principal; 2018-09-20 12:00)
DX: A02.1 Salmonella sepsis (principal); I63.9 Cerebral infarction, unspecified; R65.21 Severe sepsis with septic shock; G92 Toxic encephalopathy; J96.01 Acute respiratory failure with hypoxia; E87.2 Acidosis; N17.9 Acute kidney failure, unspecified; E87.1 Hypo-osmolality and hyponatremia; E03.9 Hypothyroidism, unspecified; D64.9 Anemia, unspecified; E11.65 Type 2 diabetes mellitus with hyperglycemia; I10 Essential (primary) hypertension; E87.6 Hypokalemia; L08.0 Pyoderma; E78.5 Hyperlipidemia, unspecified; I95.9 Hypotension, unspecified; R91.1 Solitary pulmonary nodule; Z91.040 Latex allergy status; K21.9 Gastro-esophageal reflux disease without esophagitis; Z79.899 Other long term (current) drug therapy; Z79.4 Long term (current) use of insulin

== ENCOUNTER 2018-10-07 09:34 | Inpatient (IN) | payer OTHER ==
[~2018-10-07] VITALS: Ht 152.4 cm; Wt 61.5 kg
[~2018-10-07 09:34] MED LIST changes: +GABA-1171 PO; +GLYB3TA PO; +VITA50005 PO
[2018-10-07] MEDS ORDERED: DIPH25CA PO (10:44)
[2018-10-07] MEDS ORDERED: AMLO5TAB6 PO (10:44)
[2018-10-07] MEDS ORDERED: EUCE12CR TOP (10:44)
[2018-10-07] MEDS ORDERED: TRIA1OI80 TOP (10:44)
[2018-10-07] MEDS ORDERED: RANI1SYP PO (10:44)
[2018-10-07 13:35] VITALS: BP 125/63
[2018-10-07] MEDS ORDERED: ACETAMINOPHEN TAB 650MG DOSE (2X325MG) PO PRN (14:30)
[2018-10-07] MEDS ORDERED: GLUCOSE 4 GM CHEW TABLET PO PRN (15:00)
[2018-10-07] MEDS ORDERED: traZODone 25MG PER 1/2 TABLET PO PRN ×2 (15:00)
[2018-10-07] MEDS ORDERED: DEXTROSE 50% 50 ML SYRINGE IV PRN (15:00)
[2018-10-07] MEDS ORDERED: diphenhydrAMINE INJ 50MG/ML VIAL (J1200) IM PRN (15:00)
[2018-10-07] MEDS ORDERED: GLUCAGON FOR INJ 1 MG VIAL (J1610) SC PRN (15:00)
[2018-10-07] MEDS ORDERED: IPRATROPIUM 0.5MG/ALBUTEROL 2.5MG INH SOL UD 3ML (DUONEB)(J7620) NEB PRN (15:00)
[2018-10-07] MEDS: EUCERIN 120GM CREAM TOP SCH ×2 (16:00→20:52)
--- NOTE | 2018-10-07 17:02 | HPEPDOC ---
Ladder Operator Note DATE OF ADMISSION: Oct 07, 2018 at 13:35 SOURCE OF ADMISSION INFORMATION: [facility] records and patient CHIEF COMPLAINT: CVA, trach, s/p septic shock HISTORY OF PRESENT ILLNESS: 63F pmh DM, Hypothyroidism, HTN who ate raw crab and presented to [facility] ED on 09/07/18 in septic shock , was intubated, and found to have Vibrio infection for which she was started on IV antibiotics. She continued to be encephalopathic with fever and elevated white count for which ID was consulted on 09/15/18 who recommended an MRI to rule out meningitis or abscess which was performed on 09/16/18 showing, "Small acute right caudate nucleus infarction...Small vessel ischemic disease" for which she was continued on Aspirin for secondary stroke prevention. An ECHO was performed for further stroke work-up showing, "Normal global left ventricular systolic and diastolic function...Trace tricuspid regurgitation with a normal calculated pulmonary artery systolic pressure...A small pericardial effusion was noted. No evidence of cardiac tamponade". She was unable to be weaned form the vent and had tracheostomy on 09/20/18 with a #6 Shiley fenestrated tracheotomy tube performed by Dr. Bobby Sepulveda. She underwent a CT neck on 09/28/18 showing "There is increased soft tissue density in the vocal cords and proximal subglottic trachea consistent with edema or inflammation. There is mild to moderate mass effect...There is a 1.9 cm left apical lung mass." She was evaluated by speech therapy and placed on puree diet with thin liquids. She developed a full body maculopapular rash and evaluated by dermatology an diagnosed with generalized exanthematous pustulosis deemed a drug reaction from recent Vancomycin or Zosyn treatment and given topical steroid treatment and oral Benadryl She was deemed to have fuctional deficits and deemed medically appropriate for discharge to ARU on 10/07/18. REVIEW OF SYSTEMS: The following is a completed review of systems and has been reviewed. Review of systems otherwise unremarkable. PAIN: Patient self reports painful itchy rash EYES: Negative for vision changes EARS, NOSE, & THROAT: +dysphagia CARDIOVASCULAR: denies chest pain or palpitations PULMONARY: Negative. Denies shortness of breath, +trach GASTROINTESTINAL: Negative for constipation, diarrhea, or vomiting GENITOURINARY:Negative for dysuria or incontinence. MUSCULOSKELETAL: no focal weakness NEUROLOGICAL: +CVA SKIN: diffuse maculopapular rash PSYCHIATRIC: Unremarkable All other review of systems found to be negative. PAST MEDICAL HISTORY: DM, Hypothyroidism, HTN PAST SURGICAL HISTORY: tracheostomy ALLERGIES: Please see below. MEDICATIONS: Please see below. FAMILY HISTORY: has one healthy son and a disabled daughter SOCIAL HISTORY: Lives alone in [place], denies ETOH, smoking, or illicit drugs DIET: puree and thins PHYSICAL EXAMINATION: VITAL SIGNS: Please see below. GENERAL: Pleasant and cooperative. No acute distress. HEENT: PERRL. Extraocular movements intact. Clear conjunctiva, trach in place CARDIOVASCULAR: Regular rate and rhythm. No murmurs, rubs, or gallops LUNGS: Clear to auscultation bilaterally. No wheezes. No rhonchi ABDOMEN: Soft, nontender, nondistended. Positive bowel sounds. Normal active bowel sounds NEUROLOGICAL: Alert and oriented times three. Cranial nerves II through XII grossly intact. Sensation grossly intact EXTREMITIES:5\\5 strength bilateral upper extremities.5\\5 strength right lower extremity. 5/5 strength in left lower extremity. SKIN: diffuse peeling maculopapular rash on truck,abdomen, and extremities IMAGING: Imaging documentation personally reviewed by record FUNCTIONAL STATUS: Premorbid: Independent with all activities of daily life as well as mobility. On Admission: Stand-By assist to supervision wit set up for bathing, upper body dressing, bed chair toilet transfers, Mod I with ambulation. GOALS: Independent with ambulation without AD, independet with grooming, bathing, toileting, dressing, an trach care, medical optimization, assess for DMEs and family training. ASSESSMENT:63-year-old F with past medical history of HTN, DM who presents status post septic shock, respiratory failure requiring tracheostomy, and new CVA. PLAN: 1. Rehab: OT/PT, defer SIGNAL TOWER DIRECTOR until laryngeal edema improved 2. Neuro: recent right caudate stroke, continue ASA, statin and BP management 3. Cardio: pmh HTN, continue BPs meds and adjust prn, medicine consulted 4. Resp: s/p respiratory failure requiring tracheostomy performed 09/20/18 with #6 fenestrated trach, with laryngeal edema, continue tracheostomy care, will add Guaifensain for cough, throat lozenges for irritation, and scheduled Duonebs -will need repeat CT NECK 10/12/18 and outpatient ENT f/u 5. Endo:pmh hypothyroidism and DM, continue home meds, will monitor insulin and adjust prn 6. Derm: recently diagnosed generalized exanthematous pustulosis, per patient Triamcinolone cream bazan and Eucerin provides more relief- continue Eucerin and po benadryl 7. GI ppx: Ranitidine 8. DVT: Lovenox 9. : f/u admission UA and Ucx, monitor PVRs 10. Disp: TBD POST ADMISSION PHYSICIAN EVALUATION: Medical and functional status: Description of medical status, medical assessment: As above. Rehabilitation diagnosis and current and prior cold morbid medical conditions as above. Risk of complications and plans to mitigate them as above. Description of functional status current status is as above. Prior status as above. Status compared to preadmission: There are no clinically significant differences between the patient's current status and the information described on the preadmission screening document. Treatment plan anticipated: Treatment plan is as described above. Required disciplines including physical therapy, occupational therapy, others as noted above Intensity of services: 3 hours a day, 6 days a week. Special considerations: There are no specific special or safety considerations that would likely preclude immediate implementation of an intensive rehabilitation program or subsequently influence the plan of care ATTESTATION: Considering all the information above, it is my best judgment that this patient requires intensive rehabilitation therapy as described above and an inpatient hospital environment due to the complexity of nursing, medical, and rehabilitation needs required by the patient. Furthermore, this patient can reasonably be expected to participate in an benefit from an inpatient rehabilitation stay with an interdisciplinary team approach to the delivery of rehabilitation care under the direction and supervision of rehabilitation physician. PROGNOSIS: Excellent ESTIMATED LENGTH OF STAY:6-8 days. PROJECTED DISCHARGE DESTINATION: Home with family support and any durable medical equipment required to increase functional safety and mobility. TIME SPENT COUNSELING AND COORDINATING INITIAL CARE: Greater than 70 minutes. Vital Signs Vital Signs Date Time Temp Pulse Resp B/P (MAP) Pulse Ox O2 Delivery O2 Flow Rate FiO2 10/07/18 13:35 97.5 87 20 125/63 (83) 100 Room Air 10/07/18 20:04 5.0 28 Laboratory Data Labs 24H Laboratory Tests 2 10/07/18 16:49: Bedside Glucose (Misc Panel) 110 FSBS Laboratory Tests Test 10/07/18 16:49 Range/Units Bedside Glucose (Misc Panel) 110 80-115 MG/DL Home Medications Scheduled Amlodipine Besylate (Amlodipine Besylate) 5 Mg Tab, 5 MG PO DAILY Atorvastatin Calcium (Atorvastatin Calcium) 40 Mg Tab, 40 MG PO DAILY, (Reported) Ergocalciferol (Vitamin D) 50,000 Unit Cap, 50,000 UNIT PO QWEEK, (Reported) Gabapentin (Gabapentin) 100 Mg Cap, 100 MG PO BID, (Reported) Glyburide (Glyburide Micronized) 3 Mg Tab, 3 MG PO BID, (Reported) Insulin Glargine (Lantus Solostar) 100 Unit/Ml Inj, UNITS SC DAILY, (Reported) Levothyroxine Sodium (Synthroid) 75 Mcg Tab, 75 MCG PO DAILY, (Reported) Ranitidine Hcl (Ranitidine HCl) 15 Mg/Ml Syrp, 150 MG PO BID Sitagliptin/Metformin (Janumet Xr 50-500 mg) 1 Tab Tab, 1 TAB PO BID, (Reported) Triamcinolone Acet (Triamcinolone Acetonide 0.1% Oint) 1 Dose/80 Gm Oint, 0 DOSE TOP BID Scheduled PRN (Hydrocerin) 1 Cre Cre, 0 DOSE TOP ASDIRECTED PRN for DRY SKIN Diphenhydramine HCl (Diphenhydramine HCl) 25 Mg Cap, 25 MG PO Q4HP PRN for ITCHING Allergies Coded Allergies: Latex (Verified Allergy, Unknown, rash powdered gloves, 02/01/18) CORY RATLIFF MD Oct 07, 2018 17:02
[2018-10-07 20:00] VITALS: BP 116/66
[2018-10-07] MEDS: BUDESONIDE 0.5 MG/2 ML INHALATION SUSPENSION INH SCH (20:12)
[2018-10-07] MEDS: IPRATROPIUM 0.5MG/ALBUTEROL 2.5MG INH SOL UD 3ML (DUONEB)(J7620) NEB SCH (20:12)
[2018-10-07] MEDS: guaiFENesin ER 600 MG TAB PO SCH (20:51)
[2018-10-07] MEDS: raNITIdine SYRUP 150 MG/10 ML UDC GT SCH (20:51)
[2018-10-07] MEDS: diphenhydrAMINE 25 MG CAP PO PRN (20:51)
[2018-10-07] MEDS: CEPACOL LOZENGE PO PRN (20:52)
[2018-10-07] MEDS: LEVEMIR (INSULIN DETEMIR) 1 UNITS/0.01ML SC SCH (20:52)
[2018-10-07] MEDS: HumaLOG INSULIN (NovoLOG) PER UNIT SC SCH (20:52)
[2018-10-08] MEDS: diphenhydrAMINE 25 MG CAP PO PRN ×2 (05:29→17:58)
[2018-10-08] MEDS: LEVOTHYROXINE 75MCG TABLET (0.075MG) PO SCH (05:29)
[2018-10-08 05:46] VITALS: BP 107/53
[2018-10-08] MEDS: IPRATROPIUM 0.5MG/ALBUTEROL 2.5MG INH SOL UD 3ML (DUONEB)(J7620) NEB SCH ×3 (07:52→19:49)
[2018-10-08] MEDS: BUDESONIDE 0.5 MG/2 ML INHALATION SUSPENSION INH SCH ×2 (07:52→19:49)
[2018-10-08 07:57] LABS: BASO # 0.1 10^3/uL (0.0-0.2); BASO % 0.3 % (0.0-1.0); EOS # 0.6 10^3/uL (0.0-0.50); EOS % 3.3 % (0.0-3.0); HEMATOCRIT 37.4 % (36.0-47.0); HEMOGLOBIN 11.5 g/dl (12.0-15.5); LYMPH # 2.7 10^3/uL (1.5-4.5); LYMPH % 15.5 % (24.0-44.0); MEAN CORPUSCULAR HEMOGLOBIN 30.4 pg (27.0-33.0); MEAN CORPUSCULAR HGB CONC 30.7 g/dl (32.0-36.5); MEAN CORPUSCULAR VOLUME 98.9 fl (80.0-96.0); MONO # 0.6 10^3/uL (0.0-0.8); MONO % 3.2 % (0.0-5.0); NEUTROPHILS # 13.6 10^3/uL (1.8-7.7); NEUTROPHILS % 77.3 % (36.0-66.0); PLATELET COUNT, AUTOMATED 374 10^3/uL (150-450); RED BLOOD COUNT 3.78 10^6/uL (4.00-5.40); WHITE BLOOD COUNT 17.7 10^3/uL (4.0-10.0)
[2018-10-08 08:20] LABS: ALBUMIN 3.7 GM/DL (3.2-5.2); ALT/SGPT 42 U/L (12-78); BILIRUBIN,TOTAL 0.6 MG/DL (0.2-1.0); BLOOD UREA NITROGEN 10 MG/DL (7-18); CARBON DIOXIDE LEVEL 29 MEQ/L (21-32); CHLORIDE LEVEL 101 MEQ/L (98-107); CREATININE FOR GFR 0.62 MG/DL (0.55-1.30); GLOMERULAR FILTRATION RATE > 60.0 (>45); GLUCOSE, FASTING 192 MG/DL (70-100); POTASSIUM SERUM 3.8 MEQ/L (3.5-5.1); SODIUM LEVEL 137 MEQ/L (136-145); TOTAL PROTEIN 7.3 GM/DL (6.4-8.2)
[2018-10-08 09:00] VITALS: BP 116/60
[2018-10-08] MEDS: EUCERIN 120GM CREAM TOP SCH ×3 (09:00→21:00)
[2018-10-08] MEDS ORDERED: ASPIRIN 81 MG CHEW TABLET NG SCH (09:00)
[2018-10-08] MEDS: guaiFENesin ER 600 MG TAB PO SCH ×2 (09:40→20:51)
[2018-10-08] MEDS: amLODIPine 5 MG TAB PO SCH (09:40)
[2018-10-08] MEDS: raNITIdine SYRUP 150 MG/10 ML UDC GT SCH (09:40)
[2018-10-08] MEDS: ENOXAPARIN 40 MG/0.4 ML SYRINGE (J1650) SC SCH (09:41)
[2018-10-08] MEDS: HumaLOG INSULIN (NovoLOG) PER UNIT SC SCH ×4 (09:41→20:51)
[2018-10-08 10:10] VITALS: BP 105/52
[2018-10-08] MEDS: TRIAMCINOLONE ACET 0.1% OINTMENT 80 GM TOP SCH ×2 (13:00→21:00)
[2018-10-08 14:00] VITALS: BP 128/60
[2018-10-08 20:00] VITALS: BP 138/64
[2018-10-08] MEDS: LEVEMIR (INSULIN DETEMIR) 1 UNITS/0.01ML SC SCH (20:51)
[2018-10-08] MEDS: raNITIdine SYRUP 150 MG/10 ML UDC PO SCH (20:51)
[2018-10-08 21:26] LABS: AMORPHOUS SEDIMENT SMALL (NEGATIVE); APPEARANCE, URINE CLOUDY (CLEAR); BACTERIA, URINE AUTO NEGATIVE (NEGATIVE); BILIRUBIN, URINE AUTO NEGATIVE (NEGATIVE); BLOOD, URINE BLOOD NEGATIVE (NEGATIVE); COLOR, URINE YELLOW (YELLOW); GLUCOSE, URINE (UA) AUTO 1+ mg/dL (NEGATIVE); KETONE, URINE AUTO TRACE mg/dL (NEGATIVE); LEUKOCYTE ESTERASE, URINE AUTO NEGATIVE (NEGATIVE); MUCUS, URINE SMALL (NEGATIVE); NITRITE, URINE AUTO NEGATIVE (NEGATIVE); PROTEIN, URINE AUTO NEGATIVE (NEGATIVE); RBC, URINE AUTO 1 /HPF (0-3); SPECIFIC GRAVITY URINE AUTO 1.015 (1.002-1.035); SQUAMOUS EPITHELIAL CELL UR AU 1 /HPF (0-6); UROBILINOGEN, URINE AUTO 0.2 mg/dL (0.0-2.0); WBC, URINE AUTO 4 /HPF (0-3)
[2018-10-09] MEDS: LEVOTHYROXINE 75MCG TABLET (0.075MG) PO SCH (05:49)
[2018-10-09] MEDS: BUDESONIDE 0.5 MG/2 ML INHALATION SUSPENSION INH SCH ×2 (08:00→21:14)
[2018-10-09] MEDS: IPRATROPIUM 0.5MG/ALBUTEROL 2.5MG INH SOL UD 3ML (DUONEB)(J7620) NEB SCH ×3 (08:00→21:14)
[2018-10-09] MEDS: TRIAMCINOLONE ACET 0.1% OINTMENT 80 GM TOP SCH ×2 (09:00→21:17)
[2018-10-09] MEDS: EUCERIN 120GM CREAM TOP SCH ×3 (09:00→21:17)
[2018-10-09] MEDS: guaiFENesin ER 600 MG TAB PO SCH ×2 (09:04→21:17)
[2018-10-09] MEDS: raNITIdine SYRUP 150 MG/10 ML UDC PO SCH ×2 (09:04→21:16)
[2018-10-09] MEDS: amLODIPine 5 MG TAB PO SCH (09:04)
[2018-10-09] MEDS: ASPIRIN 81 MG CHEW TABLET PO SCH (09:04)
[2018-10-09] MEDS: ENOXAPARIN 40 MG/0.4 ML SYRINGE (J1650) SC SCH (09:04)
[2018-10-09] MEDS: HumaLOG INSULIN (NovoLOG) PER UNIT SC SCH ×4 (09:05→21:00)
[2018-10-09] MEDS: diphenhydrAMINE 25 MG CAP PO PRN ×2 (13:54→22:14)
[2018-10-09 14:00] VITALS: BP 152/60
[2018-10-09 20:00] VITALS: BP 116/56
[2018-10-09] MEDS: LEVEMIR (INSULIN DETEMIR) 1 UNITS/0.01ML SC SCH (21:16)
[2018-10-10] MEDS: LEVOTHYROXINE 75MCG TABLET (0.075MG) PO SCH (05:29)
[2018-10-10 05:45] VITALS: BP 112/56
[2018-10-10] MEDS: HumaLOG INSULIN (NovoLOG) PER UNIT SC SCH ×4 (07:54→21:00)
[2018-10-10] MEDS: raNITIdine SYRUP 150 MG/10 ML UDC PO SCH ×2 (07:55→22:18)
[2018-10-10] MEDS: amLODIPine 5 MG TAB PO SCH (07:55)
[2018-10-10] MEDS: ASPIRIN 81 MG CHEW TABLET PO SCH (07:55)
[2018-10-10] MEDS: guaiFENesin ER 600 MG TAB PO SCH ×2 (07:55→22:19)
[2018-10-10] MEDS: ENOXAPARIN 40 MG/0.4 ML SYRINGE (J1650) SC SCH (07:56)
[2018-10-10] MEDS: TRIAMCINOLONE ACET 0.1% OINTMENT 80 GM TOP SCH ×2 (07:56→22:38)
[2018-10-10] MEDS: EUCERIN 120GM CREAM TOP SCH ×3 (07:57→22:37)
[2018-10-10 10:52] LABS: BASO % 0.2 % (0.0-1.0); EOS # 0.5 10^3/uL (0.0-0.50); HEMATOCRIT 33.7 % (36.0-47.0); HEMOGLOBIN 10.5 g/dl (12.0-15.5); LYMPH # 2.3 10^3/uL (1.5-4.5); LYMPH % 17.9 % (24.0-44.0); MEAN CORPUSCULAR HEMOGLOBIN 30.3 pg (27.0-33.0); MEAN CORPUSCULAR HGB CONC 31.2 g/dl (32.0-36.5); MEAN CORPUSCULAR VOLUME 97.4 fl (80.0-96.0); MONO # 0.5 10^3/uL (0.0-0.8); MONO % 3.7 % (0.0-5.0); NEUTROPHILS # 9.4 10^3/uL (1.8-7.7); NEUTROPHILS % 73.9 % (36.0-66.0); PLATELET COUNT, AUTOMATED 316 10^3/uL (150-450); RED BLOOD COUNT 3.46 10^6/uL (4.00-5.40); WHITE BLOOD COUNT 12.7 10^3/uL (4.0-10.0)
[2018-10-10] MEDS: BUDESONIDE 0.5 MG/2 ML INHALATION SUSPENSION INH SCH ×2 (11:04→20:59)
[2018-10-10] MEDS: IPRATROPIUM 0.5MG/ALBUTEROL 2.5MG INH SOL UD 3ML (DUONEB)(J7620) NEB SCH ×2 (11:04→20:59)
--- NOTE | 2018-10-10 11:10 | NUR ---
Pt seen this date for swallow evaluation. With VF edema and subglottal stenosis, inspiration is poor. Pt would not be able to protect airway if bolus were to become lodged. Recommend: Continue puree solids and regular thin liquids. Upright as possible. Reassess when edema and stenosis has resolved. Addendum: 10/10/18 at 1112 by LASHANDA [facility] SP Amended: Links added.
--- NOTE | 2018-10-10 11:16 | NUR ---
Tracheostomy-Pt is using a passy sarwat in place of digital occlusion. Unable to tolerate passy sarwat consistently. Language at baseline with [place] Citizen as her second language. Semantics and syntax at baseline. Understanding and use of [place] Citizen is functional. Addendum: 10/10/18 at 1117 by LASHANDA [facility] SP Amended: Links added.
[2018-10-10 11:21] LABS: BLOOD UREA NITROGEN 9 MG/DL (7-18); CALCIUM LEVEL 8.4 MG/DL (8.8-10.2); CARBON DIOXIDE LEVEL 24 MEQ/L (21-32); CHLORIDE LEVEL 105 MEQ/L (98-107); CREATININE FOR GFR 0.62 MG/DL (0.55-1.30); GLOMERULAR FILTRATION RATE > 60.0 (>45); GLUCOSE, FASTING 185 MG/DL (70-100); POTASSIUM SERUM 3.4 MEQ/L (3.5-5.1); SODIUM LEVEL 140 MEQ/L (136-145)
[2018-10-10] MEDS: FLUTICASONE PROP 0.05% NASAL SPRAY 16 GM (FLONASE) NARES SCH (12:36)
[2018-10-10 14:00] VITALS: BP 135/64
[2018-10-10] MEDS ORDERED: POTASSIUM CHLORIDE 10 MEQ SR TABLET PO ONE (14:00)
--- NOTE | 2018-10-10 14:05 | IPNPDOC ---
Date Seen The patient was seen on 10/10/18. Progress Note HPI: 63-year-old female who presented to the emergency room with multiple massive episodes of projectile vomiting and diarrhea. The patient was admitted, intubated on 09/07/2018. 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 Infectious disease, Dr. Lyons was consulted for antimicrobial management for the patient. On September 16 because the patient had some altered AIR HOLE DRILLER a imaging was ordered and the brain MRI showed a small acute right caudate nucleus infarct. While the patient was intubated Dr. Andrade, the oracle solutions architect was trying to wean the patient off sedation but was unable to. Therefore, on 09/19/2018 Dr. Rosales, ENT was consulted for tracheotomy placement. The trach was placed on 09/20/2017 with no complications. On September 30 the patient developed a maculopapular rash on her upper lower extremities that worsened to her chest and abdomen. As the rash did not improve with steroids and Benadryl dermatology was called for recommendations. It was believed to be acute generalized exanthematous pustulosis which is secondary to contrast media, recent antibiotic use and possibly PPI. Dermatology recommended steroid ointment supplemented with Eucerin cream. And discontinuation of all the offending agents. They also did recommend outpatient allergy testing once the patient is discharged as well. On 10/07/2018 the patient was discharged to ARU, Dr Napoles, for rehabilitation. The pt is sitting up in bed. No acute medical complaints today. Denies any fevers, chills, weakness, fatigue, Headache, Chest Pain, Shortness of breath, cough, palpitations, abdominal pain, N/V/D or changes in bowel or bladder habits. PMHx: DM HTN HLD hypothyroid PE: GEN: 63yoF, appears stated age. No acute distress. Alert and oriented x 3. Plea alondra, interactive. HEENT: Normocephalic, atraumatic. Sclera are nonicteric. Conjunctiva without in jection. No facial asymmetry. Moist mucous membranes. CHEST: Regular rate and rhythm, +S1, +S2 LUNGS: Trach in place. Good A/E bilaterally. No wheezes, rales, or rhonchi. ABD: Round, soft, non-tender, non-distended. +Bowel sounds throughout. No rebound or guarding. No costovertebral angle tenderness. EXT: Pulses 2+ bilaterally dorsalis pedis and radial. No lower extremity edema appreciated. SKIN: [place], dry, warm. Diffuse rash improving. NEURO: Alert and oriented x 3. Cranial nerves III-XII are intact. No focal deficits appreciated. A&P:63-year-old female who presented to the emergency room with multiple massive episodes of projectile vomiting and diarrhea. The patient was admitted, intubated on 09/07/2018. 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 Infectious disease, Dr. Lyons was consulted for antimicrobial management for the patient. On September 16 because the patient had some altered AIR HOLE DRILLER a imaging was ordered and the brain MRI showed a small acute right caudate nucleus infarct. While the patient was intubated Dr. Andrade, the oracle solutions architect was trying to wean the patient off sedation but was unable to. Therefore, on 09/19/2018 Dr. Rosales, ENT was consulted for tracheotomy placement. The trach was placed on 09/20/2017 with no complications. On September 30 the patient developed a maculopapular rash on her upper lower extremities that worsened to her chest and abdomen. As the rash did not improve with steroids and Benadryl dermatology was called for recommendations. It was believed to be acute generalized exanthematous pustulosis which is secondary to contrast media, recent antibiotic use and possibly PPI. Dermatology recommended steroid ointment supplemented with Eucerin cream. And discontinuation of all the offending agents. They also did recommend outpatient allergy testing once the patient is discharged as well. On 10/07/2018 the patient was discharged to ARU, Dr Napoles, for rehabilitation. 1. Debility. Mgmt as per ARU. PT/OT/ST as per ARU. Pain control as per ARU Bowel care as per ARU DVT prophylaxis. Lovenox as per ARU 2. Macular papular rash, likely drug rash. -Dermatology consulted - Acute generalized exanthematous pustulosis likely cause 2/2 recent use of contrast media vs. vanc or pip/tazo recommend Triamcinolone 0. 1% ointment bid to affected areas. -c/w Benadryl as needed -Continue to apply Eucerin cream to dry areas -follow up outpatient for allergy testing 2. Status post septic shock secondary to vibrio. -Completed course of antibiotics. 3. Status post acute respiratory failure secondary to septic shock and toxic metabolic encephalopathy. -Status post trach on 09/20/18. -CT of the neck 09/28/18 noted significant edema, for which the patient is unable to get anti-cannulated. -repeat CT scan in 2 weeks (10/12/18) and outpatient ENT follow-up. 4. Acute CVA. -Improved - no focal deficits. -c/w aspirin. 5 Chronic anemia -stable. -No need for transfusion at this time. -Will need close outpatient follow-up with PCP. 6. Hypothyroidism -c/w Synthroid 7. Diabetes mellitus -c/w Levemir and SSI. 8. Hypertension -controlled -c/w losartan 9.GERD -stopped PPI (recommendation from DERM as possible trigger for the rash) -started ranitidine 10. Hypokalemia. PO supplement x 1 today. Rechk in BMP/Mag AM. VS, I&O, 24H, Fishbone Vital Signs/I&O Vital Signs Date Time Temp Pulse Resp B/P (MAP) Pulse Ox O2 Delivery O2 Flow Rate FiO2 10/10/18 11:04 Trach Collar 5.0 28 10/10/18 07:55 87 112/56 10/10/18 05:45 98.4 19 98 I&O- Last 24 Hours up to 6 AM 10/10/18 06:00 Intake Total 1080 ml Output Total 300 ml Balance 780 ml Laboratory Data 24H LABS Laboratory Tests 2 10/09/18 16:50: Bedside Glucose (Misc Panel) 113 10/09/18 20:00: Bedside Glucose (Misc Panel) 174H 10/10/18 05:33: Bedside Glucose (Misc Panel) 111 10/10/18 10:26: Immature Granulocyte % (Auto) 0.3, White Blood Count 12.7H, Red Blood Count 3.46L, Hemoglobin 10.5L, Hematocrit 33.7L, Mean Corpuscular Volume 97.4H, Mean Corpuscular Hemoglobin 30.3, Mean Corpuscular Hemoglobin Concent 31.2L, Red Cell Distribution Width 14.6H, Platelet Count 316, Neutrophils (%) (Auto) 73.9H, Lymphocytes (%) (Auto) 17.9L, Monocytes (%) (Auto) 3.7, Eosinophils (%) (Auto) 4.0H, Basophils (%) (Auto) 0.2, Neutrophils # (Auto) 9.4H, Lymphocytes # (Auto) 2.3, Monocytes # (Auto) 0.5, Eosinophils # (Auto) 0.5, Basophils # (Auto) 0.0, Nucleated Red Blood Cells % (auto) 0.0 10/10/18 10:27: Anion Gap 11, Glomerular Filtration Rate > 60.0, Blood Urea Nitrogen 9, Creatinine 0.62, Sodium Level 140, Potassium Level 3.4L, Chloride Level 105, Carbon Dioxide Level 24, Calcium Level 8.4L 10/10/18 11:58: Bedside Glucose (Misc Panel) 185H CBC/BMP Laboratory Tests 10/10/18 10:26 Red Blood Count 3.46 L, Mean Corpuscular Volume 97.4 H, Mean Corpuscular Hem oglobin 30.3, Mean Corpuscular Hemoglobin Concent 31.2 L, Red Cell Distribution Width 14.6 H, Neutrophils (%) (Auto) 73.9 H, Lymphocytes (%) (Auto) 17.9 L, Monocytes (%) (Auto) 3.7, Eosinophils (%) (Auto) 4.0 H, Basophils (%) (Auto) 0.2, Neutrophils # (Auto) 9.4 H, Lymphocytes # (Auto) 2.3, Monocytes # (Auto) 0.5, Eosinophils # (Auto) 0.5, Basophils # (Auto) 0.0 10/10/18 10:27 Calcium Level 8.4 L Microbiology Microbiology 10/08/18 Urine Culture - Final, Complete Massiel Saldana Oct 10, 2018 14:05
--- NOTE | 2018-10-10 15:54 | IPNPDOC ---
PM&R Progress Note DATE OF SERVICE: Oct 10, 2018 Grain Loader Progress Note Subjective: Patient has learned how to clean her own inner trach tube and reports some irritation in her throat. She also complains of sinus pressure and dry airways. REVIEW OF SYSTEMS: The following is a completed review of systems and has been reviewed. Review of systems otherwise unremarkable. PAIN: Patient self reports painful itchy rash EYES: Negative for vision changes EARS, NOSE, & THROAT: +dysphagia CARDIOVASCULAR: denies chest pain or palpitations PULMONARY: Negative. Denies shortness of breath, +trach GASTROINTESTINAL: Negative for constipation, diarrhea, or vomiting GENITOURINARY:Negative for dysuria or incontinence. MUSCULOSKELETAL: no focal weakness NEUROLOGICAL: +CVA SKIN: diffuse maculopapular rash PSYCHIATRIC: Unremarkable All other review of systems found to be negative. PHYSICAL EXAMINATION: VITAL SIGNS: Please see below. GENERAL: Pleasant and cooperative. No acute distress. HEENT: PERRL. Extraocular movements intact. Clear conjunctiva, trach in place CARDIOVASCULAR: Regular rate and rhythm. No murmurs, rubs, or gallops LUNGS: Clear to auscultation bilaterally. No wheezes. No rhonchi ABDOMEN: Soft, nontender, nondistended. Positive bowel sounds. Normal active bowel sounds NEUROLOGICAL: Alert and oriented times three. Cranial nerves II through XII grossly intact. Sensation grossly intact EXTREMITIES:5\5 strength bilateral upper extremities.5\5 strength right lower extremity. 5/5 strength in left lower extremity. SKIN: diffuse peeling maculopapular rash on truck,abdomen, and extremities ASSESSMENT:63-year-old F with past medical history of HTN, DM who presents status post septic shock, respiratory failure requiring tracheostomy, and new CVA. PLAN: 1. Rehab: OT/PT, defer CONTRACT PROGRAMMER until laryngeal edema improved 2. Neuro: recent right caudate stroke, continue ASA, statin and BP management 3. Cardio: pmh HTN, continue BPs meds and adjust prn, medicine consulted 4. Resp: s/p respiratory failure requiring tracheostomy performed 09/20/18 with #6 fenestrated trach, with laryngeal edema, continue tracheostomy care, will add Guaifensain for cough, throat lozenges for irritation, and scheduled Duonebs -will need repeat CT NECK 10/12/18 and outpatient ENT f/u -will trial capping while on inpatient starting tomorrow -nasal saline drops and flonase 5. Endo:pmh hypothyroidism and DM, continue home meds, will monitor insulin and adjust prn 6. Derm: recently diagnosed generalized exanthematous pustulosis, per patient Triamcinolone cream bazan and Eucerin provides more relief- continue Eucerin and po benadryl, will need outpatient allergy testing 7. GI ppx: Ranitidine 8. DVT: Lovenox 9. : admission UA and Ucx negative, monitor PVRs 10. Disp: TBD Allergies Coded Allergies: Latex (Verified Allergy, Unknown, rash powdered gloves, 02/01/18) Vital Signs Vital Signs Date Time Temp Pulse Resp B/P (MAP) Pulse Ox O2 Delivery O2 Flow Rate FiO2 10/10/18 11:04 Trach Collar 5.0 28 10/10/18 07:55 87 112/56 10/10/18 05:45 98.4 19 98 Laboratory Data CBC/BMP Laboratory Tests 10/10/18 10:26 Red Blood Count 3.46 L, Mean Corpuscular Volume 97.4 H, Mean Corpuscular Hemoglobin 30.3, Mean Corpuscular Hemoglobin Concent 31.2 L, Red Cell Distribution Width 14.6 H, Neutrophils (%) (Auto) 73.9 H, Lymphocytes (%) (Auto) 17.9 L, Monocytes (%) (Auto) 3.7, Eosinophils (%) (Auto) 4.0 H, Basophils (%) (Auto) 0.2, Neutrophils # (Auto) 9.4 H, Lymphocytes # (Auto) 2.3, Monocytes # (Auto) 0.5, Eosinophils # (Auto) 0.5, Basophils # (Auto) 0.0 10/10/18 10:27 Calcium Level 8.4 L Labs 24H Laboratory Tests 2 10/09/18 16:50: Bedside Glucose (Misc Panel) 113 10/09/18 20:00: Bedside Glucose (Misc Panel) 174H 10/10/18 05:33: Bedside Glucose (Misc Panel) 111 10/10/18 10:26: Immature Granulocyte % (Auto) 0.3, White Blood Count 12.7H, Red Blood Count 3.46L, Hemoglobin 10.5L, Hematocrit 33.7L, Mean Corpuscular Volume 97.4H, Mean Corpuscular Hemoglobin 30.3, Mean Corpuscular Hemoglobin Concent 31.2L, Red Cell Distribution Width 14.6H, Platelet Count 316, Neutrophils (%) (Auto) 73.9H, Lymphocytes (%) (Auto) 17.9L, Monocytes (%) (Auto) 3.7, Eosinophils (%) (Auto) 4.0H, Basophils (%) (Auto) 0.2, Neutrophils # (Auto) 9.4H, Lymphocytes # (Auto) 2.3, Monocytes # (Auto) 0.5, Eosinophils # (Auto) 0.5, Basophils # (Auto) 0.0, Nucleated Red Blood Cells % (auto) 0.0 10/10/18 10:27: Anion Gap 11, Glomerular Filtration Rate > 60.0, Blood Urea Nitrogen 9, Creatinine 0.62, Sodium Level 140, Potassium Level 3.4L, Chloride Level 105, Carbon Dioxide Level 24, Calcium Level 8.4L 10/10/18 11:58: Bedside Glucose (Misc Panel) 185H Microbiology Microbiology 10/08/18 Urine Culture - Final, Complete Current Medications Current Medications Current Medications Acetaminophen (Tylenol Tab) 650 mg Q4HP PRN PO fever/MILD PAIN (PS 1-4) Last administered on 10/08/18at 10:15; Start 10/07/18 at 14:30 Albuterol/ Ipratropium (Duoneb (Ipr 0.5mg/Alb 2.5mg)) 3 ml Q4HP PRN NEB SOB/WHEEZING; Start 10/07/18 at 15:00; Stop 10/07/18 at 16:04; Status DC Albuterol/ Ipratropium (Duoneb (Ipr 0.5mg/Alb 2.5mg)) 3 ml RTID NEB Last administered on 10/10/18at 11:04; Start 10/07/18 at 20:00 Amlodipine Besylate (Norvasc) 5 mg DAILY PO Last administered on 10/10/18at 07:55; Start 10/08/18 at 09:00 Aspirin (Aspirin Chewable) 162 mg DAILY NG Last administered on 10/08/18at 09:40; Start 10/08/18 at 09:00; Stop 10/08/18 at 14:52; Status DC Aspirin (Aspirin Chewable) 162 mg DAILY PO Last administered on 10/10/18at 07:55; Start 10/09/18 at 09:00 Budesonide (Pulmicort) 0.5 mg RBID INH Last administered on 10/10/18at 11:04; Start 10/07/18 at 20:00 Cetylpyridinium Chloride (Cepacol) 1 arnoldo Q2HP PRN PO SORE THROAT Last administered on 10/07/18at 20:52; Start 10/07/18 at 20:00 Dextrose (Dextrose 50%) 25 ml ASDIRECTED PRN IV SEE LABEL COMMENTS; Start 09/14 01/29 at 15:00 Diphenhydramine HCl (Benadryl) 25 mg Q4HP PRN IM AGITATION; Start 10/07/18 at 15:00; Stop 10/07/18 at 19:58; Status DC Diphenhydramine HCl (Benadryl) 25 mg Q4HP PRN PO ITCHING Last administered on 10/09/18at 22:14; Start 10/07/18 at 20:00 Enoxaparin Sodium (Lovenox) 40 mg DAILY SC Last administered on 10/10/18at 07:56; Start 10/08/18 at 09:00 Fluticasone Propionate (Flonase 0.05% Nasal [place]) 2 spray DAILY NARES Last administered on 10/10/18at 12:36; Start 10/10/18 at 09:00 Glucagon (Glucagon) 1 mg ASDIRECTED PRN SC SEE LABEL COMMENTS; Start 10/07/18 at 15:00 Glucose (Glucose) 16 GM ASDIRECTED PRN PO SEE LABEL COMMENTS; Start 10/07/18 at 15:00 Guaifenesin (Mucinex Tab Er) 600 mg BID PO Last administered on 10/10/18at 07:55; Start 10/07/18 at 21:00 Home Med (Med Rec Complete!) ASDIRECTED XX ; Start 10/07/18 at 15:30; Stop 10/07/18 at 15:41; Status DC Insulin Detemir (Levemir Insulin) 25 units QHS SC Last administered on 10/09/18at 21:16; Start 10/07/18 at 21:00 Insulin Human Lispro (HumaLOG INSULIN) SEE PROTOCOL TABLE QHS SC ; Start 10/07/18 at 21:00 Insulin Human Lispro (HumaLOG INSULIN) See Protocol Table AC SC Last administered on 10/10/18at 12:36; Start 10/08/18 at 07:30 Levothyroxine Sodium (Synthroid) 75 mcg DAILY@06 PO Last administered on 10/10/18at 05:29; Start 10/08/18 at 06:00 Mineral Oil/White Petrolatum (Eucerin) 1 dose TID TOP Last administered on 10/10/18 07:57; Start 10/07/18 at 16:00 Ranitidine HCl (Zantac) 150 mg BID GT Last administered on 10/08/18at 09:40; Start 10/07/18 at 21:00; Stop 10/08/18 at 14:52; Status DC Ranitidine HCl (Zantac) 150 mg BID PO Last administered on 10/10/18at 07:55; Start 10/08/18 at 21:00 Sodium Chloride ([place] Nasal [place]) 2 spray TID NA ; Start 10/10/18 at 16:00 Trazodone HCl (Desyrel) 25 mg Q6HP PRN PO AGITATION; Start 10/07/18 at 15:00 Trazodone HCl (Desyrel) 25 mg QHSP PRN PO INSOMNIA; Start 10/07/18 at 15:00 Triamcinolone Acetonide (Kenalog 0.1% Ointment) APPLY SPARINGLY TO R... BID TOP Last administered on 10/10/18at 07:56; Start 10/08/18 at 09:00 CORY RATLIFF MD Oct 10, 2018 15:54
[2018-10-10] MEDS: SODIUM CHLORIDE NASAL 0.65% SPRAY BTL (OCEAN) SCH ×2 (16:00→21:00)
[2018-10-10 20:00] VITALS: BP 140/65
[2018-10-10] MEDS: LEVEMIR (INSULIN DETEMIR) 1 UNITS/0.01ML SC SCH (22:18)
[2018-10-10] MEDS: diphenhydrAMINE 25 MG CAP PO PRN (22:19)
[2018-10-11 06:00] VITALS: BP 118/61
[2018-10-11 06:23] LABS: HEMATOCRIT 31.8 % (36.0-47.0); HEMOGLOBIN 9.8 g/dl (12.0-15.5); MEAN CORPUSCULAR HEMOGLOBIN 30.3 pg (27.0-33.0); MEAN CORPUSCULAR HGB CONC 30.8 g/dl (32.0-36.5); MEAN CORPUSCULAR VOLUME 98.5 fl (80.0-96.0); PLATELET COUNT, AUTOMATED 303 10^3/uL (150-450); RED BLOOD COUNT 3.23 10^6/uL (4.00-5.40); WHITE BLOOD COUNT 11.1 10^3/uL (4.0-10.0)
[2018-10-11] MEDS: LEVOTHYROXINE 75MCG TABLET (0.075MG) PO SCH (06:50)
[2018-10-11 06:51] LABS: ALBUMIN 3.1 GM/DL (3.2-5.2); ALT/SGPT 33 U/L (12-78); BILIRUBIN,TOTAL 0.5 MG/DL (0.2-1.0); BLOOD UREA NITROGEN 6 MG/DL (7-18); CALCIUM LEVEL 8.3 MG/DL (8.8-10.2); CARBON DIOXIDE LEVEL 25 MEQ/L (21-32); CHLORIDE LEVEL 111 MEQ/L (98-107); CREATININE FOR GFR 0.53 MG/DL (0.55-1.30); GLOMERULAR FILTRATION RATE > 60.0 (>45); GLUCOSE, FASTING 126 MG/DL (70-100); MAGNESIUM LEVEL 1.7 MG/DL (1.8-2.4); POTASSIUM SERUM 4.1 MEQ/L (3.5-5.1); SODIUM LEVEL 143 MEQ/L (136-145); TOTAL PROTEIN 6.4 GM/DL (6.4-8.2)
[2018-10-11] MEDS: IPRATROPIUM 0.5MG/ALBUTEROL 2.5MG INH SOL UD 3ML (DUONEB)(J7620) NEB SCH ×3 (08:01→15:33)
[2018-10-11] MEDS: BUDESONIDE 0.5 MG/2 ML INHALATION SUSPENSION INH SCH ×2 (08:01→08:12)
[2018-10-11] MEDS: raNITIdine SYRUP 150 MG/10 ML UDC PO SCH ×2 (08:46→20:46)
[2018-10-11] MEDS: ENOXAPARIN 40 MG/0.4 ML SYRINGE (J1650) SC SCH (08:46)
[2018-10-11] MEDS: guaiFENesin ER 600 MG TAB PO SCH ×2 (08:47→20:46)
[2018-10-11] MEDS: ASPIRIN 81 MG CHEW TABLET PO SCH (08:47)
[2018-10-11] MEDS: amLODIPine 5 MG TAB PO SCH (08:47)
[2018-10-11] MEDS: HumaLOG INSULIN (NovoLOG) PER UNIT SC SCH ×4 (08:48→20:47)
[2018-10-11] MEDS: TRIAMCINOLONE ACET 0.1% OINTMENT 80 GM TOP SCH ×2 (08:48→20:46)
[2018-10-11] MEDS: EUCERIN 120GM CREAM TOP SCH ×3 (08:49→20:46)
[2018-10-11] MEDS: SODIUM CHLORIDE NASAL 0.65% SPRAY BTL (OCEAN) SCH ×3 (08:49→20:47)
[2018-10-11] MEDS: FLUTICASONE PROP 0.05% NASAL SPRAY 16 GM (FLONASE) NARES SCH (08:49)
[2018-10-11 10:50] VITALS: O2SAT 98
--- NOTE | 2018-10-11 12:31 | CR ---
DATE: 10/11/2018 REQUESTING PHYSICIAN: Dr. Napoles. REASON FOR CONSULTATION: This patient accidentally decannulated tracheotomy and for further evaluation. The patient apparently was coughing earlier today according to Dr. Napoles, as well as the respiratory therapist and she coughed the trach out. She had no problems with the trach. It was covered by the respiratory therapy who was at the bedside and did put her on oxygen. She had no shortness of breath, was able to vocalize. The therapist was able to plug the trach area and the patient could breathe very easily and she had no shortness or restrictions in her airway and could talk well comfortably with multiple sentences with the covering over the tracheotomy site. At this point, she was 100% saturations. No stridor. No respiratory difficulty, and according to the respiratory therapist, had decannulated herself over an hour. Exam shows clean tracheotomy site after the gauze was removed and trachea site was clean. I did put a finger completely over the area for the patient to talk and breath which she seemed to do significantly better than she had before. Previously she had infraglottic but super tracheotomy site edema demonstrate on the CT scan before. Clearly she seems to be much better. She is talking in multiple sentences at this time. She also appears to be more with it and following commands more at this time. Again oxygen saturations on face mask was 100%. The patient was on 6 liters when I came in but would take off the mask and still remained at 100%. IMPRESSION: The patient is status post decannulation actually feeling as though she is breathing better now that the tracheotomy it out and having no distress, and according to the respiratory therapist, it has been out for an hour. PLAN: At this point I have discussed with Dr. Napoles. We will order a stat CT scan as the patient does not want to have the trach tube put in and she feels that she is breathing fine. It was offered to her but she feels very comfortable. At this point we did leave a 4 fenestrated tracheotomy tube, at the bedside just in case we needed to put one in. She had a 6 fenestrated before, both were cuffed. At this point, will await the CT scan of the neck and we will followup after the CT scan but currently she does not want the tracheotomy tube reinserted and is doing well and will what the CT scan shows. MTDD
--- NOTE | 2018-10-11 13:08 | REP ---
Soft tissue CT study of the neck without contrast: History: Self de cannulization. Comparison neck CT study September 28, 2018. Findings: Tracheostomy tube has been withdrawn. The previously identified glottic and subglottic edema and airway narrowing are resolved. No glottic or supraglottic mass is seen. No abnormal fluid collection is seen in the neck. No evidence of neck mass or adenopathy. Thyroid lobes are normal and symmetric. Parotid and submandibular glands appear normal and symmetric. The lung apices are clear. There are mild degenerative changes in the cervical spine as before. Impression: Tracheostomy tube is removed. The previously noted glottic and subglottic edema pattern is resolved. No neck mass or adenopathy is seen. Electronically Signed by Willian Acuna MD 10/11/2018 01:26 P
--- NOTE | 2018-10-11 13:23 | IPNPDOC ---
Date Seen The patient was seen on 10/11/18. Progress Note HPI: 63-year-old female who presented to the emergency room with multiple massive episodes of projectile vomiting and diarrhea. The patient was admitted, intubated on 09/07/2018. 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 Infectious disease, Dr. Lyons was consulted for antimicrobial management for the patient. On September 16 because the patient had some altered PADDING [employer] a imaging was ordered and the brain MRI showed a small acute right caudate nucleus infarct. While the patient was intubated Dr. Andrade, the lead quality technician was trying to wean the patient off sedation but was unable to. Therefore, on 09/19/2018 Dr. Rosales, ENT was consulted for tracheotomy placement. The trach was placed on 09/20/2017 with no complications. On September 30 the patient developed a maculopapular rash on her upper lower extremities that worsened to her chest and abdomen. As the rash did not improve with steroids and Benadryl dermatology was called for recommendations. It was believed to be acute generalized exanthematous pustulosis which is secondary to contrast media, recent antibiotic use and possibly PPI. Dermatology recommended steroid ointment supplemented with Eucerin cream. And discontinuation of all the offending agents. They also did recommend outpatient allergy testing once the patient is discharged as well. On 10/07/2018 the patient was discharged to ARU, Dr Napoles, for rehabilitation. The pt is sitting up in bed. The pt had apparently decannulated the tracheostomy during cough this AM. ENT has been consulted, CT Neck requested and pending. Her respirations are stable, O2 sat stable 98-99 on RA. Denies any fevers, chills, weakness, fatigue, Headache, Chest Pain, Shortness of breath, cough, palpitations, abdominal pain, N/V/D or changes in bowel or bladder habits. PMHx: DM HTN HLD hypothyroid PE: GEN: 63yoF, appears stated age. No acute distress. Alert and oriented x 3. Pleasant, interactive. HEENT: Normocephalic, atraumatic. Sclera are nonicteric. Conjunctiva without injection. No facial asymmetry. Moist mucous membranes. CHEST: Regular rate and rhythm, +S1, +S2 LUNGS: Good A/E bilaterally. No wheezes, rales, or rhonchi. ABD: Round, soft, non-tender, non-distended. +Bowel sounds throughout. No rebound or guarding. No costovertebral angle tenderness. EXT: Pulses 2+ bilaterally dorsalis pedis and radial. No lower extremity edema appreciated. SKIN: [place], dry, warm. Diffuse rash continues to improve. NEURO: Alert and oriented x 3. Cranial nerves III-XII are intact. No focal deficits appreciated. A&P:63-year-old female who presented to the emergency room with multiple massive episodes of projectile vomiting and diarrhea. The patient was admitted, intubated on 09/07/2018. 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 Infectious disease, Dr. Lyons was consulted for antimicrobial management for the patient. On September 16 because the patient had some altered PADDING GLU[employer] a imaging was ordered and the brain MRI showed a small acute right caudate nucleus infarct. While the patient was intubated Dr. Andrade, the lead quality technician was trying to wean the patient off sedation but was unable to. Therefore, on 09/19/2018 Dr. Rosales, ENT was consulted for tracheotomy placement. The trach was placed on 09/20/2017 with no complications. On September 30 the patient developed a maculopapular rash on her upper lower extremities that worsened to her chest and abdomen. As the rash did not improve with steroids and Benadryl dermatology was called for recommendations. It was believed to be acute generalized exanthematous pustulosis which is secondary to contrast media, recent antibiotic use and possibly PPI. Dermatology recommended steroid ointment supplemented with Eucerin cream. And discontinuation of all the offending agents. They also did recommend outpatient allergy testing once the patient is discharged as well. On 10/07/2018 the patient was discharged to ARU, Dr Napoles, for rehabilitation. 1. Debility. Mgmt as per ARU. PT/OT/ST as per ARU. Pain control as per ARU Bowel care as per ARU DVT prophylaxis. Lovenox as per ARU 2. Macular papular rash, likely drug rash. -Dermatology consulted - Acute generalized exanthematous pustulosis likely cause 2/2 recent use of contrast media vs. vanc or pip/tazo recommend Triamcinolone 0.1% ointment bid to affected areas. -c/w Benadryl as needed -Continue to apply Eucerin cream to dry areas -follow up outpatient for allergy testing 2. Status post septic shock secondary to vibrio. -Completed course of antibiotics. 3. Status post acute respiratory failure secondary to septic shock and toxic metabolic encephalopathy. -Status post trach on 09/20/18. -The pt decannulated tracheostomy 10/11/18 AM during cough. -CT of the neck 09/28/18 noted significant edema, for which the patient is unable to get anti-cannulated. -ENT consulted, CT Neck this AM pending. 4. Acute CVA. -Improved - no focal deficits. -c/w aspirin. 5 Chronic anemia -stable. -No need for transfusion at this time. -Will need close outpatient follow-up with PCP. 6. Hypothyroidism -c/w Synthroid 7. Diabetes mellitus -c/w Levemir and SSI. 8. Hypertension -controlled -c/w losartan 9.GERD -stopped PPI (recommendation from DERM as possible trigger for the rash) -started ranitidine 10. Hypokalemia. PO supplement. Rechk in BMP AM. 11. Hypomagnesemia. Add po supplement daily. Recheck mag in AM. VS, I&O, 24H, Fishbone Vital Signs/I&O Vital Signs Date Time Temp Pulse Resp B/P (MAP) Pulse Ox O2 Delivery O2 Flow Rate FiO2 10/11/18 10:50 98 Room Air 10/11/18 08:47 80 118/61 10/11/18 06:00 98.3 20 10/10/18 11:04 5.0 28 I&O- Last 24 Hours up to 6 AM 10/11/18 06:00 Intake Total 1140 ml Balance 1140 ml Laboratory Data 24H LABS Laboratory Tests 2 10/10/18 17:22: Bedside Glucose (Misc Panel) 188H 10/10/18 19:46: Bedside Glucose (Misc Panel) 176H 10/11/18 06:02: Nucleated Red Blood Cells % (auto) 0.0, Anion Gap 7L, Glomerular Filtration Rate > 60.0, Blood Urea Nitrogen 6L, Creatinine 0.53L, Sodium Level 143, Potassium Level 4.1#, Chloride Level 111H, Carbon Dioxide Level 25, Calcium Level 8.3L, Aspartate Amino Transf (AST/SGOT) 19, Alanine Aminotransferase (ALT/SGPT) 33, Alkaline Phosphatase 65, Total Bilirubin 0.5, Total Protein 6.4, Albumin 3.1L, Magnesium Level 1.7L, Albumin/Globulin Ratio 0.94L 10/11/18 06:31: Bedside Glucose (Misc Panel) 124H 10/11/18 12:09: Bedside Glucose (Misc Panel) 166H CBC/BMP Laboratory Tests 10/11/18 06:02 Red Blood Count 3.23 L, Mean Corpuscular Volume 98.5 H, Mean Corpuscular Hemoglobin 30.3, Mean Corpuscular Hemoglobin Concent 30.8 L, Red Cell Distribution Width 14.6 H, Calcium Level 8.3 L, Aspartate Amino Transf (AST /SGOT) 19, Alanine Aminotransferase (ALT/SGPT) 33, Alkaline Phosphatase 65, Total Bilirubin 0.5, Total Protein 6.4, Albumin 3.1 L Microbiology Microbiology 10/08/18 Urine Culture - Final, Complete Massiel Saldana Oct 11, 2018 13:23
[2018-10-11 14:00] VITALS: BP 134/64
[2018-10-11] MEDS: MAGNESIUM OXIDE 400 MG TAB (MAG-OX) PO SCH (15:41)
[2018-10-11 20:00] VITALS: BP 138/67
[2018-10-11] MEDS: diphenhydrAMINE 25 MG CAP PO PRN (20:46)
[2018-10-11] MEDS: LEVEMIR (INSULIN DETEMIR) 1 UNITS/0.01ML SC SCH (20:47)
[2018-10-12] MEDS: LEVOTHYROXINE 75MCG TABLET (0.075MG) PO SCH (05:36)
[2018-10-12 06:00] VITALS: BP 123/56
[2018-10-12] MEDS: IPRATROPIUM 0.5MG/ALBUTEROL 2.5MG INH SOL UD 3ML (DUONEB)(J7620) NEB SCH ×3 (06:18→20:31)
[2018-10-12] MEDS: BUDESONIDE 0.5 MG/2 ML INHALATION SUSPENSION INH SCH ×2 (06:18→20:31)
[2018-10-12 06:56] LABS: HEMOGLOBIN 9.6 g/dl (12.0-15.5); MEAN CORPUSCULAR HEMOGLOBIN 29.5 pg (27.0-33.0); MEAN CORPUSCULAR VOLUME 98.5 fl (80.0-96.0); PLATELET COUNT, AUTOMATED 311 10^3/uL (150-450); RED BLOOD COUNT 3.25 10^6/uL (4.00-5.40); WHITE BLOOD COUNT 8.5 10^3/uL (4.0-10.0)
[2018-10-12 07:27] LABS: ALBUMIN 3.2 GM/DL (3.2-5.2); ALT/SGPT 32 U/L (12-78); BILIRUBIN,TOTAL 0.5 MG/DL (0.2-1.0); BLOOD UREA NITROGEN 6 MG/DL (7-18); CALCIUM LEVEL 8.2 MG/DL (8.8-10.2); CARBON DIOXIDE LEVEL 25 MEQ/L (21-32); CHLORIDE LEVEL 109 MEQ/L (98-107); CREATININE FOR GFR 0.54 MG/DL (0.55-1.30); GLOMERULAR FILTRATION RATE > 60.0 (>45); GLUCOSE, FASTING 138 MG/DL (70-100); MAGNESIUM LEVEL 1.7 MG/DL (1.8-2.4); POTASSIUM SERUM 3.5 MEQ/L (3.5-5.1); SODIUM LEVEL 142 MEQ/L (136-145); TOTAL PROTEIN 6.5 GM/DL (6.4-8.2)
[2018-10-12] MEDS: ENOXAPARIN 40 MG/0.4 ML SYRINGE (J1650) SC SCH (08:01)
[2018-10-12] MEDS: HumaLOG INSULIN (NovoLOG) PER UNIT SC SCH ×4 (08:02→20:18)
[2018-10-12] MEDS: EUCERIN 120GM CREAM TOP SCH ×3 (08:03→20:17)
[2018-10-12] MEDS: ASPIRIN 81 MG CHEW TABLET PO SCH (08:03)
[2018-10-12] MEDS: MAGNESIUM OXIDE 400 MG TAB (MAG-OX) PO SCH ×2 (08:03→20:16)
[2018-10-12] MEDS: TRIAMCINOLONE ACET 0.1% OINTMENT 80 GM TOP SCH ×2 (08:03→20:17)
[2018-10-12] MEDS: guaiFENesin ER 600 MG TAB PO SCH ×2 (08:03→20:17)
[2018-10-12] MEDS: amLODIPine 5 MG TAB PO SCH (08:05)
[2018-10-12] MEDS: SODIUM CHLORIDE NASAL 0.65% SPRAY BTL (OCEAN) SCH ×3 (08:06→20:17)
[2018-10-12] MEDS: FLUTICASONE PROP 0.05% NASAL SPRAY 16 GM (FLONASE) NARES SCH (08:07)
[2018-10-12] MEDS: raNITIdine SYRUP 150 MG/10 ML UDC PO SCH ×2 (08:08→20:18)
[2018-10-12] MEDS ORDERED: MIRALAX *UNIT DOSE* 17GM PACKET PO PRN (09:30)
[2018-10-12] MEDS: DOCUSATE SODIUM 100 MG CAP PO SCH ×2 (09:37→20:16)
[2018-10-12] MEDS: CEPACOL LOZENGE PO PRN (09:40)
--- NOTE | 2018-10-12 13:43 | IPNPDOC ---
Date Seen The patient was seen on 10/12/18. Progress Note HPI: 63-year-old female who presented to the emergency room with multiple massive episodes of projectile vomiting and diarrhea. The patient was admitted, intubated on 09/07/2018. 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 Infectious disease, Dr. Lyons was consulted for antimicrobial management for the patient. On September 16 because the patient had some altered [employer] a imaging was ordered and the brain MRI showed a small acute right caudate nucleus infarct. While the patient was intubated Dr. Andrade, the pie chef was trying to wean the patient off sedation but was unable to. Therefore, on 09/19/2018 Dr. Rosales, ENT was consulted for tracheotomy placement. The trach was placed on 09/20/2017 with no complications. On September 30 the patient developed a maculopapular rash on her upper lower extremities that worsened to her chest and abdomen. As the rash did not improve with steroids and Benadryl dermatology was called for recommendations. It was believed to be acute generalized exanthematous pustulosis which is secondary to contrast media, recent antibiotic use and possibly PPI. Dermatology recommended steroid ointment supplemented with Eucerin cream. And discontinuation of all the offending agents. They also did recommend outpatient allergy testing once the patient is discharged as well. On 10/07/2018 the patient was discharged to ARU, Dr Napoles, for rehabilitation. The pt had apparently decannulated tracheostomy during cough 10/11/18. ENT was co nsulted, CT Neck completed. Her respirations have been stable, O2 sat stable. The pt is complaining of dysuria and frequency, denies urgency, back pain, abdominal pain. Feels tired. Denies any fevers, chills, Headache, Chest Pain, Shortness of breath, cough, palpitations, N/V/D or changes in bowel habits. PMHx: DM HTN HLD hypothyroid PE: GEN: 63yoF, appears stated age. No acute distress. Alert and oriented x 3. Pleasant, interactive. HEENT: Normocephalic, atraumatic. Sclera are nonicteric. Conjunctiva without injection. No facial asymmetry. Moist mucous membranes. CHEST: Regular rate and rhythm, +S1, +S2 LUNGS: Good A/E bilaterally. No wheezes, rales, or rhonchi. ABD: Round, soft, non-tender, non-distended. +Bowel sounds throughout. No rebound or guarding. No costovertebral angle tenderness. EXT: Pulses 2+ bilaterally dorsalis pedis and radial. No lower extremity edema appreciated. SKIN: [place], dry, warm. diffuse rashe with decreasing erythema, resolving. NEURO: Alert and oriented x 3. Cranial nerves III-XII are intact. No focal deficits appreciated. A&P:63-year-old female who presented to the emergency room with multiple massive episodes of projectile vomiting and diarrhea. The patient was admitted, intubated on 09/07/2018. 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 Infectious disease, Dr. Lyons was consulted for antimicrobial management for the patient. On September 16 because the patient had some altered [employer] a imaging was ordered and the brain MRI showed a small acute right caudate nucleus infarct. While the patient was intubated Dr. Andrade, the pie chef was trying to wean the patient off sedation but was unable to. Therefore, on 09/19/2018 Dr. Rosales, ENT was consulted for tracheotomy placement. The trach was placed on 09/20/2017 with no complications. On September 30 the patient developed a maculopapular rash on her upper lower extremities that worsened to her chest and abdomen. As the rash did not improve with steroids and Benadryl dermatology was called for recommendations. It was believed to be acute generalized exanthematous pustulosis which is secondary to contrast media, recent antibiotic use and possibly PPI. Dermatology recommended steroid ointment supplemented with Eucerin cream. And discontinuation of all the offending agents. They also did recommend outpatient allergy testing once the patient is discharged as well. On 10/07/2018 the patient was discharged to ARU, Dr Napoles, for rehabilitation. 1. Debility. Mgmt as per ARU. PT/OT/ST as per ARU. Pain control as per ARU Bowel care as per ARU DVT prophylaxis. Lovenox as per ARU 2. Macular papular rash, likely drug rash. -Dermatology consulted - Acute generalized exanthematous pustulosis likely cause 2/2 recent use of contrast media vs. vanc or pip/tazo recommend Triamcinolone 0.1% ointment bid to affected areas. -c/w Benadryl as needed -Continue to apply Eucerin cream to dry areas -follow up outpatient for allergy testing 2. Status post septic shock secondary to vibrio. -Completed course of antibiotics. 3. Status post acute respiratory failure secondary to septic shock and toxic metabolic encephalopathy. -Status post trach on 09/20/18. -The pt decannulated tracheostomy 10/11/18 AM during cough. -CT of the neck 09/28/18 noted significant edema, for which the patient is unable to get anti-cannulated. -CT neck 10/11/18 edema pattern resolved. -ENT consulted. 4. Acute CVA. -Improved - no focal deficits. -c/w aspirin. 5 Chronic anemia Hgb 9.6 -No need for transfusion at this time. -Will need close outpatient follow-up with PCP. 6. Hypothyroidism -c/w Synthroid 7. Diabetes mellitus -c/w Levemir and SSI. 8. Hypertension -controlled -c/w losartan 9.GERD -stopped PPI (recommendation from DERM as possible trigger for the rash) cont ranitidine 10. Hypokalemia. PO supplement. Rechk in BMP AM. 11. Hypomagnesemia. po supplement Recheck mag in AM. 12. Possible UTI. Pt symptomatic. Afebrile. WBC 8.5. UA suggestive of UTI. UC pending. Add Omnicef 300mg BID. Add Bacid 1 tab TID. Monitor. VS, I&O, 24H, Fishbone Vital Signs/I&O Vital Signs Date Time Temp Pulse Resp B/P (MAP) Pulse Ox O2 Delivery O2 Flow Rate FiO2 10/12/18 08:05 79 149/83 10/12/18 06:00 97.7 17 97 Trach Collar 5.0 10/10/18 11:04 28 I&O- Last 24 Hours up to 6 AM 10/12/18 06:00 Intake Total 600 ml Output Total 550 ml Balance 50 ml Laboratory Data 24H LABS Laboratory Tests 2 10/11/18 16:35: Bedside Glucose (Misc Panel) 226H 10/11/18 20:02: Bedside Glucose (Misc Panel) 220H 10/12/18 06:24: Bedside Glucose (Misc Panel) 135H 10/12/18 06:28: Nucleated Red Blood Cells % (auto) 0.0, Anion Gap 8, Glomerular Filtration Rate > 60.0, Blood Urea Nitrogen 6L, Creatinine 0.54L, Sodium Level 142, Potassium Level 3.5, Chloride Level 109H, Carbon Dioxide Level 25, Calcium Level 8.2L, Aspartate Amino Transf (AST/SGOT) 19, Alanine Aminotransferase (ALT/SGPT) 32, Alkaline Phosphatase 66, Total Bilirubin 0.5, Total Protein 6.5, Albumin 3.2, Magnesium Level 1.7L, Albumin/Globulin Ratio 0.97L 10/12/18 10:26: Urine Color YELLOW, Urine Appearance CLEAR, Urine pH 6.0, Urine Specific [place] 1.004, Urine Protein NEGATIVE, Urine Glucose (UA) NEGATIVE, Urine Ketones NEGATIVE, Urine Blood NEGATIVE, Urine Nitrite NEGATIVE, Urine Bilirubin NEGATIVE, Urine Urobilinogen 0.2, Urine Leukocyte Esterase 2+H, Urine WBC (Auto) 31H, Urine RBC (Auto) 4H, Urine Hyaline Casts (Auto) 0, Urine Bacteria (Auto) 1+H, Urine Squamous Epithelial Cells 0, Urine Sperm (Auto) 10/12/18 12:05: Bedside Glucose (Misc Panel) 148H CBC/BMP Laboratory Tests 10/12/18 06:28 Red Blood Count 3.25 L, Mean Corpuscular Volume 98.5 H, Mean Corpuscular Hemoglobin 29.5, Mean Corpuscular Hemoglobin Concent 30.0 L, Red Cell Distribution Width 14.4, Calcium Level 8.2 L, Aspartate Amino Transf (AST/SGOT) 19, Alanine Aminotransferase (ALT/SGPT) 32, Alkaline Phosphatase 66, Total Bilirubin 0.5, Total Protein 6.5, Albumin 3.2 Microbiology Microbiology 10/12/18 Urine Culture, Received Pending 10/08/18 Urine Culture - Final, Complete Massiel Saldana Oct 12, 2018 13:43
[2018-10-12] MEDS: CEFDINIR 300 MG CAP (OMNICEF) PO SCH ×2 (14:39→20:16)
[2018-10-12] MEDS: LACTOBACILLUS ACIDOPHILUS CAP (BACID) PO SCH ×2 (15:55→20:16)
[2018-10-12 20:00] VITALS: BP 136/62
[2018-10-12] MEDS: diphenhydrAMINE 25 MG CAP PO PRN (20:17)
[2018-10-12] MEDS: LEVEMIR (INSULIN DETEMIR) 1 UNITS/0.01ML SC SCH (20:18)
--- NOTE | 2018-10-12 22:13 | IPNPDOC ---
PM&R Progress Note DATE OF SERVICE: Oct 11, 2018 Portfolio Architect Progress Note Subjective: Patient coughed and self decannulated today wihout complications, saturating well and breathing more comfortably. Evaluated by ENT and CT neck ordered. REVIEW OF SYSTEMS: The following is a completed review of systems and has been reviewed. Review of systems otherwise unremarkable. PAIN: Patient self reports painful itchy rash EYES: Negative for vision changes EARS, NOSE, & THROAT: +dysphagia CARDIOVASCULAR: denies chest pain or palpitations PULMONARY: Negative. Denies shortness of breath, tracheostomy GASTROINTESTINAL: Negative for constipation, diarrhea, or vomiting GENITOURINARY:Negative for dysuria or incontinence. MUSCULOSKELETAL: no focal weakness NEUROLOGICAL: +CVA SKIN: diffuse maculopapular rash PSYCHIATRIC: Unremarkable All other review of systems found to be negative. PHYSICAL EXAMINATION: VITAL SIGNS: Please see below. GENERAL: Pleasant and cooperative. No acute distress. HEENT: PERRL. Extraocular movements intact. Clear conjunctiva, trach in place CARDIOVASCULAR: Regular rate and rhythm. No murmurs, rubs, or gallops LUNGS: Clear to auscultation bilaterally. No wheezes. No rhonchi ABDOMEN: Soft, nontender, nondistended. Positive bowel sounds. Normal active bowel sounds NEUROLOGICAL: Alert and oriented times three. Cranial nerves II through XII grossly intact. Sensation grossly intact EXTREMITIES:5\5 strength bilateral upper extremities.5\5 strength right lower extremity. 5/5 strength in left lower extremity. SKIN: diffuse peeling maculopapular rash on truck,abdomen, and extremities ASSESSMENT:63-year-old F with past medical history of HTN, DM who presents status post septic shock, respiratory failure requiring tracheostomy, and new CVA. PLAN: 1. Rehab: OT/PT, defer ELL TEACHER until Wednesday 2. Neuro: recent right caudate stroke, continue ASA, statin and BP management 3. Cardio: pmh HTN, continue BPs meds and adjust prn, medicine consulted 4. Resp: s/p respiratory failure requiring tracheostomy performed 09/20/18 with #6 fenestrated trach, with laryngeal edema patient self-decannulated today during respiratory treatment, evaluated by ENT, inga pitts and repeat CT neck showed resolution of prior noted subglottic edema -will need repeat CT NECK 10/12/18 and outpatient ENT f/u -will trial capping while on inpatient starting tomorrow -nasal saline drops and flonase 5. Endo:pmh hypothyroidism and DM, continue home meds, will monitor insulin and adjust prn 6. Derm: recently diagnosed generalized exanthematous pustulosis, per patient Triamcinolone cream bazan and Eucerin provides more relief- continue Eucerin and po benadryl, will need outpatient allergy testing 7. GI ppx: Ranitidine 8. DVT: Lovenox 9. : admission UA and Ucx negative, monitor PVRs 10. Disp: 10/17/18 to sister's home, progressing towards goals Allergies Coded Allergies: Latex (Verified Allergy, Unknown, rash powdered gloves, 02/01/18) Vital Signs Vital Signs Date Time Temp Pulse Resp B/P (MAP) Pulse Ox O2 Delivery O2 Flow Rate FiO2 10/12/18 08:05 79 149/83 10/12/18 06:00 97.7 17 97 Trach Collar 5.0 10/10/18 11:04 28 Laboratory Data CBC/BMP Laboratory Tests 10/12/18 06:28 Red Blood Count 3.25 L, Mean Corpuscular Volume 98.5 H, Mean Corpuscular Hemoglobin 29.5, Mean Corpuscular Hemoglobin Concent 30.0 L, Red Cell Distribution Width 14.4, Calcium Level 8.2 L, Aspartate Amino Transf (AST/SGOT) 19, Alanine Aminotransferase (ALT/SGPT) 32, Alkaline Phosphatase 66, Total Bilirubin 0.5, Total Protein 6.5, Albumin 3.2 Labs 24H Laboratory Tests 2 10/12/18 06:24: Bedside Glucose (Misc Panel) 135H 10/12/18 06:28: Nucleated Red Blood Cells % (auto) 0.0, Anion Gap 8, Glomerular Filtration Rate > 60.0, Blood Urea Nitrogen 6L, Creatinine 0.54L, Sodium Level 142, Potassium Level 3.5, Chloride Level 109H, Carbon Dioxide Level 25, Calcium Level 8.2L, Aspartate Amino Transf (AST/SGOT) 19, Alanine Aminotransferase (ALT/SGPT) 32, Alkaline Phosphatase 66, Total Bilirubin 0.5, Total Protein 6.5, Albumin 3.2, Magnesium Level 1.7L, Albumin/Globulin Ratio 0.97L 10/12/18 10:26: Urine Color YELLOW, Urine Appearance CLEAR, Urine pH 6.0, Urine Specific [place] 1.004, Urine Protein NEGATIVE, Urine Glucose (UA) NEGATIVE, Urine Ketones NEGATIVE, Urine Blood NEGATIVE, Urine Nitrite NEGATIVE, Urine Bilirubin NEGATIVE, Urine Urobilinogen 0.2, Urine Leukocyte Esterase 2+H, Urine WBC (Auto) 31H, Urine RBC (Auto) 4H, Urine Hyaline Casts (Auto) 0, Urine Bacteria (Auto) 1+H, Urine Squamous Epithelial Cells 0, Urine Sperm (Auto) 10/12/18 12:05: Bedside Glucose (Misc Panel) 148H 10/12/18 17:08: Bedside Glucose (Misc Panel) 160H 10/12/18 19:28: Bedside Glucose (Misc Panel) 213H Microbiology Microbiology 10/12/18 Urine Culture, Received Pending 10/08/18 Urine Culture - Final, Complete Current Medications Current Medications Current Medications Acetaminophen (Tylenol Tab) 650 mg Q4HP PRN PO fever/MILD PAIN (PS 1-4) Last administered on 10/08/18at 10:15; Start 10/07/18 at 14:30 Albuterol/ Ipratropium (Duoneb (Ipr 0.5mg/Alb 2.5mg)) 3 ml Q4HP PRN NEB SOB/WHEEZING; Start 10/07/18 at 15:00; Stop 10/07/18 at 16:04; Status DC Albuterol/ Ipratropium (Duoneb (Ipr 0.5mg/Alb 2.5mg)) 3 ml RTID NEB Last administered on 10/12/18at 20:31; Start 10/07/18 at 20:00 Amlodipine Besylate (Norvasc) 5 mg DAILY PO Last administered on 10/12/18at 08:05; Start 10/08/18 at 09:00 Aspirin (Aspirin Chewable) 162 mg DAILY NG Last administered on 10/08/18at 09:40; Start 10/08/18 at 09:00; Stop 10/08/18 at 14:52; Status DC Aspirin (Aspirin Chewable) 162 mg DAILY PO Last administered on 10/12/18at 08:03; Start 10/09/18 at 09:00 Budesonide (Pulmicort) 0.5 mg RBID INH Last administered on 10/12/18at 20:31; Start 10/07/18 at 20:00 Cefdinir (Omnicef) 300 mg BID PO Last administered on 10/12/18at 20:16; Start 10/12/18 at 09:00; Stop 10/18/18 at 21:01 Cetylpyridinium Chloride (Cepacol) 1 arnoldo Q2HP PRN PO SORE THROAT Last administered on 10/12/18at 09:40; Start 10/07/18 at 20:00 Dextrose (Dextrose 50%) 25 ml ASDIRECTED PRN IV SEE LABEL COMMENTS; Start 10/07/18 at 15:00 Diphenhydramine HCl (Benadryl) 25 mg Q4HP PRN IM AGITATION; Start 10/07/18 at 15:00; Stop 10/07/18 at 19:58; Status DC Diphenhydramine HCl (Benadryl) 25 mg Q4HP PRN PO ITCHING Last administered on 10/12/18at 20:17; Start 10/07/18 at 20:00 Docusate Sodium (Colace) 100 mg BID PO Last administered on 10/12/18at 20:16; Start 10/12/18 at 09:00 Enoxaparin Sodium (Lovenox) 40 mg DAILY SC Last administered on 10/12/18at 08:01; Start 10/08/18 at 09:00 Fluticasone Propionate (Flonase 0.05% Nasal [place]) 2 spray DAILY NARES Last administered on 10/11/18at 08:49; Start 10/10/18 at 09:00 Glucagon (Glucagon) 1 mg ASDIRECTED PRN SC SEE LABEL COMMENTS; Start 10/07/18 at 15:00 Glucose (Glucose) 16 GM ASDIRECTED PRN PO SEE LABEL COMMENTS; Start 10/07/18 at 15:00 Guaifenesin (Mucinex Tab Er) 600 mg BID PO Last administered on 10/12/18at 20:17; Start 10/07/18 at 21:00 Home Med (Med Rec Complete!) ASDIRECTED XX ; Start 10/07/18 at 15:30; Stop 10/07/18 at 15:41; Status DC Insulin Detemir (Levemir Insulin) 25 units QHS SC Last administered on 10/12/18at 20:18; Start 10/07/18 at 21:00 Insulin Human Lispro (HumaLOG INSULIN) SEE PROTOCOL TABLE QHS SC ; Start 10/07/18 at 21:00 Insulin Human Lispro (HumaLOG INSULIN) See Protocol Table AC SC Last administered on 10/12/18 17:19; Start 10/08/18 at 07:30 Lactobacillus Acidophilus (Bacid) 1 ea TID PO Last administered on 10/12/18 20:16; Start 10/12/18 at 16:00 Levothyroxine Sodium (Synthroid) 75 mcg DAILY@06 PO Last administered on 10/12/18 05:36; Start 10/08/18 at 06:00 Magnesium Oxide (Mag-Ox) 400 mg BID PO Last administered on 10/12/18 20:16; Start 10/12/18 at 21:00 Magnesium Oxide (Mag-Ox) 400 mg DAILY PO Last administered on 10/12/18 08:03; Start 10/11/18 at 09:00; Stop 10/12/18 at 13:46; Status DC Mineral Oil/White Petrolatum (Eucerin) 1 dose TID TOP Last administered on 10/12/18 20:17; Start 10/07/18 at 16:00 Polyethylene Glycol (Miralax) 1 pkt DAILYPRN PRN PO CONSTIPATION Last administered on 10/12/18 09:37; Start 10/12/18 at 09:30 Ranitidine HCl (Zantac) 150 mg BID GT Last administered on 10/08/18 09:40; Start 10/07/18 at 21:00; Stop 10/08/18 at 14:52; Status DC Ranitidine HCl (Zantac) 150 mg BID PO Last administered on 10/12/18 20:18; Start 10/08/18 at 21:00 Sodium Chloride ([place] Nasal [place]) 2 spray TID NA Last administered on 10/12/18 20:17; Start 10/10/18 at 16:00 Trazodone HCl (Desyrel) 25 mg Q6HP PRN PO AGITATION; Start 10/07/18 at 15:00 Trazodone HCl (Desyrel) 25 mg QHSP PRN PO INSOMNIA; Start 10/07/18 at 15:00 Triamcinolone Acetonide (Kenalog 0.1% Ointment) APPLY SPARINGLY TO R... BID TOP Last administered on 10/12/18 20:17; Start 10/08/18 at 09:00 CORY RATLIFF MD Oct 12, 2018 22:13
[2018-10-13] MEDS: LEVOTHYROXINE 75MCG TABLET (0.075MG) PO SCH (05:28)
[2018-10-13 05:47] VITALS: BP 139/71
[2018-10-13 07:22] LABS: HEMATOCRIT 30.8 % (36.0-47.0); HEMOGLOBIN 9.5 g/dl (12.0-15.5); MEAN CORPUSCULAR HGB CONC 30.8 g/dl (32.0-36.5); MEAN CORPUSCULAR VOLUME 97.2 fl (80.0-96.0); PLATELET COUNT, AUTOMATED 350 10^3/uL (150-450); RED BLOOD COUNT 3.17 10^6/uL (4.00-5.40); WHITE BLOOD COUNT 7.5 10^3/uL (4.0-10.0)
[2018-10-13 07:46] LABS: ALBUMIN 3.3 GM/DL (3.2-5.2); ALT/SGPT 36 U/L (12-78); BILIRUBIN,TOTAL 0.4 MG/DL (0.2-1.0); BLOOD UREA NITROGEN 5 MG/DL (7-18); CALCIUM LEVEL 8.3 MG/DL (8.8-10.2); CARBON DIOXIDE LEVEL 27 MEQ/L (21-32); CHLORIDE LEVEL 110 MEQ/L (98-107); GLOMERULAR FILTRATION RATE > 60.0 (>45); GLUCOSE, FASTING 149 MG/DL (70-100); POTASSIUM SERUM 4.4 MEQ/L (3.5-5.1); SODIUM LEVEL 143 MEQ/L (136-145); TOTAL PROTEIN 6.6 GM/DL (6.4-8.2)
[2018-10-13] MEDS: BUDESONIDE 0.5 MG/2 ML INHALATION SUSPENSION INH SCH ×2 (07:56→19:26)
[2018-10-13] MEDS: IPRATROPIUM 0.5MG/ALBUTEROL 2.5MG INH SOL UD 3ML (DUONEB)(J7620) NEB SCH ×3 (07:56→19:27)
[2018-10-13] MEDS: MAGNESIUM OXIDE 400 MG TAB (MAG-OX) PO SCH ×2 (08:15→20:11)
[2018-10-13] MEDS: CEFDINIR 300 MG CAP (OMNICEF) PO SCH ×2 (08:15→20:11)
[2018-10-13] MEDS: DOCUSATE SODIUM 100 MG CAP PO SCH ×2 (08:15→20:11)
[2018-10-13] MEDS: amLODIPine 5 MG TAB PO SCH (08:16)
[2018-10-13] MEDS: ENOXAPARIN 40 MG/0.4 ML SYRINGE (J1650) SC SCH (08:16)
[2018-10-13] MEDS: raNITIdine SYRUP 150 MG/10 ML UDC PO SCH ×2 (08:16→20:11)
[2018-10-13] MEDS: ASPIRIN 81 MG CHEW TABLET PO SCH (08:16)
[2018-10-13] MEDS: LACTOBACILLUS ACIDOPHILUS CAP (BACID) PO SCH ×3 (08:16→20:11)
[2018-10-13] MEDS: guaiFENesin ER 600 MG TAB PO SCH ×2 (08:16→20:11)
[2018-10-13] MEDS: SODIUM CHLORIDE NASAL 0.65% SPRAY BTL (OCEAN) SCH ×3 (08:17→20:12)
[2018-10-13] MEDS: HumaLOG INSULIN (NovoLOG) PER UNIT SC SCH ×4 (08:17→20:11)
[2018-10-13] MEDS: EUCERIN 120GM CREAM TOP SCH ×3 (08:18→20:12)
[2018-10-13] MEDS: TRIAMCINOLONE ACET 0.1% OINTMENT 80 GM TOP SCH ×2 (08:18→20:12)
[2018-10-13] MEDS: FLUTICASONE PROP 0.05% NASAL SPRAY 16 GM (FLONASE) NARES SCH (08:18)
--- NOTE | 2018-10-13 13:13 | IPNPDOC ---
Date Seen The patient was seen on 10/13/18. Progress Note HPI: 63-year-old female who presented to the emergency room with multiple massive episodes of projectile vomiting and diarrhea. The patient was admitted, intubated on 09/07/2018. 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 Infectious disease, Dr. Lyons was consulted for antimicrobial management for the patient. On September 16 because the patient had some altered NURSE LICENSED PRACTICAL a imaging was ordered and the brain MRI showed a small acute right caudate nucleus infarct. While the patient was intubated Dr. Andrade, the induction heating equipment setter was trying to wean the patient off sedation but was unable to. Therefore, on 09/19/2018 Dr. Rosales, ENT was consulted for tracheotomy placement. The trach was placed on 09/20/2017 with no complications. On September 30 the patient developed a maculopapular rash on her upper lower extremities that worsened to her chest and abdomen. As the rash did not improve with steroids and Benadryl dermatology was called for recommendations. It was believed to be acute generalized exanthematous pustulosis which is secondary to contrast media, recent antibiotic use and possibly PPI. Dermatology recommended steroid ointment supplemented with Eucerin cream. And discontinuation of all the offending agents. They also did recommend outpatient allergy testing once the patient is discharged as well. On 10/07/2018 the patient was discharged to ARU, Dr Napoles, for rehabilitation. The pt had apparently decannulated tracheostomy during cough 10/11/18. ENT was co nsulted, CT Neck completed. Her respirations remain stable, O2 sat stable. The pt states no further dysuria/frequency today. Denies urgency, back pain, abdominal pain. Denies any fevers, chills, Headache, Chest Pain, Shortness of breath, cough, palpitations, N/V/D or changes in bowel habits. PMHx: DM HTN HLD hypothyroid PE: GEN: 63yoF, appears stated age. No acute distress. Alert and oriented x 3. Pleasant, interactive. HEENT: Normocephalic, atraumatic. Sclera are nonicteric. Conjunctiva without injection. No facial asymmetry. Moist mucous membranes. CHEST: Regular rate and rhythm, +S1, +S2 LUNGS: Good A/E bilaterally. No wheezes, rales, or rhonchi. ABD: Round, soft, non-tender, non-distended. +Bowel sounds throughout. No rebound or guarding. No costovertebral angle tenderness. EXT: Pulses 2+ bilaterally dorsalis pedis and radial. No lower extremity edema appreciated. SKIN: [place], dry, warm. Diffuse rash resolving. NEURO: Alert and oriented x 3. Cranial nerves III-XII are intact. No focal deficits appreciated. A&P:63-year-old female who presented to the emergency room with multiple massive episodes of projectile vomiting and diarrhea. The patient was admitted, intubated on 09/07/2018. 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 Infectious disease, Dr. Lyons was consulted for antimicrobial management for the patient. On September 16 because the patient had some altered NURSE LICENSED PRACTICAL a imaging was ordered and the brain MRI showed a small acute right caudate nucleus infarct. While the patient was intubated Dr. Andrade, the induction heating equipment setter was trying to wean the patient off sedation but was unable to. Therefore, on 09/19/2018 Dr. Rosales, ENT was consulted for tracheotomy placement. The trach was placed on 09/20/2017 with no complications. On September 30 the patient developed a maculopapular rash on her upper lower extremities that worsened to her chest and abdomen. As the rash did not improve with steroids and Benadryl dermatology was called for recommendations. It was believed to be acute generalized exanthematous pustulosis which is secondary to contrast media, recent antibiotic use and possibly PPI. Dermatology recommended steroid ointment supplemented with Eucerin cream. And discontinuation of all the offending agents. They also did recommend outpatient allergy testing once the patient is discharged as well. On 10/07/2018 the patient was discharged to ARU, Dr Napoles, for rehabilitation. 1. Debility. Mgmt as per ARU. PT/OT/ST as per ARU. Pain control as per ARU Bowel care as per ARU DVT prophylaxis. Lovenox as per ARU 2. Macular papular rash, likely drug rash. -Dermatology consulted - Acute generalized exanthematous pustulosis likely cause 2/2 recent use of contrast media vs. vanc or pip/tazo recommend Triamcinolone 0.1% ointment bid to affected areas. -c/w Benadryl as needed -Continue to apply Eucerin cream to dry areas -follow up outpatient for allergy testing 2. Status post septic shock secondary to vibrio. -Completed course of antibiotics. 3. Status post acute respiratory failure secondary to septic shock and toxic metabolic encephalopathy. -Status post trach on 09/20/18. -The pt decannulated tracheostomy 10/11/18 AM during cough. -CT of the neck 09/28/18 noted significant edema, for which the patient is unable to get anti-cannulated. -CT neck 10/11/18 edema pattern resolved. -ENT consulted. 4. Acute CVA. -Improved - no focal deficits. -c/w aspirin. 5 Chronic anemia Hgb 9.5, stable. -No need for transfusion at this time. -Will need close outpatient follow-up with PCP. 6. Hypothyroidism -c/w Synthroid 7. Diabetes mellitus -c/w Levemir and SSI. 8. Hypertension -controlled -c/w losartan 9.GERD -stopped PPI (recommendation from DERM as possible trigger for the rash) cont ranitidine 10. Hypokalemia. Resolved PO supplement. Monitor BMP. 11. Hypomagnesemia. resolved po supplement BID Monitor mag level. 12. Possible UTI. Pt symptomatic 10/12, reports no symptoms today. Afebrile. WBC 7.5. UA 10/12/18 suggestive of UTI. UC pending. Omnicef 300mg BID . Continue Bacid 1 tab TID. Monitor. VS, I&O, 24H, Fishbone Vital Signs/I&O Vital Signs Date Time Temp Pulse Resp B/P (MAP) Pulse Ox O2 Delivery O2 Flow Rate FiO2 10/13/18 08:16 95 138/68 10/13/18 05:47 97.9 20 99 10/12/18 06:00 Trach Collar 5.0 10/10/18 11:04 28 I&O- Last 24 Hours up to 6 AM 10/13/18 06:00 Intake Total 2300 ml Output Total 500 ml Balance 1800 ml Laboratory Data 24H LABS Laboratory Tests 2 10/12/18 17:08: Bedside Glucose (Misc Panel) 160H 10/12/18 19:28: Bedside Glucose (Misc Panel) 213H 10/13/18 07:02: Nucleated Red Blood Cells % (auto) 0.0, Anion Gap 6L, Glomerular Filtration Rate > 60.0, Blood Urea Nitrogen 5L, Creatinine 0.50L, Sodium Level 143, Potassium Level 4.4#, Chloride Level 110H, Carbon Dioxide Level 27, Calcium Level 8.3L, Aspartate Amino Transf (AST/SGOT) 21, Alanine Aminotransferase (ALT/SGPT) 36, Alkaline Phosphatase 66, Total Bilirubin 0.4, Total Protein 6.6, Albumin 3.3, Magnesium Level 2.0, Albumin/Globulin Ratio 1.00 CBC/BMP Laboratory Tests 10/13/18 07:02 Red Blood Count 3.17 L, Mean Corpuscular Volume 97.2 H, Mean Corpuscular Hemoglobin 30.0, Mean Corpuscular Hemoglobin Concent 30.8 L, Red Cell Distribution Width 14.4, Calcium Level 8.3 L, Aspartate Amino Transf (AST/SGOT) 21, Alanine Aminotransferase (ALT/SGPT) 36, Alkaline Phosphatase 66, Total Bilirubin 0.4, Total Protein 6.6, Albumin 3.3 Microbiology Microbiology 10/12/18 Urine Culture, Received Pending 10/08/18 Urine Culture - Final, Complete Massiel Saldana Oct 13, 2018 13:13
[2018-10-13 14:00] VITALS: BP 187/75
[2018-10-13 17:30] VITALS: BP 141/65
[2018-10-13] MEDS: LEVEMIR (INSULIN DETEMIR) 1 UNITS/0.01ML SC SCH (20:11)
[2018-10-13] MEDS: diphenhydrAMINE 25 MG CAP PO PRN (20:11)
[2018-10-13 21:51] VITALS: BP 141/81
[2018-10-14] MEDS: LEVOTHYROXINE 75MCG TABLET (0.075MG) PO SCH (05:27)
[2018-10-14 06:09] VITALS: BP 136/73
[2018-10-14] MEDS: IPRATROPIUM 0.5MG/ALBUTEROL 2.5MG INH SOL UD 3ML (DUONEB)(J7620) NEB SCH ×2 (07:38→13:31)
[2018-10-14] MEDS: BUDESONIDE 0.5 MG/2 ML INHALATION SUSPENSION INH SCH ×2 (07:38→20:00)
[2018-10-14] MEDS: raNITIdine SYRUP 150 MG/10 ML UDC PO SCH ×2 (08:39→20:17)
[2018-10-14] MEDS: SODIUM CHLORIDE NASAL 0.65% SPRAY BTL (OCEAN) SCH ×3 (08:40→20:18)
[2018-10-14] MEDS: ENOXAPARIN 40 MG/0.4 ML SYRINGE (J1650) SC SCH (08:40)
[2018-10-14] MEDS: FLUTICASONE PROP 0.05% NASAL SPRAY 16 GM (FLONASE) NARES SCH (08:40)
[2018-10-14] MEDS: TRIAMCINOLONE ACET 0.1% OINTMENT 80 GM TOP SCH ×2 (08:41→20:17)
[2018-10-14] MEDS: EUCERIN 120GM CREAM TOP SCH ×3 (08:41→20:17)
[2018-10-14] MEDS: ASPIRIN 81 MG CHEW TABLET PO SCH (08:41)
[2018-10-14] MEDS: LACTOBACILLUS ACIDOPHILUS CAP (BACID) PO SCH ×3 (08:42→20:17)
[2018-10-14] MEDS: MAGNESIUM OXIDE 400 MG TAB (MAG-OX) PO SCH ×2 (08:42→20:17)
[2018-10-14] MEDS: guaiFENesin ER 600 MG TAB PO SCH ×2 (08:42→20:17)
[2018-10-14] MEDS: amLODIPine 5 MG TAB PO SCH (08:42)
[2018-10-14] MEDS: CEFDINIR 300 MG CAP (OMNICEF) PO SCH ×2 (08:42→20:17)
[2018-10-14] MEDS: DOCUSATE SODIUM 100 MG CAP PO SCH ×2 (08:43→20:17)
[2018-10-14] MEDS: HumaLOG INSULIN (NovoLOG) PER UNIT SC SCH ×4 (08:43→20:18)
--- NOTE | 2018-10-14 13:40 | IPNPDOC ---
Date Seen The patient was seen on 10/14/18. Progress Note HPI: 63-year-old female who presented to the emergency room with multiple massive episodes of projectile vomiting and diarrhea. The patient was admitted, intubated on 09/07/2018. 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 Infectious disease, Dr. Lyons was consulted for antimicrobial management for the patient. On September 16 because the patient had some altered SAP ENTERPRISE PORTAL CONSULTANT a imaging was ordered and the brain MRI showed a small acute right caudate nucleus infarct. While the patient was intubated Dr. Andrade, the haulage boss was trying to wean the patient off sedation but was unable to. Therefore, on 09/19/2018 Dr. Rosales, ENT was consulted for tracheotomy placement. The trach was placed on 09/20/2017 with no complications. On September 30 the patient developed a maculopapular rash on her upper lower extremities that worsened to her chest and abdomen. As the rash did not improve with steroids and Benadryl dermatology was called for recommendations. It was believed to be acute generalized exanthematous pustulosis which is secondary to contrast media, recent antibiotic use and possibly PPI. Dermatology recommended steroid ointment supplemented with Eucerin cream. And discontinuation of all the offending agents. They also did recommend outpatient allergy testing once the patient is discharged as well. On 10/07/2018 the patient was discharged to ARU, Dr Napoles, for rehabilitation. The pt had apparently decannulated tracheostomy during cough 10/11/18. ENT was consulted, CT Neck completed. Her respirations remain stable, O2 sat stable. The pt states no further dysuria/frequency. Denies urgency, back pain, abdominal pain. Denies any fevers, chills, Headache, Chest Pain, Shortness of breath, cough, palpitations, N/V/D or changes in bowel habits. PMHx: DM HTN HLD hypothyroid PE: GEN: 63yoF, appears stated age. No acute distress. Alert and oriented x 3. Pleasant, interactive. HEENT: Normocephalic, atraumatic. Sclera are nonicteric. Conjunctiva without injection. No facial asymmetry. Moist mucous membranes. CHEST: Regular rate and rhythm, +S1, +S2 LUNGS: Good A/E bilaterally. No wheezes, rales, or rhonchi. ABD: Round, soft, non-tender, non-distended. +Bowel sounds throughout. No rebound or guarding. No costovertebral angle tenderness. EXT: Pulses 2+ bilaterally dorsalis pedis and radial. No lower extremity edema appreciated. SKIN: [place], dry, warm. Diffuse rash appears to be improving. NEURO: Alert and oriented x 3. Cranial nerves III-XII are intact. No focal deficits appreciated. A&P:63-year-old female who presented to the emergency room with multiple massive episodes of projectile vomiting and diarrhea. The patient was admitted, intubated on 09/07/2018. 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 Infectious disease, Dr. Lyons was consulted for antimicrobial management for the patient. On September 16 because the patient had some altered SAP ENTERPRISE PORTAL CONSULTANT a imaging was ordered and the brain MRI showed a small acute right caudate nucleus infarct. While the patient was intubated Dr. Andrade, the haulage boss was trying to wean the patient off sedation but was unable to. Therefore, on 09/19/2018 Dr. Rosales, ENT was consulted for tracheotomy placement. The trach was placed on 09/20/2017 with no complications. On September 30 the patient developed a maculopapular rash on her upper lower extremities that worsened to her chest and abdomen. As the rash did not improve with steroids and Benadryl dermatology was called for recommendations. It was believed to be acute generalized exanthematous pustulosis which is secondary to contrast media, recent antibiotic use and possibly PPI. Dermatology recommended steroid ointment supplemented with Eucerin cream. And discontinuation of all the offending agents. They also did recommend outpatient allergy testing once the patient is discharged as well. On 10/07/2018 the patient was discharged to ARU, Dr Napoles, for rehabilitation. 1. Debility. Mgmt as per ARU. PT/OT/ST as per ARU. Pain control as per ARU Bowel care as per ARU DVT prophylaxis. Lovenox as per ARU 2. Macular papular rash, likely drug rash. -Dermatology consulted - Acute generalized exanthematous pustulosis likely cause 2/2 recent use of contrast media vs. vanc or pip/tazo recommend Triamcinolone 0.1% ointment bid to affected areas. -c/w Benadryl as needed -Continue to apply Eucerin cream to dry areas -follow up outpatient for allergy testing 2. Status post septic shock secondary to vibrio. -Completed course of antibiotics. 3. Status post acute respiratory failure secondary to septic shock and toxic metabolic encephalopathy. -Status post trach on 09/20/18. -The pt decannulated tracheostomy 10/11/18 AM during cough. -CT of the neck 09/28/18 noted significant edema, for which the patient is unable to get anti-cannulated. -CT neck 10/11/18 edema pattern resolved. -ENT consulted. 4. Acute CVA. -Improved - no focal deficits. -c/w aspirin. 5 Chronic anemia Hgb 9.5, stable. -No need for transfusion at this time. -Will need close outpatient follow-up with PCP. 6. Hypothyroidism -c/w Synthroid 7. Diabetes mellitus -c/w Levemir and SSI. 8. Hypertension -controlled -c/w losartan 9.GERD -stopped PPI (recommendation from DERM as possible trigger for the rash) cont ranitidine 10. Hypokalemia. Resolved PO supplement. Monitor BMP. 11. Hypomagnesemia. resolved po supplement BID Monitor mag level. 12.UTI. E Coli. Pt symptomatic 10/12, reports no symptoms resolved. Afebrile. WBC 7.5. UC E coli. Omnicef 300mg BID D3/7. Continue Bacid 1 tab TID. Monitor. VS, I&O, 24H, Fishbone Vital Signs/I&O Vital Signs Date Time Temp Pulse Resp B/P (MAP) Pulse Ox O2 Delivery O2 Flow Rate FiO2 10/14/18 08:42 89 136/73 10/14/18 06:09 97.4 18 97 10/12/18 06:00 Trach Collar 5.0 10/10/18 11:04 28 I&O- Last 24 Hours up to 6 AM 10/14/18 06:00 Intake Total 960 ml Output Total 0 ml Balance 960 ml Laboratory Data 24H LABS Laboratory Tests 2 10/13/18 16:53: Bedside Glucose (Misc Panel) 224H 10/13/18 19:35: Bedside Glucose (Misc Panel) 154H 10/14/18 05:30: Bedside Glucose (Misc Panel) 110 10/14/18 11:27: Bedside Glucose (Misc Panel) 89 Microbiology Microbiology 10/12/18 Urine Culture - Final, Complete Escherichia Coli 10/08/18 Urine Culture - Final, Complete Massiel Saldana Oct 14, 2018 13:40
[2018-10-14] MEDS ORDERED: VARIBAR PUDDING 40% w/v 230ML TUBE As Ordered ONE (13:46)
[2018-10-14] MEDS ORDERED: VARIBAR NECTAR 40% w/v 240ML SUSP BTL As Ordered ONE (13:47)
[2018-10-14] MEDS ORDERED: E-Z-PAQUE 96% w/w SUSP 176GM BTL As Ordered ONE (13:47)
[2018-10-14 14:00] VITALS: BP 131/70
[2018-10-14] MEDS ORDERED: BARIUM SULFATE 700 MG TABLET (E-Z-DISK) As Ordered ONE (14:02)
--- NOTE | 2018-10-14 14:49 | IPNPDOC ---
PM&R Progress Note DATE OF SERVICE: Oct 14, 2018 [employer] Progress Note Subjective: Patient seen in room and ambulating with AD in halls, states she is feeling very well and that she will be returning home to be with her . Her daughter is in the process of being placed in a facilicty equipped to handle behavioral and medical issues. REVIEW OF SYSTEMS: The following is a completed review of systems and has been reviewed. Review of systems otherwise unremarkable. PAIN: Patient self reports painful itchy rash EYES: Negative for vision changes EARS, NOSE, & THROAT: +dysphagia CARDIOVASCULAR: denies chest pain or palpitations PULMONARY: Negative. Denies shortness of breath, tracheostomy GASTROINTESTINAL: Negative for constipation, diarrhea, or vomiting GENITOURINARY:Negative for dysuria or incontinence. MUSCULOSKELETAL: no focal weakness NEUROLOGICAL: +CVA SKIN: diffuse maculopapular rash-improving PSYCHIATRIC: Unremarkable All other review of systems found to be negative. PHYSICAL EXAMINATION: VITAL SIGNS: Please see below. GENERAL: Pleasant and cooperative. No acute distress. HEENT: PERRL. Extraocular movements intact. Clear conjunctiva, tracheostomy site healing well CARDIOVASCULAR: Regular rate and rhythm. No murmurs, rubs, or gallops LUNGS: Clear to auscultation bilaterally. No wheezes. No rhonchi ABDOMEN: Soft, nontender, nondistended. Positive bowel sounds. Normal active bowel sounds NEUROLOGICAL: Alert and oriented times three. Cranial nerves II through XII grossly intact. Sensation grossly intact EXTREMITIES:5\5 strength bilateral upper extremities.5\5 strength right lower extremity. 5/5 strength in left lower extremity. SKIN: diffuse peeling maculopapular rash on truck,abdomen, and extremities- improving ASSESSMENT:63-year-old F with past medical history of HTN, DM who presents status post septic shock, respiratory failure requiring tracheostomy, and new CVA. PLAN: 1. Rehab: OT/PT, MBS today with GUN EXAMINER, ambulating well without AD, will give room privileges 2. Neuro: recent right caudate stroke, continue ASA, statin and BP management 3. Cardio: pmh HTN, continue BPs meds and adjust prn, medicine consulted 4. Resp: s/p respiratory failure requiring tracheostomy performed 09/20/18 with #6 fenestrated trach, with laryngeal edema patient self-decannulated 10/11/18 during respiratory treatment, evaluated by ENT, breathing comfortable and repeat CT neck showed resolution of prior noted subglottic edema -will need outpatient ENT f/u -will trial capping while on inpatient starting tomorrow -nasal saline drops and flonase 5. Endo:pmh hypothyroidism and DM, continue home meds, will monitor insulin and adjust prn 6. Derm: recently diagnosed generalized exanthematous pustulosis, per patient Tr iamcinolone cream bazan and Eucerin provides more relief- continue Eucerin and po benadryl, will need outpatient allergy testing 7. GI ppx: Ranitidine 8. DVT: Lovenox 9. : admission UA and Ucx negative, monitor PVRs 10. Disp: 10/17/18 to home, progressing towards goals Allergies Coded Allergies: Latex (Verified Allergy, Unknown, rash powdered gloves, 02/01/18) Vital Signs Vital Signs Date Time Temp Pulse Resp B/P (MAP) Pulse Ox O2 Delivery O2 Flow Rate FiO2 10/14/18 08:42 89 136/73 10/14/18 06:09 97.4 18 97 10/12/18 06:00 Trach Collar 5.0 10/10/18 11:04 28 Laboratory Data Labs 24H Laboratory Tests 2 10/13/18 16:53: Bedside Glucose (Misc Panel) 224H 10/13/18 19:35: Bedside Glucose (Misc Panel) 154H 10/14/18 05:30: Bedside Glucose (Misc Panel) 110 10/14/18 11:27: Bedside Glucose (Misc Panel) 89 Microbiology Microbiology 10/12/18 Urine Culture - Final, Complete Escherichia Coli 10/08/18 Urine Culture - Final, Complete Current Medications Current Medications Current Medications Acetaminophen (Tylenol Tab) 650 mg Q4HP PRN PO fever/MILD PAIN (PS 1-4) Last administered on 10/08/18at 10:15; Start 10/07/18 at 14:30 Albuterol/ Ipratropium (Duoneb (Ipr 0.5mg/Alb 2.5mg)) 3 ml Q4HP PRN NEB SO B/WHEEZING; Start 10/07/18 at 15:00; Stop 10/07/18 at 16:04; Status DC Albuterol/ Ipratropium (Duoneb (Ipr 0.5mg/Alb 2.5mg)) 3 ml RTID NEB Last administered on 10/14/18 07:38; Start 10/07/18 at 20:00; Stop 10/14/18 at 14:11; Status DC Amlodipine Besylate (Norvasc) 5 mg DAILY PO Last administered on 10/14/18 08:42; Start 10/08/18 at 09:00 Aspirin (Aspirin Chewable) 162 mg DAILY NG Last administered on 10/08/18 09:40; Start 10/08/18 at 09:00; Stop 10/08/18 at 14:52; Status DC Aspirin (Aspirin Chewable) 162 mg DAILY PO Last administered on 10/14/18 08:41; Start 10/09/18 at 09:00 Budesonide (Pulmicort) 0.5 mg RBID INH Last administered on 10/14/18 07:38; Start 10/07/18 at 20:00 Cefdinir (Omnicef) 300 mg BID PO Last administered on 10/14/18 08:42; Start 10/12/18 at 09:00; Stop 10/18/18 at 21:01 Cetylpyridinium Chloride (Cepacol) 1 arnoldo Q2HP PRN PO SORE THROAT Last administered on 10/12/18 09:40; Start 10/07/18 at 20:00 Dextrose (Dextrose 50%) 25 ml ASDIRECTED PRN IV SEE LABEL COMMENTS; Start 10/07/18 at 15:00 Diphenhydramine HCl (Benadryl) 25 mg Q4HP PRN IM AGITATION; Start 10/07/18 at 15:00; Stop 10/07/18 at 19:58; Status DC Diphenhydramine HCl (Benadryl) 25 mg Q4HP PRN PO ITCHING Last administered on 10/13/18 20:11; Start 10/07/18 at 20:00 Docusate Sodium (Colace) 100 mg BID PO Last administered on 10/13/18 20:11; Start 10/12/18 at 09:00 Enoxaparin Sodium (Lovenox) 40 mg DAILY SC Last administered on 10/14/18 08:40; Start 10/08/18 at 09:00 Fluticasone Propionate (Flonase 0.05% Nasal [place]) 2 spray DAILY NARES Last administered on 2/1/19at 08:40; Start 10/10/18 at 09:00 Glucagon (Glucagon) 1 mg ASDIRECTED PRN SC SEE LABEL COMMENTS; Start 10/07/18 at 15:00 Glucose (Glucose) 16 GM ASDIRECTED PRN PO SEE LABEL COMMENTS; Start 10/07/18 at 15:00 Guaifenesin (Mucinex Tab Er) 600 mg BID PO Last administered on 10/14/18at 08:42; Start 10/07/18 at 21:00 Home Med (Med Rec Complete!) ASDIRECTED XX ; Start 10/07/18 at 15:30; Stop 10/07/18 at 15:41; Status DC Insulin Detemir (Levemir Insulin) 25 units QHS SC Last administered on 10/13/18at 20:11; Start 10/07/18 at 21:00 Insulin Human Lispro (HumaLOG INSULIN) SEE PROTOCOL TABLE QHS SC ; Start 10/07/18 at 21:00 Insulin Human Lispro (HumaLOG INSULIN) See Protocol Table AC SC Last administered on 10/14/18at 08:43; Start 10/08/18 at 07:30 Lactobacillus Acidophilus (Bacid) 1 ea TID PO Last administered on 10/14/18at 08:42; Start 10/12/18 at 16:00 Levothyroxine Sodium (Synthroid) 75 mcg DAILY@06 PO Last administered on 10/14/18at 05:27; Start 10/08/18 at 06:00 Magnesium Oxide (Mag-Ox) 400 mg BID PO Last administered on 10/14/18at 08:42; Start 10/12/18 at 21:00 Magnesium Oxide (Mag-Ox) 400 mg DAILY PO Last administered on 10/12/18at 08:03; Start 10/11/18 at 09:00; Stop 10/12/18 at 13:46; Status DC Mineral Oil/White Petrolatum (Eucerin) 1 dose TID TOP Last administered on 10/14/18at 08:41; Start 10/07/18 at 16:00 Miscellaneous (Unresolved Clarification Entry) SEE LABEL COMMENTS DAILY XX ; Start 10/14/18 at 09:00; Stop 10/14/18 at 10:42; Status DC Polyethylene Glycol (Miralax) 1 pkt DAILYPRN PRN PO CONSTIPATION Last administered on 10/12/18 09:37; Start 10/12/18 at 09:30 Ranitidine HCl (Zantac) 150 mg BID GT Last administered on 10/08/18at 09:40; Start 10/07/18 at 21:00; Stop 10/08/18 at 14:52; Status DC Ranitidine HCl (Zantac) 150 mg BID PO Last administered on 10/14/18 08:39; Start 10/08/18 at 21:00 Sodium Chloride (Garceno Nasal [place]) 2 spray TID NA Last administered on 10/14/18at 08:40; Start 10/10/18 at 16:00 Trazodone HCl (Desyrel) 25 mg Q6HP PRN PO AGITATION; Start 10/07/18 at 15:00 Trazodone HCl (Desyrel) 25 mg QHSP PRN PO INSOMNIA; Start 10/07/18 at 15:00 Triamcinolone Acetonide (Kenalog 0.1% Ointment) APPLY SPARINGLY TO R... BID TOP Last administered on 10/14/18at 08:41; Start 10/08/18 at 09:00 CORY RATLIFF MD Oct 14, 2018 14:49
[2018-10-14 20:00] VITALS: BP 138/72
[2018-10-14] MEDS: diphenhydrAMINE 25 MG CAP PO PRN (20:17)
[2018-10-14] MEDS: LEVEMIR (INSULIN DETEMIR) 1 UNITS/0.01ML SC SCH (20:18)
[2018-10-15] MEDS: LEVOTHYROXINE 75MCG TABLET (0.075MG) PO SCH (05:36)
[2018-10-15 05:51] VITALS: BP 126/72
[2018-10-15 07:06] LABS: HEMATOCRIT 34.5 % (36.0-47.0); HEMOGLOBIN 10.4 g/dl (12.0-15.5); MEAN CORPUSCULAR HEMOGLOBIN 29.7 pg (27.0-33.0); MEAN CORPUSCULAR HGB CONC 30.1 g/dl (32.0-36.5); MEAN CORPUSCULAR VOLUME 98.6 fl (80.0-96.0); PLATELET COUNT, AUTOMATED 368 10^3/uL (150-450); WHITE BLOOD COUNT 7.5 10^3/uL (4.0-10.0)
[2018-10-15] MEDS: HumaLOG INSULIN (NovoLOG) PER UNIT SC SCH ×4 (07:30→20:52)
[2018-10-15 07:36] LABS: BLOOD UREA NITROGEN 6 MG/DL (7-18); CALCIUM LEVEL 9.3 MG/DL (8.8-10.2); CARBON DIOXIDE LEVEL 28 MEQ/L (21-32); CHLORIDE LEVEL 108 MEQ/L (98-107); CREATININE FOR GFR 0.55 MG/DL (0.55-1.30); GLOMERULAR FILTRATION RATE > 60.0 (>45); GLUCOSE, FASTING 127 MG/DL (70-100); SODIUM LEVEL 143 MEQ/L (136-145)
[2018-10-15] MEDS: BUDESONIDE 0.5 MG/2 ML INHALATION SUSPENSION INH SCH ×2 (08:00→21:28)
[2018-10-15] MEDS: raNITIdine SYRUP 150 MG/10 ML UDC PO SCH ×2 (08:37→20:50)
[2018-10-15] MEDS: guaiFENesin ER 600 MG TAB PO SCH ×2 (08:38→20:51)
[2018-10-15] MEDS: amLODIPine 5 MG TAB PO SCH (08:38)
[2018-10-15] MEDS: DOCUSATE SODIUM 100 MG CAP PO SCH ×2 (08:38→20:51)
[2018-10-15] MEDS: CEFDINIR 300 MG CAP (OMNICEF) PO SCH ×2 (08:38→20:50)
[2018-10-15] MEDS: LACTOBACILLUS ACIDOPHILUS CAP (BACID) PO SCH ×3 (08:38→20:50)
[2018-10-15] MEDS: MAGNESIUM OXIDE 400 MG TAB (MAG-OX) PO SCH ×2 (08:38→20:50)
[2018-10-15] MEDS: ASPIRIN 81 MG CHEW TABLET PO SCH (08:38)
[2018-10-15] MEDS: ENOXAPARIN 40 MG/0.4 ML SYRINGE (J1650) SC SCH (08:39)
[2018-10-15] MEDS: SODIUM CHLORIDE NASAL 0.65% SPRAY BTL (OCEAN) SCH ×3 (08:40→20:51)
[2018-10-15] MEDS: FLUTICASONE PROP 0.05% NASAL SPRAY 16 GM (FLONASE) NARES SCH (08:40)
[2018-10-15] MEDS: EUCERIN 120GM CREAM TOP SCH ×3 (08:40→20:52)
[2018-10-15] MEDS: TRIAMCINOLONE ACET 0.1% OINTMENT 80 GM TOP SCH ×2 (08:41→20:52)
--- NOTE | 2018-10-15 09:03 | IPNPDOC ---
Date Seen The patient was seen on 10/15/18. Progress Note SUBJECTIVE: Patient is a 63-year-old female was seen and examined this morning. There was no complaints this a.m. In a very commutative move this m orning for she does not have trach anymore. She is excited that she gets to go home on Wednesday and she has 1 final session in ARU tomorrow. She states that her rash has improved significantly her itching is still present but not as bad. The Eucerin cream and the steroid cream has helped a lot. She states that she has sensitive skin which she has noticed in the past to jewelry especially. Continues to work with PT OT as scheduled by ARU. Denies fevers chills headache chest pain shortness of breath cough palpitation abdominal pain nausea vomiting diarrhea. No changes will be made today with her medications and follow plan detailed by ARU. OBJECTIVE PHYSICAL EXAMINATION: VITAL SIGNS: Please see below. GENERAL: Pleasant 63-year-old female, who appears frail HEENT: Normocephalic, atraumatic. Sclera nonicteric. Moist mucous membrane cervical collar in place. CARDIOVASCULAR: Regular rate and rhythm normal S1-S2 sounds no audible murmurs gallops RESPIRATORY: Clear to auscultate bilaterally. No wheezing rales or rhonchi ABDOMINAL: Positive bowel sounds in all 4 quadrants of round soft nontender nondistended. EXTREMITIES: No lower extremity edema or tenderness appreciated in the calves NEUROLOGICAL: Alert and oriented 3 normal speech no focal deficits noted SKIN: Minimal Diffuse macular papillary rash under breasts bilaterally and lower legs.(Improved significantly) Dry skin can be appreciated around the knees and and upper arm LABORATORY DATA, IMAGING STUDIES, MICROBIOLOGY: Please see below. DVT prophylaxis ordered?: Yes Lovenox A&P 63-year-old female admitted for rehabilitation from prolonged hospital stay. Debility. Management per areARU. Macular papular rash, likely drug rash. -Dermatology consulted - Acute generalized exanthematous pustulosis likely cause 2/2 recent use of contrast media vs. vanc or pip/tazo recommend Triamcinolone 0.1% ointment bid to affected areas. -c/w Benadryl as needed -Continue to apply Eucerin cream to dry areas -follow up outpatient for allergy testing Status post septic shock secondary to vibrio. -Completed course of antibiotics. Status post acute respiratory failure secondary to septic shock and toxic metabolic encephalopathy. -Status post trach on 09/20/18. -decannulated tracheostomy 10/11/18 AM during cough. -CT of the neck 09/28/18 noted significant edema, for which the patient is unable to get cannulate removed. -CT neck 10/11/18 edema pattern resolved. -ENT consulted. Acute CVA. -Improved - no focal deficits. -c/w aspirin. Chronic anemia Hgb 9.5, stable. -No need for transfusion at this time. -Will need close outpatient follow-up with PCP. Hypothyroidism -c/w Synthroid Diabetes mellitus -c/w Levemir and SSI. Hypertension -controlled -c/w losartan GERD -stopped PPI (recommendation from DERM as possible trigger for the rash) -c/w ranitidine UTI. E Coli. -Pt symptomatic 10/12, reports no symptoms resolved. -c/w Omnicef 300mg BID -Continue Bacid 1 tab TID. -Monitor. VS, I&O, 24H, Fishbone Vital Signs/I&O Vital Signs Date Time Temp Pulse Resp B/P (MAP) Pulse Ox O2 Delivery O2 Flow Rate FiO2 10/15/18 05:51 98.1 75 16 126/72 (90) 97 10/12/18 06:00 Trach Collar 5.0 10/10/18 11:04 28 I&O- Last 24 Hours up to 6 AM 10/15/18 06:00 Intake Total 2280 ml Balance 2280 ml Laboratory Data 24H LABS Laboratory Tests 2 10/14/18 11:27: Bedside Glucose (Misc Panel) 89 10/14/18 16:36: Bedside Glucose (Misc Panel) 173H 10/14/18 20:11: Bedside Glucose (Misc Panel) 176H 10/15/18 05:36: Bedside Glucose (Misc Panel) 117H Microbiology Microbiology 10/12/18 Urine Culture - Final, Complete Escherichia Coli 10/08/18 Urine Culture - Final, Complete GME ATTESTATION GME ATTESTATION My faculty preceptor for this patient encounter was physically present during the encounter and was fully available. All aspects of the patient interview, examination, medical decision making process, and medical care plan development were reviewed and approved by the faculty preceptor. The faculty preceptor is aware and concurs with the plan as stated in the body of this note and will attest to such by his/her cosignature. ATTENDING NOTE I have both independently examined this patient as well as reviewed the note I have discussed in detail the findings and plan of treatment as documented in the note. I will continue to follow the patient and offer further guidance to the patients care as necessary during this hospital stay. SUSIE Mckenna MD, DO Oct 15, 2018 06:44 MARINO GALLEGOS MD Oct 15, 2018 11:00
[2018-10-15 14:00] VITALS: BP 144/74
[2018-10-15 20:00] VITALS: BP 124/70
[2018-10-15] MEDS: LEVEMIR (INSULIN DETEMIR) 1 UNITS/0.01ML SC SCH (20:50)
[2018-10-15] MEDS: diphenhydrAMINE 25 MG CAP PO PRN (20:51)
[2018-10-16] MEDS: LEVOTHYROXINE 75MCG TABLET (0.075MG) PO SCH (05:37)
[2018-10-16 06:00] VITALS: BP 113/55
[2018-10-16] MEDS: HumaLOG INSULIN (NovoLOG) PER UNIT SC SCH ×4 (07:30→20:38)
[2018-10-16] MEDS: BUDESONIDE 0.5 MG/2 ML INHALATION SUSPENSION INH SCH ×2 (08:00→20:00)
[2018-10-16] MEDS: LACTOBACILLUS ACIDOPHILUS CAP (BACID) PO SCH ×4 (08:18→20:56)
[2018-10-16] MEDS: amLODIPine 5 MG TAB PO SCH (08:18)
[2018-10-16] MEDS: raNITIdine SYRUP 150 MG/10 ML UDC PO SCH ×2 (08:18→20:56)
[2018-10-16] MEDS: guaiFENesin ER 600 MG TAB PO SCH ×2 (08:18→20:56)
[2018-10-16] MEDS: DOCUSATE SODIUM 100 MG CAP PO SCH ×2 (08:18→20:56)
[2018-10-16] MEDS: ASPIRIN 81 MG CHEW TABLET PO SCH (08:18)
[2018-10-16] MEDS: MAGNESIUM OXIDE 400 MG TAB (MAG-OX) PO SCH ×2 (08:18→20:56)
[2018-10-16] MEDS: CEFDINIR 300 MG CAP (OMNICEF) PO SCH ×2 (08:18→20:56)
[2018-10-16] MEDS: ENOXAPARIN 40 MG/0.4 ML SYRINGE (J1650) SC SCH (08:19)
[2018-10-16] MEDS: EUCERIN 120GM CREAM TOP SCH ×3 (08:20→20:58)
[2018-10-16] MEDS: TRIAMCINOLONE ACET 0.1% OINTMENT 80 GM TOP SCH ×2 (08:20→20:59)
[2018-10-16] MEDS: SODIUM CHLORIDE NASAL 0.65% SPRAY BTL (OCEAN) SCH ×3 (08:21→20:57)
[2018-10-16] MEDS: FLUTICASONE PROP 0.05% NASAL SPRAY 16 GM (FLONASE) NARES SCH (08:21)
[2018-10-16 14:54] VITALS: BP 131/76
[2018-10-16 20:00] VITALS: BP 130/75
--- NOTE | 2018-10-16 20:17 | IPN ---
DATE: 10/16/2018 SUBJECTIVE: The patient is seen and examined. No acute events overnight. Denies any chest pain, pressure or discomfort. Currently independent in her room. Denies any fevers or chills. Denies any shortness of breath. VITAL SIGNS: Temperature 97.9, pulse 73, respirations 16, blood pressure 113/55, pulse oximetry 96% on room air. LABORATORY: WBC 7.5, hemoglobin and hematocrit 10.4/34.5, platelets 368. Chemistry: Sodium 143, potassium 4, chloride 108, bicarbonate 28, BUN 6, creatinine 0.55. PHYSICAL EXAMINATION: GENERAL: The patient is alert, chronic otitis mediastinal. In no acute distress. HEENT: Normocephalic, atraumatic. Tracheal opening dressing is clean, dry and intact. CARDIAC: Regular. S1, S2. PULMONARY : Bilaterally clear. No wheeze, rales or rhonchi. ABDOMEN: Soft, nontender. Positive bowel sounds. EXTREMITIES: No clubbing, cyanosis or edema. ASSESSMENT AND PLAN: This is a 63-year-old female with underlying medical history of diabetes, hypertension, dyslipidemia, hypothyroidism, patient was initially seen in the emergency room with multiple episodes of vomiting and diarrhea. Was intubated on 09/07/2018, found to be in septic shock due to Vibrio parahaemolytica infection. Infectious disease was consulted. The patient was given antimicrobial. Had extensive workup, including lumbar puncture, MRI. MRI showed a small acute right caudate nuclear infarct. Despite best efforts, the patient was unable to be extubated by electrical project engineer. On 09/20/2018, the patient had tracheostomy by ENT. Hospital course further complicated by diffuse maculopapular rash. Dermatology was consulted. It was believed to be secondary to acute generalized exanthematous pustulosis due to contrast media and possible recent antibiotics and possible proton pump inhibitor. Dermatology recommended steroid ointment and Eucerin cream with marked improvement. Outpatient allergy testing is also recommended. Subsequently, the patient was transferred to acute rehabilitation on 10/07/2018 for further treatment. 1. Debility. Management as per acute rehabilitation provider. Physical therapy (PT), occupational therapy (OT), speech and swallow, pain regimen and bowel care. 2. Deep vein thrombosis (DVT) prophylaxis. The patient is on Lovenox as per acute rehabilitation provider. 3. Maculopapular rash, likely drug rash. Dermatology was consulted. Diagnosed with acute generalized exanthematous pustulosis secondary to contrast versus vancomycin, Zosyn. Steroid cream was prescribed. Eucerin cream was prescribed with marked improvement. We will continue to monitor. Followup outpatient for allergy testing. 4. Status post septic shock due to Vibrio infection. Completed antibiotics. 5. Status post acute respiratory failure secondary to septic shock and metabolic encephalopathy. Status post tracheostomy on 09/20/2018. Trach was decannulated on 10/11/[address]. Subsequent CT scan noted edema, for which the patient has been unable to be recannulated. ENT was consulted. Given the patient has no respiratory distress at this time, recommended keeping the trach out. 6. Acute CVA, improved. No focal deficits. Continue aspirin. 7. Chronic anemia. Monitor hemoglobin and hematocrit. Outpatient followup. 8. Hypothyroidism. Continue Synthroid. 9. Diabetes. Continue current coverage. Followup fingersticks. 10. Hypertension. Continue current blood pressure medication, Norvasc. Monitor blood pressure. 11. Gastroesophageal reflux disease (GERD). Continue ranitidine. 12. Hypokalemia, resolved. 13. Hypomagnesemia, resolved. We will continue to monitor. 14. Urinary tract infection (UTI) due to Escherichia (E) coli. Patient treated with Cefdinir. The patient will complete a course of Cefdinir. 15. Deep vein thrombosis (DVT) prophylaxis. The patient is on Lovenox as per acute rehabilitation provider. DISPOSITION: Likely discharge in the next 24 hours by acute rehabilitation provider.
[2018-10-16] MEDS: LEVEMIR (INSULIN DETEMIR) 1 UNITS/0.01ML SC SCH (20:57)
[2018-10-17 06:00] VITALS: BP 124/72
[2018-10-17] MEDS: LEVOTHYROXINE 75MCG TABLET (0.075MG) PO SCH (06:10)
[2018-10-17 07:30] LABS: HEMATOCRIT 32.6 % (36.0-47.0); HEMOGLOBIN 10.3 g/dl (12.0-15.5); MEAN CORPUSCULAR HEMOGLOBIN 30.5 pg (27.0-33.0); MEAN CORPUSCULAR HGB CONC 31.6 g/dl (32.0-36.5); MEAN CORPUSCULAR VOLUME 96.4 fl (80.0-96.0); PLATELET COUNT, AUTOMATED 333 10^3/uL (150-450); RED BLOOD COUNT 3.38 10^6/uL (4.00-5.40)
[2018-10-17] MEDS: HumaLOG INSULIN (NovoLOG) PER UNIT SC SCH (07:30)
[2018-10-17] MEDS: BUDESONIDE 0.5 MG/2 ML INHALATION SUSPENSION INH SCH (08:00)
[2018-10-17 08:31] LABS: BLOOD UREA NITROGEN 11 MG/DL (7-18); CALCIUM LEVEL 8.8 MG/DL (8.8-10.2); CARBON DIOXIDE LEVEL 26 MEQ/L (21-32); CHLORIDE LEVEL 106 MEQ/L (98-107); CREATININE FOR GFR 0.54 MG/DL (0.55-1.30); GLOMERULAR FILTRATION RATE > 60.0 (>45); GLUCOSE, FASTING 139 MG/DL (70-100); MAGNESIUM LEVEL 2.1 MG/DL (1.8-2.4); POTASSIUM SERUM 3.9 MEQ/L (3.5-5.1); SODIUM LEVEL 141 MEQ/L (136-145)
[2018-10-17 08:44] VITALS: BP 124/72
[2018-10-17] MEDS: CEPACOL LOZENGE PO PRN (08:44)
[2018-10-17] MEDS: amLODIPine 5 MG TAB PO SCH (08:44)
[2018-10-17] MEDS: DOCUSATE SODIUM 100 MG CAP PO SCH (08:44)
[2018-10-17] MEDS: raNITIdine SYRUP 150 MG/10 ML UDC PO SCH (08:44)
[2018-10-17] MEDS: MAGNESIUM OXIDE 400 MG TAB (MAG-OX) PO SCH (08:44)
[2018-10-17] MEDS: LACTOBACILLUS ACIDOPHILUS CAP (BACID) PO SCH (08:45)
[2018-10-17] MEDS: EUCERIN 120GM CREAM TOP SCH (08:45)
[2018-10-17] MEDS: ASPIRIN 81 MG CHEW TABLET PO SCH (08:45)
[2018-10-17] MEDS: SODIUM CHLORIDE NASAL 0.65% SPRAY BTL (OCEAN) SCH (08:45)
[2018-10-17] MEDS: FLUTICASONE PROP 0.05% NASAL SPRAY 16 GM (FLONASE) NARES SCH (08:45)
[2018-10-17] MEDS: ENOXAPARIN 40 MG/0.4 ML SYRINGE (J1650) SC SCH (08:45)
[2018-10-17] MEDS: TRIAMCINOLONE ACET 0.1% OINTMENT 80 GM TOP SCH (08:46)
[2018-10-17] MEDS: CEFDINIR 300 MG CAP (OMNICEF) PO SCH (08:47)
[2018-10-17] MEDS: guaiFENesin ER 600 MG TAB PO SCH (08:49)
[2018-10-17] MEDS ORDERED: AMLO5TAB6 PO (09:49)
[2018-10-17] MEDS ORDERED: CHIL81CH2 PO (09:49)
[2018-10-17] MEDS ORDERED: INSUHUMDS SC (09:49)
[2018-10-17] MEDS ORDERED: TRIA1OI80 TOP (09:49)
[2018-10-17] MEDS ORDERED: DIPH25CA PO (09:49)
[2018-10-17] MEDS ORDERED: INSUDET SC (09:49)
[2018-10-17] MEDS ORDERED: CEFD300CAP PO (09:49)
[2018-10-17] MEDS ORDERED: SYNT75TA PO (09:49)
[2018-10-17] MEDS ORDERED: MAG400TA PO (09:49)
[2018-10-17] MEDS ORDERED: FLUTISP NARES (09:49)
--- NOTE | 2018-10-17 11:41 | IPNPDOC ---
Date Seen The patient was seen on 10/17/18. Progress Note HPI: 63-year-old female who presented to the emergency room with multiple massive episodes of projectile vomiting and diarrhea. The patient was admitted, intubated on 09/07/2018. 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 Infectious disease, Dr. Lyons was consulted for antimicrobial management for the patient. On September 16 because the patient had some altered HALL MANAGER a imaging was ordered and the brain MRI showed a small acute right caudate nucleus infarct. While the patient was intubated Dr. Andrade, the word processing supervisor was trying to wean the patient off sedation but was unable to. Therefore, on 09/19/2018 Dr. Rosales, ENT was consulted for tracheotomy placement. The trach was placed on 09/20/2017 with no complications. On September 30 the patient developed a maculopapular rash on her upper lower extremities that worsened to her chest and abdomen. As the rash did not improve with steroids and Benadryl dermatology was called for recommendations. It was believed to be acute generalized exanthematous pustulosis which is secondary to contrast media, recent antibiotic use and possibly PPI. Dermatology recommended steroid ointment supplemented with Eucerin cream. And discontinuation of all the offending agents. They also did recommend outpatient allergy testing once the patient is discharged as well. On 10/07/2018 the patient was discharged to ARU, Dr Napoles, for rehabilitation. The pt had apparently decannulated tracheostomy during cough 10/11/18. ENT was consulted, CT Neck completed. Her respirations remain stable, O2 sat stable. Denies any fevers, chills, Headache, Chest Pain, Shortness of breath, cough, palpitations, N/V/D or changes in bowel habits. The pt anticipates d/c today. PMHx: DM HTN HLD hypothyroid PE: GEN: 63yoF, appears stated age. No acute distress. Alert and oriented x 3. Pleasant, interactive. HEENT: Normocephalic, atraumatic. Sclera are nonicteric. No facial asymmetry. Moist mucous membranes. CHEST: Regular rate and rhythm, +S1, +S2 LUNGS: Good A/E bilaterally. No wheezes, rales, or rhonchi. ABD: Round, soft, non-tender, non-distended. +Bowel sounds throughout. EXT: No lower extremity edema appreciated. SKIN: [place], dry, warm. Diffuse rash improved. NEURO: Alert and oriented x 3. Cranial nerves III-XII are intact. No focal deficits appreciated. A&P:63-year-old female who presented to the emergency room with multiple massive episodes of projectile vomiting and diarrhea. The patient was admitted, intubated on 09/07/2018. 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 Infectious disease, Dr. Lyons was consulted for antimicrobial management for the patient. On September 16 because the patient had some altered HALL MANAGER a imaging was ordered and the brain MRI showed a small acute right caudate nucleus infarct. While the patient was intubated Dr. Andrade, the word processing supervisor was trying to wean the patient off sedation but was unable to. Therefore, on 09/19/2018 Dr. Rosales, ENT was consulted for tracheotomy placement. The trach was placed on 09/20/2017 with no complications. On September 30 the patient developed a maculopapular rash on her upper lower extremities that worsened to her chest and abdomen. As the rash did not improve with steroids and Benadryl dermatology was called for recommendations. It was believed to be acute generalized exanthematous pustulosis which is secondary to contrast media, recent antibiotic use and possibly PPI. Dermatology recommended steroid ointment supplemented with Eucerin cream. And discontinuation of all the offending agents. They also did recommend outpatient allergy testing once the patient is discharged as well. On 10/07/2018 the patient was discharged to ARU, Dr Napoles, for rehabilitation. 1. Debility. Mgmt as per ARU. PT/OT/ST as per ARU. Pain control as per ARU Bowel care as per ARU DVT prophylaxis. Lovenox as per ARU Disposition as per ARU. 2. Macular papular rash, likely drug rash. -Dermatology consulted - Acute generalized exanthematous pustulosis likely cause 2/2 recent use of contrast media vs. vanc or pip/tazo recommend Triamcinolone 0.1% ointment bid to affected areas. -c/w Benadryl as needed -Continue to apply Eucerin cream to dry areas -follow up outpatient for allergy testing 2. Status post septic shock secondary to vibrio. -Completed course of antibiotics. 3. Status post acute respiratory failure secondary to septic shock and toxic metabolic encephalopathy. -Status post trach on 09/20/18. -The pt decannulated tracheostomy 10/11/18 AM during cough. -CT of the neck 09/28/18 noted significant edema, for which the patient is unable to get anti-cannulated. -CT neck 10/11/18 edema pattern resolved. -ENT consulted. 4. Acute CVA. -Improved - no focal deficits. -c/w aspirin. 5 Chronic anemia Hgb 10.3. outpatient follow-up with PCP. 6. Hypothyroidism -c/w Synthroid 7. Diabetes mellitus -c/w Levemir and SSI. 8. Hypertension -controlled -c/w losartan 9.GERD -stopped PPI (recommendation from DERM as possible trigger for the rash) cont ranitidine 10. Hypokalemia. Resolved PO supplement. Monitor BMP. 11. Hypomagnesemia. resolved po supplement BID Monitor mag level. 12.UTI. E Coli. Pt symptomatic 10/12. UC E coli. Omnicef 300mg BID D6/7. Continue Bacid 1 tab TID. Monitor. VS, I&O, [facility]H, [facility] Vital Signs/I&O Vital Signs Date Time Temp Pulse Resp B/P (MAP) Pulse Ox O2 Delivery O2 Flow Rate FiO2 10/17/18 08:44 74 124/72 10/17/18 06:00 97.3 18 98 10/12/18 06:00 Trach Collar 5.0 I&O- Last 24 Hours up to 6 AM 10/17/18 06:00 Intake Total 1530 ml Output Total 0 ml Balance 1530 ml Laboratory Data 24H LABS Laboratory Tests 2 10/16/18 16:43: Bedside Glucose (Misc Panel) 151H 10/16/18 20:29: Bedside Glucose (Misc Panel) 138H 10/17/18 06:14: Bedside Glucose (Misc Panel) 128H 10/17/18 07:03: Nucleated Red Blood Cells % (auto) 0.0, Anion Gap 9, Glomerular Filtration Rate > 60.0, Blood Urea Nitrogen 11#, Creatinine 0.54L, Sodium Level 141, Potassium Level 3.9, Chloride Level 106, Carbon Dioxide Level 26, Calcium Level 8.8, Magnesium Level 2.1 CBC/BMP Laboratory Tests 10/17/18 07:03 Red Blood Count 3.38 L, Mean Corpuscular Volume 96.4 H, Mean Corpuscular Hemoglobin 30.5, Mean Corpuscular Hemoglobin Concent 31.6 L, Red Cell Distribution Width 14.3, Calcium Level 8.8 Microbiology Microbiology 10/12/18 Urine Culture - Final, Complete Escherichia Coli 10/08/18 Urine Culture - Final, Complete Massiel Saldana Oct 17, 2018 11:41
--- NOTE | 2018-10-17 17:55 | IPNPDOC ---
PM&R Progress Note DATE OF SERVICE: Oct 16, 2018 [employer] Progress Note Subjective: Patient seen walking in room, denies pain or difficulty breathing, is eager to go home tomorrow. REVIEW OF SYSTEMS: The following is a completed review of systems and has been reviewed. Review of systems otherwise unremarkable. PAIN: Patient self reports painful itchy rash EYES: Negative for vision changes EARS, NOSE, & THROAT: +dysphagia CARDIOVASCULAR: denies chest pain or palpitations PULMONARY: Negative. Denies shortness of breath, tracheostomy GASTROINTESTINAL: Negative for constipation, diarrhea, or vomiting GENITOURINARY:Negative for dysuria or incontinence. MUSCULOSKELETAL: no focal weakness NEUROLOGICAL: +CVA SKIN: diffuse maculopapular rash-improving PSYCHIATRIC: Unremarkable All other review of systems found to be negative. PHYSICAL EXAMINATION: VITAL SIGNS: Please see below. GENERAL: Pleasant and cooperative. No acute distress. HEENT: PERRL. Extraocular movements intact. Clear conjunctiva, tracheostomy site healing well CARDIOVASCULAR: Regular rate and rhythm. No murmurs, rubs, or gallops LUNGS: Clear to auscultation bilaterally. No wheezes. No rhonchi ABDOMEN: Soft, nontender, nondistended. Positive bowel sounds. Normal active bowel sounds NEUROLOGICAL: Alert and oriented times three. Cranial nerves II through XII charito sly intact. Sensation grossly intact EXTREMITIES:5\5 strength bilateral upper extremities.5\5 strength right lower extremity. 5/5 strength in left lower extremity. SKIN: diffuse peeling maculopapular rash on truck,abdomen, and extremities- improving ASSESSMENT:63-year-old F with past medical history of HTN, DM who presents status post septic shock, respiratory failure requiring tracheostomy, and new CVA. PLAN: 1. Rehab: OT/PT, MBS today with RESPITE PROVIDER, ambulating well without AD, doing well with room privileges 2. Neuro: recent right caudate stroke, continue ASA, statin and BP management 3. Cardio: pmh HTN, continue BPs meds and adjust prn, medicine consulted 4. Resp: s/p respiratory failure requiring tracheostomy performed 09/20/18 with #6 fenestrated trach, with laryngeal edema patient self-decannulated 10/11/18 during respiratory treatment, evaluated by ENT, breathing comfortable and repeat CT neck showed resolution of prior noted subglottic edema -will need outpatient ENT f/u -nasal saline drops and flonase 5. Endo:pmh hypothyroidism and DM, continue home meds, will monitor insulin and adjust prn 6. Derm: recently diagnosed generalized exanthematous pustulosis, per patient Triamcinolone cream bazan and Eucerin provides more relief- continue Eucerin and po benadryl, will need outpatient allergy testing-improving 7. GI ppx: Ranitidine 8. DVT: Lovenox 9. : admission UA and Ucx negative, monitor PVRs 10. Disp: 10/17/18 to home, progressing towards goals Allergies Coded Allergies: Latex (Verified Allergy, Unknown, rash powdered gloves, 02/01/18) Vital Signs Vital Signs Date Time Temp Pulse Resp B/P (MAP) Pulse Ox O2 Delivery O2 Flow Rate FiO2 10/17/18 08:44 74 124/72 10/17/18 06:00 97.3 18 98 10/12/18 06:00 Trach Collar 5.0 Laboratory Data CBC/BMP Laboratory Tests 10/17/18 07:03 Red Blood Count 3.38 L, Mean Corpuscular Volume 96.4 H, Mean Corpuscular Hemoglobin 30.5, Mean Corpuscular Hemoglobin Concent 31.6 L, Red Cell Distribution Width 14.3, Calcium Level 8.8 Labs 24H Laboratory Tests 2 10/16/18 20:29: Bedside Glucose (Misc Panel) 138H 10/17/18 06:14: Bedside Glucose (Misc Panel) 128H 10/17/18 07:03: Nucleated Red Blood Cells % (auto) 0.0, Anion Gap 9, Glomerular Filtration Rate > 60.0, Blood Urea Nitrogen 11#, Creatinine 0.54L, Sodium Level 141, Potassium Level 3.9, Chloride Level 106, Carbon Dioxide Level 26, Calcium Level 8.8, Magnesium Level 2.1 Microbiology Microbiology 10/12/18 Urine Culture - Final, Complete Escherichia Coli 10/08/18 Urine Culture - Final, Complete Current Medications Current Medications Current Medications Acetaminophen (Tylenol Tab) 650 mg Q4HP PRN PO fever/MILD PAIN (PS 1-4) Last administered on 10/08/18at 10:15; Start 10/07/18 at 14:30; Stop 10/17/18 at 12:39; Status DC Albuterol/ Ipratropium (Duoneb (Ipr 0.5mg/Alb 2.5mg)) 3 ml Q4HP PRN NEB SOB/WHEEZING; Start 10/07/18 at 15:00; Stop 10/07/18 at 16:04; Status DC Albuterol/ Ipratropium (Duoneb (Ipr 0.5mg/Alb 2.5mg)) 3 ml RTID NEB Last administered on 10/14/18at 07:38; Start 10/07/18 at 20:00; Stop 10/14/18 at 14:11; Status DC Amlodipine Besylate (Norvasc) 5 mg DAILY PO Last administered on 10/17/18at 08:44; Start 10/08/18 at 09:00; Stop 10/17/18 at 12:39; Status DC Aspirin (Aspirin Chewable) 162 mg DAILY NG Last administered on 10/08/18at 09:40; Start 10/08/18 at 09:00; Stop 10/08/18 at 14:52; Status DC Aspirin (Aspirin Chewable) 162 mg DAILY PO Last administered on 10/17/18at 08:45; Start 10/09/18 at 09:00; Stop 10/17/18 at 12:39; Status DC Budesonide (Pulmicort) 0.5 mg RBID INH Last administered on 10/14/18at 07:38; Start 10/07/18 at 20:00; Stop 10/17/18 at 12:39; Status DC Cefdinir (Omnicef) 300 mg BID PO Last administered on 10/17/18at 08:47; Start 10/12/18 at 09:00; Stop 10/17/18 at 12:39; Status DC Cetylpyridinium Chloride (Cepacol) 1 arnoldo Q2HP PRN PO SORE THROAT Last administered on 10/17/18at 08:44; Start 10/07/18 at 20:00; Stop 10/17/18 at 12:39; Status DC Dextrose (Dextrose 50%) 25 ml ASDIRECTED PRN IV SEE LABEL COMMENTS; Start 10/07/18 at 15:00; Stop 10/17/18 at 12:39; Status DC Diphenhydramine HCl (Benadryl) 25 mg Q4HP PRN IM AGITATION; Start 10/07/18 at 15:00; Stop 10/07/18 at 19:58; Status DC Diphenhydramine HCl (Benadryl) 25 mg Q4HP PRN PO ITCHING Last administered on 10/15/18at 20:51; Start 10/07/18 at 20:00; Stop 10/17/18 at 12:39; Status DC Docusate Sodium (Colace) 100 mg BID PO Last administered on 10/17/18at 08:44; Start 10/12/18 at 09:00; Stop 10/17/18 at 12:39; Status DC Enoxaparin Sodium (Lovenox) 40 mg DAILY SC Last administered on 10/17/18at 08:45; Start 10/08/18 at 09:00; Stop 10/17/18 at 12:39; Status DC Fluticasone Propionate (Flonase 0.05% Nasal Brothers) 2 spray DAILY NARES Last administered on 10/17/18 08:45; Start 10/10/18 at 09:00; Stop 10/17/18 at 12:39; Status DC Glucagon (Glucagon) 1 mg ASDIRECTED PRN SC SEE LABEL COMMENTS; Start 10/07/18 at 15:00; Stop 10/17/18 at 12:39; Status DC Glucose (Glucose) 16 GM ASDIRECTED PRN PO SEE LABEL COMMENTS; Start 10/07/18 at 15:00; Stop 10/17/18 at 12:39; Status DC Guaifenesin (Mucinex Tab Er) 600 mg BID PO Last administered on 10/17/18at 08:49; Start 10/07/18 at 21:00; Stop 10/17/18 at 12:39; Status DC Home Med (Med Rec Complete!) ASDIRECTED XX ; Start 10/07/18 at 15:30; Stop 10/07/18 at 15:41; Status DC Insulin Detemir (Levemir Insulin) 25 units QHS SC Last administered on 10/16/18at 20:57; Start 10/07/18 at 21:00; Stop 10/17/18 at 12:39; Status DC Insulin Human Lispro (HumaLOG INSULIN) SEE PROTOCOL TABLE QHS SC ; Start 10/07/18 at 21:00; Stop 10/17/18 at 12:39; Status DC Insulin Human Lispro (HumaLOG INSULIN) See Protocol Table AC SC Last administered on 10/17/18 07:30; Start 10/08/18 at 07:30; Stop 10/17/18 at 12:39; Status DC Lactobacillus Acidophilus (Bacid) 1 ea TID PO Last administered on 10/17/18 08:45; Start 10/12/18 at 16:00; Stop 10/17/18 at 12:39; Status DC Levothyroxine Sodium (Synthroid) 75 mcg DAILY@06 PO Last administered on 10/17/18 06:10; Start 10/08/18 at 06:00; Stop 10/17/18 at 12:39; Status DC Magnesium Oxide (Mag-Ox) 400 mg BID PO Last administered on 10/17/18 08:44; Start 10/12/18 at 21:00; Stop 10/17/18 at 12:39; Status DC Magnesium Oxide (Mag-Ox) 400 mg DAILY PO Last administered on 10/12/18 08:03; Start 10/11/18 at 09:00; Stop 10/12/18 at 13:46; Status DC Mineral Oil/White Petrolatum (Eucerin) 1 dose TID TOP Last administered on 10/17/18 08:45; Start 10/07/18 at 16:00; Stop 10/17/18 at 12:39; Status DC Miscellaneous (Unresolved Clarification Entry) SEE LABEL COMMENTS DAILY XX ; Start 10/14/18 at 09:00; Stop 10/14/18 at 10:42; Status DC Polyethylene Glycol (Miralax) 1 pkt DAILYPRN PRN PO CONSTIPATION Last administered on 10/12/18 09:37; Start 10/12/18 at 09:30; Stop 10/17/18 at 12:39; Status DC Ranitidine HCl (Zantac) 150 mg BID GT Last administered on 10/08/18 09:40; Start 10/07/18 at 21:00; Stop 10/08/18 at 14:52; Status DC Ranitidine HCl (Zantac) 150 mg BID PO Last administered on 10/17/18 08:44; Start 10/08/18 at 21:00; Stop 10/17/18 at 12:39; Status DC Sodium Chloride ([place] Nasal Brothers) 2 spray TID NA Last administered on 2/4/19at 08:45; Start 10/10/18 at 16:00; Stop 10/17/18 at 12:39; Status DC Trazodone HCl (Desyrel) 25 mg Q6HP PRN PO AGITATION; Start 10/07/18 at 15:00; Stop 10/17/18 at 12:39; Status DC Trazodone HCl (Desyrel) 25 mg QHSP PRN PO INSOMNIA; Start 10/07/18 at 15:00; Stop 10/17/18 at 12:39; Status DC Triamcinolone Acetonide (Kenalog 0.1% Ointment) APPLY SPARINGLY TO R... BID TOP Last administered on 10/17/18at 08:46; Start 10/08/18 at 09:00; Stop 10/17/18 at 12:39; Status DC CORY RATLIFF MD Oct 17, 2018 17:55
--- NOTE | 2018-10-17 17:57 | REP ---
COOKIE SWALLOW The procedure was performed under the direct supervision of Dr. Rust. The procedure was performed with Danni Hodgson from speech pathology present. 5 ml aliquots of nectar, pudding, fruit, soft food, solid and the barium pill was administered. There is no evidence of penetration or aspiration. The detailed report of this examination will be provided by speech pathology. 2 minutes of fluoroscopy time was utilized for this procedure. Reviewed by ORION Sánchez 10/17/2018 05:28 P Electronically Signed by Willian Acuna MD 10/17/2018 05:48 P
--- NOTE | 2018-11-02 00:23 | PMRDS ---
DATE OF ADMISSION: 10/07/2018 DATE OF DISCHARGE: 10/17/2018 CHIEF COMPLAINT/DISCHARGE DIAGNOSES: Stroke with trach status post septic shock. HISTORY OF PRESENT ILLNESS: This is a 63-year-old female with a past medical history of hypothyroidism, hypertension who ate raw crab and presented to [facility] Emergency Department (ED) on 09/07/2018 in septic shock, was intubated and found to have Vibrio infection for which she was started on intravenous (IV) antibiotics. She continued to be encephalopathic with fever and elevated white count for which infectious disease (ID) was consulted on 09/15/2018 who recommended an MRI to rule out meningitis or abscess, which was performed on 09/16/2018 showing "Small acute right caudate nucleus infarction...Small vessel ischemic disease" for which she was started on aspirin for secondary stroke prevention. An echo was performed for further stroke workup showing "Normal global left ventricular systolic and diastolic function...Trace tricuspid regurgitation with a normal calcified pulmonary artery systolic pressure...A small pericardial effusion was noted. No evidence of cardiac tamponade." She was unable to be weaned from the vent and had a tracheostomy on 09/20/2018 with a #6 Shiley fenestrated tracheotomy tube performed by Dr. Rosales. She underwent a CT neck on 09/28/2018 showing "There is increased soft tissue density in the vocal cords and proximal subglottic trachea consistent with edema or inflammation. There is mild to moderate mass effect...There is a 1.9 cm left apical lung mass." She was evaluated by speech therapy and placed on a puree diet with thin liquids. 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 She was deemed to have functional deficits and deemed medically appropriate for discharge to ARU 10/07/2018. PAST MEDICAL HISTORY: Diabetes. Hypothyroidism. Hypertension. HOSPITAL COURSE: The patient was admitted and enrolled in a comprehensive physical therapy (PT), occupational therapy (OT) program. Speech language pathology was deferred at first given her subglottic edema. For her right caudate stroke, she was maintained on aspirin, statins, and her blood pressure was well controlled. On 10/11/2018, the patient self-cannulated during a respiratory treatment and was evaluated by Ear, Nose and Throat (ENT), was breathing comfortably, and repeat CAT scan of the neck showed resolution of the prior noted subglottic edema. Her diabetes was well controlled, and her rash gradually improved with the use of Eucerin and triamcinolone cream. However, repeat UA was positive for Escherichia (E) coli, and she was started on cefdinir. She made quick functional gains and was deemed functionally and medically appropriate to return to home with outpatient followup with ENT and for further workup for her left apical lung mass noted on CT neck on 09/28/2018. FUNCTIONAL HISTORY: Upon discharge, the patient was independent without an assistive device, able to ambulate 450 feet, climb 4-6 stairs without any shortness of breath or loss of balance. She was independent in her bathing dressing, and grooming.
== END 2018-10-17 12:30 | disposition home or self-care (01) | DRG 57 ==
LOC: M PM&R 13:35
PROVIDERS: ADMIT Physical Medicine & Rehabilitation; ATTEND Physical Medicine & Rehabilitation
DX: I69.398 Other sequelae of cerebral infarction (principal); N39.0 Urinary tract infection, site not specified; J38.4 Edema of larynx; I10 Essential (primary) hypertension; Z93.0 Tracheostomy status; E11.9 Type 2 diabetes mellitus without complications; E03.9 Hypothyroidism, unspecified; L40.3 Pustulosis palmaris et plantaris; L27.0 Generalized skin eruption due to drugs and medicaments taken internally; T36.8X5A Adverse effect of other systemic antibiotics, initial encounter; Z79.4 Long term (current) use of insulin; Z79.899 Other long term (current) drug therapy; Z91.040 Latex allergy status; R91.1 Solitary pulmonary nodule; I36.0 Nonrheumatic tricuspid (valve) stenosis; B96.29 Other Escherichia coli [E. coli] as the cause of diseases classified elsewhere; K21.9 Gastro-esophageal reflux disease without esophagitis; E87.6 Hypokalemia; E78.5 Hyperlipidemia, unspecified; E83.42 Hypomagnesemia

== ENCOUNTER → 2019-01-13 | Outpatient (CLI) | payer OTHER ==
[~2019-01-13] MED LIST changes: +AMLO5TAB6 PO; +ASPI-286 PO; +CEFD300CAP PO; +DIPH25CA PO; +FLUTISP NARES; +HYDR1CRE95 TOP; +INSUDET SC; +INSUHUMDS SC; +MAG400TA PO; +RANI1SYP PO; +TRIA1OI80 TOP
--- NOTE | 2019-01-13 11:53 | REPMRS ---
Patient History The patient states she has not had a clinical breast exam in over a year. Patient is postmenopausal and had first child at age 41. Family history of colorectal cancer at age 76 in father, colorectal cancer under age 50 in brother. No Hormone Replacement Therapy Digital Woman Screen Mammo: January 13, 2019 - Exam #: [id number] Bilateral CC and MLO view(s) were taken. Technologist: Aicha Quintero, Technologist Prior study comparison: February 16, 2014, digital woman screen mammo performed at [facility]. October 21, 2011, bilateral screening mammogram performed at [facility]. FINDINGS: The breast tissue is heterogeneously dense. This may lower the sensitivity of mammography. There has been no change in the appearance of the mammogram from the prior studies. There is a moderate amount of residual fibroglandular tissue which is fairly symmetric. There is no interval development of dominant mass, areas of architectural distortion, or clustered microcalcification typical of malignancy. Assessment: BI-RADS/ACR category 1 mammogram. Negative Mammogram. Recommendation Routine screening mammogram in 1 year (for women over age 40). This mammogram was interpreted with the aid of an FDA-approved computer-aided dectection system. Electronically Signed By: Zeke Rust MD 01/13/19 [id number]
== END ==
LOC: M WHC 08:31
PROVIDERS: ATTEND Family Medicine
DX: Z12.31 Encounter for screening mammogram for malignant neoplasm of breast (principal); Z78.0 Asymptomatic menopausal state; Z80.0 Family history of malignant neoplasm of digestive organs

== ENCOUNTER → 2020-02-14 | Outpatient (CLI) | payer OTHER ==
[~2020-02-14] MED LIST changes: -DIPH25CA PO; +DIPH25CA32 PO; -GLYB3TA PO; +GLYB3TAB2 PO; +OMEP1CAP73 PO; -OMEP20CA3 PO
== END ==
LOC: M LABSMTC 10:03
PROVIDERS: ATTEND Pediatrics
DX: Z11.59 Encounter for screening for other viral diseases (principal)

== ENCOUNTER → 2021-08-26 | Outpatient (CLI) | payer OTHER ==
[~2021-08-26] MED LIST changes: +AMLO1TAB24 PO; -AMLO5TAB6 PO; -MAG400TA PO; +MAGN400T35 PO
== END ==
LOC: M WHC 12:32
PROVIDERS: ATTEND Student in an Organized Health Care Education/Training Program
DX: Z12.31 Encounter for screening mammogram for malignant neoplasm of breast (principal); Z80.0 Family history of malignant neoplasm of digestive organs

== ENCOUNTER → 2022-04-01 | Outpatient (REF) | payer MEDICARE, OTHER, SELFPAY ==
[~2022-04-01] MED LIST changes: -ASPI-286 PO; +SM C81CH2 PO
== END ==
LOC: M LAB REF 16:09
PROVIDERS: ATTEND Ophthalmology
DX: D23.9 Other benign neoplasm of skin, unspecified (principal)

== ENCOUNTER → 2022-08-16 | Outpatient (CLI) | payer MEDICARE, OTHER ==
[~2022-08-16] MED LIST changes: +DULA4.5P SC; +LOSA100T5; +METF-838 PO; +NOVOINJ3 SC; +TRES1INJ2 SC
== END ==
LOC: M LABSMTC 09:28
PROVIDERS: ATTEND Anesthesiology
DX: Z01.812 Encounter for preprocedural laboratory examination (principal); Z11.52 Encounter for screening for COVID-19

== ENCOUNTER 2022-08-19 07:21 | Day surgery (SDC) | payer MEDICARE, OTHER ==
[~2022-08-19] VITALS: Ht 154.9 cm; Wt 65.7 kg
[~2022-08-19 07:21] MED LIST changes: +NS 1,000 ML IV ONE
[2022-08-19] MEDS ORDERED: propofoL 200 MG/20 ML VIAL As Ordered ONE (07:47)
[2022-08-19] MEDS ORDERED: fentaNYL 100 MCG/2 ML INJECTION As Ordered ONE (07:48)
[2022-08-19 09:27] VITALS: BP 149/83
== END 2022-08-19 09:48 | disposition home or self-care (01) ==
LOC: M OPP 07:21
PROVIDERS: ATTEND Surgery
DX: Z12.11 Encounter for screening for malignant neoplasm of colon (principal); Z86.010 Personal history of colon polyps; Z80.0 Family history of malignant neoplasm of digestive organs; D12.3 Benign neoplasm of transverse colon; K64.9 Unspecified hemorrhoids; K31.7 Polyp of stomach and duodenum; Z79.4 Long term (current) use of insulin; Z79.899 Other long term (current) drug therapy; Z88.8 Allergy status to other drugs, medicaments and biological substances; Z91.040 Latex allergy status; I10 Essential (primary) hypertension; E78.5 Hyperlipidemia, unspecified; E03.9 Hypothyroidism, unspecified; E11.9 Type 2 diabetes mellitus without complications; Z86.73 Personal history of transient ischemic attack (TIA), and cerebral infarction without residual deficits; Z80.1 Family history of malignant neoplasm of trachea, bronchus and lung
CPT/HCPCS: 43239; 45385; 88305; J3010

== ENCOUNTER → 2023-03-09 | Outpatient (CLI) | payer MEDICARE, OTHER ==
[~2023-03-09] MED LIST changes: +DIPH-435 PO; -DIPH25CA32 PO; +FLUT50SP17 NARES; -FLUTISP NARES; -NS 1,000 ML IV ONE
== END ==
LOC: M WHC 13:00
PROVIDERS: ATTEND Nurse Practitioner Primary Care
DX: Z12.31 Encounter for screening mammogram for malignant neoplasm of breast (principal); E55.9 Vitamin D deficiency, unspecified; Z13.820 Encounter for screening for osteoporosis

== ENCOUNTER → 2025-06-19 | Outpatient (CLI) | payer MEDICARE, OTHER ==
[~2025-06-19] MED LIST changes: -FLUT50SP17 NARES; +FLUTISP NARES
== END ==
LOC: M EKG 12:44
PROVIDERS: ATTEND Internal Medicine Cardiovascular Disease
DX: E78.5 Hyperlipidemia, unspecified (principal); Z53.9 Procedure and treatment not carried out, unspecified reason

== ENCOUNTER → 2025-08-20 | Outpatient (CLI) | payer MEDICARE, OTHER | LOC: M CARPUL 08:21 | PROVIDERS: ATTEND Internal Medicine Cardiovascular Disease | DX: I44.30 Unspecified atrioventricular block (principal); E78.5 Hyperlipidemia, unspecified; R09.89 Other specified symptoms and signs involving the circulatory and respiratory systems ==